=== PATIENT | male | born 1960 | race Caucasian/White ===

== ENCOUNTER 2020-10-27 14:52 | Outpatient (RCR) | payer OTHER, SELFPAY ==
[2016-01-17 19:29] VITALS: BMI 29.6
[2020-10-27] MEDS: COVID-19 VACC, MRNA(PFIZER)/PF 30 MCG/0.3 ML SYRINGE IM (14:44)
[2020-11-17] MEDS: COVID-19 VACC, MRNA(PFIZER)/PF 30 MCG/0.3 ML SYRINGE IM (14:18)
== END 2020-10-27 23:59 ==
LOC: IMMUN 14:52
PROVIDERS: PCP Preventive Medicine Occupational Medicine; Referring Provider Family Medicine; Visit Provider Family Medicine
DX: Z23 Encounter for immunization (principal)
CPT/HCPCS: 0001A; 0002A; 91300

== ENCOUNTER → 2023-07-07 | Outpatient (CLI) | payer SELFPAY | END | disposition home or self-care (01) | PROVIDERS: PCP Preventive Medicine Occupational Medicine; Referring Provider Otolaryngology Otolaryngology/Facial Plastic Surgery; Visit Provider Otolaryngology Otolaryngology/Facial Plastic Surgery | DX: J02.9 Acute pharyngitis, unspecified (principal) | CPT/HCPCS: 87070 ==

== ENCOUNTER 2025-03-21 08:23 | Emergency (ER) | payer OTHER, SELFPAY ==
[2025-03-21 08:23] VITALS: BP 167/87; PULSE 77; RESP 14; TEMP 36.6; O2SAT 98; BMI 33.7
--- NOTE | 2025-03-21 08:37 | EKG12_ITS ---
Test Reason : CP Blood Pressure : */* mmHG Vent. Rate : 76 BPM Atrial Rate : 76 BPM P-R Int : 200 ms QRS Dur : 98 ms QT Int : 410 ms P-R-T Axes : 50 -33 67 degrees QTcB Int : 461 ms Normal sinus rhythm Left axis deviation Left ventricular hypertrophy with repolarization abnormality ( R in aVL , Kenneth product ) Abnormal ECG Confirmed by Reji Harden [id number]), editor continuity and script BRISA SCHMITZ ([id number]) on 03/22/2025 11:40:14 AM Referred By: ANI/BB Confirmed By: Reji Harden
--- NOTE | 2025-03-21 08:37 | EKG12_ITS ---
Test Reason : CP Blood Pressure : */* mmHG Vent. Rate : 76 BPM Atrial Rate : 76 BPM P-R Int : 200 ms QRS Dur : 98 ms QT Int : 410 ms P-R-T Axes : 50 -33 67 degrees QTcB Int : 461 ms Normal sinus rhythm Left axis deviation Left ventricular hypertrophy with repolarization abnormality ( R in aVL , Kenneth product ) Abnormal ECG Confirmed by Reji Harden ([id number]), science editor BRISA SCHMITZ ([id number]) on 03/22/2025 11:40:14 AM Referred By: ANI/BB Confirmed By: Reji Harden
--- NOTE | 2025-03-21 08:38 | ED.VIS.CHEST ---
HPI History of Present Illness Chief Complaint: Chest Pain Detail of Chief Complaint: Chest tightness Informant: patient Onset/Context/Timing Onset: Today and Yesterday Activity at onset: - (Patient does not know exactly what what time it started.) Timing: Continuous (Presumed, detailed HPI narrative) Quality: Positive for Pressure and Tightness Location: Substernal Current Severity: Mild Maximum Severity: Mild Worsened By: Nothing Relieved By: Nothing Associated Symptoms: Positive for - (Does not radiate.); Negative for Nausea, Vomiting, Diaphoresis, Dyspnea, Cough, Lightheadedness, Acid Reflux or Palpitations Narrative Narrative: Patient is a 64-year-old male with history of coronary disease. He has 1 stent in his RCA and another stent in unknown vessel. He had cardiac catheterization and PTCA performed at [facility] in January and February 2024. He does have a history of hypercholesterolemia, GERD. He is on aspirin and Plavix. He has taken his doses within the last 24 hours. Patient states yesterday he noticed some chest tightness. This is slightly better with breathing. There is no associated symptoms. There is no radiation. Patient states upon awakening he still felt the tightness in his chest. It was worse than yesterday. He states he presented to have a EKG to see if there was any abnormality. Patient does not believe he had an EKG at [facility]. The wet crown blocking operator that placed the stents was Dr. Meza. Patient has no history of VTE. He denies leg pain, swelling or discoloration. Patient sleeps with 2 pillows for comfort not because of dyspnea in supine position. Patient denies PND. He has never had discomfort with his GERD. Prior Similar Symptoms: No Recent Illness/Hospitalization: No CVD Risk Factors: Positive for Hypercholesterolemia and - (Coronary disease with stent in his RCA and unknown vessel.) PE Risk Factors: Negative for Recent Travel/Surgery, Recent Immobilization, Prior DVT or PE, Cancer or OCP + Smoking + >/=35 TAD Risk Factors: Negative for Marfan's Syndrome, Hypertension or Family History [facility] Medical History Umbilical hernia High cholesterol Heart murmur Arthritis Back problem Heart disease Home Medications ?Medication ?Instructions ?Recorded ?Last Taken ?Type antiarthritic combination no.2 900 900 mg PO DAILY 03/21/25 03/21/25 History mg tablet (glucosamine-chondroitin) aspirin 81 mg tablet,delayed 81 mg PO QDAY 03/21/25 03/20/25 History release atorvastatin 40 mg tablet 40 mg PO QDAY 03/21/25 03/20/25 History clopidogrel 75 mg tablet 75 mg PO QDAY 03/21/25 03/20/25 History evolocumab 140 mg/mL subcutaneous 140 mg subcut .COMPLEX 03/21/25 03/11/25 History pen injector (Repatha SureClick) famotidine 40 mg tablet 40 mg PO QHS 03/21/25 03/20/25 History metoprolol succinate 25 mg 25 mg PO BID 03/21/25 03/20/25 History tablet,extended release 24 hr pantoprazole 40 mg tablet,delayed 40 mg PO DAILY PRN abdominal pain 03/21/25 03/21/25 History release sildenafil 100 mg tablet 50 - 100 mg PO QDAY 03/21/25 Unknown History Allergy/AdvReac Type Severity Reaction Status Date / Time celecoxib (From Celebrex) Allergy UNKNOWN Verified 03/21/25 08:24 Penicillins Allergy Unknown Verified 03/21/25 08:17 Family History Father Heart disease Cancer esophageal Surgical History S/P carotid endarterectomy S/P spinal surgery S/P aortic valve replacement S/P vasectomy History of heart artery stent Social History Smoking Status: Former smoker alcohol intake: current ROS ROS ED Constitutional Constitutional ED: Denies chills, fever(s), subjective or sweats Eyes Eyes: Reports none ENT ENT ED: Denies ear pain or rhinorrhea Cardiovascular Cardiovascular: Reports as per HPI; Denies orthopnea or paroxysmal nocturnal dyspnea Respiratory/Chest Respiratory/Chest: Denies cough, dyspnea, dyspnea on exertion, orthopnea or paroxysmal nocturnal dyspnea Gastrointestinal Gastrointestinal: Denies abdominal pain, melena, nausea or vomiting Musculoskeletal Musculoskeletal: Denies arthralgias, back pain or myalgias Integumentary Denies rash Neurologic Neurologic: Denies paresthesias Hematologic/Lymphatic Hematologic/Lymphatic: Denies easy bleeding or easy bruising EXAM Physical Exam Const Vital Signs: 03/21/25 08:23 03/21/25 08:42 03/21/25 09:23 Temperature 98 F Temperature Source Temporal Pulse Rate 77 71 Respiratory Rate 14 18 Blood Pressure 167/87 H 150/82 H Blood Pressure Mean 113 104 Pulse Ox 98 98 Oxygen Delivery Method Room Air Room Air Room Air 03/21/25 10:00 03/21/25 11:00 Temperature Temperature Source Pulse Rate 69 67 Respiratory Rate 16 15 Blood Pressure 152/85 H 117/70 Blood Pressure Mean 107 85 Pulse Ox 98 98 Oxygen Delivery Method Positive well nourished and well developed Constitutional Narrative: BMI is 33.8. General Appearance ED: well developed and NAD; Negative for pallor HEENT Reports moist mucous membranes normocephalic and atraumatic Eyes PERRL and EOMs intact bilaterally Neck no lymphadenopathy and no JVD Resp normal respiratory effort and clear to auscultation bilaterally Cardio regular rate, regular rhythm, S1 normal heart sound, S2 normal heart sound and no murmurs GI normal to inspection, nondistended, normoactive bowel sounds, soft to palpation, non-tender, non-distended and no masses; Negative for hepatosplenomegaly Back/Spine Back/Spine Narrative: Inspection of the back is normal. Extremity Extremity Narrative: There is no asymmetry, swelling, discoloration, leg vein distention, palpable cords or tenderness along the distribution of the deep venous system. General Extremety ED: Negative for edema or pulses abnormal General Extremity: Negative for edema or pulses abnormal Neuro oriented x3 and CN's II-XII intact bilaterally Sensorium / Orientation: awake and alert Psych mental status grossly normal Skin no rashes or lesions noted and no wounds General Skin Exam: Negative for jaundice or pallor MDM MDM MDM Narrative Medical decision making narrative: Differential diagnosis is cardiac versus noncardiac. Noncardiac would include GERD, peptic ulcer disease hiatal hernia, pulmonary, chest pain of unknown etiology, biliary which is unlikely. Will obtain EKG serial troponins. CBC to assess H&H. BMP to assess renal function. Patient has taken aspirin and Plavix within the past 24 hours. Since he still having tightness in his chest he received nitroglycerin. There are no old EKGs. Corsets Salesperson was asked to obtain EKGs from [facility] for comparison since his EKG is not normal. Chest x-ray was obtained to assess for pneumonia, CHF, pneumothorax. These are unlikely. History & Record Review Additional record(s) reviewed:: Prior outpatient record (Patient had cardiac catheterization by Dr. Rodriguez February 09, 2024. He had percutaneous intervention mid LAD. There was 75% stenosis. Interventional IVUS stent placement and balloon angioplasty. January 14 Dr. Meza placed a stent proximal right coronary artery. Patient had a 95% stenosis.) Lab Data Attestation: I reviewed the patient's lab results. Lab results narrative: CBC is unremarkable. Electrolyte panel is unremarkable. The glucose is slightly elevated 123 with a normal CO2 anion gap. First troponin is elevated at 25. Labs: Laboratory Results - last 24 hr 03/21/25 03/21/25 08:31 10:35 WBC 7.0 RBC 4.60 Hgb 14.6 Hct 43.8 MCV 95.2 H MCH 31.7 MCHC 33.3 RDW Std Deviation 42.0 RDW Coeff of Victor M 12.1 Plt Count 170 MPV 10.2 Immature Gran % (Auto) 0.300 Neut % (Auto) 48.2 Lymph % (Auto) 35.3 [place] % (Auto) 11.8 H Eos % (Auto) 3.3 Baso % (Auto) 1.1 H Absolute Neuts (auto) 3.4 Absolute Lymphs (auto) 2.48 Nucleated RBC % 0 Sodium 141 Potassium 3.7 Chloride 106 Carbon Dioxide 22.2 Anion Gap 12 BUN 13 Creatinine 0.96 Estim Creat Clear Calc 97.59 Est GFR (MDRD) Non-Af 89 BUN/Creatinine Ratio 13.3 Glucose 123 H Calcium 9.6 Troponin T High Sens 25 H Troponin T Hi Sens 2 Hr 22 Radiography Chest X-Ray - ED: 2 View (Cardiac silhouette and size normal hilum is normal. There is no infiltrate, effusion or pneumothorax. Osseous structures with no acute process.) Diagnostic Testing: Clinical Impression(s) from Imaging Studies Chest X-Ray 03/21/25 08:50 IMPRESSION: NO ACUTE FINDINGS. Reading Location: [facility] EKG Initial EKG: Attestation: I personally reviewed and interpreted this EKG as follows: Interpretation: Sinus Rhythm (Rate is 76. [place] is to the left. [place] interval is 200 ms. QRS duration 90 ms. QT duration 4 and 10 ms. There is evidence of LVH. There is some nonseptic ST-T wave changes probably due to the LVH.) Management Discussion w/another healthcare provider: Department Director (Dr. Siegel was contacted regarding other patient. Spoke to him regarding Reji prior to second troponin. Plan was if second troponin is negative or delta is negative that he can follow-up as an outpatient. The second troponin is normal with a negative delta. Therefore patient was informed to fo) Additional Tests and Interventions Additional Tests or Interventions: Cath report there was performed on February 09, 2024 revealed 6% stenosis of the the first diagonal proximally. There also was a proximal 70% stenosis noted of the first right posterior lateral vessel. Discharge Plan Triage Chief Complaint: Chest Pain ED Provider: Jose Angel Wilkerson Dx/Rx/DC Orders Clinical Impression: Chest tightness, History of coronary artery disease, Antiplatelet or antithrombotic long-term use, History of mixed hyperlipidemia, Hx of gastroesophageal reflux (GERD) Instructions: ED Chest Pain, Uncertain Cause Prescriptions: No Action Repatha SureClick 140 mg/mL pen injector 140 mg subcut .COMPLEX Patient Comments: INJECT 140 MG SUBCUTANEOUS EVERY 2 WEEKS FOR 90 DAYS ROTATE INJECTION SITES Rx Instructions: 140 mg subcutaneously q2w; pantoprazole 40 mg tablet,delayed release (DR/EC) 40 mg PO DAILY PRN (Reason: abdominal pain) sildenafil 100 mg tablet 50 - 100 mg PO QDAY metoprolol succinate 25 mg tablet extended release 24 hr 25 mg PO BID famotidine 40 mg tablet 40 mg PO QHS clopidogrel 75 mg tablet 75 mg PO QDAY atorvastatin 40 mg tablet 40 mg PO QDAY aspirin 81 mg tablet,delayed release (DR/EC) 81 mg PO QDAY glucosamine-chondroitin 900 mg tablet 900 mg PO DAILY Primary Care Provider: MICHELLE MAYER Referrals: Garrett Landeros DO [Non-Staff] - 1 Week Activity Restrictions/Additional Instructions: Contact your wet crown blocking operator for follow-up Print Language: Hebrew Disposition Disposition: Home, Self Care
--- NOTE | 2025-03-21 08:50 | RAD_ITS ---
PROCEDURE: CHEST PA AND LATERAL 03/21/2025 REASON FOR EXAM: CHEST PAIN TECHNIQUE: CHEST PA AND LATERAL COMPARISON: None FINDINGS: Hardware: EKG electrodes are seen. Heart: Prior midline sternotomy. Mediastinum: The mediastinal contour is unremarkable. Lungs: The lungs are clear. Bones: The bones are unremarkable. Prior fusion of the lower cervical spine. RAD/Chest PA and Lateral IMPRESSION: NO ACUTE FINDINGS. Reading Location: [facility]-
--- NOTE | 2025-03-21 08:50 | RAD_ITS ---
PROCEDURE: CHEST PA AND LATERAL 03/21/2025 REASON FOR EXAM: CHEST PAIN TECHNIQUE: CHEST PA AND LATERAL COMPARISON: None FINDINGS: Hardware: EKG electrodes are seen. Heart: Prior midline sternotomy. Mediastinum: The mediastinal contour is unremarkable. Lungs: The lungs are clear. Bones: The bones are unremarkable. Prior fusion of the lower cervical spine. RAD/Chest PA and Lateral IMPRESSION: NO ACUTE FINDINGS. Reading Location: [facility]
[2025-03-21 08:53] LABS: Hematocrit 43.8 % (40-54); Hemoglobin 14.6 g/dL (13.0-16.5); Immature Granulocytes Count 0.020 X10^3/uL (0.0-0.0); Mean Corp Hgb Conc 33.3 g/dL (32-36); Mean Corpuscular Volume 95.2 fL (80-94); Mean Platelet Vol. 10.2 fl (6.2-12.0); NRBC Flagged by Analyzer 0 % (0-5); Platelet Count 170 K/mm3 (150-450); RBC Distribution Width CV 12.1 % (11.6-14.6); RBC Distribution Width SD 42.0 fl (35.1-43.9); Red Blood Count 4.60 M/mm3 (4.6-6.2); White Blood Count 7.0 K/mm3 (4.4-11.0)
[2025-03-21 09:16] LABS: Anion Gap 12 (5-15); BUN 13 mg/dL (4-19); BUN/Creat Ratio 13.3 RATIO (10-20); Calcium,Total 9.6 mg/dL (7.6-11.0); Carbon Dioxide 22.2 mmol/L (21.0-32.0); Chloride 106 mmol/L (98-108); Estimated Creatinine Clearance 97.59 ml/min (50-250); Glucose 123 mg/dL (70-99); Potassium 3.7 mmol/L (3.3-5.1); Troponin T High Sensitivity 25 ng/L (<=22)
[2025-03-21 09:23] VITALS: BP 150/82; PULSE 71; RESP 18; O2SAT 98
--- OUTSIDE RECORDS SUMMARY | 2025-03-21 09:44 | XMS RPT_ITS | CCD ---
Author Organization [facility] CliniSymt Care Team Providers Care Automation And Control Engineer Name Role Phone ELIAS GALVAN DO Primary Care Physician [phone] Mehul Damon Referring Unavailable Mehul Damon Attending Unavailable Elias Galvan Primary Care Unavailable POLA CHAVARRIA MD Attending Unavailable ELIAS GALVAN DO Primary Care Unavailable STELLA GARCÍA MD Attending Unavailable ELIAS GALVAN DO Primary Care Unavailable ELIAS GALVAN DO Primary Care Unavailable MCKINLEY BAY, MICHELLE Attending Unavailable STELLA GARCÍA MD Attending Unavailable ELIAS GALVAN DO Primary Care Unavailable CHARLIE KOEHLER Attending Unavailab darline GALVAN DO, ELIAS Primary Care Unavailable DR DARCI AZEVEDO MD Attending Unavailab ELIAS Hoffmann DO Primary Care Unavailable STELLA GARCÍA MD Attending Unavailable ELIAS GALVAN DO Primary Care Unavailable STELLA GARCÍA MD Attending Unavailable ELIAS GALVAN DO Primary Care Unavailable STELLA GARCÍA MD Admitting Unavailable TIFFANY WESLEY Consulting Unavailable JAKE CORMIER MD Consulting UnavailSTELLA Rivers MD Consulting Unavailable DR ANTONINA MALHOTRA MD Admitting DR ANTONINA Loza MD Attending ELIAS Farmer DO Primary Care Unavailable ELIAS GALVAN DO Attending Unavailable ELIAS GALVAN DO Primary Care Unavailable ELIAS GALVAN DO Primary Care Unavailable ELIAS GALVAN DO Attending Unavailable Dr. Elias Galvan DO Primary Care Provider [phone] Dr. Elias Galvan DO Referring Provider Guido AGARWAL, Dr. Garcia Attending Provider Allergies Allergy Classification Reported Allergen(s) Allergy Type Date of Onset Reaction(s) Facility (18 sources) celecoxib; Translations: [celecoxib] Drug Allergy unknown [facility] (18 sources) Penicillin; Translations: [penicillins] Drug Allergy Unknown [facility] (2 sources) Penicillins Allergy to substance 01-17-2016 Unknown [facility] (1 source) Penicillins Drug allergy (disorder) 01-17-2016 [facility] Repository Medications Current Medications Medication Drug Class(es) Dates Sig (Normalized) Sig (Original) aspirin 81 mg delayed release oral tablet (20 sources) Platelet Aggregation Inhibitor, Nonsteroidal Anti-inflammatory Drug Start: 07-06-2024 aspirin 81 mg oral delayed release tablet Dose : 81 mg = 1 tab(s), Oral, Daily, # 90 tab(s), 5 Refill(s), Pharmacy: [facility]/pharmacy #[id number], 177.8, cm, 04/20/24 9:12:00 EDT, Height, kg, 04/20/24 9:12:00 EDT, Dosing Weight Start Date: 07/06/24 Status: Ordered Quantity: 90.0 Unit: tab(s) Repeat number: 6 Start: 01-12-2024 aspirin 81 mg oral delayed release tablet Dose : 81 mg = 1 tab(s), Oral, Daily, # 90 tab(s), 5 Refill(s), Pharmacy: [facility] #[id number], 177.8, cm, 01/12/24 8:36:00 EDT, Height, kg, 01/12/24 8:36:00 EDT, Dosing Weight Start Date: 01/12/24 Status: Ordered Start: 11-16-2016 aspirin 325 mg oral tablet Dose : 325 mg = 1 tab(s), Oral, qHS Start Date: 11/16/16 Status: Ordered Start: 01-17-2016 take 1 tablet by stacey th once daily Aspirin 325 MG tablet Active 325 mg PO DAILY@0800 January 17, 2016 12:00am atorvastatin 40 mg oral tablet (6 sources) HMG-CoA Reductase Inhibitor Start: 07-06-2024 atorvastatin 40 mg oral tablet Dose : 40 mg = 1 tab(s), Oral, qDay, # 90 tab(s), 3 Refill(s), Pharmacy: [facility]/pharmacy #[id number], 177.8, cm, 04/20/24 9:12:00 EDT, Height, kg, 04/20/24 9:12:00 EDT, Dosing Weight Start Date: 07/06/24 Status: Ordered Quantity: 90.0 Unit: tab(s) Repeat number: 4 Start: 01-06-2024 atorvastatin 4 0 mg oral tablet Dose : 40 mg = 1 tab(s), Oral, qDay, # 30 tab(s), 2 Refill(s), Pharmacy: [email or web address] #[id number], 178, cm, 01/06/24 10:15:00 EDT, Height, kg, 01/06/24 10:15:00 EDT, Dosing Weight Start Date: 01/06/24 Status: Ordered azithromycin 250 mg oral tablet (3 sources) Macrolide Antimicrobial Start: 01-17-2016 take 1 tablet by mouth once daily Azithromycin 250 MG tablet Active 250 mg PO DAILY 4 0 January 17, 2016 12:00am Chondroitin Sulfates / Glucosamine (1 source) Start: 07-10-2023 take 1 capsule by mouth once daily in the morning Glucosamine Chondroitin oral capsule Dose = 2 cap(s), Oral, qAM, # 50 cap(s), 0 Refill(s) Start Date: 07/10/23 Status: Ordered clindamycin 150 mg oral capsule (1 source) Lincosamide Antibacterial Start: 03-26-2022 take 4 capsules by mouth every hour clindamycin 150 mg oral capsule take 4 capsules by mouth 1 hour prior to appointment Start Date: 03/26/22 Status: Ordered clopidogrel 75 mg oral tablet (10 sources) [id number] Platelet Inhibitor Start: 07-06-2024 Plavix 75 mg oral tablet Dose : 75 mg = 1 tab(s), Oral, qDay, # 90 tab(s), 3 Refill(s), Pharmacy: [facility]/pharmacy #[id number], 177.8, cm, 04/20/24 9:12:00 EDT, Height, kg, 04/20/24 9:12:00 EDT, Dosing Weight Start Date: 07/06/24 Status: Ordered Quantity: 90.0 Unit: tab(s) Repeat number: 4 Start: 01-12-2024 Plavix 75 mg o ral tablet Dose : 75 mg = 1 tab(s), Oral, qDay, # 90 tab(s), 11 Refill(s), Pharmacy: [email or web address] #[id number], 177.8, cm, 01/12/24 8:36:00 EDT, Height, kg, 01/12/24 8:36:00 EDT, Dosing Weight Start Date: 01/12/24 Status: Ordered Start: 10-10-2022 Plavix 75 mg o ral tablet Dose : 75 mg = 1 tab(s), Oral, qDay, # 30 tab(s), 0 Refill(s) Start Date: 10/10/22 Status: Ordered 1 ml evolocumab 140 mg/ml auto-injector (2 sources) PCSK9 Inhibitor Start: 08-18-2024 inject 1 dose by subcutaneous injection every other week Repatha SureClick 140 mg/mL subcutaneous solution Dose : 140 mg =, Subcutaneous, q2wk, rotate injection sites, # 2 EA, 11 Refill(s), [id number], Hyperlipidemia, 177.5, cm, 08/18/24 8:04:00 EST, Height, kg, 08/18/24 8:04:00 EST, Dosing Weight Start Date: 08/18/24 Status: Ordered Quantity: 2.0 Unit: EA Repeat number: 12 Indication: Hyperlipidemia, unspecified famotidine 40 mg oral tablet (3 sources) Histamine-2 Receptor Antagonist Start: 07-28-2024 Pepcid 40 mg oral tablet Dose : 40 mg = 1 tab(s), Oral, qHS, # 90 tab(s), 1 Refill(s), Pharmacy: [facility]/pharmacy #[id number], 177.8, cm, 04/20/24 9:12:00 EDT, Height, kg, 04/20/24 9:12:00 EDT, Dosing Weight Start Date: 07/28/24 Status: Ordered Quantity: 90.0 Unit: tab(s) Repeat number: 2 Start: 02-09-2024 Pepcid 40 mg o ral tablet Dose : 40 mg = 1 tab(s), Oral, qHS, # 90 tab(s), 1 Refill(s), Pharmacy: [facility] #[id number], 177.8, cm, 02/07/24 22:01:00 EDT, Height, kg, 02/07/24 22:01:00 EDT, Dosing Weight Start Date: 02/09/24 Status: Ordered Fish Oils (1 source) Start: 07-10-2023 [place]-3 Fish O il 1200 mg oral capsule Dose : 1,200 mg = 1 cap(s), Oral, BID, # 60 cap(s), 0 Refill(s) Start Date: 07/10/23 Status: Ordered 24 hr metoprolol succinate 25 mg extended release oral tablet (8 sources) beta-Adrenergic Karin Start: 08-18-2024 metoprolol succinate 25 mg oral TABLET extended release Dose : 25 mg = 1 tab(s), Oral, BID, # 180 tab(s), 3 Refill(s), Pharmacy: [facility]/pharmacy #[id number], 177.5, cm, 08/18/24 8:04:00 EST, Height, kg, 08/18/24 8:04:00 EST, Dosing Weight Start Date: 08/18/24 Status: Ordered Quantity: 180.0 Unit: tab(s) Repeat number: 4 Start: 02-09-2024 metoprolol suc cinate 25 mg oral TABLET extended release Dose : 25 mg = 1 tab(s), Oral, BID, 0 Refill(s) Start Date: 02/09/24 Status: Ordered Start: 02-09-2024 End: 02-09-2024 metoprolol succinate 25 mg o ral TABLET extended release Start: 02/09/24 11:13:00 AM EDT, Dose = 25 mg, = 1 tab(s), Oral, give with food, 0, 02/09/24 11:13:00 EDT Start Date: 02/09/24 Stop Date: 02/09/24 Status: Completed Start: 02-08-2024 End: 02-08-2024 metoprolol succinate 25 mg o ral TABLET extended release Start: 02/08/24 10:00:00 PM EDT, Dose = 25 mg, = 1 tab(s), Oral, give with food, 0, 02/07/24 23:48:00 EDT Start Date: 02/08/24 Stop Date: 02/08/24 Status: Completed Start: 01-06-2024 metoprolol suc cinate 25 mg oral TABLET extended release Dose : 25 mg = 1 tab(s), Oral, qDay, Do not crush or chew (controlled release), # 30 tab(s), 1 Refill(s), Pharmacy: [facility] #[id number], 178, cm, 01/06/24 10:15:00 EDT, Height, kg, 01/06/24 10:15:00 EDT, Dosing Weight Start Date: 01/06/24 Status: Ordered Multiple Vitamins oral capsule (1 source) Start: 07-10-2023 Multiple Vitamins oral capsule Dose = 1 cap(s), Oral, 12 (noon), # 90 cap(s), 0 Refill(s) Start Date: 07/10/23 Status: Ordered Multivitamin preparation (2 sources) Start: 02-18-2024 take 1 tablet by mouth once daily Multivitamin Dose = 1 tab(s), Oral, Daily, 0 Refill(s) Start Date: 02/18/24 Status: Ordered Repeat number: 1 mupirocin 0.02 mg/mg topical ointment (2 sources) RNA Synthetase Inhibitor Antibacterial Start: 07-24-2022 mupirocin 2% topical ointment Apply 1 rafael, Topical, BID, Bilateral intranasal application twice daily for 5 days prior to surgery &/or as many days leading up to surgery as possible due to surgical urgency/scheduling . Send to patient's preferred pharmacy., Apply to: nostril, each,... Start Date: 07/24/22 Status: Ordered naproxen 500 mg delayed release oral tablet (3 sources) Nonsteroidal Anti-inflammatory Drug Start: 07-17-2022 End: 10-15-2022 naproxen 500 mg oral delayed release tablet Dose : 500 mg = 1 tab(s), Oral, BID, PRN Pain, X 30 day(s), # 60 tab(s), 2 Refill(s), 10/15/22 11:16:00 EST, Pharmacy: [facility] #[id number], Medial collateral ligament sprain of knee, 178, cm, 07/17/22 10:32:00 EST, Height Start Date: 07/17/22 Stop Date: 10/15/22 Status: Ordered nitroglycerin 0.4 mg sublingual tablet (3 sources) Nitrate Vasodilator Start: 02-09-2024 nitroglycerin 0.4 mg sublingual tablet 0.4 mg Dose = 1 tab(s), Sublingual, q5min, PRN Chest pain, # 30 tab(s), 0 Refill(s), Pharmacy: [facility] #[id number], 177.8, cm, 02/07/24 22:01:00 EDT, Height, kg, 02/07/24 22:01:00 EDT, Dosing Weight Start Date: 02/09/24 Status: Ordered Quantity: 30.0 Unit: tab(s) Repeat number: 1 omeprazole 20 mg delayed release oral capsule (16 sources) Proton Pump Inhibitor Start: 01-17-2016 End: 01-24-2024 take 1 capsule by mouth once daily Omeprazole 20 MG capsule Active 20 mg PO DAILY January 17, 2016 12:00am pantoprazole 40 mg delayed release oral tablet (3 sources) Proton Pump Inhibitor Start: 05-07-2024 Protonix 40 mg oral enteric coated tablet Dose : 40 mg = 1 tab(s), Oral, qDay, PRN abdominal discomfort, # 90 tab(s), 3 Refill(s), Pharmacy: [facility]/pharmacy #[id number], 177.8, cm, 04/20/24 9:12:00 EDT, Height, kg, 04/20/24 9:12:00 EDT, Dosing Weight Start Date: 05/07/24 Status: Ordered Quantity: 90.0 Unit: tab(s) Repeat number: 4 Start: 02-09-2024 Protonix 40 mg oral enteric coated tablet Dose : 40 mg = 1 tab(s), Oral, AsDirected, PRN abdominal discomfort, # 30 tab(s), 0 Refill(s), Pharmacy: [email or web address] #[id number], 177.8, cm, 02/07/24 22:01:00 EDT, Height, kg, 02/07/24 22:01:00 EDT, Dosing Weight Start Date: 02/09/24 Status: Ordered sildenafil 100 mg oral tablet (2 sources) Phosphodiesterase 5 Inhibitor Start: 08-18-2024 take 0.5-1 tablets by mouth once daily sildenafil 100 mg oral tablet 0.5 to 1 tab(s), Oral, qDay, 1 hour before sexual activity, # 10 tab(s), 3 Refill(s), Pharmacy: [facility]/pharmacy #[id number], Erectile dysfunction, 177.5, cm, 08/18/24 8:04:00 EST, Height, kg, 08/18/24 8:04:00 EST, Dosing Weight Start Date: 08/18/24 Status: Ordered Quantity: 10.0 Unit: tab(s) Repeat number: 4 Indication: Male erectile dysfunction, unspecified tamsulosin hydrochloride 0.4 mg oral capsule (2 sources) alpha-Adrenergic Karin Start: 08-18-2024 tamsulosin 0.4 mg oral capsule Dose : 0.4 mg = 1 cap(s), Oral, qDay, 30 minutes after the same meal, # 90 cap(s), 0 Refill(s), Pharmacy: [facility]/pharmacy #[id number], BPH with urinary obstruction, 177.5, cm, 08/18/24 8:04:00 EST, Height, kg, 08/18/24 8:04:00 EST, Dosing Weight Start Date: 08/18/24 Status: Ordered Quantity: 90.0 Unit: cap(s) Repeat number: 1 Indication: Benign prostatic hyperplasia with lower urinary tract symptoms Vitamin B Complex oral capsule (1 source) Start: 07-10-2023 take 1 capsule by mouth once daily Vitamin B Complex oral capsule Dose = 1 cap(s), Oral, qDay, # 30 cap(s), 0 Refill(s) Start Date: 07/10/23 Status: Ordered Completed/Discontinued Medications Medication Drug Class(es) Dates Sig (Normalized) Sig (Original) ipratropium bromide 0.042 mg/actuat metered dose nasal spray (2 sources) Anticholinergic Start: 07-10-2023 take 2 spray(s) nasal route three times daily ipratropium 42 mcg/inh (0.06%) nasal spray 84 mcg Dose = 2 spray(s), Nasal, TID, instill 2 sprays into each nostril three times a day Start Date: 07/10/23 Status: Ordered Labetalol (1 source) beta-Adrenergic Karin Start: 02-08-2024 End: 02-08-2024 labetalol Start: 02/08/24 11:15:00 PM EDT, Dose = 5 mg, = 1 mL, IV Push, Once, Stop: 02/08/24 11:14:42 PM EDT, 02/08/24 23:02:00 EDT Start Date: 02/08/24 Stop Date: 02/08/24 Status: Completed Problems Problem Classification Problem Date Documented Date Episodic/Chronic Coronary atherosclerosis and other heart disease (3 sources) Unstable angina co-occurrent and due to coronary arteriosclerosis; Translations: [Atherosclerotic heart disease of [place] coronary artery with unstable angina pectoris] Chronic Disorders of lipid metabolism (2 sources) Hyperlipidemia 08-18-2024 Chronic Esophageal disorders (1 source) Gastroesophageal reflux disease without esophagitis; Translations: [Gastro-esophageal reflux disease without esophagitis] Chronic Essential hypertension (2 sources) Hypertensive disorder 08-18-2024 Chronic Genitourinary symptoms and ill-defined conditions (2 sources) Poor stream of urine 08-18-2024 Episodic Heart valve disorders (20 sources) History of aortic valve replacement; Translations: [Mitral valve prolapse] 10-23-2020 Chronic Nonspecific chest pain (1 source) Chest pain; Translations: [Chest pain, unspecified] Onset: 02-07-2024 Episodic Occlusion or stenosis of precerebral arteries (2 sources) Carotid artery occlusion; Translations: [Occlusion and stenosis of right carotid artery] Chronic Other and ill-defined heart disease (12 sources) Left ventricular hypertrophy 10-23-2022 Chronic Other and ill-defined heart disease (1 source) Cardiomegaly; Translations: [Cardiomegaly] Chronic Other circulatory disease (1 source) History of peripheral vascular angioplasty; Translations: [Peripheral vascular angioplasty status with implants and grafts] Chronic Other connective tissue disease (10 sources) H/O: arthrodesis 01-28-2023 Episodic Other male genital disorders (2 sources) Impotence 08-18-2024 Chronic Other nervous system disorders (10 sources) Peripheral nerve disease 01-29-2023 Chronic Other non-traumatic joint disorders (10 sources) Knee pain 01-29-2023 Episodic Other screening for suspected conditions (not mental disorders or infectious disease) (19 sources) Enlarged aortic root; Translations: [Raised prostate specific antigen] 10-23-2020 Episodic Other upper respiratory infections (1 source) Acute pharyngitis, unspecified; Translations: [Acute pharyngitis, unspecified] Onset: 07-11-2023 Episodic Peripheral and visceral atherosclerosis (1 source) Peripheral vascular disease; Translations: [Peripheral vascular disease, unspecified] Chronic Residual codes; unclassified (18 sources) H/O cardiac surgery 11-16-2016 Episodic Screening and history of mental health and substance abuse codes (1 source) H/O: Disorder; Translations: [Personal history of nicotine dependence] Episodic Spondylosis; intervertebral disc disorders; other back problems (11 sources) Other spondylosis with radiculopathy, cervical region; Translations: [Radiculopathy due to cervical spondylosis] Onset: 08-07-2022 Chronic Spondylosis; intervertebral disc disorders; other back problems (20 sources) Brachial radiculitis; Translations: [Pain in cervical spine] Onset: 08-07-2022 05-15-2022 Episodic Comment on above: right Unclassified (7 sources) Patient encounter status 07-17-2022 Unclassified (13 sources) Sprain of medial collateral ligament of right knee joint 07-17-2022 Unclassified (10 sources) History of SARS-CoV-2 01-29-2023 Viral infection (12 sources) Disease caused by 2019-nCoV Onset: 10-09-2022 10-17-2022 Comment on above: not hospitalized mil d symptoms Results Test Name Value Interpretation Reference Range Facility PSAFon 09-11-2024 % Free PSA 25.5 % Normal [facility] Comment on above: Result Comment: The table below lists the probability of prostate cancer for men with non-suspicious DESTINEE results and total PSA between 4 and 10 ng/mL, by patient age (Jorge et al, RAMONA 1998, [id number]). % Free PSA 50-64 yr 65-75 yr 0.00-10.00% 56% 55% 10.01-15.00% 24% 35% 15.01-20.00% 17% 23% 20.01-25.00% 10% 20% >25.00% 5% 9% Please note: Jroge et al did not make specific recommendations regarding the use of percent free PSA for any other population of men. Performed At: [facility] [address] [place] [address] [id number] Diallo Aguillon PhD Ph:[phone] Performed By: #### [id number] #### [address] [address] PSA Free 1.07 ng/mL Normal N/A [facility] Comment on above: Result Comment: Missy VALENZUELA methodology. Performed By: #### [id number] #### [address] [address] LABORATORYOrdered By: SYSTEM SYSTEM on 08-18-2024 Prostate specific Ag [Mass/Vol] 6.00 ng/mL High 0.00 - 4.00 ng/mL AO ADM SS PSAon 08-18-2024 Prostate Specific Antigen 6.00 ng/mL High 0.00-4.00 [facility] Comment on above: Performed By: #### P SA #### [address] [address] .Auto Diffon 02-09-2024 Basophil, Absolute 0.0 10 3/mcL Normal 0.0-0.3 [facility] ([place]) Comment on above: Performed By: #### G FR, ANEU, ADIFF, TROPHS, CBC, MDW, BMP #### [address] [address] Basophils/100 WBC (Bld) 0.5 % Normal 0.0-2.5 [facility] ([place]) Comment on above: Performed By: #### G FR, ANEU, ADIFF, TROPHS, CBC, MDW, BMP #### [address] [address] Eosinophil, Absolute 0.2 10 3/mcL Normal 0.0-0.7 [facility] ([place]) Comment on above: Performed By: #### G FR, ANEU, ADIFF, TROPHS, CBC, MDW, BMP #### [address] [address] Eosinophils/100 WBC (Bld) 3.3 % Normal 0.0-6.0 [facility] ([place]) Comment on above: Performed By: #### G FR, ANEU, ADIFF, TROPHS, CBC, MDW, BMP #### [address] [address] Lymphocyte, Absolute 1.8 10 3/mcL Normal 0.9-4.3 [facility] ([place]) Comment on above: Performed By: #### G FR, ANEU, ADIFF, TROPHS, CBC, MDW, BMP #### [address] [address] Lymphocytes/100 WBC (Bld) 30.5 % Normal 20.0-40.0 [facility] ([place]) Comment on above: Performed By: #### G FR, ANEU, ADIFF, TROPHS, CBC, AMY, BMP #### [address] [address] Monocyte, Absolute 0.6 10 3/mcL Normal 0.1-1.4 [facility] ([place]) Comment on above: Performed By: #### G FR, ANEU, ADIFF, TROPHS, CBC, MDW, BMP #### [address] [address] Monocytes/100 WBC (Bld) 10.1 % Normal 2.0-13.0 [facility] ([place]) Comment on above: Performed By: #### G FR, ANEU, ADIFF, TROPHS, CBC, W, BMP #### [address] [address] Neutrophils/100 WBC (Bld) 55.6 % Normal 50.0-75.0 [facility] ([place]) Comment on above: Performed By: #### G FR, ANEU, ADIFF, TROPHS, CBC, AMY, BMP #### [address] [address] .GFRon 02-09-2024 GFR >60 Normal [facility] ([place]) Comment on above: Result Comment: GFR Population mean for , Non- Americans Ages 20-29 = 116 mL/min/1.73 sq.m. Ages 30-39 = 107 mL/min/1.73 sq.m. Ages 40-49 = 99 mL/min/1.73 sq.m. Ages 50-59 = 93 mL/min/1.73 sq.m. Ages 60-69 = 85 mL/min/1.73 sq.m. Ages 70+ = 75 mL/min/1.73 sq.m. Chronic Kidney Disease: Less than 60 mL/min/1.73 square meters End Stage Renal Disease: Less than 15 mL/min/1.73 square meters Performed By: #### G FR, ANEU, ADIFF, TROPHS, CBC, MDW, BMP #### [address] [address] GFR Non- >60 Normal [facility] ([place]) Comment on above: Result Comment: GFR Population mean for , Non- Americans Ages 20-29 = 116 mL/min/1.73 sq.m. Ages 30-39 = 107 mL/min/1.73 sq.m. Ages 40-49 = 99 mL/min/1.73 sq.m. Ages 50-59 = 93 mL/min/1.73 sq.m. Ages 60-69 = 85 mL/min/1.73 sq.m. Ages 70+ = 75 mL/min/1.73 sq.m. Chronic Kidney Disease: Less than 60 mL/min/1.73 square meters End Stage Renal Disease: Less than 15 mL/min/1.73 square meters Performed By: #### G WALE CANTU, JOHN PAUL, AMY FRANCO, BMP #### [place] [id number] GFR >60 Normal [facility] ([place]) Comment on above: Result Comment: GFR Population mean for , Non- Americans Ages 20-29 = 116 mL/min/1.73 sq.m. Ages 30-39 = 107 mL/min/1.73 sq.m. Ages 40-49 = 99 mL/min/1.73 sq.m. Ages 50-59 = 93 mL/min/1.73 sq.m. Ages 60-69 = 85 mL/min/1.73 sq.m. Ages 70+ = 75 mL/min/1.73 sq.m. Chronic Kidney Disease: Less than 60 mL/min/1.73 square meters End Stage Renal Disease: Less than 15 mL/min/1.73 square meters Performed By: #### G WALE CANTU, JOHN PAUL, AMY FRANCO, BMP #### [address] [address] GFR Non- >60 Normal [facility] ([place]) Comment on above: Result Comment: GFR Population mean for , Non- Americans Ages 20-29 = 116 mL/min/1.73 sq.m. Ages 30-39 = 107 mL/min/1.73 sq.m. Ages 40-49 = 99 mL/min/1.73 sq.m. Ages 50-59 = 93 mL/min/1.73 sq.m. Ages 60-69 = 85 mL/min/1.73 sq.m. Ages 70+ = 75 mL/min/1.73 sq.m. Chronic Kidney Disease: Less than 60 mL/min/1.73 square meters End Stage Renal Disease: Less than 15 mL/min/1.73 square meters Performed By: #### G FR, ANEU, ADFERMIN, TROPHS, CBC, MDW, BMP #### [address] [address] .NEUABSon 02-09-2024 Neutrophil, Absolute 3.3 10 3/mcL Normal 2.3-8.1 [facility] ([place]) Comment on above: Performed By: #### G , WALE, ADFERMIN, TROPHS, CBC, AMY, BMP #### [address] [address] APTTon 02-09-2024 aPTT Coag (Bld) [Time] 48.0 s High 25.0-35.0 [facility] ([place]) Comment on above: Result Comment: For Heparin anticoagulation therapy, the recommended therapeutic range is: 54-77 seconds (APTT Correlation with Anti-Xa therapeutic range of 0.3-0.7 units/ml). PLEASE REFERENCE THE PHARMACY PROTOCOL FOR DOSING. Heparin dose (APTT) Heparin IV Normal [facility] ([place]) aPTT Coag (Bld) [Time] 52.3 s High 25.0-35.0 [facility] ([place]) Comment on above: Result Comment: For Heparin anticoagulation therapy, the recommended therapeutic range is: 54-77 seconds (APTT Correlation with Anti-Xa therapeutic range of 0.3-0.7 units/ml). PLEASE REFERENCE THE PHARMACY PROTOCOL FOR DOSING. Performed By: #### G FR, ANEU, ADIFF, TROPHS, CBC, MDW, BMP #### [address] [address] Heparin dose (APTT) Heparin IV Normal [facility] ([place]) Comment on above: Performed By: #### G , ANEU, ADIFF, TROPHS, AMY FRANCO, BMP #### [address] [address] aPTT Coag (Bld) [Time] 52.0 s High 25.0-35.0 [facility] ([place]) Comment on above: Result Comment: For Heparin anticoagulation therapy, the recommended therapeutic range is: 54-77 seconds (APTT Correlation with Anti-Xa therapeutic range of 0.3-0.7 units/ml). PLEASE REFERENCE THE PHARMACY PROTOCOL FOR DOSING. Heparin dose (APTT) Heparin IV Normal [facility] ([place]) BMPon 02-09-2024 BUN/Creatinine Ratio 9.4 ratio Low 10.0-22.0 [facility]) Comment on above: Performed By: #### G , ANEU, ADIFF, TROPHS, AMY FRANCO, BMP #### [address] [address] Calcium [Mass/Vol] 9.2 mg/dL Normal 8.7-10.4 [facility] ([place]) Comment on above: Performed By: #### G , ANEU, ADIFF, TROPHThee, AMY FRANCO, BMP #### [address] [address] Chloride [Moles/Vol] 108 mmol/L Normal 98-110 [facility]) Comment on above: Performed By: #### G , ANEU, ADIFF, JOHN, AMY FRANOC, BMP #### [address] [address] CO2 [Moles/Vol] 28 mmol/L Normal 22-32 [facility] ([place]) Comment on above: Performed By: #### G FR, ANEU, ADIFF, TROPHS, AMY FRANCO, BMP #### [address] [address] Creatinine [Mass/Vol] 0.85 mg/dL Normal 0.60-1.40 [facility] ([place]) Comment on above: Performed By: #### G FR, ANEU, ADIFF, TROPHS, CBC, W, BMP #### [address] [address] Electrolyte Balance 6.0 mEq/L Normal 4.0-15.0 [facility] ([place]) Comment on above: Performed By: #### G FR, ANEU, ADIFF, TROPHS, CBC, MDW, BMP #### [place] [id number] Glucose [Mass/Vol] 107 mg/dL Normal 82-115 [facility] ([place]) Comment on above: Performed By: #### G FR, ANEU, ADIFF, TROPHS, CBC, W, BMP #### [place] [id number] Potassium [Moles/Vol] 4.0 mmol/L Normal 3.5-5.0 [facility] ([place]) Comment on above: Performed By: #### G FR, ANEU, ADIFF, TROPHS, CBC, W, BMP #### [address] [address] Sodium [Moles/Vol] 142 mmol/L Normal 136-145 [facility] ([place]) Comment on above: Performed By: #### G FR, ANEU, ADIFF, TROPHS, CBC, AMY, BMP #### [address] [address] Urea nitrogen [Mass/Vol] 8.0 mg/dL Normal 8.0-22.0 [facility] ([place]) Comment on above: Performed By: #### G FR, ANEU, ADIFF, TROPHS, CBC, AMY, BMP #### [address] [address] CBCon 02-09-2024 Erythrocyte distribution width (RBC) [Ratio] 12.7 % Normal 11.5-15.5 [facility] ([place]) Comment on above: Performed By: #### G FR, ANEU, ADIFF, TROPHS, CBC, MDW, BMP #### [address] [address] Hematocrit (Bld) [Volume fraction] 39.8 % Low 40.0-52.0 [facility] ([place]) Comment on above: Performed By: #### G FR, ANEU, ADIFF, RUBINAS, AMY FRANCO, BMP #### [address] [address] Hgb 13.7 G/dL Normal 13.0-17.5 [facility] ([place]) Comment on above: Performed By: #### G FR, ANEU, ADIFF, TROPHS, CBC, AMY, BMP #### [address] [address] MCH (RBC) [Entitic mass] 32.4 pg Normal 27.0-33.0 [facility] ([place]) Comment on above: Performed By: #### G FR, ANEU, ADIFF, TROPHS, SALVADOR, AMY, BMP #### [address] [address] MCHC 34.5 G/dL Normal 32.0-36.0 [facility] ([place]) Comment on above: Performed By: #### G FR, ANEU, ADIFF, TROPHS, SALVADOR, AMY, BMP #### [address] [address] MCV (RBC) [Entitic vol] 94.1 fL Normal 81.0-100.0 [facility] ([place]) Comment on above: Performed By: #### G FR, ANEU, ADIFF, TROPHS, SALVADOR, AMY, BMP #### [address] [address] Platelet 130 10 3/mcL Low 150-450 [facility] ([place]) Comment on above: Performed By: #### G FR, ANEU, ADIFF, TROPHS, AMY FRANCO, BMP #### [address] [address] Platelet mean volume (Bld) [Entitic vol] 8.5 fL Normal 6.4-10.5 [facility] ([place]) Comment on above: Performed By: #### G FR, ANEU, ADIFF, TROPHS, CBC, MDW, BMP #### [address] [address] RBC 4.24 10 6/mcL Low 4.50-6.00 [facility] ([place]) Comment on above: Performed By: #### G FR, ANEU, ADIFF, TROPHS, CBC, AMY, BMP #### [address] [address] WBC 6.0 10 3/mcL Normal 4.5-10.8 [facility] ([place]) Comment on above: Performed By: #### G FR, ANEU, ADIFF, TROPHS, CBC, W, BMP #### [address] [address] CREon 02-09-2024 Creatinine [Mass/Vol] 0.85 mg/dL Normal 0.60-1.40 [facility] ([place]) Comment on above: Performed By: #### G FR, ANEU, ADIFF, TROPHS, CBC, W, BMP #### [address] [address] LABORATORYOrdered By: SYSTEM SYSTEM on 02-09-2024 Creatinine [Mass/Vol] 0.85 mg/dL Normal 0.60 - 1.40 mg/dL ADM SS GFR/1.73 sq M.predicted among blacks MDRD (S/P/Bld) [Vol rate/Area] ml/min/1.73sqm Invalid Interpretation Code ADM Comment on above: Interpretive Data: GFR Population mean for , Non- Americans Ages 20-29 = 116 mL/min/1.73 sq.m. Ages 30-39 = 107 mL/min/1.73 sq.m. Ages 40-49 = 99 mL/min/1.73 sq.m. Ages 50-59 = 93 mL/min/1.73 sq.m. Ages 60-69 = 85 mL/min/1.73 sq.m. Ages 70+ = 75 mL/min/1.73 sq.m. Chronic Kidney Disease: Less than 60 mL/min/1.73 square meters End Stage Renal Disease: Less than 15 mL/min/1.73 square meters GFR/1.73 sq M.predicted among non-blacks MDRD (S/P/Bld) [Vol rate/Area] ml/min/1.73sqm Invalid Interpretation Code ADM SS Comment on above: Interpretive Data: GFR Population mean for , Non- Americans Ages 20-29 = 116 mL/min/1.73 sq.m. Ages 30-39 = 107 mL/min/1.73 sq.m. Ages 40-49 = 99 mL/min/1.73 sq.m. Ages 50-59 = 93 mL/min/1.73 sq.m. Ages 60-69 = 85 mL/min/1.73 sq.m. Ages 70+ = 75 mL/min/1.73 sq.m. Chronic Kidney Disease: Less than 60 mL/min/1.73 square meters End Stage Renal Disease: Less than 15 mL/min/1.73 square meters Basophils (Bld) [#/Vol] 0.0 103/mcL Normal 0.0 - 0.3 10^3/mcL Workflow SS Basophils/100 WBC (Bld) 0.5 % Normal 0.0 - 2.5 % Workflow SS Calcium [Mass/Vol] 9.2 mg/dL Normal 8.7 - 10. 4 mg/dL ADM SS Chloride [Moles/Vol] 108 mmol/L Normal 98 - 11 0 mEq/L AH ADM SS CO2 [Moles/Vol] 28 mmol/L Normal 22 - 32 mEq/L ADM SS Creatinine [Mass/Vol] 0.85 mg/dL Normal 0.60 - 1.40 mg/dL AH ADM SS Electrolyte Balance 6.0 mEq/L Normal 4.0 - 15 .0 mEq/L ADM SS Eosinophils (Bld) [#/Vol] 0.2 103/mcL Normal 0.0 - 0.7 10^3/mcL Workflow SS Eosinophils/100 WBC (Bld) 3.3 % Normal 0.0 - 6.0 % Workflow SS Erythrocyte distribution width (RBC) [Ratio] 12.7 % Normal 11.5 - 15.5 % AH Workflow SS GFR/1.73 sq M.predicted among blacks MDRD (S/P/Bld) [Vol rate/Area] ml/min/1.73sqm Invalid Interpretation Code ADM SS Comment on above: Interpretive Data: GFR Population mean for , Non- Americans Ages 20-29 = 116 mL/min/1.73 sq.m. Ages 30-39 = 107 mL/min/1.73 sq.m. Ages 40-49 = 99 mL/min/1.73 sq.m. Ages 50-59 = 93 mL/min/1.73 sq.m. Ages 60-69 = 85 mL/min/1.73 sq.m. Ages 70+ = 75 mL/min/1.73 sq.m. Chronic Kidney Disease: Less than 60 mL/min/1.73 square meters End Stage Renal Disease: Less than 15 mL/min/1.73 square meters GFR/1.73 sq M.predicted among non-blacks MDRD (S/P/Bld) [Vol rate/Area] ml/min/1.73sqm Invalid Interpretation Code ADM SS Comment on above: Interpretive Data: GFR Population mean for , Non- Americans Ages 20-29 = 116 mL/min/1.73 sq.m. Ages 30-39 = 107 mL/min/1.73 sq.m. Ages 40-49 = 99 mL/min/1.73 sq.m. Ages 50-59 = 93 mL/min/1.73 sq.m. Ages 60-69 = 85 mL/min/1.73 sq.m. Ages 70+ = 75 mL/min/1.73 sq.m. Chronic Kidney Disease: Less than 60 mL/min/1.73 square meters End Stage Renal Disease: Less than 15 mL/min/1.73 square meters Glucose [Mass/Vol] 107 mg/dL Normal 82 - 115 mg/dL ADM SS Hematocrit (Bld) [Volume fraction] 39.8 % Low 40.0 - 52.0 % Workflow SS Hemoglobin (Bld) [Mass/Vol] 13.7 G/dL Normal 13.0 - 17.5 G/dL Workflow SS Lymphocytes (Bld) [#/Vol] 1.8 103/mcL Normal 0.9 - 4.3 10^3/mcL Workflow SS Lymphocytes/100 WBC (Bld) 30.5 % Normal 20.0 - 40.0 % Workflow SS Magnesium [Mass/Vol] 2.0 mg/dL Normal 1.6 - 2 .4 mg/dL ADM SS MCH (RBC) [Entitic mass] 32.4 pg Normal 27.0 - 33.0 pg Workflow SS MCHC 34.5 G/dL Normal 32.0 - 36.0 G/dL Workflow SS MCV (RBC) [Entitic vol] 94.1 fL Normal 81.0 - 100.0 fL AH Workflow SS Monocytes (Bld) [#/Vol] 0.6 103/mcL Normal 0.1 - 1.4 10^3/mcL AH Workflow SS Monocytes/100 WBC (Bld) 10.1 % Normal 2.0 - 13.0 % AH Workflow SS Neutrophils (Bld) [#/Vol] 3.3 103/mcL Normal 2.3 - 8.1 10^3/mcL Workflow SS Neutrophils/100 WBC (Bld) 55.6 % Normal 50.0 - 75.0 % Workflow SS Platelet mean volume (Bld) [Entitic vol] 8.5 fL Normal 6.4 - 10.5 fL Workflow SS Platelets (Bld) [#/Vol] 130 103/mcL Low 150 - 450 10^3/mcL Workflow SS Potassium [Moles/Vol] 4.0 mmol/L Normal 3.5 - 5.0 mEq/L ADM SS RBC (Bld) [#/Vol] 4.24 106/mcL Low 4.50 - 6.0 0 10^6/mcL AH Workflow SS Sodium [Moles/Vol] 142 mmol/L Normal 136 - 145 mEq/L AH ADM SS Urea nitrogen [Mass/Vol] 8.0 mg/dL Normal 8.0 - 22.0 mg/dL AH ADM SS Urea nitrogen/Creatinine [Mass ratio] 9.4 ratio Low 10.0 - 22.0 ratio AH ADM SS WBC (Bld) [#/Vol] 6.0 103/mcL Normal 4.5 - 10.8 10^3/mcL Workflow SS LABORATORYOrdered By: Cristobal Oneal on 02-09-2024 aPTT Coag (Bld) [Time] 48.0 s High 25.0 - 35.0 seconds [facility] SS Comment on above: Interpretive Data: F or Heparin anticoagulation therapy, the recommended therapeutic range is: 54-77 seconds (APTT Correlation with Anti-Xa therapeutic range of 0.3-0.7 units/ml). PLEASE REFERENCE THE PHARMACY PROTOCOL FOR DOSING. Heparin dose (APTT) Heparin IV (02/09/24 10:57 AM) Normal AH Coagulation S LABORATORYOrdered By: Sarah Hoffman on 02-09-2024 aPTT Coag (Bld) [Time] 52.3 s High 25.0 - 35.0 seconds AH [facility] SS Comment on above: Interpretive Data: F or Heparin anticoagulation therapy, the recommended therapeutic range is: 54-77 seconds (APTT Correlation with Anti-Xa therapeutic range of 0.3-0.7 units/ml). PLEASE REFERENCE THE PHARMACY PROTOCOL FOR DOSING. Heparin dose (APTT) Heparin IV (02/09/24 4:43 AM) Normal AH Coagulation S MGon 02-09-2024 Magnesium [Mass/Vol] 2.0 mg/dL Normal 1.6-2.4 [facility] ([place]) Comment on above: Performed By: #### G FR, ANEU, ADIFF, TROPHS, CBC, MDW, BMP #### [address] [address] .Auto Diffon 02-08-2024 Basophil, Absolute 0.0 10 3/mcL Normal 0.0-0.3 [facility] ([place]) Comment on above: Performed By: #### G FR, ANEU, ADIFF, TROPHS, CBC, MDW, BMP #### [address] [address] Basophils/100 WBC (Bld) 0.6 % Normal 0.0-2.5 [facility] ([place]) Comment on above: Performed By: #### G FR, ANEU, ADIFF, TROPHS, CBC, MDW, BMP #### [address] [address] Eosinophil, Absolute 0.2 10 3/mcL Normal 0.0-0.7 [facility] ([place]) Comment on above: Performed By: #### G FR, ANEU, ADIFF, TROPHS, CBC, MDW, BMP #### [address] [address] Eosinophils/100 WBC (Bld) 3.4 % Normal 0.0-6.0 [facility] ([place]) Comment on above: Performed By: #### G FR, ANEU, ADIFF, TROPHS, CBC, MDW, BMP #### [address] [address] Lymphocyte, Absolute 2.0 10 3/mcL Normal 0.9-4.3 [facility] ([place]) Comment on above: Performed By: #### G FR, ANEU, ADIFF, TROPHS, CBC, MDW, BMP #### [address] [address] Lymphocytes/100 WBC (Bld) 32.2 % Normal 20.0-40.0 [facility] ([place]) Comment on above: Performed By: #### G FR, ANEU, ADIFF, TROPHS, CBC, MDW, BMP #### [address] [address] Monocyte, Absolute 0.6 10 3/mcL Normal 0.1-1.4 [facility] ([place]) Comment on above: Performed By: #### G FR, ANEU, ADIFF, TROPHS, CBC, MDW, BMP #### [address] [address] Monocytes/100 WBC (Bld) 9.6 % Normal 2.0-13.0 [facility] ([place]) Comment on above: Performed By: #### G FR, ANEU, ADIFF, TROPHS, CBC, MDW, BMP #### [address] [address] Neutrophils/100 WBC (Bld) 54.2 % Normal 50.0-75.0 [facility] ([place]) Comment on above: Performed By: #### G FR, ANEU, ADIFF, TROPHS, CBC, MDW, BMP #### [address] [address] .GFRon 02-08-2024 GFR >60 Normal [facility] ([place]) Comment on above: Result Comment: GFR Population mean for , Non- Americans Ages 20-29 = 116 mL/min/1.73 sq.m. Ages 30-39 = 107 mL/min/1.73 sq.m. Ages 40-49 = 99 mL/min/1.73 sq.m. Ages 50-59 = 93 mL/min/1.73 sq.m. Ages 60-69 = 85 mL/min/1.73 sq.m. Ages 70+ = 75 mL/min/1.73 sq.m. Chronic Kidney Disease: Less than 60 mL/min/1.73 square meters End Stage Renal Disease: Less than 15 mL/min/1.73 square meters Performed By: #### G WALE CANTU ADIFF, TROPHS, CBC, MDW, BMP #### [address] [address] GFR Non- >60 Normal [facility] ([place]) Comment on above: Result Comment: GFR Population mean for , Non- Americans Ages 20-29 = 116 mL/min/1.73 sq.m. Ages 30-39 = 107 mL/min/1.73 sq.m. Ages 40-49 = 99 mL/min/1.73 sq.m. Ages 50-59 = 93 mL/min/1.73 sq.m. Ages 60-69 = 85 mL/min/1.73 sq.m. Ages 70+ = 75 mL/min/1.73 sq.m. Chronic Kidney Disease: Less than 60 mL/min/1.73 square meters End Stage Renal Disease: Less than 15 mL/min/1.73 square meters Performed By: #### G WALE CANTU ADIFF, TROPHS, CBC, MDW, BMP #### [address] [address] .NEUABSon 02-08-2024 Neutrophil, Absolute 3.3 10 3/mcL Normal 2.3-8.1 [facility] ([place]) Comment on above: Performed By: #### G WALE CANTU ADIFF, TROPHS, CBC, MDW, BMP #### [address] [address] A1Con 02-08-2024 HbA1c (Bld) [Mass fraction] 5.2 % Normal 4.0-6.0 [facility] ([place]) Comment on above: Performed By: #### G WALE CANTU ADIFF, TROPHS, CBC, MDW, BMP #### [address] [address] APTTon 02-08-2024 aPTT Coag (d) [Time] 29.0 s Normal 25.0-35.0 [facility] ([place]) Comment on above: Result Comment: For Heparin anticoagulation therapy, the recommended therapeutic range is: 54-77 seconds (APTT Correlation with Anti-Xa therapeutic range of 0.3-0.7 units/ml). PLEASE REFERENCE THE PHARMACY PROTOCOL FOR DOSING. Performed By: #### G FR, WALE, ADFERMIN, RUBINAS, SALVADOR, AMY, BMP #### [address] [address] Heparin dose (APTT) Unknown Normal [facility] ([place]) Comment on above: Performed By: #### G , BEVERLY ECHEVARRIA TROPHS, SALVADOR, AMY, BMP #### [address] [address] BMPon 02-08-2024 BUN/Creatinine Ratio 14.0 ratio Normal 10.0-22.0 [facility] ([place]) Comment on above: Performed By: #### G , BEVERLY ECHEVARRIA TROPHS, AMY FRANCO, BMP #### [address] [address] Calcium [Mass/Vol] 9.0 mg/dL Normal 8.7-10.4 [facility] ([place]) Comment on above: Performed By: #### G FR, ANEU ADIFF, JOHN, AMY FRANCO, BMP #### [address] [address] Chloride [Moles/Vol] 110 mmol/L Normal 98-110 [facility] ([place]) Comment on above: Performed By: #### G FR, WALE, ADIFF, JOHN, AMY FRANCO, BMP #### [address] [address] CO2 [Moles/Vol] 26 mmol/L Normal 22-32 [facility] ([place]) Comment on above: Performed By: #### G FR, BEVERLY ECHEVARRIA, RUBINAS, CBC, W, BMP #### [address] [address] Creatinine [Mass/Vol] 0.86 mg/dL Normal 0.60-1.40 [facility] ([place]) Comment on above: Performed By: #### G FR, ANEU, ADIFF, TROPHS, CBC, MDW, BMP #### [address] [address] Electrolyte Balance 7.0 mEq/L Normal 4.0-15.0 [facility] ([place]) Comment on above: Performed By: #### G FR, ANEU, ADIFF, TROPHS, CBC, W, BMP #### [address] [address] Glucose [Mass/Vol] 122 mg/dL High 82-115 [facility] ([place]) Comment on above: Performed By: #### G FR, ANEU, ADIFF, TROPHS, CBC, W, BMP #### [address] [address] Potassium [Moles/Vol] 3.4 mmol/L Low 3.5-5.0 [facility] ([place]) Comment on above: Performed By: #### G FR, ANEU, ADIFF, TROPHS, CBC, W, BMP #### [address] [address] Sodium [Moles/Vol] 143 mmol/L Normal 136-145 [facility] ([place]) Comment on above: Performed By: #### G FR, ANEU, ADIFF, TROPHS, CBC, AMY, BMP #### [address] [address] Urea nitrogen [Mass/Vol] 12.0 mg/dL Normal 8.0-22.0 [facility] ([place]) Comment on above: Performed By: #### G FR, ANEU, ADIFF, TROPHS, CBC, MDW, BMP #### [address] [address] CBCon 02-08-2024 Erythrocyte distribution width (RBC) [Ratio] 12.8 % Normal 11.5-15.5 [facility] ([place]) Comment on above: Performed By: #### G , BEVERLY ECHEVARRIA TROPHS, AMY FRANCO, BMP #### [address] [address] Hematocrit (Bld) [Volume fraction] 38.7 % Low 40.0-52.0 [facility] ([place]) Comment on above: Performed By: #### G FR, ANEU ADFERMIN, TROPHThee, AMY FRANCO, BMP #### [address] [address] Hgb 13.5 G/dL Normal 13.0-17.5 [facility] ([place]) Comment on above: Performed By: #### G , WALE, ADJOHN CHRISTENSEN, AMY FRANCO, BMP #### [address] [address] MCH (RBC) [Entitic mass] 32.9 pg Normal 27.0-33.0 [facility] ([place]) Comment on above: Performed By: #### G , BEVERLY ECHEVARRIA, JOHN, AMY FRANCO, BMP #### [place] [address] MCHC 34.9 G/dL Normal 32.0-36.0 [facility] ([place]) Comment on above: Performed By: #### G , WALE ADIFF, TROPHThee, AMY FRANCO, BMP #### [place] [phone] MCV (RBC) [Entitic vol] 94.3 fL Normal 81.0-100.0 [facility] ([place]) Comment on above: Performed By: #### G , LORIE ECHEVARRIAIFF, JOHN, AMY FRANCO, BMP #### [place] [phone] Platelet 135 10 3/mcL Low 150-450 [facility] ([place]) Comment on above: Performed By: #### G , ANEU, ADIFF, TROPHS, AMY FRANCO, BMP #### [address] [address] Platelet mean volume (Bld) [Entitic vol] 9.0 fL Normal 6.4-10.5 [facility] ([place]) Comment on above: Performed By: #### G FR, ANEU, ADIFF, TROPHS, CBC, MDW, BMP #### [place] [address] RBC 4.10 10 6/mcL Low 4.50-6.00 [facility] ([place]) Comment on above: Performed By: #### G FR, ANEU, ADIFF, TROPHS, CBC, MDW, BMP #### [place] [phone] WBC 6.1 10 3/mcL Normal 4.5-10.8 [facility] ([place]) Comment on above: Performed By: #### G FR, ANEU, ADIFF, TROPHS, CBC, MDW, BMP #### [place] [phone] LABORATORYOrdered By: Sarah Hoffman on 02-08-2024 aPTT Coag (Bld) [Time] 52.0 s High 25.0 - 35.0 seconds AH [facility] SS Comment on above: Interpretive Data: F or Heparin anticoagulation therapy, the recommended therapeutic range is: 54-77 seconds (APTT Correlation with Anti-Xa therapeutic range of 0.3-0.7 units/ml). PLEASE REFERENCE THE PHARMACY PROTOCOL FOR DOSING. Heparin dose (APTT) Heparin IV (02/08/24 11:15 PM) Normal AH Coagulation S Cholesterol [Mass/Vol] 118 mg/dL Normal 50 - 199 mg/dL AH ADM SS Comment on above: Interpretive Data: C holesterol Reference Interval: Less than 200 Desirable 200-239 Borderline high risk 240 and above High risk Cholesterol in HDL [Mass/Vol] 42 mg/dL Normal 40 - 59 mg/dL AH ADM SS Cholesterol in LDL [Mass/Vol] 44 mg/dL Normal 0 - 129 mg/dL AH ADM SS Triglyceride [Mass/Vol] 162 mg/dL High 3 - 149 mg/dL AH ADM SS LABORATORYOrdered By: Katie Huber on 02-08-2024 PT Coag (PPP) [Time] 11.3 s Normal 9.0 - 1 4.4 seconds [facility] Comment on above: Interpretive Data: E ffective 02/23/08, Protime results may be affected by some antibiotics (i.e. Ciprofloxacin, Azithromycin, Bactrim) which may potentiate the action of oral anticoagulants, with further increases in Protime/INR. PT International Ratio 1.0 ratio Invalid Interpretation Code [facility] Comment on above: Interpretive Data: Vania [employer]gers [employer] (CHEST, 1991, [id number]) recommended therapeutic range for oral anticoagulant therapy is: LOW RISK: Prophylaxis of venous thrombosis INR: 2.0-3.0 Treatment of pulmonary embolism 2.0-3.0 Prevention of systemic embolism 2.0-3.0 HIGH RISK: Mechanical prosthetic valves 2.5-3.5 LABORATORYOrdered By: SYSTEM SYSTEM on 02-08-2024 Basophils (Bld) [#/Vol] 0.0 103/mcL Normal 0.0 - 0.3 10^3/mcL Workflow SS Basophils/100 WBC (Bld) 0.6 % Normal 0.0 - 2.5 % Workflow SS Calcium [Mass/Vol] 9.0 mg/dL Normal 8.7 - 10. 4 mg/dL ADM SS Chloride [Moles/Vol] 110 mmol/L Normal 98 - 11 0 mEq/L ADM SS CO2 [Moles/Vol] 26 mmol/L Normal 22 - 32 mEq/L ADM SS Creatinine [Mass/Vol] 0.86 mg/dL Normal 0.60 - 1.40 mg/dL ADM SS Electrolyte Balance 7.0 mEq/L Normal 4.0 - 15 .0 mEq/L ADM SS Eosinophils (Bld) [#/Vol] 0.2 103/mcL Normal 0.0 - 0.7 10^3/mcL Workflow SS Eosinophils/100 WBC (Bld) 3.4 % Normal 0.0 - 6.0 % Workflow SS Erythrocyte distribution width (RBC) [Ratio] 12.8 % Normal 11.5 - 15.5 % Workflow SS GFR/1.73 sq M.predicted among blacks MDRD (S/P/Bld) [Vol rate/Area] ml/min/1.73sqm Invalid Interpretation Code ADM SS Comment on above: Interpretive Data: GFR Population mean for , Non- Americans Ages 20-29 = 116 mL/min/1.73 sq.m. Ages 30-39 = 107 mL/min/1.73 sq.m. Ages 40-49 = 99 mL/min/1.73 sq.m. Ages 50-59 = 93 mL/min/1.73 sq.m. Ages 60-69 = 85 mL/min/1.73 sq.m. Ages 70+ = 75 mL/min/1.73 sq.m. Chronic Kidney Disease: Less than 60 mL/min/1.73 square meters End Stage Renal Disease: Less than 15 mL/min/1.73 square meters GFR/1.73 sq M.predicted among non-blacks MDRD (S/P/Bld) [Vol rate/Area] ml/min/1.73sqm Invalid Interpretation Code ADM SS Comment on above: Interpretive Data: GFR Population mean for , Non- Americans Ages 20-29 = 116 mL/min/1.73 sq.m. Ages 30-39 = 107 mL/min/1.73 sq.m. Ages 40-49 = 99 mL/min/1.73 sq.m. Ages 50-59 = 93 mL/min/1.73 sq.m. Ages 60-69 = 85 mL/min/1.73 sq.m. Ages 70+ = 75 mL/min/1.73 sq.m. Chronic Kidney Disease: Less than 60 mL/min/1.73 square meters End Stage Renal Disease: Less than 15 mL/min/1.73 square meters Glucose [Mass/Vol] 122 mg/dL High 82 - 115 mg/dL ADM SS HbA1c (Bld) [Mass fraction] 5.2 % Normal 4.0 - 6.0 % Auto [facility] SS Hematocrit (Bld) [Volume fraction] 38.7 % Low 40.0 - 52.0 % AH Workflow SS Hemoglobin (Bld) [Mass/Vol] 13.5 G/dL Normal 13.0 - 17.5 G/dL AH Workflow SS Lymphocytes (Bld) [#/Vol] 2.0 103/mcL Normal 0.9 - 4.3 10^3/mcL AH Workflow SS Lymphocytes/100 WBC (Bld) 32.2 % Normal 20.0 - 40.0 % AH Workflow SS Magnesium [Mass/Vol] 1.8 mg/dL Normal 1.6 - 2 .4 mg/dL ADM SS MCH (RBC) [Entitic mass] 32.9 pg Normal 27.0 - 33.0 pg AH Workflow SS MCHC 34.9 G/dL Normal 32.0 - 36.0 G/dL AH Workflow SS MCV (RBC) [Entitic vol] 94.3 fL Normal 81.0 - 100.0 fL AH Workflow SS Monocytes (Bld) [#/Vol] 0.6 103/mcL Normal 0.1 - 1.4 10^3/mcL AH Workflow SS Monocytes/100 WBC (Bld) 9.6 % Normal 2.0 - 13.0 % AH Workflow SS Neutrophils (Bld) [#/Vol] 3.3 103/mcL Normal 2.3 - 8.1 10^3/mcL AH Workflow SS Neutrophils/100 WBC (Bld) 54.2 % Normal 50.0 - 75.0 % AH Workflow SS Platelet mean volume (Bld) [Entitic vol] 9.0 fL Normal 6.4 - 10.5 fL AH Workflow SS Platelets (Bld) [#/Vol] 135 103/mcL Low 150 - 450 10^3/mcL AH Workflow SS Potassium [Moles/Vol] 3.4 mmol/L Low 3.5 - 5.0 mEq/L ADM SS RBC (Bld) [#/Vol] 4.10 106/mcL Low 4.50 - 6.0 0 10^6/mcL Workflow SS Sodium [Moles/Vol] 143 mmol/L Normal 136 - 145 mEq/L ADM SS Troponin I.cardiac DL <= 0.01 ng/mL [Mass/Vol] 30 ng/L Normal 0 - 54 ng/L ADM SS Comment on above: Interpretive Data: High Sensitive Troponin I Reference Ranges: Female: 0-34 ng/L Male: 0-54 ng/L Testing performed on [employer] analyzer using direct chemiluminescent technology. TSH Qn 2.890 mIU/mL Normal 0.550 - 4.780 mIU/mL ADM SS Comment on above: Interpretive Data: * *Note - New Reference Range in effect 20 Urea nitrogen [Mass/Vol] 12.0 mg/dL Normal 8.0 - 22.0 mg/dL AH ADM SS Urea nitrogen/Creatinine [Mass ratio] 14.0 ratio Normal 10.0 - 22.0 ratio AH ADM SS WBC (Bld) [#/Vol] 6.1 103/mcL Normal 4.5 - 10.8 10^3/mcL AH Workflow SS LIPIDon 02-08-2024 Cholesterol [Mass/Vol] 118 mg/dL Normal 50-199 [facility] ([place]) Comment on above: Result Comment: Chol esterol Reference Interval: Less than 200 Desirable 200-239 Borderline high risk 240 and above High risk Performed By: #### G FR, ANEU, ADIFF, TROPHS, CBC, AMY, BMP #### [address] [address] Cholesterol in HDL [Mass/Vol] 42 mg/dL Normal 40-59 [facility] ([place]) Comment on above: Performed By: #### G FR, ANEU, ADIFF, TROPHS, CBC, AMY, BMP #### [address] [address] Cholesterol in LDL [Mass/Vol] 44 mg/dL Normal 0-129 [facility] ([place]) Comment on above: Performed By: #### G FR, ANEU, ADIFF, TROPHS, CBC, AMY, BMP #### [address] [address] Triglyceride [Mass/Vol] 162 mg/dL High 3-149 [facility] ([place]) Comment on above: Performed By: #### G FR, ANEU, ADIFF, TROPHS, CBC, AMY, BMP #### [address] [address] MGon 02-08-2024 Magnesium [Mass/Vol] 1.8 mg/dL Normal 1.6-2.4 [facility] ([place]) Comment on above: Performed By: #### G FR, ANEU, ADIFF, TROPHS, CBC, AMY, BMP #### [address] [id number] Magnesium [Mass/Vol] 1.9 mg/dL Normal 1.6-2.4 [facility] ([place]) Comment on above: Performed By: #### G FR, ANEU, ADIFF, TROPHS, AMY FRANCO, KELLEY #### [address] [id number] PROon 02-08-2024 INR Coag (PPP) [Relative time] 1.0 {INR} Normal [facility] ([place]) Comment on above: Result Comment: The [employer] (CHEST, 1991, [id number]) recommended therapeutic range for oral anticoagulant therapy is: LOW RISK: Prophylaxis of venous thrombosis INR: 2.0-3.0 Treatment of pulmonary embolism 2.0-3.0 Prevention of systemic embolism 2.0-3.0 HIGH RISK: Mechanical prosthetic valves 2.5-3.5 Performed By: #### G WALE CANTU ADIFF, TROPHS, AMY FRANCO, BMP #### [place] [id number] PT Coag (PPP) [Time] 11.3 s Normal 9.0-14.4 [facility] ([place]) Comment on above: Result Comment: Effe ctive 02/23/08, Protime results may be affected by some antibiotics (i.e. Ciprofloxacin, Azithromycin, Bactrim) which may potentiate the action of oral anticoagulants, with further increases in Protime/INR. Performed By: #### G WALE CANTU ADIFF, TROPHS, AMY FRANCO, BMP #### [address] [id number] TROPHSon 02-08-2024 High Sensitivity Troponin I 30 ng/L Normal 0-54 [facility] ([place]) Comment on above: Result Comment: High Sensitive Troponin I Reference Ranges: Female: 0-34 ng/L Male: 0-54 ng/L Testing performed on [employer] analyzer using direct chemiluminescent technology. Performed By: #### G WALE CANTU ADIFF, TROPHS, AMY FRANCO, BMP #### [place] [phone] High Sensitivity Troponin I 29 ng/L Normal 0-54 [facility] ([place]) Comment on above: Result Comment: High Sensitive Troponin I Reference Ranges: Female: 0-34 ng/L Male: 0-54 ng/L Testing performed on [employer] IM analyzer using direct chemiluminescent technology. Performed By: #### G FR, ANEU, ADIFF, TROPHS, CBC, AMY, BMP #### [address] [address] TSHRon 02-08-2024 TSH 2.890 mIU/mL Normal 0.550-4.780 [facility] ([place]) Comment on above: Result Comment: No te - New Reference Range in effect 20 Performed By: #### G FR, ANEU, ADIFF, TROPHS, CBC, MDW, BMP #### [address] [address] .Auto Diffon 02-07-2024 Basophil, Absolute 0.0 10 3/mcL Normal 0.0-0.2 [facility] ([place]) Comment on above: Performed By: #### G FR, ANEU, ADIFF, TROPHS, CBC, AMY, BMP #### [address] [address] Basophils/100 WBC (Bld) 0.4 % Normal 0.0-2.5 [facility] ([place]) Comment on above: Performed By: #### G FR, ANEU, ADIFF, TROPHS, CBC, AMY, BMP #### [address] [address] Eosinophil, Absolute 0.1 10 3/mcL Normal 0.0-0.4 [facility] ([place]) Comment on above: Performed By: #### G FR, ANEU, ADIFF, TROPHS, CBC, AMY, BMP #### [address] [address] Eosinophils/100 WBC (Bld) 1.9 % Normal 0.0-7.0 [facility] ([place]) Comment on above: Performed By: #### G FR, ANEU, ADIFF, TROPHS, CBC, AMY, BMP #### [address] [address] Lymphocyte, Absolute 2.3 10 3/mcL Normal 0.8-3.9 [facility] ([place]) Comment on above: Performed By: #### G FR, ANEU, ADIFF, TROPHS, CBC, MDW, BMP #### [address] [address] Lymphocytes/100 WBC (Bld) 28.4 % Normal 10.0-50.0 [facility] ([place]) Comment on above: Performed By: #### G FR, ANEU, ADIFF, TROPHS, CBC, MDW, BMP #### [address] [address] Monocyte, Absolute 0.7 10 3/mcL Normal 0.2-1.0 [facility] ([place]) Comment on above: Performed By: #### G FR, ANEU, ADIFF, TROPHS, CBC, MDW, BMP #### [address] [address] Monocytes/100 WBC (Bld) 8.7 % Normal 1.7-13.0 [facility] ([place]) Comment on above: Performed By: #### G FR, ANEU, ADIFF, TROPHS, CBC, MDW, BMP #### [address] [address] Neutrophils/100 WBC (Bld) 60.6 % Normal 37.0-80.0 [facility] ([place]) Comment on above: Performed By: #### G FR, ANEU, ADIFF, TROPHS, CBC, MDW, BMP #### [address] [address] .GFRon 02-07-2024 GFR 86 ml/min/1.73sqm Normal [facility] ([place]) Comment on above: Result Comment: GFR Population mean for , Non- Americans Ages 20-29 = 116 mL/min/1.73 sq.m. Ages 30-39 = 107 mL/min/1.73 sq.m. Ages 40-49 = 99 mL/min/1.73 sq.m. Ages 50-59 = 93 mL/min/1.73 sq.m. Ages 60-69 = 85 mL/min/1.73 sq.m. Ages 70+ = 75 mL/min/1.73 sq.m. Chronic Kidney Disease: Less than 60 mL/min/1.73 square meters End Stage Renal Disease: Less than 15 mL/min/1.73 square meters Performed By: #### G FR, ANEU, ADIFF, TROPHS, CBC, MDW, BMP #### [address] [address] GFR Non- 71 ml/min/1.73sqm Normal [facility] ([place]) Comment on above: Result Comment: GFR Population mean for , Non- Americans Ages 20-29 = 116 mL/min/1.73 sq.m. Ages 30-39 = 107 mL/min/1.73 sq.m. Ages 40-49 = 99 mL/min/1.73 sq.m. Ages 50-59 = 93 mL/min/1.73 sq.m. Ages 60-69 = 85 mL/min/1.73 sq.m. Ages 70+ = 75 mL/min/1.73 sq.m. Chronic Kidney Disease: Less than 60 mL/min/1.73 square meters End Stage Renal Disease: Less than 15 mL/min/1.73 square meters Performed By: #### G FR, ANEU, ADIFF, TROPHS, CBC, MDW, BMP #### [address] [address] .MDWon 02-07-2024 Monocyte Distribution Width 19.44 Normal 0.00-20.00 [facility] ([place]) Comment on above: Result Comment: For ED adult patients suspected of sepsis, MDW<=20.0 does not rule out sepsis or risk of sepsis Performed By: #### G FR, ANEU, ADIFF, TROPHS, CBC, MDW, BMP #### [address] [address] .NEUABSon 02-07-2024 Neutrophil, Absolute 4.8 10 3/mcL Normal 2.9-6.2 [facility] ([place]) Comment on above: Performed By: #### G FR, ANEU, ADIFF, TROPHS, CBC, MDW, BMP #### [address] [address] BMPon 02-07-2024 BUN/Creatinine Ratio 11 ratio Normal 7-27 [facility] ([place]) Comment on above: Performed By: #### G FR, ANEU, ADIFF, TROPHS, CBC, AMY, BMP #### [address] [address] Calcium [Mass/Vol] 9.4 mg/dL Normal 8.4-10.2 [facility] ([place]) Comment on above: Performed By: #### G FR, ANEU, ADIFF, TROPHS, CBC, AMY, BMP #### [address] [address] Chloride [Moles/Vol] 106 mmol/L Normal 98-107 [facility] ([place]) Comment on above: Performed By: #### G FR, ANEU, ADIFF, TROPHS, CBC, AMY, BMP #### [place] [address] CO2 [Moles/Vol] 30 mmol/L Normal 23-31 [facility] ([place]) Comment on above: Performed By: #### G FR, ANEU, ADIFF, TROPHS, CBC, AMY, BMP #### [place] [address] Creatinine [Mass/Vol] 1.06 mg/dL Normal 0.70-1.30 [facility] ([place]) Comment on above: Performed By: #### G FR, ANEU, ADIFF, TROPHS, CBC, AMY, BMP #### [address] [address] Electrolyte Balance 7.0 mEq/L Normal 4.0-15.0 [facility] ([place]) Comment on above: Performed By: #### G FR, ANEU, ADIFF, TROPHS, CBC, AMY, BMP #### [place] [id number] Glucose [Mass/Vol] 104 mg/dL Normal 80-115 [facility] ([place]) Comment on above: Performed By: #### G FR, ANEU, ADIFF, TROPHS, CBC, AMY, BMP #### [address] [address] Potassium [Moles/Vol] 3.4 mmol/L Low 3.5-5.1 [facility] ([place]) Comment on above: Performed By: #### G FR, ANEU, ADIFF, TROPHS, CBC, AMY, BMP #### [address] [address] Sodium [Moles/Vol] 143 mmol/L Normal 136-145 [facility] ([place]) Comment on above: Performed By: #### G FR, ANEU, ADIFF, TROPHS, CBC, AMY, BMP #### [place] [id number] Urea nitrogen [Mass/Vol] 12 mg/dL Normal 7-18 [facility] ([place]) Comment on above: Performed By: #### G FR, ANEU, ADIFF, TROPHS, AMY FRANCO, BMP #### [place] [id number] CBCon 02-07-2024 Erythrocyte distribution width (RBC) [Ratio] 12.9 % Normal 11.5-14.5 [facility] ([place]) Comment on above: Performed By: #### G FR, ANEU, ADIFF, TROPHS, AMY FRANCO, BMP #### [address] [address] Hematocrit (Bld) [Volume fraction] 42.4 % Normal 42.0-52.0 [facility] ([place]) Comment on above: Performed By: #### G FR, ANEU, ADIFF, TROPHS, AMY FRANCO, BMP #### [address] [address] Hgb 14.7 G/dL Normal 14.0-18.0 [facility] ([place]) Comment on above: Performed By: #### G FR, ANEU, ADIFF, TROPHS, CBC, AMY, BMP #### [address] [address] MCH (RBC) [Entitic mass] 32.7 pg High 27.0-31.2 [facility] ([place]) Comment on above: Performed By: #### G FR, ANEU, ADIFF, TROPHS, CBC, W, BMP #### [place] [id number] MCHC 34.6 G/dL Normal 31.8-35.4 [facility] ([place]) Comment on above: Performed By: #### G FR, ANEU, ADIFF, TROPHS, CBC, W, BMP #### [place] [address] MCV (RBC) [Entitic vol] 94.4 fL High 80.0-94.0 [facility] ([place]) Comment on above: Performed By: #### G FR, ANEU, ADIFF, TROPHS, CBC, W, BMP #### [place] [address] Platelet 164 10 3/mcL Normal 130-400 [facility] ([place]) Comment on above: Performed By: #### G FR, ANEU, ADIFF, TROPHS, CBC, W, BMP #### [place] [address] Platelet mean volume (Bld) [Entitic vol] 8.1 fL Normal 7.4-10.4 [facility] ([place]) Comment on above: Performed By: #### G FR, ANEU, ADIFF, TROPHS, CBC, W, BMP #### [place] [address] RBC 4.49 10 6/mcL Normal 4.04-6.13 [facility] ([place]) Comment on above: Performed By: #### G FR, ANEU, ADIFF, TROPHS, CBC, W, BMP #### [place] [address] WBC 7.9 10 3/mcL Normal 4.6-10.8 [facility] ([place]) Comment on above: Performed By: #### G FR, ANEU, ADIFF, TROPHS, CBC, W, BMP #### [place] [address] LABORATORYOrdered By: SYSTEM SYSTEM on 02-07-2024 Magnesium [Mass/Vol] 1.9 mg/dL Normal 1.6 - 2 .4 mg/dL AH ADM SS Troponin I.cardiac DL <= 0.01 ng/mL [Mass/Vol] 29 ng/L Normal 0 - 54 ng/L AH ADM SS Comment on above: Interpretive Data: High Sensitive Troponin I Reference Ranges: Female: 0-34 ng/L Male: 0-54 ng/L Testing performed on [employer] analyzer using direct chemiluminescent technology. Basophil, Absolute 0.0 103/mcL Normal 0.0 - 0.2 10^3/mcL AO Workflow SS Basophils/100 WBC (Bld) 0.4 % Normal 0.0 - 2.5 % AO Workflow SS Calcium [Mass/Vol] 9.4 mg/dL Normal 8.4 - 10. 2 mg/dL AO ADM SS Chloride [Moles/Vol] 106 mmol/L Normal 98 - 10 7 mmol/L AO ADM SS CO2 [Moles/Vol] 30 mmol/L Normal 23 - 31 mmol/L AO ADM SS Creatinine [Mass/Vol] 1.06 mg/dL Normal 0.70 - 1.30 mg/dL AO ADM SS Electrolyte Balance 7.0 mEq/L Normal 4.0 - 15 .0 mEq/L AO ADM SS Eosinophil, Absolute 0.1 103/mcL Normal 0.0 - 0 .4 10^3/mcL AO Workflow SS Eosinophils/100 WBC (Bld) 1.9 % Normal 0.0 - 7.0 % AO Workflow SS Erythrocyte distribution width (RBC) [Ratio] 12.9 % Normal 11.5 - 14.5 % AO Workflow SS GFR/1.73 sq M.predicted among blacks MDRD (S/P/Bld) [Vol rate/Area] 86 ml/min/1.73sqm Invalid Interpretation Code AO Chemistry S Comment on above: Interpretive Data: GFR Population mean for , Non- Americans Ages 20-29 = 116 mL/min/1.73 sq.m. Ages 30-39 = 107 mL/min/1.73 sq.m. Ages 40-49 = 99 mL/min/1.73 sq.m. Ages 50-59 = 93 mL/min/1.73 sq.m. Ages 60-69 = 85 mL/min/1.73 sq.m. Ages 70+ = 75 mL/min/1.73 sq.m. Chronic Kidney Disease: Less than 60 mL/min/1.73 square meters End Stage Renal Disease: Less than 15 mL/min/1.73 square meters GFR/1.73 sq M.predicted among non-blacks MDRD (S/P/Bld) [Vol rate/Area] 71 ml/min/1.73sqm Invalid Interpretation Code AO Chemistry S Comment on above: Interpretive Data: GFR Population mean for , Non- Americans Ages 20-29 = 116 mL/min/1.73 sq.m. Ages 30-39 = 107 mL/min/1.73 sq.m. Ages 40-49 = 99 mL/min/1.73 sq.m. Ages 50-59 = 93 mL/min/1.73 sq.m. Ages 60-69 = 85 mL/min/1.73 sq.m. Ages 70+ = 75 mL/min/1.73 sq.m. Chronic Kidney Disease: Less than 60 mL/min/1.73 square meters End Stage Renal Disease: Less than 15 mL/min/1.73 square meters Glucose [Mass/Vol] 104 mg/dL Normal 80 - 115 mg/dL AO ADM SS Hematocrit (Bld) [Volume fraction] 42.4 % Normal 42.0 - 52.0 % AO Workflow SS Hemoglobin (Bld) [Mass/Vol] 14.7 G/dL Normal 14.0 - 18.0 G/dL AO Workflow SS Lymphocyte, Absolute 2.3 103/mcL Normal 0.8 - 3 .9 10^3/mcL AO Workflow SS Lymphocytes/100 WBC (Bld) 28.4 % Normal 10.0 - 50.0 % AO Workflow SS MCH (RBC) [Entitic mass] 32.7 pg High 27.0 - 31.2 pg AO Workflow SS MCHC 34.6 G/dL Normal 31.8 - 35.4 G/dL AO Workflow SS MCV (RBC) [Entitic vol] 94.4 fL High 80.0 - 94.0 fL AO Workflow SS Monocyte distribution width Auto (Bld) [Entitic vol] 19.44 1 Normal 0.00 - 20.00 AO Workflow SS Comment on above: Result Comment: For ED adult patients suspected of sepsis, MDW<=20.0 does not rule out sepsis or risk of sepsis Monocyte, Absolute 0.7 103/mcL Normal 0.2 - 1.0 10^3/mcL AO Workflow SS Monocytes/100 WBC (Bld) 8.7 % Normal 1.7 - 13.0 % AO Workflow SS Neutrophil, Absolute 4.8 103/mcL Normal 2.9 - 6 .2 10^3/mcL AO Workflow SS Neutrophils/100 WBC (Bld) 60.6 % Normal 37.0 - 80.0 % AO Workflow SS Platelet mean volume (Bld) [Entitic vol] 8.1 fL Normal 7.4 - 10.4 fL AO Workflow SS Platelets (Bld) [#/Vol] 164 103/mcL Normal 130 - 400 10^3/mcL AO Workflow SS Potassium [Moles/Vol] 3.4 mmol/L Low 3.5 - 5.1 mmol/L AO ADM SS RBC (Bld) [#/Vol] 4.49 106/mcL Normal 4.04 - 6.1 3 10^6/mcL AO Workflow SS Sodium [Moles/Vol] 143 mmol/L Normal 136 - 145 mmol/L AO ADM SS Troponin I.cardiac DL <= 0.01 ng/mL [Mass/Vol] 35 ng/L Normal 0 - 76 ng/L AO ADM SS Comment on above: Interpretive Data: H igh Sensitive Troponin I Reference Ranges: Female: 0-51 ng/L Male: 0-76 ng/L Testing performed on [employer] using a homogeneous sandwich chemiluminescent immunoassay based on [employer] technology. Urea nitrogen [Mass/Vol] 12 mg/dL Normal 7 - 18 mg/dL AO ADM SS Urea nitrogen/Creatinine [Mass ratio] 11 ratio Normal 7 - 27 ratio AO ADM SS WBC (Bld) [#/Vol] 7.9 103/mcL Normal 4.6 - 10.8 10^3/mcL AO Workflow SS [facility] 02-07-2024 High Sensitivity Troponin I 35 ng/L Normal 0-76 [facility] ([place]) Comment on above: Result Comment: High Sensitive Troponin I Reference Ranges: Female: 0-51 ng/L Male: 0-76 ng/L Testing performed on [employer] EXL using a homogeneous sandwich chemiluminescent immunoassay based on [employer] technology. Performed By: #### G FR, WALE, BEVERLY, JOHN, CBC, MDW, BMP #### [address] [address] XR CHEST 1 VIEWon 02-07-2024 XR CHEST 1 VIEW ORIGINAL EXAMINATION: ONE XRAY VIEW OF THE CHEST02/07/2024 7:46 pm COMPARISON: None. HISTORY: ORDERING SYSTEM PROVIDED HISTORY: Reason for Exam: chest pain FINDINGS: Median sternotomy wires. The cardiomediastinal silhouette is unremarkable. There is no pulmonary vascular congestion. No large focal consolidative opacity. No significant volume pleural effusion. No pneumothorax. Surgical change of the lower cervical spine, ACDF. IMPRESSION: No acute process. I have personally reviewed the images of this examination and agree with the resident's findings and interpretation. Interpreted by: Jian Main DO Preliminary Report By: Juni Hopkins Electronically signed By Jian Main DO Dictated Date: 02/07/2024 7:57:07 PM Prelim Date: 02/07/2024 7:58:38 PM Sign Date: 02/07/2024 8:25:08 PM Ordering Provider: MICHELLE Vargas [facility] ([place]) .Auto Diffon 01-08-2024 Basophil, Absolute 0.0 10 3/mcL Normal 0.0-0.2 [facility] ([place]) Comment on above: Performed By: #### G , BEVERLY ECHEVARRIA, TROPHS, CBC, MDW, BMP #### [address] [address] Basophils/100 WBC (Bld) 0.6 % Normal 0.0-2.5 [facility] ([place]) Comment on above: Performed By: #### G FR, ANEU, ADFERMIN, TROPHS, CBC, MDW, BMP #### [address] [address] Eosinophil, Absolute 0.1 10 3/mcL Normal 0.0-0.4 [facility] ([place]) Comment on above: Performed By: #### G FR, ANEU, ADIFF, TROPHS, CBC, MDW, BMP #### [address] [address] Eosinophils/100 WBC (Bld) 1.8 % Normal 0.0-7.0 [facility] ([place]) Comment on above: Performed By: #### G FR, ANEU, ADIFF, TROPHS, CBC, MDW, BMP #### [address] [address] Lymphocyte, Absolute 1.8 10 3/mcL Normal 0.8-3.9 [facility] ([place]) Comment on above: Performed By: #### G FR, ANEU, ADIFF, TROPHS, CBC, MDW, BMP #### [address] [address] Lymphocytes/100 WBC (Bld) 27.7 % Normal 10.0-50.0 [facility] ([place]) Comment on above: Performed By: #### G FR, ANEU, ADIFF, TROPHS, CBC, MDW, BMP #### [address] [address] Monocyte, Absolute 0.6 10 3/mcL Normal 0.2-1.0 [facility] ([place]) Comment on above: Performed By: #### G FR, ANEU, ADIFF, TROPHS, CBC, MDW, BMP #### [address] [address] Monocytes/100 WBC (Bld) 9.5 % Normal 1.7-13.0 [facility] ([place]) Comment on above: Performed By: #### G FR, ANEU, ADIFF, TROPHS, CBC, MDW, BMP #### [address] [address] Neutrophils/100 WBC (Bld) 60.4 % Normal 37.0-80.0 [facility] ([place]) Comment on above: Performed By: #### G FR, ANEU, ADIFF, TROPHS, CBC, MDW, BMP #### [address] [address] .GFRon 01-08-2024 GFR 98 ml/min/1.73sqm Normal [facility] ([place]) Comment on above: Result Comment: GFR Population mean for , Non- Americans Ages 20-29 = 116 mL/min/1.73 sq.m. Ages 30-39 = 107 mL/min/1.73 sq.m. Ages 40-49 = 99 mL/min/1.73 sq.m. Ages 50-59 = 93 mL/min/1.73 sq.m. Ages 60-69 = 85 mL/min/1.73 sq.m. Ages 70+ = 75 mL/min/1.73 sq.m. Chronic Kidney Disease: Less than 60 mL/min/1.73 square meters End Stage Renal Disease: Less than 15 mL/min/1.73 square meters Performed By: #### G , BEVERLY ECHEVARRIA TROPHS, SALVADOR, AMY, BMP #### [address] [address] GFR Non- 81 ml/min/1.73sqm Normal [facility] ([place]) Comment on above: Result Comment: GFR Population mean for , Non- Americans Ages 20-29 = 116 mL/min/1.73 sq.m. Ages 30-39 = 107 mL/min/1.73 sq.m. Ages 40-49 = 99 mL/min/1.73 sq.m. Ages 50-59 = 93 mL/min/1.73 sq.m. Ages 60-69 = 85 mL/min/1.73 sq.m. Ages 70+ = 75 mL/min/1.73 sq.m. Chronic Kidney Disease: Less than 60 mL/min/1.73 square meters End Stage Renal Disease: Less than 15 mL/min/1.73 square meters Performed By: #### G , BEVERLY ECHEVARRIA TROPHS, SALVADOR, AMY, BMP #### [address] [address] .NEUABSon 01-08-2024 Neutrophil, Absolute 3.8 10 3/mcL Normal 2.9-6.2 [facility] ([place]) Comment on above: Performed By: #### G , BEVERLY ECHEVARRIA TROPHS, SALVADOR, AMY, BMP #### [address] [address] BMPon 01-08-2024 BUN/Creatinine Ratio 15 ratio Normal 7-27 [facility] ([place]) Comment on above: Performed By: #### G FR, ANEU, ADIFF, TROPHS, CBC, MDW, BMP #### [address] [address] Calcium [Mass/Vol] 8.9 mg/dL Normal 8.4-10.2 [facility] ([place]) Comment on above: Performed By: #### G FR, ANEU, ADIFF, TROPHS, CBC, MDW, BMP #### [address] [address] Chloride [Moles/Vol] 106 mmol/L Normal 98-107 [facility] ([place]) Comment on above: Performed By: #### G FR, ANEU, ADIFF, TROPHS, CBC, W, BMP #### [address] [address] CO2 [Moles/Vol] 30 mmol/L Normal 23-31 [facility] ([place]) Comment on above: Performed By: #### G FR, ANEU, ADIFF, TROPHS, CBC, MDW, BMP #### [address] [address] Creatinine [Mass/Vol] 0.95 mg/dL Normal 0.70-1.30 [facility] ([place]) Comment on above: Performed By: #### G FR, ANEU, ADIFF, TROPHS, CBC, MDW, BMP #### [address] [address] Electrolyte Balance 8.0 mEq/L Normal 4.0-15.0 [facility] ([place]) Comment on above: Performed By: #### G FR, ANEU, ADIFF, TROPHS, CBC, MDW, BMP #### [address] [address] Glucose [Mass/Vol] 112 mg/dL Normal 80-115 [facility] ([place]) Comment on above: Performed By: #### G FR, ANEU, ADIFF, TROPHS, CBC, MDW, BMP #### [address] [address] Potassium [Moles/Vol] 4.0 mmol/L Normal 3.5-5.1 [facility] ([place]) Comment on above: Performed By: #### G , BEVERLY ECHEVARRIA TROPHS, AMY FRANCO, BMP #### [address] [address] Sodium [Moles/Vol] 144 mmol/L Normal 136-145 [facility] ([place]) Comment on above: Performed By: #### G , BEVERLY ECHEVARRIA TROPHS, AMY FRANCO, BMP #### [address] [address] Urea nitrogen [Mass/Vol] 14 mg/dL Normal 7-18 [facility] ([place]) Comment on above: Performed By: #### G , BEVERLY ECHEVARRIA TROPHS, AMY FRANCO, BMP #### [address] [address] CBCon 01-08-2024 Erythrocyte distribution width (RBC) [Ratio] 12.6 % Normal 11.5-14.5 [facility] ([place]) Comment on above: Performed By: #### G , BEVERLY ECHEVARRIA TROPHS, AMY FRANCO, BMP #### [address] [address] Hematocrit (Bld) [Volume fraction] 45.0 % Normal 42.0-52.0 [facility] ([place]) Comment on above: Performed By: #### G , BEVERLY ECHEVARRIA TROPHS, AMY FRANCO, BMP #### [address] [address] Hgb 15.1 G/dL Normal 14.0-18.0 [facility] ([place]) Comment on above: Performed By: #### G , BEVERLY ECHEVARRIA TROPHS, AMY FRANCO, BMP #### [address] [address] MCH (RBC) [Entitic mass] 32.0 pg High 27.0-31.2 [facility] ([place]) Comment on above: Performed By: #### G , WALE ADRUBINA CHRISTENSENS, AMY FRANCO, BMP #### [address] [address] MCHC 33.5 G/dL Normal 31.8-35.4 [facility] ([place]) Comment on above: Performed By: #### G FR, ANEU, ADIFF, TROPHS, CBC, AMY, BMP #### [address] [address] MCV (RBC) [Entitic vol] 95.4 fL High 80.0-94.0 [facility] ([place]) Comment on above: Performed By: #### G FR, ANEU, ADIFF, TROPHS, CBC, AMY, BMP #### [address] [address] Platelet 153 10 3/mcL Normal 130-400 [facility] ([place] Comment on above: Performed By: #### G FR, ANEU, ADIFF, TROPHS, CBC, AMY, BMP #### [place] [address] Platelet mean volume (Bld) [Entitic vol] 8.8 fL Normal 7.4-10.4 [facility] ([place]) Comment on above: Performed By: #### G FR, ANEU, ADIFF, TROPHS, CBC, AMY, BMP #### [address] [address] RBC 4.72 10 6/mcL Normal 4.04-6.13 [facility] ([place]) Comment on above: Performed By: #### G FR, ANEU, ADIFF, TROPHS, CBC, AMY, BMP #### [address] [address] WBC 6.3 10 3/mcL Normal 4.6-10.8 [facility] ([place]) Comment on above: Performed By: #### G FR, ANEU, ADIFF, TROPHS, CBC, AMY, BMP #### [address] [address] LABORATORYOrdered By: SYSTEM SYSTEM on 01-08-2024 Basophil, Absolute 0.0 103/mcL Normal 0.0 - 0.2 10^3/mcL AO Workflow SS Basophils/100 WBC (Bld) 0.6 % Normal 0.0 - 2.5 % AO Workflow SS Calcium [Mass/Vol] 8.9 mg/dL Normal 8.4 - 10. 2 mg/dL AO ADM SS Chloride [Moles/Vol] 106 mmol/L Normal 98 - 10 7 mmol/L AO ADM SS CO2 [Moles/Vol] 30 mmol/L Normal 23 - 31 mmol/L AO ADM SS Creatinine [Mass/Vol] 0.95 mg/dL Normal 0.70 - 1.30 mg/dL AO ADM SS Electrolyte Balance 8.0 mEq/L Normal 4.0 - 15 .0 mEq/L AO ADM SS Eosinophil, Absolute 0.1 103/mcL Normal 0.0 - 0 .4 10^3/mcL AO Workflow SS Eosinophils/100 WBC (Bld) 1.8 % Normal 0.0 - 7.0 % AO Workflow SS Erythrocyte distribution width (RBC) [Ratio] 12.6 % Normal 11.5 - 14.5 % AO Workflow SS GFR/1.73 sq M.predicted among blacks MDRD (S/P/Bld) [Vol rate/Area] 98 ml/min/1.73sqm Invalid Interpretation Code AO Chemistry S Comment on above: Interpretive Data: GFR Population mean for , Non- Americans Ages 20-29 = 116 mL/min/1.73 sq.m. Ages 30-39 = 107 mL/min/1.73 sq.m. Ages 40-49 = 99 mL/min/1.73 sq.m. Ages 50-59 = 93 mL/min/1.73 sq.m. Ages 60-69 = 85 mL/min/1.73 sq.m. Ages 70+ = 75 mL/min/1.73 sq.m. Chronic Kidney Disease: Less than 60 mL/min/1.73 square meters End Stage Renal Disease: Less than 15 mL/min/1.73 square meters GFR/1.73 sq M.predicted among non-blacks MDRD (S/P/Bld) [Vol rate/Area] 81 ml/min/1.73sqm Invalid Interpretation Code AO Chemistry S Comment on above: Interpretive Data: GFR Population mean for , Non- Americans Ages 20-29 = 116 mL/min/1.73 sq.m. Ages 30-39 = 107 mL/min/1.73 sq.m. Ages 40-49 = 99 mL/min/1.73 sq.m. Ages 50-59 = 93 mL/min/1.73 sq.m. Ages 60-69 = 85 mL/min/1.73 sq.m. Ages 70+ = 75 mL/min/1.73 sq.m. Chronic Kidney Disease: Less than 60 mL/min/1.73 square meters End Stage Renal Disease: Less than 15 mL/min/1.73 square meters Glucose [Mass/Vol] 112 mg/dL Normal 80 - 115 mg/dL AO ADM SS Hematocrit (Bld) [Volume fraction] 45.0 % Normal 42.0 - 52.0 % AO Workflow SS Hemoglobin (Bld) [Mass/Vol] 15.1 G/dL Normal 14.0 - 18.0 G/dL AO Workflow SS Lymphocyte, Absolute 1.8 103/mcL Normal 0.8 - 3 .9 10^3/mcL AO Workflow SS Lymphocytes/100 WBC (Bld) 27.7 % Normal 10.0 - 50.0 % AO Workflow SS MCH (RBC) [Entitic mass] 32.0 pg High 27.0 - 31.2 pg AO Workflow SS MCHC 33.5 G/dL Normal 31.8 - 35.4 G/dL AO Workflow SS MCV (RBC) [Entitic vol] 95.4 fL High 80.0 - 94.0 fL AO Workflow SS Monocyte, Absolute 0.6 103/mcL Normal 0.2 - 1.0 10^3/mcL AO Workflow SS Monocytes/100 WBC (Bld) 9.5 % Normal 1.7 - 13.0 % AO Workflow SS Neutrophil, Absolute 3.8 103/mcL Normal 2.9 - 6 .2 10^3/mcL AO Workflow SS Neutrophils/100 WBC (Bld) 60.4 % Normal 37.0 - 80.0 % AO Workflow SS Platelet mean volume (Bld) [Entitic vol] 8.8 fL Normal 7.4 - 10.4 fL AO Workflow SS Platelets (Bld) [#/Vol] 153 103/mcL Normal 130 - 400 10^3/mcL AO Workflow SS Potassium [Moles/Vol] 4.0 mmol/L Normal 3.5 - 5.1 mmol/L AO ADM SS RBC (Bld) [#/Vol] 4.72 106/mcL Normal 4.04 - 6.1 3 10^6/mcL AO Workflow SS Sodium [Moles/Vol] 144 mmol/L Normal 136 - 145 mmol/L AO ADM SS Urea nitrogen [Mass/Vol] 14 mg/dL Normal 7 - 18 mg/dL AO ADM SS Urea nitrogen/Creatinine [Mass ratio] 15 ratio Normal 7 - 27 ratio AO ADM SS WBC (Bld) [#/Vol] 6.3 103/mcL Normal 4.6 - 10.8 10^3/mcL AO Workflow SS LABORATORYOrdered By: Carlos virk on 01-08-2024 INR Coag (PPP) [Relative time] 1.0 {INR} Invalid Interpretation Code AO [facility] SS Comment on above: Interpretive Data: Vania [employer]gers [employer] (CHEST, 1991, [id number]) recommended therapeutic range for oral anticoagulant therapy is: LOW RISK: Prophylaxis of venous thrombosis INR: 2.0-3.0 Treatment of pulmonary embolism 2.0-3.0 Prevention of systemic embolism 2.0-3.0 HIGH RISK: Mechanical prosthetic valves 2.5-3.5 PT Coag (PPP) [Time] 11.1 s Normal 9.0 - 1 4.4 seconds AO [facility] SS PROon 01-08-2024 PT Coag (PPP) [Time] 11.1 s Normal 9.0-14.4 [facility] ([place]) Comment on above: Performed By: #### G FR, ANEU, ADIFF, TROPHS, CBC, MDW, BMP #### [place] [id number] PT International Ratio 1.0 Normal [facility] ([place]) Comment on above: Result Comment: [employer] Physicians (CHEST, 1991, [id number]) recommended therapeutic range for oral anticoagulant therapy is: LOW RISK: Prophylaxis of venous thrombosis INR: 2.0-3.0 Treatment of pulmonary embolism 2.0-3.0 Prevention of systemic embolism 2.0-3.0 HIGH RISK: Mechanical prosthetic valves 2.5-3.5 Performed By: #### G FR, ANEU, ADIFF, TROPHS, CBC, MDW, BMP #### [id number] [place], [place] [address] Final Surgical Pathology Rep rylie 09-01-2023 Final Surgical Pathology Report . Pathology Reports Accession: Collected Date/Time: Received Date/Time: Pathologist: [id number] 08/28/2023 09:13 EST 08/29/2023 07:17 MD JARRETT BOSWELL Final Surgical Pathology Report DIAGNOSIS: RIGHT CAROTID ARTERY, ENDARTERECTOMY: - PARTIALLY CALCIFIED ATHEROSCLEROTIC PLAQUE CLINICAL INFORMATION: Procedure: RIGHT CAROTID ENDARTERECTOMY Preoperative diagnosis: RIGHT CAROTID ARTERY STENOSIS Postoperative diagnosis: RIGHT CAROTID ARTERY STENOSIS SPECIMEN: A RIGHT CAROTID ARTERY PLAQUE GROSS DESCRIPTION: A. Received in formalin, labeled with the patients name, Case # [id number], and right carotid artery plaque is a yellow-orange rubbery to firm and bifurcated portion of carotid plaque measuring 3 x 1.5 x 0.8 cm. RS -1 after decalcification. Dictated by ELIAS BEGUM MICROSCOPIC DESCRIPTION: The microscopic examination is performed, except in the case of Gross Only. Electronically Signed by Pathology Report verified by [facility] JARRETT OCHOA MD Sign out Date: 09/01/2023 09:25 Performing Lab: [facility], [address] [place] [address] Pathology Dept Disclaimer If ancillary studies were utilized, the following Laboratory Developed Test (LDT) disclaimer will apply: Under CLIA requirements, [facility] is qualified to perform high complexity testing. For all ancillary stains, positive and negative controls stain appropriately. Performance characteristics of immunohistochemical and chromogenic in-situ hybridization tests have been determined by [facility]. These tests are used for clinical purposes, They should not be regarded as investigational or for research. Normal [facility] ([place]) .Auto Diffon 08-28-2023 Basophil, Absolute 0.0 10 3/mcL Normal 0.0-0.3 [facility] ([place]) Comment on above: Performed By: #### G FR, ANEU, ADIFF, TROPHS, CBC, MDW, BMP #### [facility] [address] [place], [place] [address] Basophils/100 WBC (Bld) 0.7 % Normal 0.0-2.5 [facility] ([place]) Comment on above: Performed By: #### G FR, ANEU, ADIFF, TROPHS, CBC, MDW, BMP #### [address] [address] Eosinophil, Absolute 0.2 10 3/mcL Normal 0.0-0.7 [facility] ([place]) Comment on above: Performed By: #### G FR, ANEU, ADIFF, TROPHS, CBC, MDW, BMP #### [address] [address] Eosinophils/100 WBC (Bld) 3.2 % Normal 0.0-6.0 [facility] ([place]) Comment on above: Performed By: #### G FR, ANEU, ADIFF, TROPHS, CBC, MDW, BMP #### [address] [address] Lymphocyte, Absolute 1.5 10 3/mcL Normal 0.9-4.3 [facility] ([place]) Comment on above: Performed By: #### G FR, ANEU, ADIFF, TROPHS, CBC, MDW, BMP #### [address] [address] Lymphocytes/100 WBC (Bld) 30.0 % Normal 20.0-40.0 [facility] ([place]) Comment on above: Performed By: #### G FR, ANEU, ADIFF, TROPHS, CBC, MDW, BMP #### [address] [address] Monocyte, Absolute 0.5 10 3/mcL Normal 0.1-1.4 [facility] ([place]) Comment on above: Performed By: #### G FR, ANEU, ADIFF, TROPHS, CBC, MDW, BMP #### [address] [address] Monocytes/100 WBC (Bld) 9.1 % Normal 2.0-13.0 [facility] ([place]) Comment on above: Performed By: #### G FR, ANEU, ADIFF, TROPHS, CBC, MDW, BMP #### [address] [address] Neutrophils/100 WBC (Bld) 57.0 % Normal 50.0-75.0 [facility] ([place]) Comment on above: Performed By: #### G FR, ANEU, ADIFF, TROPHS, SALVADOR, AMY, BMP #### [address] [address] .GFRon 08-28-2023 GFR >60 Normal [facility] ([place]) Comment on above: Result Comment: GFR Population mean for , Non- Americans Ages 20-29 = 116 mL/min/1.73 sq.m. Ages 30-39 = 107 mL/min/1.73 sq.m. Ages 40-49 = 99 mL/min/1.73 sq.m. Ages 50-59 = 93 mL/min/1.73 sq.m. Ages 60-69 = 85 mL/min/1.73 sq.m. Ages 70+ = 75 mL/min/1.73 sq.m. Chronic Kidney Disease: Less than 60 mL/min/1.73 square meters End Stage Renal Disease: Less than 15 mL/min/1.73 square meters Performed By: #### G FR, ANEU, ADIFF, TROPHS, SALVADOR, AMY, BMP #### [address] [address] GFR Non- >60 Normal [facility] ([place]) Comment on above: Result Comment: GFR Population mean for , Non- Americans Ages 20-29 = 116 mL/min/1.73 sq.m. Ages 30-39 = 107 mL/min/1.73 sq.m. Ages 40-49 = 99 mL/min/1.73 sq.m. Ages 50-59 = 93 mL/min/1.73 sq.m. Ages 60-69 = 85 mL/min/1.73 sq.m. Ages 70+ = 75 mL/min/1.73 sq.m. Chronic Kidney Disease: Less than 60 mL/min/1.73 square meters End Stage Renal Disease: Less than 15 mL/min/1.73 square meters Performed By: #### G FR, ANEU, ADIFF, TROPHS, CBC, W, BMP #### [address] [address] .NEUABSon 08-28-2023 Neutrophil, Absolute 2.9 10 3/mcL Normal 2.3-8.1 [facility] ([place]) Comment on above: Performed By: #### G FR, ANEU, ADIFF, TROPHS, CBC, AMY, BMP #### [address] [address] ABO/Rh (Gel)on 08-28-2023 ABO/Rh Interp Positive Invalid Interpretation Code [facility] ([place]) Comment on above: Performed By: #### G FR, ANEU, ADIFF, TROPHS, CBC, W, BMP #### [address] [address] ABS (Gel)on 08-28-2023 ABSC Interp (Gel) Negative Normal [facility] ([place]) Comment on above: Performed By: #### G FR, ANEU, ADIFF, TROPHS, CBC, AMY, BMP #### [address] [address] BMPon 08-28-2023 BUN/Creatinine Ratio 16.2 ratio Normal 10.0-22.0 [facility] ([place]) Comment on above: Performed By: #### G FR, ANEU, ADIFF, TROPHS, CBC, AMY, BMP #### [address] [address] Calcium [Mass/Vol] 9.8 mg/dL Normal 8.7-10.4 [facility] ([place]) Comment on above: Performed By: #### G FR, ANEU, ADIFF, TROPHS, CBC, AMY, BMP #### [address] [address] Chloride [Moles/Vol] 109 mmol/L Normal 98-110 [facility] ([place]) Comment on above: Performed By: #### G FR, ANEU, ADIFF, TROPHS, CBC, W, BMP #### [address] [address] CO2 [Moles/Vol] 25 mmol/L Normal 22-32 [facility] ([place]) Comment on above: Performed By: #### G FR, ANEU, ADIFF, TROPHS, CBC, AMY, BMP #### [address] [address] Creatinine [Mass/Vol] 0.74 mg/dL Normal 0.60-1.40 [facility] ([place]) Comment on above: Performed By: #### G FR, ANEU, ADIFF, TROPHS, CBC, AMY, BMP #### [address] [address] Electrolyte Balance 9.0 mEq/L Normal 4.0-15.0 [facility] ([place]) Comment on above: Performed By: #### G FR, ANEU, ADIFF, TROPHS, CBC, AMY, BMP #### [address] [address] Glucose [Mass/Vol] 132 mg/dL High 82-115 [facility] ([place]) Comment on above: Performed By: #### G FR, ANEU, ADIFF, TROPHS, CBC, AMY, BMP #### [address] [address] Potassium [Moles/Vol] 3.6 mmol/L Normal 3.5-5.0 [facility] ([place]) Comment on above: Result Comment: Spec imen slightly hemolyzed. Performed By: #### G FR, ANEU, ADIFF, TROPHS, CBC, AMY, BMP #### [address] [address] Sodium [Moles/Vol] 143 mmol/L Normal 136-145 [facility] ([place]) Comment on above: Performed By: #### G FR, ANEU, ADIFF, TROPHS, CBC, AMY, BMP #### [address] [address] Urea nitrogen [Mass/Vol] 12.0 mg/dL Normal 8.0-22.0 [facility] ([place]) Comment on above: Performed By: #### G FR, ANEU, ADIFF, TROPHS, CBC, AMY, BMP #### [address] [address] CBCon 08-28-2023 Erythrocyte distribution width (RBC) [Ratio] 12.7 % Normal 11.5-15.5 [facility] ([place]) Comment on above: Performed By: #### G FR, ANEU, ADIFF, TROPHS, CBC, MDW, BMP #### [address] [address] Hematocrit (Bld) [Volume fraction] 44.4 % Normal 40.0-52.0 [facility] ([place]) Comment on above: Performed By: #### G FR, ANEU, ADIFF, TROPHS, CBC, MDW, BMP #### [address] [address] Hgb 15.4 G/dL Normal 13.0-17.5 [facility] ([place]) Comment on above: Performed By: #### G FR, ANEU, ADIFF, TROPHS, CBC, MDW, BMP #### [address] [address] MCH (RBC) [Entitic mass] 32.5 pg Normal 27.0-33.0 [facility] ([place]) Comment on above: Performed By: #### G FR, ANEU, ADIFF, TROPHS, CBC, MDW, BMP #### [address] [address] MCHC 34.6 G/dL Normal 32.0-36.0 [facility] ([place]) Comment on above: Performed By: #### G FR, ANEU, ADIFF, TROPHS, CBC, MDW, BMP #### [address] [address] MCV (RBC) [Entitic vol] 93.8 fL Normal 81.0-100.0 [facility] ([place]) Comment on above: Performed By: #### G FR, ANEU, ADIFF, TROPHS, CBC, MDW, BMP #### [address] [address] Platelet 166 10 3/mcL Normal 150-450 [facility] ([place]) Comment on above: Performed By: #### G FR, ANEU, ADIFF, TROPHS, CBC, MDW, BMP #### [address] [address] Platelet mean volume (Bld) [Entitic vol] 9.0 fL Normal 6.4-10.5 [facility] ([place]) Comment on above: Performed By: #### G FR, ANEU, ADIFF, TROPHS, CBC, MDW, BMP #### [address] [address] RBC 4.73 10 6/mcL Normal 4.50-6.00 [facility] ([place]) Comment on above: Performed By: #### G FR, ANEU, ADIFF, TROPHS, CBC, MDW, BMP #### [address] [place], [place] [address] WBC 5.1 10 3/mcL Normal 4.5-10.8 [facility] ([place]) Comment on above: Performed By: #### G FR, ANEU, ADIFF, TROPHS, CBC, MDW, BMP #### [address] [address] LABORATORYOrdered By: Sonia Mesa on 08-28-2023 ABO and Rh group Nom (Bld) Blood group O Rh(D) positive Invalid Interpretation Code AH BB Auto SS Blood group antibody screen Ql Negative ABSC (08/28/23 6:32 AM) Normal AH BB Auto SS LABORATORYOrdered By: SYSTEM SYSTEM on 08-28-2023 Basophils (Bld) [#/Vol] 0.0 103/mcL Normal 0.0 - 0.3 10^3/mcL AH Workflow SS Basophils/100 WBC (Bld) 0.7 % Normal 0.0 - 2.5 % AH Workflow SS Calcium [Mass/Vol] 9.8 mg/dL Normal 8.7 - 10. 4 mg/dL AH ADM SS Chloride [Moles/Vol] 109 mmol/L Normal 98 - 11 0 mEq/L AH ADM SS CO2 [Moles/Vol] 25 mmol/L Normal 22 - 32 mEq/L AH ADM SS Creatinine [Mass/Vol] 0.74 mg/dL Normal 0.60 - 1.40 mg/dL AH ADM SS Electrolyte Balance 9.0 mEq/L Normal 4.0 - 15 .0 mEq/L AH ADM SS Eosinophils (Bld) [#/Vol] 0.2 103/mcL Normal 0.0 - 0.7 10^3/mcL AH Workflow SS Eosinophils/100 WBC (Bld) 3.2 % Normal 0.0 - 6.0 % AH Workflow SS Erythrocyte distribution width (RBC) [Ratio] 12.7 % Normal 11.5 - 15.5 % AH Workflow SS GFR/1.73 sq M.predicted among blacks MDRD (S/P/Bld) [Vol rate/Area] ml/min/1.73sqm Invalid Interpretation Code [employer] Chemistry S Comment on above: Interpretive Data: GFR Population mean for , Non- Americans Ages 20-29 = 116 mL/min/1.73 sq.m. Ages 30-39 = 107 mL/min/1.73 sq.m. Ages 40-49 = 99 mL/min/1.73 sq.m. Ages 50-59 = 93 mL/min/1.73 sq.m. Ages 60-69 = 85 mL/min/1.73 sq.m. Ages 70+ = 75 mL/min/1.73 sq.m. Chronic Kidney Disease: Less than 60 mL/min/1.73 square meters End Stage Renal Disease: Less than 15 mL/min/1.73 square meters GFR/1.73 sq M.predicted among non-blacks MDRD (S/P/Bld) [Vol rate/Area] ml/min/1.73sqm Invalid Interpretation Code [employer] Chemistry S Comment on above: Interpretive Data: GFR Population mean for , Non- Americans Ages 20-29 = 116 mL/min/1.73 sq.m. Ages 30-39 = 107 mL/min/1.73 sq.m. Ages 40-49 = 99 mL/min/1.73 sq.m. Ages 50-59 = 93 mL/min/1.73 sq.m. Ages 60-69 = 85 mL/min/1.73 sq.m. Ages 70+ = 75 mL/min/1.73 sq.m. Chronic Kidney Disease: Less than 60 mL/min/1.73 square meters End Stage Renal Disease: Less than 15 mL/min/1.73 square meters Glucose [Mass/Vol] 132 mg/dL High 82 - 115 mg/dL ADM SS Hematocrit (Bld) [Volume fraction] 44.4 % Normal 40.0 - 52.0 % AH Workflow SS Hemoglobin (Bld) [Mass/Vol] 15.4 G/dL Normal 13.0 - 17.5 G/dL AH Workflow SS Lymphocytes (Bld) [#/Vol] 1.5 103/mcL Normal 0.9 - 4.3 10^3/mcL AH Workflow SS Lymphocytes/100 WBC (Bld) 30.0 % Normal 20.0 - 40.0 % AH Workflow SS MCH (RBC) [Entitic mass] 32.5 pg Normal 27.0 - 33.0 pg AH Workflow SS MCHC 34.6 G/dL Normal 32.0 - 36.0 G/dL Workflow SS MCV (RBC) [Entitic vol] 93.8 fL Normal 81.0 - 100.0 fL Workflow SS Monocytes (Bld) [#/Vol] 0.5 103/mcL Normal 0.1 - 1.4 10^3/mcL AH Workflow SS Monocytes/100 WBC (Bld) 9.1 % Normal 2.0 - 13.0 % Workflow SS Neutrophils (Bld) [#/Vol] 2.9 103/mcL Normal 2.3 - 8.1 10^3/mcL AH Workflow SS Neutrophils/100 WBC (Bld) 57.0 % Normal 50.0 - 75.0 % AH Workflow SS Platelet mean volume (Bld) [Entitic vol] 9.0 fL Normal 6.4 - 10.5 fL Workflow SS Platelets (Bld) [#/Vol] 166 103/mcL Normal 150 - 450 10^3/mcL AH Workflow SS Potassium [Moles/Vol] 3.6 mmol/L Normal 3.5 - 5.0 mEq/L ADM SS Comment on above: Result Comment: Spec imen slightly hemolyzed. RBC (Bld) [#/Vol] 4.73 106/mcL Normal 4.50 - 6.0 0 10^6/mcL AH Workflow SS Sodium [Moles/Vol] 143 mmol/L Normal 136 - 145 mEq/L ADM SS Urea nitrogen [Mass/Vol] 12.0 mg/dL Normal 8.0 - 22.0 mg/dL ADM SS Urea nitrogen/Creatinine [Mass ratio] 16.2 ratio Normal 10.0 - 22.0 ratio AH ADM SS WBC (Bld) [#/Vol] 5.1 103/mcL Normal 4.5 - 10.8 10^3/mcL AH Workflow SS .Auto Diffon 07-10-2023 Basophil, Absolute 0.1 10 3/mcL Normal 0.0-0.3 [facility] ([place]) Comment on above: Performed By: #### G FR, ANEU, ADIFF, TROPHS, CBC, MDW, BMP #### [address] [address] Basophils/100 WBC (Bld) 0.8 % Normal 0.0-2.5 [facility] ([place]) Comment on above: Performed By: #### G FR, ANEU, ADIFF, TROPHS, CBC, MDW, BMP #### [address] [address] Eosinophil, Absolute 0.2 10 3/mcL Normal 0.0-0.7 [facility] ([place]) Comment on above: Performed By: #### G FR, ANEU, ADIFF, TROPHS, CBC, MDW, BMP #### [address] [address] Eosinophils/100 WBC (Bld) 3.6 % Normal 0.0-6.0 [facility] ([place]) Comment on above: Performed By: #### G FR, ANEU, ADIFF, TROPHS, CBC, MDW, BMP #### [address] [address] Lymphocyte, Absolute 2.1 10 3/mcL Normal 0.9-4.3 [facility] ([place]) Comment on above: Performed By: #### G FR, ANEU, ADIFF, TROPHS, CBC, MDW, BMP #### [address] [address] Lymphocytes/100 WBC (Bld) 31.8 % Normal 20.0-40.0 [facility] ([place]) Comment on above: Performed By: #### G FR, ANEU, ADIFF, TROPHS, CBC, MDW, BMP #### [address] [address] Monocyte, Absolute 0.7 10 3/mcL Normal 0.1-1.4 [facility] ([place]) Comment on above: Performed By: #### G FR, ANEU, ADIFF, TROPHS, CBC, MDW, BMP #### [address] [address] Monocytes/100 WBC (Bld) 10.4 % Normal 2.0-13.0 [facility] ([place]) Comment on above: Performed By: #### G FR, ANEU, ADIFF, TROPHS, CBC, MDW, BMP #### [address] [address] Neutrophils/100 WBC (Bld) 53.4 % Normal 50.0-75.0 [facility] ([place]) Comment on above: Performed By: #### G FR, ANEU, ADIFF, TROPHS, CBC, MDW, BMP #### [address] [address] .GFRon 07-10-2023 GFR >60 Normal [facility] ([place]) Comment on above: Result Comment: GFR Population mean for , Non- Americans Ages 20-29 = 116 mL/min/1.73 sq.m. Ages 30-39 = 107 mL/min/1.73 sq.m. Ages 40-49 = 99 mL/min/1.73 sq.m. Ages 50-59 = 93 mL/min/1.73 sq.m. Ages 60-69 = 85 mL/min/1.73 sq.m. Ages 70+ = 75 mL/min/1.73 sq.m. Chronic Kidney Disease: Less than 60 mL/min/1.73 square meters End Stage Renal Disease: Less than 15 mL/min/1.73 square meters Performed By: #### G FR, ANEU, ADIFF, TROPHS, CBC, MDW, BMP #### [address] [address] GFR Non- >60 Normal [facility] ([place]) Comment on above: Result Comment: GFR Population mean for , Non- Americans Ages 20-29 = 116 mL/min/1.73 sq.m. Ages 30-39 = 107 mL/min/1.73 sq.m. Ages 40-49 = 99 mL/min/1.73 sq.m. Ages 50-59 = 93 mL/min/1.73 sq.m. Ages 60-69 = 85 mL/min/1.73 sq.m. Ages 70+ = 75 mL/min/1.73 sq.m. Chronic Kidney Disease: Less than 60 mL/min/1.73 square meters End Stage Renal Disease: Less than 15 mL/min/1.73 square meters Performed By: #### G , BEVERLY ECHEVARRIA, JOHN, SALVADOR, AMY, BMP #### [address] [address] .NEUABSon 07-10-2023 Neutrophil, Absolute 3.6 10 3/mcL Normal 2.3-8.1 [facility] ([place]) Comment on above: Performed By: #### G , BEVERLY ECHEVARRIA TROPHS, SALVADOR, AMY, BMP #### [address] [address] ABO/Rh (Gel)on 07-10-2023 ABO/Rh Interp Positive Invalid Interpretation Code [facility] ([place]) Comment on above: Performed By: #### G , WALE, BEVERLY, JOHN, SALVADOR, AMY, BMP #### [address] [address] ABS (Gel)on 07-10-2023 ABSC Interp (Gel) Negative Normal [facility] ([place]) Comment on above: Performed By: #### G , BEVERLY ECHEVARRIA, JOHN, SALVADOR, AMY, BMP #### [address] [address] BMPon 07-10-2023 BUN/Creatinine Ratio 15.3 ratio Normal 10.0-22.0 [facility] ([place]) Comment on above: Performed By: #### G , WALE, BEVERLY, JOHN, SALVADOR, AMY, BMP #### [address] [address] Calcium [Mass/Vol] 10.0 mg/dL Normal 8.7-10.4 [facility] ([place]) Comment on above: Performed By: #### G FR, ANEU, ADIFF, TROPHS, CBC, AMY, BMP #### [address] [address] Chloride [Moles/Vol] 106 mmol/L Normal 98-110 [facility] ([place]) Comment on above: Performed By: #### G FR, ANEU, ADIFF, TROPHS, CBC, AMY, BMP #### [address] [address] CO2 [Moles/Vol] 29 mmol/L Normal 22-32 [facility] ([place]) Comment on above: Performed By: #### G FR, ANEU, ADIFF, TROPHS, CBC, AMY, BMP #### [address] [address] Creatinine [Mass/Vol] 0.85 mg/dL Normal 0.60-1.40 [facility] ([place]) Comment on above: Performed By: #### G FR, ANEU, ADIFF, TROPHS, CBC, AMY, BMP #### [address] [address] Electrolyte Balance 5.0 mEq/L Normal 4.0-15.0 [facility] ([place]) Comment on above: Performed By: #### G FR, ANEU, ADIFF, TROPHS, CBC, AMY, BMP #### [address] [address] Glucose [Mass/Vol] 115 mg/dL Normal 82-115 [facility] ([place]) Comment on above: Performed By: #### G FR, ANEU, ADIFF, TROPHS, CBC, AMY, BMP #### [address] [address] Potassium [Moles/Vol] 5.2 mmol/L High 3.5-5.0 [facility] ([place]) Comment on above: Performed By: #### G FR, ANEU, ADIFF, TROPHS, CBC, AMY, BMP #### [address] [address] Sodium [Moles/Vol] 140 mmol/L Normal 136-145 [facility] ([place]) Comment on above: Performed By: #### G FR, ANEU, ADIFF, TROPHS, CBC, W, BMP #### [address] [address] Urea nitrogen [Mass/Vol] 13.0 mg/dL Normal 8.0-22.0 [facility] ([place]) Comment on above: Performed By: #### G FR, ANEU, ADIFF, TROPHS, CBC, W, BMP #### [address] [address] CBCon 07-10-2023 Erythrocyte distribution width (RBC) [Ratio] 12.4 % Normal 11.5-15.5 [facility] ([place]) Comment on above: Performed By: #### G FR, ANEU, ADIFF, TROPHS, CBC, AMY, BMP #### [address] [address] Hematocrit (Bld) [Volume fraction] 46.9 % Normal 40.0-52.0 [facility] ([place]) Comment on above: Performed By: #### G FR, ANEU, ADIFF, TROPHS, CBC, AMY, BMP #### [address] [address] Hgb 15.9 G/dL Normal 13.0-17.5 [facility] ([place]) Comment on above: Performed By: #### G FR, ANEU, ADIFF, TROPHS, CBC, AMY, BMP #### [address] [address] MCH (RBC) [Entitic mass] 32.2 pg Normal 27.0-33.0 [facility] ([place]) Comment on above: Performed By: #### G FR, ANEU, ADIFF, TROPHS, CBC, W, BMP #### [address] [place] [address] MCHC 34.0 G/dL Normal 32.0-36.0 [facility] ([place]) Comment on above: Performed By: #### G FR, ANEU, ADIFF, TROPHS, CBC, AMY, BMP #### [address] [address] MCV (RBC) [Entitic vol] 94.9 fL Normal 81.0-100.0 [facility] ([place]) Comment on above: Performed By: #### G FR, ANEU, ADIFF, TROPHS, CBC, AMY, BMP #### [address] [address] Platelet 173 10 3/mcL Normal 150-450 [facility] ([place]) Comment on above: Performed By: #### G FR, ANEU, ADIFF, TROPHS, CBC, AMY, BMP #### [address] [address] Platelet mean volume (Bld) [Entitic vol] 8.4 fL Normal 6.4-10.5 [facility] ([place]) Comment on above: Performed By: #### G FR, ANEU, ADIFF, TROPHS, CBC, AMY, BMP #### [address] [address] RBC 4.95 10 6/mcL Normal 4.50-6.00 [facility] ([place]) Comment on above: Performed By: #### G FR, ANEU, ADIFF, TROPHS, CBC, AMY, BMP #### [address] [address] WBC 6.7 10 3/mcL Normal 4.5-10.8 [facility] ([place]) Comment on above: Performed By: #### G FR, ANEU, ADIFF, TROPHS, CBC, AMY, BMP #### [address] [address] LABORATORYOrdered By: Sonia Mesa on 07-10-2023 ABO and Rh group Nom (Bld) Blood group O Rh(D) positive Invalid Interpretation Code AH BB Auto SS Blood group antibody screen Ql Negative ABSC (07/10/23 8:52 AM) Normal AH BB Auto SS LABORATORYOrdered By: Proficient SYSTEM on 07-10-2023 Basophils (Bld) [#/Vol] 0.1 103/mcL Normal 0.0 - 0.3 10^3/mcL Workflow SS Basophils/100 WBC (Bld) 0.8 % Normal 0.0 - 2.5 % AH Workflow SS Calcium [Mass/Vol] 10.0 mg/dL Normal 8.7 - 10. 4 mg/dL ADM SS Chloride [Moles/Vol] 106 mmol/L Normal 98 - 11 0 mEq/L ADM SS CO2 [Moles/Vol] 29 mmol/L Normal 22 - 32 mEq/L ADM SS Creatinine [Mass/Vol] 0.85 mg/dL Normal 0.60 - 1.40 mg/dL ADM SS Electrolyte Balance 5.0 mEq/L Normal 4.0 - 15 .0 mEq/L ADM SS Eosinophils (Bld) [#/Vol] 0.2 103/mcL Normal 0.0 - 0.7 10^3/mcL Workflow SS Eosinophils/100 WBC (Bld) 3.6 % Normal 0.0 - 6.0 % Workflow SS Erythrocyte distribution width (RBC) [Ratio] 12.4 % Normal 11.5 - 15.5 % Workflow SS GFR/1.73 sq M.predicted among blacks MDRD (S/P/Bld) [Vol rate/Area] ml/min/1.73sqm Invalid Interpretation Code [employer] Chemistry S Comment on above: Interpretive Data: GFR Population mean for , Non- Americans Ages 20-29 = 116 mL/min/1.73 sq.m. Ages 30-39 = 107 mL/min/1.73 sq.m. Ages 40-49 = 99 mL/min/1.73 sq.m. Ages 50-59 = 93 mL/min/1.73 sq.m. Ages 60-69 = 85 mL/min/1.73 sq.m. Ages 70+ = 75 mL/min/1.73 sq.m. Chronic Kidney Disease: Less than 60 mL/min/1.73 square meters End Stage Renal Disease: Less than 15 mL/min/1.73 square meters GFR/1.73 sq M.predicted among non-blacks MDRD (S/P/Bld) [Vol rate/Area] ml/min/1.73sqm Invalid Interpretation Code Chemistry S Comment on above: Interpretive Data: GFR Population mean for , Non- Americans Ages 20-29 = 116 mL/min/1.73 sq.m. Ages 30-39 = 107 mL/min/1.73 sq.m. Ages 40-49 = 99 mL/min/1.73 sq.m. Ages 50-59 = 93 mL/min/1.73 sq.m. Ages 60-69 = 85 mL/min/1.73 sq.m. Ages 70+ = 75 mL/min/1.73 sq.m. Chronic Kidney Disease: Less than 60 mL/min/1.73 square meters End Stage Renal Disease: Less than 15 mL/min/1.73 square meters Glucose [Mass/Vol] 115 mg/dL Normal 82 - 115 mg/dL ADM SS Hematocrit (Bld) [Volume fraction] 46.9 % Normal 40.0 - 52.0 % Workflow SS Hemoglobin (Bld) [Mass/Vol] 15.9 G/dL Normal 13.0 - 17.5 G/dL Workflow SS Lymphocytes (Bld) [#/Vol] 2.1 103/mcL Normal 0.9 - 4.3 10^3/mcL Workflow SS Lymphocytes/100 WBC (Bld) 31.8 % Normal 20.0 - 40.0 % AH Workflow SS MCH (RBC) [Entitic mass] 32.2 pg Normal 27.0 - 33.0 pg AH Workflow SS MCHC 34.0 G/dL Normal 32.0 - 36.0 G/dL Workflow SS MCV (RBC) [Entitic vol] 94.9 fL Normal 81.0 - 100.0 fL Workflow SS Monocytes (Bld) [#/Vol] 0.7 103/mcL Normal 0.1 - 1.4 10^3/mcL Workflow SS Monocytes/100 WBC (Bld) 10.4 % Normal 2.0 - 13.0 % AH Workflow SS Neutrophils (Bld) [#/Vol] 3.6 103/mcL Normal 2.3 - 8.1 10^3/mcL AH Workflow SS Neutrophils/100 WBC (Bld) 53.4 % Normal 50.0 - 75.0 % Workflow SS Platelet mean volume (Bld) [Entitic vol] 8.4 fL Normal 6.4 - 10.5 fL AH Workflow SS Platelets (Bld) [#/Vol] 173 103/mcL Normal 150 - 450 10^3/mcL AH Workflow SS Potassium [Moles/Vol] 5.2 mmol/L High 3.5 - 5.0 mEq/L AH ADM SS RBC (Bld) [#/Vol] 4.95 106/mcL Normal 4.50 - 6.0 0 10^6/mcL AH Workflow SS Sodium [Moles/Vol] 140 mmol/L Normal 136 - 145 mEq/L AH ADM SS Urea nitrogen [Mass/Vol] 13.0 mg/dL Normal 8.0 - 22.0 mg/dL AH ADM SS Urea nitrogen/Creatinine [Mass ratio] 15.3 ratio Normal 10.0 - 22.0 ratio AH ADM SS WBC (Bld) [#/Vol] 6.7 103/mcL Normal 4.5 - 10.8 10^3/mcL Workflow SS Culture, Throaton 07-08-2023 CUT Normal throat alonso isolated. No beta-hemolytic streptococcus isolated. Normal [facility] Comment on above: Performed By: #### M 100.1000 #### [facility] [address] [place], [address] Throat specimen bacteria jose ntification by cultureOrdered By: Mehul Damon on 07-07-2023 Bacteria identified Cx Nom (Throat) streptococcus isolated. [facility] CT ANGIOGRAPHY NECK W/CONTRA STon 06-04-2023 CT ANGIOGRAPHY NECK W/CONTRAST ORIGINAL EXAMINATION: CTA neck: TECHNIQUE: Contiguous spiral images were obtained in the axial plane, following the administration of intravenous contrast using CT angiographic protocol. Sagittal and coronal images were reconstructed from the axial plane acquisition. Additional 3D reformatted MIP reconstructions were presented to aid in the interpretation of this study. Images were obtained from the skull base through the upper lobes. Contrast: Omnipaque 350 One or more the following dose reduction techniques were used:automated exposure control, adjustment of the mA and/or kV according to patient size, or use of iterative reconstruction technique. Additional comment: None. COMPARISON: None HISTORY: ORDERING SYSTEM PROVIDED HISTORY: Reason for Exam: Carotid stenosis follow-up, abnormal vascular ultrasound. Reports no physical complaints. FINDINGS: Neck Angiogram Aorta: Mild calcified plaque without a hemodynamically significant stenosis. No significant stenosis of the proximal innominate, left common carotid and left subclavian arteries. Right common carotid artery: Mild soft and calcified plaque of the distal common carotid artery causes a subjective mild stenosis. Right internal carotid artery: Predominantly soft with plaque with mild calcification involves the carotid bulb and proximal internal carotid artery extending for a length of approximately 12 mm causing a greater than 90% stenosis. Right external carotid artery: No hemodynamically significant flow-limiting stenosis. Left common carotid artery: No hemodynamically significant flow-limiting stenosis. Left internal carotid artery: Mild calcified and soft plaque of the left carotid bulb without a hemodynamically significant stenosis. Left external carotid artery: No hemodynamically significant flow-limiting stenosis. V1/V2 vertebral arteries: No hemodynamically significant flow-limiting stenosis. Vertebral artery dominance: Left Neck Soft tissues: Normal. Bones: No acute osseous pathology. Straightening of the normal cervical lordosis. Post C5-C7 ACDF. Intervening spacer at C5-C6 and bone graft at C6-C7. Multilevel jjni-ro-hhbrjywy disc height loss most pronounced at C3-C4. The vertebral bodies are anatomically aligned. Lung apices: Clear. Mild cerumen of the left external auditory canal. IMPRESSION: 1. Greater than 90% stenosis of the right carotid bulb and proximal internal carotid artery extending for a length of approximately 12 mm. 2. No significant stenosis of the left internal carotid and bilateral vertebral arteries. 3. Other noncontributory findings as described. The estimate of the degree of stenosis included in this report is based on the NASCET method for calculating stenosis, using the internal carotid artery distal to the stenosis as the reference point. Communication was initiated for the radiology call center by this radiologist through PACS at 1:02 p.m. on 06/04/2023with instructions to provide the results of this examination to a licensed caregiver. Interpreted by: Elias Ibrahim MD Preliminary Report By: Elias Ibrahim MD Electronically signed By Elias Ibrahim MD Dictated Date: 06/04/2023 12:52:55 PM Prelim Date: 06/04/2023 1:02:25 PM Sign Date: 06/04/2023 1:02:25 PM Ordering Provider: STELLA GARCÍA [facility] ([place]) .GFRon 05-26-2023 GFR Non- 77 ml/min/1.73sqm Normal [facility] ([place]) Comment on above: Result Comment: GFR Population mean for , Non- Americans Ages 20-29 = 116 mL/min/1.73 sq.m. Ages 30-39 = 107 mL/min/1.73 sq.m. Ages 40-49 = 99 mL/min/1.73 sq.m. Ages 50-59 = 93 mL/min/1.73 sq.m. Ages 60-69 = 85 mL/min/1.73 sq.m. Ages 70+ = 75 mL/min/1.73 sq.m. Chronic Kidney Disease: Less than 60 mL/min/1.73 square meters End Stage Renal Disease: Less than 15 mL/min/1.73 square meters Performed By: #### G FR, ANEU, ADIFF, TROPHS, SALVADOR, AMY, BMP #### [address] [address] GFR 93 ml/min/1.73sqm Normal [facility] ([place]) Comment on above: Result Comment: GFR Population mean for , Non- Americans Ages 20-29 = 116 mL/min/1.73 sq.m. Ages 30-39 = 107 mL/min/1.73 sq.m. Ages 40-49 = 99 mL/min/1.73 sq.m. Ages 50-59 = 93 mL/min/1.73 sq.m. Ages 60-69 = 85 mL/min/1.73 sq.m. Ages 70+ = 75 mL/min/1.73 sq.m. Chronic Kidney Disease: Less than 60 mL/min/1.73 square meters End Stage Renal Disease: Less than 15 mL/min/1.73 square meters Performed By: #### G FR, ANEU, ADIFF, TROPHS, CBC, W, BMP #### [address] [address] BUNon 05-26-2023 Urea nitrogen [Mass/Vol] 12 mg/dL Normal 7-18 [facility] ([place]) Comment on above: Performed By: #### G FR, ANEU, ADIFF, TROPHS, CBC, MDW, BMP #### [address] [address] CREon 05-26-2023 Creatinine [Mass/Vol] 0.99 mg/dL Normal 0.70-1.30 [facility] ([place]) Comment on above: Performed By: #### G , WALE, BEVERLY, RUBINAS, CBC, MDW, BMP #### [address] [place], [place] [address] LABORATORYOrdered By: SYSTEM SYSTEM on 05-26-2023 Creatinine [Mass/Vol] 0.99 mg/dL Invalid Interpretation Code 0.70 - 1.30 mg/dL AO ADM SS GFR/1.73 sq M.predicted among blacks MDRD (S/P/Bld) [Vol rate/Area] 93 ml/min/1.73sqm Invalid Interpretation Code AO Chemistry S Comment on above: Interpretive Data: GFR Population mean for , Non- Americans Ages 20-29 = 116 mL/min/1.73 sq.m. Ages 30-39 = 107 mL/min/1.73 sq.m. Ages 40-49 = 99 mL/min/1.73 sq.m. Ages 50-59 = 93 mL/min/1.73 sq.m. Ages 60-69 = 85 mL/min/1.73 sq.m. Ages 70+ = 75 mL/min/1.73 sq.m. Chronic Kidney Disease: Less than 60 mL/min/1.73 square meters End Stage Renal Disease: Less than 15 mL/min/1.73 square meters GFR/1.73 sq M.predicted among non-blacks MDRD (S/P/Bld) [Vol rate/Area] 77 ml/min/1.73sqm Invalid Interpretation Code AO Chemistry S Comment on above: Interpretive Data: GFR Population mean for , Non- Americans Ages 20-29 = 116 mL/min/1.73 sq.m. Ages 30-39 = 107 mL/min/1.73 sq.m. Ages 40-49 = 99 mL/min/1.73 sq.m. Ages 50-59 = 93 mL/min/1.73 sq.m. Ages 60-69 = 85 mL/min/1.73 sq.m. Ages 70+ = 75 mL/min/1.73 sq.m. Chronic Kidney Disease: Less than 60 mL/min/1.73 square meters End Stage Renal Disease: Less than 15 mL/min/1.73 square meters Urea nitrogen [Mass/Vol] 12 mg/dL Invalid Interpretation Code 7 - 18 mg/dL AO ADM SS MRI KNEE W/O CONTRAST RIGHTo n 03-13-2023 MRI KNEE W/O CONTRAST RIGHT ORIGINAL EXAMINATION: MRI OF THE RIGHT KNEE WITHOUT CONTRAST03/13/2023 9:09 am TECHNIQUE: Multiplanar multisequence MRI of the right knee was performed without the administration of intravenous contrast. COMPARISON: MRI tibia and fibula 04/22/2022 HISTORY: ORDERING SYSTEM PROVIDED HISTORY: Reason for Exam: OTHER INSTABILITY, RIGHT KNEE, EFFUSION, RIGHT KNEE, PAIN IN RIGHT KNEE FINDINGS: MUSCLES, TENDONS, AND LIGAMENTS: The anterior cruciate ligament is intact. The posterior cruciate ligament is intact but demonstrates a globular thickened appearance and intermediate intrasubstance signal, likely representing sequelae of a remote sprain with hypertrophic scarring. The medial collateral ligament is intact. The lateral collateral ligament complex is intact. The popliteus and biceps femoris tendons, iliotibial band, and extensor mechanism are intact. MENISCI: The medial meniscus is intact and demonstrates intermediate signal compatible with intrasubstance degeneration. The lateral meniscus is intact and demonstrates intermediate signal compatible with intrasubstance degeneration. OSSEOUS STRUCTURES AND JOINTS: No fracture or dislocation is evident. Unchanged tiny chondroid lesion of the lateral tibial plateau and tibial plafond, measuring 0.8 x 0.7 cm on image 12 series 9. No aggressive features. No other marrow replacing osseous lesion. Unchanged small intra osseous ganglion at the posterior root attachment of the medial meniscus. There is mild fissuring of the tibial hyaline articular cartilage of the lateral femorotibial joint space. Otherwise the hyaline articular cartilage of the femorotibial joint spaces is intact. There is chondromalacia involving the hyaline articular cartilage of the medial patellar facet. On image 24 series 10 there is an 0.8 cm delamination of the lateral patellar facet articular cartilage. On image 25 of series 10 there is an additional 0.7 cm delamination of the lateral patellar facet articular cartilage, seen more lateral than the previously described lesion. The trochlear articular cartilage is intact. Small volume joint effusion. Minimal proton density hyperintense signal within the suprapatellar fat pad. SOFT TISSUES: No significant volume of fluid is evident in a popliteal cyst. There is moderate prepatellar subcutaneous edema. 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 Abnormal globular appearance of the posterior cruciate ligament with intermediate intrasubstance signal, likely representing sequelae of prior sprain. Small volume joint effusion. I have personally reviewed the images of this examination and agree with the resident's findings and interpretation. Interpreted by: Jamar Bailey DO Preliminary Report By: Lucy Winters Electronically signed By Jamar Bailey DO Dictated Date: 03/13/2023 11:04:45 AM Prelim Date: 03/13/2023 3:31:16 PM Sign Date: 03/13/2023 3:31:16 PM Ordering Provider: DARCI AZEVEDO [facility] ([place]) LABORATORYOrdered By: Evelyne Nunes on 11-04-2022 Protein [Mass/Vol] 7.1 G/dL Invalid Interpretation Code 5.7 - 8.2 G/dL AH ADM SS LABORATORYOrdered By: SYSTEM SYSTEM on 10-10-2022 Basophils (Bld) [#/Vol] 0.0 103/mcL Invalid Interpretation Code 0.0 - 0.3 10^3/mcL AH Workflow SS Basophils/100 WBC (Bld) 0.9 % Invalid Interpretation Code 0.0 - 2.5 % AH Workflow SS Calcium [Mass/Vol] 9.6 mg/dL Invalid Interpretation Code 8.7 - 10.4 mg/dL AH ADM SS Chloride [Moles/Vol] 109 mmol/L Invalid Interpretation Code 98 - 110 mEq/L AH ADM SS CO2 [Moles/Vol] 26 mmol/L Invalid Interpretation Code 22 - 32 mEq/L AH ADM SS Creatinine [Mass/Vol] 0.88 mg/dL Invalid Interpretation Code 0.60 - 1.40 mg/dL AH ADM SS Electrolyte Balance 8.0 mEq/L Invalid Interpretation Code 4.0 - 15.0 mEq/L AH ADM SS Eosinophils (Bld) [#/Vol] 0.1 103/mcL Invalid Interpretation Code 0.0 - 0.7 10^3/mcL AH Workflow SS Eosinophils/100 WBC (Bld) 2.6 % Invalid Interpretation Code 0.0 - 6.0 % AH Workflow SS Erythrocyte distribution width (RBC) [Ratio] 13.6 % Invalid Interpretation Code 11.5 - 15.5 % AH Workflow SS GFR/1.73 sq M.predicted among blacks MDRD (S/P/Bld) [Vol rate/Area] ml/min/1.73sqm Invalid Interpretation Code Chemistry S GFR/1.73 sq M.predicted among non-blacks MDRD (S/P/Bld) [Vol rate/Area] ml/min/1.73sqm Invalid Interpretation Code Chemistry S Glucose [Mass/Vol] 108 mg/dL Invalid Interpretation Code 82 - 115 mg/dL ADM SS Hematocrit (Bld) [Volume fraction] 44.2 % Invalid Interpretation Code 40.0 - 52.0 % AH Workflow SS Hemoglobin (Bld) [Mass/Vol] 14.9 G/dL Invalid Interpretation Code 13.0 - 17.5 G/dL AH Workflow SS Lymphocytes (Bld) [#/Vol] 1.5 103/mcL Invalid Interpretation Code 0.9 - 4.3 10^3/mcL AH Workflow SS Lymphocytes/100 WBC (Bld) 32.6 % Invalid Interpretation Code 20.0 - 40.0 % AH Workflow SS MCH (RBC) [Entitic mass] 31.3 pg Invalid Interpretation Code 27.0 - 33.0 pg AH Workflow SS MCHC 33.6 G/dL Invalid Interpretation Code 32.0 - 36.0 G/dL AH Workflow SS MCV (RBC) [Entitic vol] 93.2 fL Invalid Interpretation Code 81.0 - 100.0 fL AH Workflow SS Monocytes (Bld) [#/Vol] 0.5 103/mcL Invalid Interpretation Code 0.1 - 1.4 10^3/mcL AH Workflow SS Monocytes/100 WBC (Bld) 10.0 % Invalid Interpretation Code 2.0 - 13.0 % AH Workflow SS Neutrophils (Bld) [#/Vol] 2.5 103/mcL Invalid Interpretation Code 2.3 - 8.1 10^3/mcL AH Workflow SS Neutrophils/100 WBC (Bld) 53.9 % Invalid Interpretation Code 50.0 - 75.0 % AH Workflow SS Platelet mean volume (Bld) [Entitic vol] 8.4 fL Invalid Interpretation Code 6.4 - 10.5 fL AH Workflow SS Platelets (Bld) [#/Vol] 148 103/mcL Invalid Interpretation Code 150 - 450 10^3/mcL AH Workflow SS Potassium [Moles/Vol] 3.7 mmol/L Invalid Interpretation Code 3.5 - 5.0 mEq/L ADM SS RBC (Bld) [#/Vol] 4.74 106/mcL Invalid Interpretation Code 4.50 - 6.00 10^6/mcL Workflow SS Sodium [Moles/Vol] 143 mmol/L Invalid Interpretation Code 136 - 145 mEq/L ADM SS Urea nitrogen [Mass/Vol] 10.0 mg/dL Invalid Interpretation Code 8.0 - 22.0 mg/dL ADM SS Urea nitrogen/Creatinine [Mass ratio] 11.4 ratio Invalid Interpretation Code 10.0 - 22.0 ratio ADM SS WBC (Bld) [#/Vol] 4.6 103/mcL Invalid Interpretation Code 4.5 - 10.8 10^3/mcL Workflow SS LABORATORYOrdered By: SYSTEM SYSTEM on 07-24-2022 Basophils (Bld) [#/Vol] 0.0 103/mcL Invalid Interpretation Code 0.0 - 0.3 10^3/mcL Workflow SS Basophils/100 WBC (Bld) 0.6 % Invalid Interpretation Code 0.0 - 2.5 % Workflow SS Calcium [Mass/Vol] 9.6 mg/dL Invalid Interpretation Code 8.7 - 10.4 mg/dL ADM SS Chloride [Moles/Vol] 104 mmol/L Invalid Interpretation Code 98 - 110 mEq/L ADM SS CO2 [Moles/Vol] 36 mmol/L Invalid Interpretation Code 22 - 32 mEq/L ADM SS Creatinine [Mass/Vol] 0.87 mg/dL Invalid Interpretation Code 0.60 - 1.40 mg/dL ADM SS Electrolyte Balance -2.0 mEq/L Invalid Interpretation Code 4.0 - 15.0 mEq/L ADM SS Eosinophils (Bld) [#/Vol] 0.1 103/mcL Invalid Interpretation Code 0.0 - 0.7 10^3/mcL Workflow SS Eosinophils/100 WBC (Bld) 2.9 % Invalid Interpretation Code 0.0 - 6.0 % Workflow SS Erythrocyte distribution width (RBC) [Ratio] 13.0 % Invalid Interpretation Code 11.5 - 15.5 % Workflow SS GFR/1.73 sq M.predicted among blacks MDRD (S/P/Bld) [Vol rate/Area] ml/min/1.73sqm Invalid Interpretation Code Chemistry S GFR/1.73 sq M.predicted among non-blacks MDRD (S/P/Bld) [Vol rate/Area] ml/min/1.73sqm Invalid Interpretation Code Chemistry S Glucose [Mass/Vol] 99 mg/dL Invalid Interpretation Code 70 - 110 mg/dL ADM SS Hematocrit (Bld) [Volume fraction] 45.8 % Invalid Interpretation Code 40.0 - 52.0 % AH Workflow SS Hemoglobin (Bld) [Mass/Vol] 15.3 G/dL Invalid Interpretation Code 13.0 - 17.5 G/dL AH Workflow SS Lymphocytes (Bld) [#/Vol] 1.5 103/mcL Invalid Interpretation Code 0.9 - 4.3 10^3/mcL Workflow SS Lymphocytes/100 WBC (Bld) 29.7 % Invalid Interpretation Code 20.0 - 40.0 % Workflow SS MCH (RBC) [Entitic mass] 31.6 pg Invalid Interpretation Code 27.0 - 33.0 pg AH Workflow SS MCHC 33.4 G/dL Invalid Interpretation Code 32.0 - 36.0 G/dL Workflow SS MCV (RBC) [Entitic vol] 94.6 fL Invalid Interpretation Code 81.0 - 100.0 fL Workflow SS Monocytes (Bld) [#/Vol] 0.7 103/mcL Invalid Interpretation Code 0.1 - 1.4 10^3/mcL Workflow SS Monocytes/100 WBC (Bld) 13.0 % Invalid Interpretation Code 2.0 - 13.0 % Workflow SS Neutrophils (Bld) [#/Vol] 2.7 103/mcL Invalid Interpretation Code 2.3 - 8.1 10^3/mcL Workflow SS Neutrophils/100 WBC (Bld) 53.8 % Invalid Interpretation Code 50.0 - 75.0 % Workflow SS Platelet mean volume (Bld) [Entitic vol] 8.8 fL Invalid Interpretation Code 6.4 - 10.5 fL AH Workflow SS Platelets (Bld) [#/Vol] 137 103/mcL Invalid Interpretation Code 150 - 450 10^3/mcL AH Workflow SS Potassium [Moles/Vol] 4.0 mmol/L Invalid Interpretation Code 3.5 - 5.0 mEq/L ADM SS RBC (Bld) [#/Vol] 4.84 106/mcL Invalid Interpretation Code 4.50 - 6.00 10^6/mcL AH Workflow SS Sodium [Moles/Vol] 138 mmol/L Invalid Interpretation Code 136 - 145 mEq/L AH ADM SS Urea nitrogen [Mass/Vol] 15.0 mg/dL Invalid Interpretation Code 8.0 - 22.0 mg/dL AH ADM SS Urea nitrogen/Creatinine [Mass ratio] 17.2 ratio Invalid Interpretation Code 10.0 - 22.0 ratio AH ADM SS WBC (Bld) [#/Vol] 5.0 103/mcL Invalid Interpretation Code 4.5 - 10.8 10^3/mcL AH Workflow SS CNOVon 08-13-2021 CNOV Office Visit (UCWSTR ) JUNI GAUTHIER ([id number]) 1960 M Date Time Provider Department 08/13/21 7:30 AM ALBA GAUTAM [facility] During your visit today, we recorded the following information about you: Temperature Pulse Respiration Blood pressure 97.5 degrees 92/minute 16/minute 152/88 Weight 105.7 kg Alba Gautam APRN.BUSINESS TECHNOLOGY ANALYST 08/13/2021 7:40 AM Signed SUBJECTIVE Juni Gauthier is a 60 year old male who presents with 2 days of symptoms that are stable. Symptoms include: Fever (?100.4F): No or Chills: No Cough: Yes Shortness of breath: No or Difficulty breathing: No Fatigue: No Muscle aches: No Headache: No New loss of smell or taste: No Sore throat: Yes Nasal congestion: No or Rhinorrhea: No Nausea: No or Vomiting: No Diarrhea: No High risk category assessment Coronary artery disease Exposures: Sick contacts? Yes-son COVID + Family or close contacts with confirmed/probable COVID-19 in last 14 days? Yes He reports that he has quit smoking. He has never used smokeless tobacco. BP 152/88 Pulse 92 Temp 36.4 ?C (97.5 ?F) Resp 16 Wt 105.7 kg (233 lb) SpO2 96% No past medical history on file. No past surgical history on file. ALLERGIES Penicillins MEDICATIONS aspirin, enteric coated (ASPIRIN, ENTERIC COATED) 325 mg EC tablet Take by mouth. omeprazole (PRILOSEC) 20 mg capsule Take by mouth. No family history on file. Social History Tobacco Use - Smoking status: Former Smoker - Smokeless tobacco: Never Used Substance Use Topics - Alcohol use: Not on file - Drug use: Not on file OBJECTIVE Physical Exam Vitals and nursing note reviewed. Constitutional: Appearance: He is obese. HENT: Mouth/Throat: Mouth: Mucous membranes are moist. Pharynx: Oropharynx is clear. No oropharyngeal exudate or posterior oropharyngeal erythema. Cardiovascular: Rate and Rhythm: Normal rate and regular rhythm. Heart sounds: Normal heart sounds. Pulmonary: Effort: Pulmonary effort is normal. No respiratory distress. Breath sounds: Normal breath sounds. No wheezing or rales. Skin: General: Skin is warm and dry. Findings: No erythema or rash. Neurological: Mental Status: He is alert. ASSESSMENT/PLAN ASSESSMENT/PLAN: 1. Suspected COVID-19 virus infection - ICD9: V01.79, ICD10: Z20.822 - COVID WITH FLUA+B, ROUTINE 2. Exposure to COVID-19 virus - ICD9: V01.79, ICD10: Z20.822 - COVID WITH FLUA+B, ROUTINE Alba Gautam APRN.CNP - Meets symptom-based criteria for testing and is high risk. - COVID swab collected at time of office visit - Instructed to isolate pending test results - Discussed symptom monitoring and supportive care - Red flag symptoms requiring follow up discussed This patient encounter involved the screening or treatment of novel coronavirus infection (COVID-19). Alba Gautam APRN.CNP 08/13/2021 7:39 AM Addendum ASSESSMENT/PLAN: 1. Suspected COVID-19 virus infection - ICD9: V01.79, ICD10: Z20.822 - COVID WITH FLUA+B, ROUTINE 2. Exposure to COVID-19 virus - ICD9: V01.79, ICD10: Z20.822 - COVID WITH FLUA+B, ROUTINE Alba Gautam APRN.CNP - Meets symptom-based criteria for testing and is high risk. - COVID swab collected at time of office visit - Instructed to isolate pending test results - Discussed symptom monitoring and supportive care - Red flag symptoms requiring follow up discussed This patient encounter involved the screening or treatment of novel coronavirus infection (COVID-19). Beginning Home Isolation Isolation is used to separate people infected with SARS-CoV-2, the virus that causes COVID-19, from people who are not infected. People who are in isolation should stay home until it?s safe for them to be around others. In the home, anyone sick or infected should separate themselves from others by staying in a specific ?sick room? or area and using a separate bathroom (if available). Isolation or Quarantine: What's the difference? - Quarantine keeps someone who might have been exposed to the virus away from others. - Isolation keeps someone who is infected with the virus away from others, even in their home. Who needs to isolate People who have COVID-19 - People who have symptoms of COVID-19 and are able to recover at home - People who have no symptoms (are asymptomatic) but have tested positive for infection with SARS-CoV-2 Steps to take Stay home except to get medical care - Monitor your symptoms. - Stay in a separate room from other household members, if possible - Use a separate bathroom, if possible - Avoid contact with other members of the household and pets - Don?t share personal household items, like cups, towels, and utensils - Wear a mask when around other people, if you are able to When to seek emergency medical attention Look for emergency warning signs (more content not included)... Normal [facility] COVID w FLU A+B Routon 08-13 Influenza A PCR Negative Normal [facility] Comment on above: Performed By: #### C OVFLU #### [facility] [address] [place], [place] [address] Influenza B PCR Negative Normal [facility] Comment on above: Performed By: #### C OVFLU #### [facility] [address] [place], [place] [address] SARS-CoV-2 (COVID-19) RNA NU+probe Ql (Unsp spec) UPPER RESPIRATORY TRACT SWAB Normal [facility] Comment on above: Performed By: #### C OVFLU #### [id number] [place] [id number] SARS-CoV-2 (COVID-19) RNA NU+probe Ql (Unsp spec) Negative for COVID19 (SARS CoV2) by RT-PCR or equivalent method. Normal Negative for COVID19 (SARS CoV2) by RT-PCR or equivalent method. [facility] Comment on above: Result Comment: This test was developed and its performance characteristics determined by [facility] [place]. This test has been authorized by FDA under an Emergency Use Authorization (EUA). This test has been validated in accordance with the FDA's Guidance Document Policy for Diagnostics Testing in Laboratories Certified to Perform High Complexity Testing under CLIA prior to Emergency use Authorization for Coronavirus Disease 2019 during the Public Health Emergency issued on October 09, 2019. Test performed by [facility], [facility] [place], [facility] [place] [address]. Performed By: #### C OVFLU #### [id number] [place] [id number] Vital Signs Date Time Vital Sign Value Performing Clinician Faci froylan 02-09-2024 17:29-0400 Diastolic Blood Pressure Non-Invasive 71 mm[Hg] DR ANTONINA MALHOTRA MD [facility] 02-09-2024 17:29-0400 Heart rate 72 /min DR ANTONINA MALHOTRA MD [facility] 02-09-2024 17:29-0400 Mean blood pressure 96 mm[Hg] DR ANTONINA MALHOTRA MD [facility] 02-09-2024 17:29-0400 Systolic Blood Pressure Non-Invasive 141 mm[Hg] DR ANTONINA MALHOTRA MD [facility] 02-09-2024 17:00-0400 Diastolic Blood Pressure Non-Invasive 75 mm[Hg] DR ANTONINA MALHOTRA MD [facility] 02-09-2024 17:00-0400 Heart rate 78 /min DR ANTONINA MALHOTRA MD [address] 02-09-2024 17:00-0400 Mean blood pressure 92 mm[Hg] DR ANTONINA MALHOTRA MD [address] 02-09-2024 17:00-0400 Systolic Blood Pressure Non-Invasive 127 mm[Hg] DR ANTONINA MALHOTRA MD [address] [place] [address] 02-09-2024 16:30-0400 Diastolic Blood Pressure Non-Invasive 71 mm[Hg] DR ANTONINA MALHOTRA MD [address] [place] [address] 02-09-2024 16:30-0400 Heart rate 81 /min DR ANTONINA MALHOTRA MD [address] [place] [address] 02-09-2024 16:30-0400 Mean blood pressure 91 mm[Hg] DR ANTONINA MALHOTRA MD [address] 02-09-2024 16:30-0400 Systolic Blood Pressure Non-Invasive 123 mm[Hg] DR ANTONINA MALHOTRA MD [address] [place] [address] 02-09-2024 14:49-[address] Pressure Cuff Size DR ANTONINA MALHOTRA MD [address] 02-09-2024 14:49-[address] ANTONINA MALHOTRA MD [address] 02-09-2024 14:49-[address] ANTONINA MALHOTRA MD [address] [place] [address] 02-09-2024 14:36-[address] Cuff Size DR ANTONINA MALHOTRA MD [address] 02-09-2024 14:36-[address] ANTONINA MALHOTRA MD [address] 02-09-2024 14:36-[address] ANTONINA MALHOTRA MD [address] 02-09-2024 14:34-0400 Body temperature 97.16 [degF] DR ANTONINA MALHOTRA MD [address] 02-09-2024 14:20-0400 Blood Pressure Cuff Size DR ANTONINA MALHOTRA MD [address] 02-09-2024 14:20-[address] ANTONINA MALHOTRA MD [address] 02-09-2024 14:20-[address] ANTONINA MALHOTRA MD [address] 02-09-2024 13:29-0400 Heart rate 79 /min DR ANTONINA MALHOTRA MD [address] 02-09-2024 11:07-0400 Reason For Taking VItal Signs DR ANTONINA MALHOTRA MD [address] 02-09-2024 10:26-0400 Body temperature 98.24 [degF] DR ANTONINA MALHOTRA MD [address] 02-09-2024 10:26-0400 Reason For Taking VItal Signs DR ANTONINA MALHOTRA MD [address] [place] [address] 02-09-2024 10:26-0400 Respiratory rate 16 /min DR ANTONINA MALHOTRA MD [address] 02-09-2024 08:24-0400 Reason For Taking VItal Signs DR ANTONINA MALHOTRA MD [address] 02-09-2024 06:51-0400 Body temperature 98.24 [degF] DR ANTONINA MALHOTRA MD [address] 02-09-2024 06:51-0400 Respiratory rate 16 /min DR ANTONINA MALHOTRA MD [facility] 02-09-2024 03:35-0400 Respiratory rate 16 /min DR ANTONINA MALHOTRA MD [facility] 02-08-2024 23:14-0400 Heart rate 69 /min DR ANTONINA MALHOTRA MD [facility] 02-08-2024 22:49-0400 Heart rate 72 /min DR ANTONINA MALHOTRA MD [facility] 02-07-2024 22:01-0400 Body height 177.[address] ANTONINA MALHOTRA MD [facility] 02-07-2024 22:01-0400 Body weight 106.[address] ANTONINA MALHOTRA MD [facility] 02-07-2024 22:01-0400 Body weight 33.66 kg/m2 DR ANTONINA MALHOTRA MD [facility] 02-07-2024 21:18-0400 Diastolic Blood Pressure Non-Invasive 82 mm[Hg] MICHELLE REICHFIELD DO [facility] 02-07-2024 21:18-0400 Heart rate 84 /min MICHELLE REICHFIELD DO [facility] 02-07-2024 21:18-0400 Respiratory rate 20 /min MICHELLE REICHFIELD DO [facility] 02-07-2024 21:18-0400 Systolic Blood Pressure Non-Invasive 127 mm[Hg] MICHELLE REICHFIELD DO [facility] 02-07-2024 20:25-0400 Diastolic Blood Pressure Non-Invasive 94 mm[Hg] MICHELLE REICHFIELD DO [facility] 02-07-2024 20:25-0400 Heart rate 80 /min MICHELLE REICHFIELD DO [facility] 02-07-2024 20:25-0400 Respiratory rate 22 /min MICHELLE REICHFIELD DO [facility] 02-07-2024 20:25-0400 Systolic Blood Pressure Non-Invasive 141 mm[Hg] MICHELLE REICHFIELD DO [facility] 02-07-2024 19:39-0400 Diastolic Blood Pressure Non-Invasive 73 mm[Hg] MICHELLE REICHFIELD DO [facility] 02-07-2024 19:39-0400 Heart rate 87 /min MICHELLE REICHFIELD DO [facility] 02-07-2024 19:39-0400 Respiratory rate 18 /min MICHELLE REICHFIELD DO [facility] 02-07-2024 19:39-0400 Systolic Blood Pressure Non-Invasive 120 mm[Hg] MICHELLE REICHFIELD DO [facility] 02-07-2024 19:03-0400 Body height 177.8 cm MICHELLE REICHFIELD DO [facility] 02-07-2024 19:03-0400 Body temperature 98.06 [degF] MICHELLE REICHFIELD DO [facility] 02-07-2024 19:03-0400 Body weight 104.5 kg MICHELLE REICHFIELD DO [facility] 01-12-2024 15:59-0400 Diastolic Blood Pressure Non-Invasive 75 mm[Hg] POLA CHAVARRIA MD [facility] 01-12-2024 15:59-0400 Heart rate 66 /min POAL CHAVARRIA MD [address] [place] [address] 01-12-2024 15:59-0400 Respiratory rate 16 /min POLA CHAVARRIA MD [address] [place] [address] 01-12-2024 15:59-0400 Systolic Blood Pressure Non-Invasive 139 mm[Hg] POLA CHAVARRIA MD [address] [place] [address] 01-12-2024 08:41-0400 Body weight 33.78 kg/m2 POLA CHAVARRIA MD [address] [place] [address] 01-12-2024 08:34-0400 Body height 177.8 cm POLA CHAVARRIA MD [address] [place] [address] 01-12-2024 08:34-0400 Body temperature 97.7 [degF] POLA CHAVARRIA MD [address] [place] [address] 01-12-2024 08:34-0400 Body weight 106.8 kg POLA CHAVARRIA MD [address] [place] [address] 01-12-2024 08:34-0400 Body weight 33.78 kg/m2 POLA CHAVARRIA MD [address] [place] [address] 01-12-2024 08:34-0400 Diastolic Blood Pressure Non-Invasive 81 mm[Hg] POLA CHAVARRIA MD [address] [place] [address] 01-12-2024 08:34-0400 Heart rate 71 /min POLA CHAVARRIA MD [address] [place] [address] 01-12-2024 08:34-0400 Respiratory rate 16 /min POLA CHAVARRIA MD [address] [place] [address] 01-12-2024 08:34-0400 Systolic Blood Pressure Non-Invasive 146 mm[Hg] POLA CHAVARRIA MD [address] [place] [address] 08-29-2023 11:50-0500 Body temperature 98.06 [degF] STELLA GARCÍA MD [facility] 08-29-2023 11:50-0500 Diastolic Blood Pressure Non-Invasive 82 mm[Hg] STELLA GARCÍA MD [facility] 08-29-2023 11:50-0500 Heart rate 62 /min STELLA GARCÍA MD [facility] 08-29-2023 11:50-0500 Mean blood pressure 96 mm[Hg] STELLA GARCÍA MD [facility] 08-29-2023 11:50-0500 Reason For Taking VItal Signs STELLA GARCÍA MD [facility] 08-29-2023 11:50-0500 Respiratory rate 20 /min STELLA GARCÍA MD [facility] 08-29-2023 11:50-0500 Systolic Blood Pressure Non-Invasive 138 mm[Hg] STELLA GARCÍA MD [facility] 08-29-2023 08:52-0500 Heart rate 71 /min STELLA GARCÍA MD [facility] 08-29-2023 08:52-0500 Reason For Taking VItal Signs STELLA GARCÍA MD [facility] 08-29-2023 07:05-0500 Body temperature 98.24 [degF] STELLA GARCÍA MD [facility] 08-29-2023 07:05-0500 Diastolic Blood Pressure Non-Invasive 75 mm[Hg] STELLA GARCÍA MD [facility] 08-29-2023 07:05-0500 Heart rate 70 /min STELLA GARCÍA MD [facility] 08-29-2023 07:05-0500 Mean blood pressure 88 mm[Hg] STELLA GARCÍA MD [facility] 08-29-2023 07:05-0500 Reason For Taking VItal Signs STELLA GARCÍA MD [facility] 08-29-2023 07:05-0500 Respiratory rate 20 /min STELLA GARCÍA MD [facility] 08-29-2023 07:05-0500 Systolic Blood Pressure Non-Invasive 119 mm[Hg] STELLA GARCÍA MD [facility] 08-29-2023 02:23-0500 Body temperature 98.6 [degF] STELLA GARCÍA MD [facility] 08-29-2023 02:23-0500 Diastolic Blood Pressure Non-Invasive 75 mm[Hg] STELLA GARCÍA MD [facility] 08-29-2023 02:23-0500 Heart rate 69 /min STELLA GARCÍA MD [facility] 08-29-2023 02:23-0500 Respiratory rate 18 /min STELLA GARCÍA MD [facility] 08-29-2023 02:23-0500 Systolic Blood Pressure Non-Invasive 126 mm[Hg] STELLA GARCÍA MD [facility] 08-28-2023 20:01-0500 Mean blood pressure 96 mm[Hg] STELLA GARCÍA MD [facility] 08-28-2023 17:09-0500 Diastolic blood pressure 90 mm[Hg] STELLA GARCÍA MD [facility] 08-28-2023 17:09-0500 Mean blood pressure 109 mm[Hg] STELLA GARCÍA MD [facility] 08-28-2023 17:09-0500 Systolic blood pressure 130 mm[Hg] STELLA GARCÍA MD [facility] 08-28-2023 15:00-0500 Diastolic blood pressure 97 mm[Hg] STELLA GARCÍA MD [facility] 08-28-2023 15:00-0500 Systolic blood pressure 114 mm[Hg] STELLA GARCÍA MD [facility] 08-28-2023 13:16-0500 Diastolic blood pressure 91 mm[Hg] STELLA GARCÍA MD [facility] 08-28-2023 13:16-0500 Systolic blood pressure 109 mm[Hg] STELLA GARCÍA MD [facility] 08-28-2023 12:15-0500 Mean blood pressure 90 mm[Hg] STELLA GARCÍA MD [facility] 08-28-2023 11:45-0500 Mean blood pressure 91 mm[Hg] STELLA GARCÍA MD [facility] 08-28-2023 10:00-0500 Respiratory Rate - Anes 17 br/min STELLA GARCÍA MD [facility] 08-28-2023 09:55-0500 Body temperature 100 [degF] STELLA GARCÍA MD [facility] 08-28-2023 09:55-0500 Respiratory Rate - Anes 18 br/min STELLA GARCÍA MD [facility] 08-28-2023 09:50-0500 Body temperature 99.91 [degF] STELLA GARCÍA MD [facility] 08-28-2023 09:50-0500 Respiratory Rate - Anes 11 br/min STELLA GARCÍA MD [facility] 08-28-2023 09:45-0500 Body temperature 99.72 [degF] STELLA GARCÍA MD [facility] 08-28-2023 06:37-0500 Body height 177.8 cm STELLA GARCÍA MD [facility] 08-28-2023 06:37-0500 Body weight 33.94 kg/m2 STELLA GARCÍA MD [facility] 08-28-2023 06:37-0500 Body weight 107.3 kg STELLA GARCÍA MD [facility] 08-28-2023 06:37-0500 Heart rate 85 /min STELLA GARCÍA MD [facility] 07-10-2023 08:18-0500 Blood Pressure Location STELLA GARCÍA MD [facility] 07-10-2023 08:18-0500 Blood Pressure Method STELLA GARCÍA MD [facility] 07-10-2023 08:18-0500 Body height 178 cm STELLA GARCÍA MD [facility] 07-10-2023 08:18-0500 Body temperature 97.16 [degF] STELLA GARCÍA MD [facility] 07-10-2023 08:18-0500 Body weight 107 kg STELLA GARCÍA MD [facility] 07-10-2023 08:18-0500 Diastolic Blood Pressure Non-Invasive 95 mm[Hg] STELLA GARCÍA MD [facility] 07-10-2023 08:18-0500 Heart rate 90 /min STELLA GARCÍA MD [facility] 07-10-2023 08:18-0500 Systolic Blood Pressure Non-Invasive 143 mm[Hg] STELLA GARCÍA MD [facility] 10-10-2022 16:30-0500 Diastolic Blood Pressure Non-Invasive 88 1 STELLA GARCÍA MD [facility] 10-10-2022 16:30-0500 Heart rate 88 /min STELLA GARCÍA MD [facility] 10-10-2022 16:30-0500 Systolic Blood Pressure Non-Invasive 142 1 STELLA GARCÍA MD [facility] 10-10-2022 15:43-0500 Diastolic Blood Pressure Non-Invasive 92 1 STELLA GARCÍA MD [facility] 10-10-2022 15:43-0500 Heart rate 84 /min STELLA GARCÍA MD [facility] 10-10-2022 15:43-0500 Systolic Blood Pressure Non-Invasive 160 1 STELLA GARCÍA MD [facility] 10-10-2022 15:03-0500 Diastolic Blood Pressure Non-Invasive 80 1 STELLA GARCÍA MD [facility] 10-10-2022 15:03-0500 Heart rate 80 /min STELLA GARCÍA MD [facility] 10-10-2022 15:03-0500 Systolic Blood Pressure Non-Invasive 130 1 STELLA GARCÍA MD [facility] 10-10-2022 14:30-0500 Respiratory rate 16 /min STELLA GARCÍA MD [facility] 10-10-2022 12:45-0500 Respiratory rate 16 /min STELLA GARCÍA MD [facility] 10-10-2022 12:35-0500 Heart rate 76 /min STELLA GARCÍA MD [facility] 10-10-2022 12:35-0500 Respiratory rate 18 /min STELLA GARCÍA MD [facility] 10-10-2022 12:30-0500 Heart rate 72 /min STELLA GARCÍA MD [facility] 10-10-2022 12:25-0500 Heart rate 76 /min STELLA GARCÍA MD [facility] 10-10-2022 08:00-0500 Blood Pressure Cuff Size STELLA GARCÍA MD [facility] 10-10-2022 08:00-0500 Blood Pressure Location STELLA GARCÍA MD [facility] 10-10-2022 08:00-0500 Blood Pressure Method STELLA GARCÍA MD [facility] 10-10-2022 08:00-0500 Body height 177.8 cm STELLA GARCÍA MD [facility] 10-10-2022 08:00-0500 Body temperature 96.98 [degF] STELLA GARCÍA MD [facility] 10-10-2022 08:00-0500 Body weight 103.7 kg STELLA GARCÍA MD [facility] 10-10-2022 08:00-0500 Body weight 32.8 kg/m2 STELLA GARCÍA MD [facility] 08-07-2022 14:56-0500 Body temperature 97.16 [degF] ARIEL MORA Rise [facility] 08-07-2022 14:56-0500 Diastolic Blood Pressure Non-Invasive 95 1 ARIEL MORA DO [facility] 08-07-2022 14:56-0500 Heart rate 82 /min ARIEL MORA DO [facility] 08-07-2022 14:56-0500 Respiratory rate 18 /min ARIEL MORA DO [facility] 08-07-2022 14:56-0500 Systolic Blood Pressure Non-Invasive 145 1 ARIEL MALIKRAN DO [facility] 08-07-2022 13:14-0500 Body temperature 96.98 [degF] ARIEL MORA DO [facility] 08-07-2022 13:14-0500 Diastolic Blood Pressure Non-Invasive 94 1 ARIEL MORA DO [facility] 08-07-2022 13:14-0500 Heart rate 84 /min ARIEL MALIKRAN DO [facility] 08-07-2022 13:14-0500 Reason For Taking VItal Signs ARIEL MALIKRAN DO [facility] 08-07-2022 13:14-0500 Respiratory rate 18 /min ARIEL MALIKRAN DO [facility] 08-07-2022 13:14-0500 Systolic Blood Pressure Non-Invasive 154 1 ARIEL MALIKRAN DO [facility] 08-07-2022 12:54-0500 Body temperature 98.96 [degF] ARIEL MALIKRAN DO [facility] 08-07-2022 12:54-0500 Diastolic Blood Pressure Non-Invasive 78 1 ARIEL MALIKRAN DO [facility] 08-07-2022 12:54-0500 Heart rate 85 /min ARIELKRISHAN MALIKRAN DO [facility] 08-07-2022 12:54-0500 Mean blood pressure 92 mm[Hg] ARIEL MALIKRAN DO [facility] 08-07-2022 12:54-0500 Respiratory rate 16 /min ARIEL MALIKRAN DO [facility] 08-07-2022 12:54-0500 Systolic Blood Pressure Non-Invasive 140 1 ARIEL MALIKRAN DO [facility] 08-07-2022 12:39-0500 Heart rate 77 /min ARIEL MALIKRAN DO [facility] 08-07-2022 12:39-0500 Mean blood pressure 91 mm[Hg] ARIEL MALIKRAN DO [facility] 08-07-2022 12:24-0500 Heart rate 74 /min ARIEL MALIKRAN DO [facility] 08-07-2022 12:24-0500 Mean blood pressure 94 mm[Hg] ARIEL MALIKRAN DO [facility] 08-07-2022 11:23-0500 Body temperature 98.06 [degF] ARIEL MALIKRAN DO [facility] 08-07-2022 11:15-0500 Respiratory Rate - Anes 10 br/min ARIEL MALIKRAN DO [facility] 08-07-2022 11:10-0500 Respiratory Rate - Anes 14 br/min ARIEL MALIKRAN DO [facility] 08-07-2022 11:05-0500 Body temperature 98.2 [degF] ARIEL MALIKRAN DO [facility] 08-07-2022 11:05-0500 Respiratory Rate - Anes 14 br/min ARIEL MALIKRAN DO [facility] 08-07-2022 10:55-0500 Body temperature 98.19 [degF] ARIEL MALIKRAN DO [facility] 08-07-2022 05:37-0500 Body height 177.8 cm ARIEL MALIKRAN DO [facility] 08-07-2022 05:37-0500 Body weight 103.4 kg ARIEL MALIKRAN DO [facility] 08-07-2022 05:37-0500 Heart rate 86 /min ARIEL MALIKRAN DO [facility] 07-24-2022 14:10-0500 Blood Pressure Cuff Size ARIEL MALIKRAN DO [facility] 07-24-2022 14:10-0500 Blood Pressure Location ARIEL MORA DO [facility] 07-24-2022 14:10-0500 Blood Pressure Method ARIEL MORA DO [facility] 07-24-2022 14:10-0500 Body height 175 cm ARIEL MORA [facility] 07-24-2022 14:10-0500 Body temperature 97.34 [degF] ARIEL MORA [facility] 07-24-2022 14:10-0500 Body weight 105.1 kg ARIEL MORA [facility] 07-24-2022 14:10-0500 Diastolic Blood Pressure Non-Invasive 83 1 ARIELKRISHAN MORA [facility] 07-24-2022 14:10-0500 Heart rate 95 /min ARIEL MORA [facility] 07-24-2022 14:10-0500 Systolic Blood Pressure Non-Invasive 146 1 [facility] Encounters Encounter Date Encounter Type Care Provider Facility Start: 03-21-2025 End: 03-21-[address] Elias Galvan DO Work Phone: -[facility] Start: 03-21-2025 End: 03-21-[address] Jose Lora MD [facility] Work Phone: Start: 09-10-2024 End: 09-10-2024 ambulatory ELIAS GALVAN DO Facility:[facility] Start: 09-10-2024 End: 09-10-2024 Patient encounter procedure ELIAS GALVAN DO [facility] Start: 08-18-2024 End: 08-18-2024 ambulatory ELIAS GALVAN DO Facility:[facility] Start: 08-18-2024 End: 08-18-2024 Patient encounter procedure ELIAS GALVAN DO [facility] Start: 02-07-2024 End: 02-09-2024 Evaluation and management of inpatient DR ANTONINA MALHOTRA MD [facility] Start: 02-07-2024 End: 02-07-2024 Emergency department patient visit MICHELLE SEN DO [facility] Start: 01-12-2024 End: 01-12-2024 ambulatory POLA CHAVARRIA MD Facility:A Start: 01-12-2024 End: 01-12-2024 SAME DAY STAY POLA CHAVARRIA MD [facility] Start: 01-08-2024 End: 01-08-2024 ambulatory CHARLIE BECERRA TILE LAYER SUPERVISOR-BUSINESS TECHNOLOGY ANALYST Facility:B Start: 01-08-2024 End: 01-08-2024 Patient encounter procedure CHARLIE BECERRA TILE LAYER SUPERVISOR-BUSINESS TECHNOLOGY ANALYST [facility] Start: 08-28-2023 End: 08-29-2023 Evaluation and management of inpatient STELLA GARCÍA MD [facility] Start: 07-10-2023 End: 07-10-2023 Admission to establishment STELLA GARCÍA MD [facility] Start: 07-10-2023 End: 07-10-2023 ambulatory STELLA GARCÍA MD Facility:[facility] Start: 07-07-2023 End: 07-07-2023 Patient encounter procedure [facility] Work Phone: Start: 07-07-2023 End: 07-07-2023 ambulatory Mehul Damon [facility] Work Phone: Start: 05-29-2023 End: 05-29-2023 ambulatory STELLA GARCÍA MD Facility:[facility] Start: 05-29-2023 End: 05-29-2023 Patient encounter procedure STELLA GARCÍA MD [facility] Start: 05-26-2023 End: 05-26-2023 ambulatory STELLA GARCÍA MD Facility:[facility] Start: 05-26-2023 End: 05-26-2023 Patient encounter procedure STELLA GARCÍA MD [facility] Start: 03-13-2023 End: 03-13-[address] DARCI AZEVEDO MD Facility:[facility] Start: 11-04-2022 End: 11-04-2022 Patient encounter procedure CHARLIE BECERRA TILE LAYER SUPERVISOR-BUSINESS TECHNOLOGY ANALYST [facility] Start: 10-10-2022 End: 10-10-2022 SAME DAY STAY STELLA GARCÍA MD [facility] Start: 08-07-2022 End: 08-07-2022 SAME DAY STAY ARIEL MROA [facility] Start: 07-24-2022 End: 07-24-2022 Admission to establishment ARIEL MORA DO [facility] Start: 06-24-2022 End: 06-24-2022 Patient encounter procedure STELLA GARCÍA MD [facility] Start: 05-28-2022 End: 05-28-2022 Patient encounter procedure ELIAS GALVAN DO [facility] Start: 04-22-2022 End: 04-22-2022 Patient encounter procedure ELIAS GALVAN DO [facility] Start: 10-27-2020 End: 10-27-2020 Discharged Recurring [facility] Procedures Date Procedure Procedure Detail Performing Clinician Start: 09-11-2024 PSA screening ELIAS TUCKER DO Comment on above: Result Comment: Missy miranda ECLIA methodology. According to the [employer] [employer], Serum PSA should decrease and remain at undetectable levels after radical prostatectomy. The AUA defines biochemical recurrence as an initial PSA value 0.2 ng/mL or greater followed by a subsequent confirmatory PSA value 0.2 ng/mL or greater. Values obtained with different assay methods or kits cannot be used interchangeably. Results cannot be interpreted as absolute evidence of the presence or absence of malignant disease. Performed By: #### [id number] #### [facility] [address], [place] [address] Start: 02-09-2024 Cardiac catheterization ELIAS GALVAN DO Comment on above: cath with stent Start: 02-08-2024 Cardiac catheterization ELIAS GALVAN DO Comment on above: cath with stent Start: 07-07-2023 Bacteria identificat ion test Start: 08-07-2022 Cervical arthrodesis ADITYA GARCÍA MD Start: 01-13-2008 Valve (physical object) ELIAS [place]ruz[place] Comment on above: replacement; aortic Start: 08-11-2007 Replacement of aorti c valve ARIEL MORA DO Cardiac catheter (ph ysical object) ELIAS GALVAN DO Cardiac catheterization ZENAIDA GARCÍA MD Carotid endarterectomy FELIPE CHAVARRIA MD Colonoscopy ARIEL MORA DO History of carotid endarterectomy S/P carotid endarterectomy CHARLIE HERNAN TILE LAYER SUPERVISOR-BUSINESS TECHNOLOGY ANALYST History of percutane ous transluminal coronary angioplasty DR ANTONINA MALHOTRA MD History of placement of stent for coronary artery disease S/P coronary artery stent placement ELIAS GALVAN DO Operation on spinal cord MALENA LAKESHA GARCÍA MD Transesophageal echocardiography ARIEL MORA DO Vasectomy ARIEL MORA DO Immunizations Immunization Date Immunization Notes Care Provider Fa cility 08-24-2021 SARS-CoV-2 mRNA (tozinameran) vaccine ARIEL MORA DO [facility] 11-17-2020 Covid (Pfizer) Curtis Soham solorzano 10-27-2020 Covid (Pfizer) [facility] rashad Comment on above: Result Comment: 2021: [id number] 06-04-2020 influenza virus vaccine, unspecified formulation ARIEL MORA DO [facility] 05-14-2019 influenza virus vaccine, unspecified formulation ELIAS GALVAN DO [facility] Comment on above: Result Comment: [facility] 07-01-2014 influenza virus vaccine, unspecified formulation ARIEL MORA DO [facility] Payers Date Payer Category Payer Self-pay [id number] 1960 Unknown [id number] 2.16.8 [id number] Unknown [id number] 2.16.8 [id number] 1960 Unknown [id number] 2.16.8 [id number] 1960 Unknown [id number] 2.16.8 [id number] 1960 Unknown [id number] 2.16.8 [id number] 1960 Unknown [id number] 2.16.8 [id number] 1960 Unknown [id number] 2.16.8 [id number] 1960 Unknown [id number] 2.16.8 [id number] 1960 Unknown [id number] 2.16.8 [id number] 1960 Unknown [id number] 2.16.8 [id number] 1960 Unknown [id number] 2.16.8 [id number] Private Health Insurance [id number] Unknown [id number] 2.16.8 [id number] Social History Date Type Detail Facility Start: 01-17-2016 End: 01-17-2016 Tobacco smoking status IDIS Unknown if ever smoked [facility] Start: 1960 Sex Assigned At Male A [facility] Start: 01-17-2016 End: 06-02-2019 Tobacco smoking status Ex-smoker (finding) [facility] Sexual Orientation [facility] o[facility]el[facility] Start: 02-03-2019 Sex Male (finding) [facility] Medical Equipment Procedure Code Equipment Code Equipment Origin al Text Equipment Identifier Dates Anterior Cervica l Discectomy/Fusion 2 Le Unknown 08/07/22 Unknown Unknown FDA Start: 08-07-2022 Anterior Cervica l Discectomy/Fusion 2 Le Unknown 08/07/22 Unknown Unknown FDA Start: 08-07-2022 Anterior Cervica l Discectomy/Fusion 2 Le Unknown 08/07/22 Unknown Unknown FDA Start: 08-07-2022 Anterior Cervica l Discectomy/Fusion 2 Le Unknown 08/07/22 Unknown Unknown FDA Start: 08-07-2022 Anterior Cervica l Discectomy/Fusion 2 Le Unknown 08/07/22 Unknown Unknown FDA Start: 08-07-2022 Anterior Cervica l Discectomy/Fusion 2 Le Unknown 08/07/22 Unknown Unknown FDA Start: 08-07-2022 Anterior Cervica l Discectomy/Fusion 2 Le Unknown 08/07/22 Unknown Unknown FDA Start: 08-07-2022 Anterior Cervica l Discectomy/Fusion 2 Le Unknown 08/07/22 Unknown Unknown FDA Start: 08-07-2022 Anterior Cervica l Discectomy/Fusion 2 Le Unknown 08/07/22 Unknown Unknown FDA Start: 08-07-2022 Anterior Cervica l Discectomy/Fusion 2 Le Unknown 08/07/22 Unknown Unknown FDA Start: 08-07-2022 Anterior Cervica l Discectomy/Fusion 2 Le Unknown 08/07/22 Unknown Unknown FDA Start: 08-07-2022 Anterior Cervica l Discectomy/Fusion 2 Le Unknown 08/07/22 Unknown Unknown FDA Start: 08-07-2022 Anterior Cervica l Discectomy/Fusion 2 Le Unknown 08/07/22 Unknown Unknown FDA Start: 08-07-2022 Anterior Cervica l Discectomy/Fusion 2 Le Unknown 08/07/22 Unknown Unknown FDA Start: 08-07-2022 Anterior Cervica l Discectomy/Fusion 2 Le Unknown 08/07/22 Unknown Unknown FDA Start: 08-07-2022 Anterior Cervica l Discectomy/Fusion 2 Le Unknown 08/07/22 Unknown Unknown FDA Start: 08-07-2022 Anterior Cervica l Discectomy/Fusion 2 Le Unknown 08/07/22 Unknown Unknown FDA Start: 08-07-2022 Anterior Cervica l Discectomy/Fusion 2 Le Unknown 08/07/22 Unknown Unknown FDA Start: 08-07-2022 Anterior Cervica l Discectomy/Fusion 2 Le Unknown 08/07/22 Unknown Unknown FDA Start: 08-07-2022 Anterior Cervica l Discectomy/Fusion 2 Le Unknown 08/07/22 Unknown Unknown FDA Start: 08-07-2022 Anterior Cervica l Discectomy/Fusion 2 Le Unknown 08/07/22 Unknown Unknown FDA Start: 08-07-2022 Anterior Cervica l Discectomy/Fusion 2 Le Unknown 08/07/22 Unknown Unknown FDA Start: 08-07-2022 Anterior Cervica l Discectomy/Fusion 2 Le Unknown 08/07/22 Unknown Unknown FDA Start: 08-07-2022 Anterior Cervica l Discectomy/Fusion 2 Le Unknown 08/07/22 Unknown Unknown FDA Start: 08-07-2022 Anterior Cervica l Discectomy/Fusion 2 Le Unknown 08/07/22 Unknown Unknown FDA Start: 08-07-2022 Anterior Cervica l Discectomy/Fusion 2 Le Unknown 08/07/22 Unknown Unknown FDA Start: 08-07-2022 Anterior Cervica l Discectomy/Fusion 2 Le Unknown 08/07/22 Unknown Unknown FDA Start: 08-07-2022 Anterior Cervica l Discectomy/Fusion 2 Le Unknown 08/07/22 Unknown Unknown FDA Start: 08-07-2022 Anterior Cervica l Discectomy/Fusion 2 Le Unknown 08/07/22 Unknown Unknown FDA Start: 08-07-2022 Anterior Cervica l Discectomy/Fusion 2 Le Unknown 08/07/22 Unknown Unknown FDA Start: 08-07-2022 Anterior Cervica l Discectomy/Fusion 2 Le Unknown 08/07/22 Unknown Unknown FDA Start: 08-07-2022 Anterior Cervica l Discectomy/Fusion 2 Le Unknown 08/07/22 Unknown Unknown FDA Start: 08-07-2022 Anterior Cervica l Discectomy/Fusion 2 Le Unknown 08/07/22 Unknown Unknown FDA Start: 08-07-2022 Anterior Cervica l Discectomy/Fusion 2 Le Unknown 08/07/22 Unknown Unknown FDA Start: 08-07-2022 Anterior Cervica l Discectomy/Fusion 2 Le Unknown 08/07/22 Unknown Unknown FDA Start: 08-07-2022 Anterior Cervica l Discectomy/Fusion 2 Le Unknown 08/07/22 Unknown Unknown FDA Start: 08-07-2022 Anterior Cervica l Discectomy/Fusion 2 Le Unknown 08/07/22 Unknown Unknown FDA Start: 08-07-2022 Anterior Cervica l Discectomy/Fusion 2 Le Unknown 08/07/22 Unknown Unknown FDA Start: 08-07-2022 Anterior Cervica l Discectomy/Fusion 2 Le Unknown 08/07/22 Unknown Unknown FDA Start: 08-07-2022 Anterior Cervica l Discectomy/Fusion 2 Le Unknown 08/07/22 Unknown Unknown FDA Start: 08-07-2022 Anterior Cervica l Discectomy/Fusion 2 Le Unknown 08/07/22 Unknown Unknown FDA Start: 08-07-2022 Anterior Cervica l Discectomy/Fusion 2 Le Unknown 08/07/22 Unknown Unknown FDA Start: 08-07-2022 Anterior Cervica l Discectomy/Fusion 2 Le Unknown 08/07/22 Unknown Unknown FDA Start: 08-07-2022 Anterior Cervica l Discectomy/Fusion 2 Le Unknown 08/07/22 Unknown Unknown FDA Start: 08-07-2022 Anterior Cervica l Discectomy/Fusion 2 Le Unknown 08/07/22 Unknown Unknown FDA Start: 08-07-2022 Anterior Cervica l Discectomy/Fusion 2 Le Unknown 08/07/22 Unknown Unknown FDA Start: 08-07-2022 Anterior Cervica l Discectomy/Fusion 2 Le Unknown 08/07/22 Unknown Unknown FDA Start: 08-07-2022 Anterior Cervica l Discectomy/Fusion 2 Le Unknown 08/07/22 Unknown Unknown FDA Start: 08-07-2022 Anterior Cervica l Discectomy/Fusion 2 Le Unknown 08/07/22 Unknown Unknown FDA Start: 08-07-2022 Anterior Cervica l Discectomy/Fusion 2 Le Unknown 08/07/22 Unknown Unknown FDA Start: 08-07-2022 Anterior Cervica l Discectomy/Fusion 2 Le Unknown 08/07/22 Unknown Unknown FDA Start: 08-07-2022 Anterior Cervica l Discectomy/Fusion 2 Le Unknown 08/07/22 Unknown Unknown FDA Start: 08-07-2022 Anterior Cervica l Discectomy/Fusion 2 Le Unknown 08/07/22 Unknown Unknown FDA Start: 08-07-2022 Anterior Cervica l Discectomy/Fusion 2 Le Unknown 08/07/22 Unknown Unknown FDA Start: 08-07-2022 Anterior Cervica l Discectomy/Fusion 2 Le Unknown 08/07/22 Unknown Unknown FDA Start: 08-07-2022 Anterior Cervica l Discectomy/Fusion 2 Le Unknown 08/07/22 Unknown Unknown FDA Start: 08-07-2022 Anterior Cervica l Discectomy/Fusion 2 Le Unknown 08/07/22 Unknown Unknown FDA Start: 08-07-2022 Anterior Cervica l Discectomy/Fusion 2 Le Unknown 08/07/22 Unknown Unknown FDA Start: 08-07-2022 Anterior Cervica l Discectomy/Fusion 2 Le Unknown 08/07/22 Unknown Unknown FDA Start: 08-07-2022 Anterior Cervica l Discectomy/Fusion 2 Le Unknown 08/07/22 Unknown Unknown FDA Start: 08-07-2022 Anterior Cervica l Discectomy/Fusion 2 Le Unknown 08/07/22 Unknown Unknown FDA Start: 08-07-2022 Anterior Cervica l Discectomy/Fusion 2 Le Unknown 08/07/22 Unknown Unknown FDA Start: 08-07-2022 Anterior Cervica l Discectomy/Fusion 2 Le Unknown 08/07/22 Unknown Unknown FDA Start: 08-07-2022 Anterior Cervica l Discectomy/Fusion 2 Le Unknown 08/07/22 Unknown Unknown FDA Start: 08-07-2022 Anterior Cervica l Discectomy/Fusion 2 Le Unknown 08/07/22 Unknown Unknown FDA Start: 08-07-2022 Anterior Cervica l Discectomy/Fusion 2 Le Unknown 08/07/22 Unknown Unknown FDA Start: 08-07-2022 Anterior Cervica l Discectomy/Fusion 2 Le Unknown 08/07/22 Unknown Unknown FDA Start: 08-07-2022 Anterior Cervica l Discectomy/Fusion 2 Le Unknown 08/07/22 Unknown Unknown FDA Start: 08-07-2022 Anterior Cervica l Discectomy/Fusion 2 Le Unknown 08/07/22 Unknown Unknown FDA Start: 08-07-2022 Anterior Cervica l Discectomy/Fusion 2 Le Unknown 08/07/22 Unknown Unknown FDA Start: 08-07-2022 Goals Date Patient Goal Desired Activity /State Functional Status Date Assessment Result Facility 02-09-2024 Functional Status Independent [facility] 02-09-2024 Functional Status Room check per formed, Surgical Training Specialist at bedside [facility] 02-09-2024 Functional Status [facility] 02-09-2024 Functional Status Single level home [facility] 02-09-2024 Functional Status CHG bath [facility] 02-09-2024 Functional Status [facility] 02-08-2024 Functional Status [facility] 02-07-2024 Functional Status Sensory Deficits None [facility] 02-07-2024 Functional Status Standard Safet y ID band on, Call device within reach, Bed in low position, Wheels locked [facility] 01-12-2024 Functional Status Room check performed [facility] 01-12-2024 Functional Status [facility] 08-29-2023 Functional Status Door open, Non-Slip footwear, Room check performed [facility] 08-29-2023 Functional Status Single level home [facility] 08-29-2023 Functional Status Breakfast Percent 100 A [facility] 08-29-2023 Functional Status [facility] 08-29-2023 Functional Status [facility] 08-28-2023 Functional Status [facility] 08-28-2023 [facility]23 Functional Status [facility] 08-28-2023 [facility]-10-[facility]23 Functional Status Sensory Deficits None A [facility] 10-10-2022 Functional Status Room located n ear nursing station, Room check performed [facility] 08-07-2022 Functional Status Up ad liz [facility] 08-07-2022 Functional Status ice chips and sips take n [facility] 08-07-2022 Functional Status bilateral knee high [facility] 08-07-2022 [facility] Functional Status Sensory Deficits None A [facility] Mental Status Date Assessment Result Facility 02-09-2024 Mental Status Orientation Oriented x 4 [facility] 02-09-2024 Mental Status [facility] 02-09-2024 Mental Status [facility] 02-07-2024 Mental Status Orientation Oriented x 4 [facility] 01-12-2024 Mental Status Oriented x 4 [facility] 01-12-2024 Mental Status [facility] 08-29-2023 Mental Status Orientation Oriented x 4 [facility] 08-29-2023 Mental Status [facility] 08-28-2023 Mental Status [facility] 08-28-2023 Mental Status Orientation Asse ssment Oriented x 4 [facility] 08-28-2023 Mental Status [facility] 08-28-2023 Mental Status [facility] 10-10-2022 Mental Status Orientation Oriented x 4 [facility] 10-10-2022 Mental Status [facility] 08-07-2022 Mental Status Orientation Oriented x 4 [facility] 08-07-2022 Mental Status [facility] Clinical Notes 08-13-2021 to 02-09-2024 Note Date & Type Note Facility 02-09-2024 Discharge summary Date of Service 02/09/2024 Discharge Diagnosis CAD s/p PCI to mid LAD (02/09/2024) History of PCI to RCA (01/2024) S/p AVR Tissue valve History of right carotid stenosis s/p endarterectomy (08/2023) History of PAD History of GERD Former tobacco abuse quit around 2001 Hospital Course 63-year-old male with PMH of CAD s/p PCI to RCA [Synergy XD stent on 01/2024; 70% stenosis to mid LAD], s/p AVR, LVH, right carotid stenosis s/p endarterectomy [08/2023], PAD s/p angioplasty [around 2021], GERD, former tobacco use [[id number], quit around 2001] transferred from [facility] with complaint of chest tightness. He denied particular chest pain or stabbing or pressure-like sensation. After having the chest pain patient took nitro which may to cover the pain from the patient. After that patient thought it may be something wrong with his heart so presented to [place] ER. On presentation to [facility] ER he was hemodynamically stable with troponin of 35. He was given aspirin and nitro and pain was relieved and transferred to [facility]. Patient was admitted to cardiac inpatient and patient underwent left heart cath on 02/09/2024 which revealed mid LAD lesion for which PAULETTE was placed. Postprocedure patient was stable. Patient's metoprolol was increased to 25 twice daily and is being discharged in hemodynamically stable condition. Allergies CeleBREX Unknown penicillin Unknown Procedures Left Heart Cath Consults No qualifying data available. Physical Exam Vitals and Measurements T: 36.2 C (Oral) TMIN: 36.2 C (Oral) TMAX: 36.8 C (Oral) HR: 71 (Monitored) RR: 16 BP: 126/73 SpO2: 96% Weight Dosing Weight: 106.4 kg (02/07/24) General Appearance: Appears to be stable and in no acute distress Head: Atraumatic and normocephalic EENT: EOMI, PERRLA, no oropharyngeal erythema, no tonsillar exudates, no conjunctival injection. sclera anicteric. Neck: No thyromegaly, no cervical lymphadenopathy, trachea midline Cardiac: S1 and S2 normal. RRR. No murmurs, rubs, or gallops. No JVD. No hepatojugular reflex. Lungs: Good air entry bilaterally. No increased work for breathing. No wheezes, rhonchi, or rales. Abdomen: Soft, nontender, nondistended. Normoactive bowel sounds. No rebound or guarding. Negative Whitfield's sign. No hepatosplenomegaly. Musculoskeletal: Full range of motion upper and lower extremities. No CVA tenderness. Extremities: No lower extremity pitting edema. 2+ radial and pedal pulses bilaterally. Neurological: CN II through XII grossly intact. 5/5 strength in upper and lower extremities. Sensation symmetric and intact bilaterally. No cogwheel rigidity. No asterixis or clonus. Skin: No abrasions, scars, or hematomas on visible skin. No cyanosis. No purulent discharge. Psychiatric: alert and oriented, well groomed, euthymic. cooperative Pending Labs and Studies None Code Status Code Status - Ordered -- 02/07/24 23:24:00 EDT, Full Code, Constant Order Admission Date 02/07/2024 Discharge Date 02/09/2024 Patient Instructions 1. Keep cath site clean and dry. Avoid submerging under water for 1 week. 2. 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 3. Avoid heavy lifting beyond 5lbs for 1 week. If you have a significant bruise/bump around the cardiacc catheterization access site that does not resolve over the next few days and is causing a lot of pain, please present to the ED. 4. If you are having chest pain: Please take nitroglycerin under the tongue every 15 minutes after checking your blood pressure to ensure that the top number (systolic) is greater than 90. If you continue to have chest pain despite this, please present to the ED for evaluation. 5. Some of your medications may have changed. Take all your medications as prescribed. If you have any queries, please reach out to our [facility] office at [phone] for general queries and [phone] for medication refills. Medications New Prescription famotidine (Pepcid 40 mg oral tablet)1 tab(s) by mouth daily at bedtime. Refills: 1. nitroGLYcerin (nitroglycerin 0.4 mg sublingual tablet)1 tab(s) under the tongue every 5 minutes as needed Chest pain. Refills: 0. pantoprazole (Protonix 40 mg oral enteric coated tablet)1 tab(s) by mouth As Directed as needed abdominal discomfort. Refills: 0. Changed metoprolol (metoprolol succinate 25 mg oral TABLET extended release)1 tab(s) by mouth two (2) times a day. Unchanged aspirin (aspirin 81 mg oral delayed release tablet)1 tab(s) by mouth every day. Refills: 5. atorvastatin (atorvastatin 40 mg oral tablet)1 tab(s) by mouth once a day. Refills: 2. clopidogrel (Plavix 75 mg oral tablet)1 tab(s) by mouth once a day. Refills: 11. Discontinued omeprazole (omeprazole 20 mg oral delayed release capsule)1 cap by mouth once a day. Follow Up Follow Up with ELIAS GALVAN DO When:Within 5 to 7 days Where:[address] [place] [address]- Additional Information: Please call the office to schedule a hospital follow-up appointment. Follow Up with Prescription Assistance Additional Information: Prescription assistance has been arranged for you and is available for non-narcotic medications ordered by your doctor. To access, bring your prescriptions to the [facility] located in the [facility] on the main floor of the hospital . Pharmacy hours are: Friday through Friday: 6 a.m. to 5 p.m. Friday: 8 a.m. to 2 p.m. Friday: Closed Follow Up with CHARLIE BECERRA When:02/18/2024 09:15 AM EDT Where:[address] [place], [place] [id number]- Follow Up Appointments No qualifying data available. Follow Up Labs/Studies Discharge Labs No Follow-up Labs Discharge Studies No Follow-up Studies Discharge Diet Discharge Diet - Ordered -- No changes were made to your diet during your hospital stay. Please resume your pre hospitalization diet on discharge., 02/09/24 17:11:00 EDT Discharge Activity Discharge Activity - Ordered -- Lifting Restricted less than 5 pounds, 02/09/24 17:11:00 EDT Condition on Discharge Fair Discharge Disposition Home Information Provided To Patient and family Digitally Signed by TREVA CULVER MD on 02/09/2024 05:30 PM [facility] 02-09-2024 Hospital Discharg e instructions Patient Education 02/09/2024 17:34:18 3- Heart Cath/PCI radial (05/2018)(CUSTOM) HEART CATHETERIZATION/PCI (radial) Discharge Instructions DIET Drink plenty of fluids for the next 48 hours to help your kidneys flush the heart cath dye out of your system ACTIVITY For the next 48 hours: Do not deep bend the wrist Do not lift, push, or pull anything over 5 pounds Do not use the hand/arm to support your weight when rising from a chair or bed Do not drive For the next 7 days: Do not submerse your procedure site in water Do not swim, wash dishes, or take tub baths You may write, eat, type, and shower WOUND CARE Keep a Band-Aid on your procedure site for the next 3-4 days Change the Band-Aid daily or if it gets wet/soiled AFTER YOU GO HOME, CALL YOUR DOCTOR FOR: Any increase in bruising or tenderness from the procedure site Any redness, pus, or other signs of infection at the site A temperature above 100.5 Severe pain at the site DIAL 911 AND RETURN TO THE HOSPITAL FOR: Any bleeding from the procedure site. The site may be bruised or tender, but it should not be bleeding at any time. If your site begins to bleed, hold firm pressure on it and dial 911 to return to the hospital Any increase in swelling at the procedure site. An increase in swelling could mean the area is bleeding under the skin. Hold firm pressure to the site and dial 911 to return to the hospital Document Released: 07/28/2006 Document Revised: 07/14/2013 Document Reviewed: 07/29/2014 ExitCare Patient Information 2014 [employer]. This information is not intended to replace advice given to you by your health care provider. Make sure you discuss any questions you have with your health care provider. Follow Up Care 02/07/2024 20:27:06 With:ELIAS GALVAN DO Address: [address] [place] [address]- When:5 to 7 days Comments:Please call the office to schedule a hospital follow-up appointment. With:CHARLIE BECERRABUSINESS TECHNOLOGY ANALYST Address: [address] [facility] [place] [address]- When:02/18/2024 09:15:00 With:Prescription Assistance Address: When: Unknown Comments:Prescription assistance has been arranged for you and is available for non-narcotic medications ordered by your doctor. To access, bring your prescriptions to the [facility] located in the [facility] on the main floor of the hospital .Pharmacy hours are:Friday through Friday: 6 a.m. to 5 p.m.Friday: 8 a.m. to 2 p.m.Friday: Closed [facility] 02-09-2024 Note Discharge Instructions Thank you for allowing [facility] to assist you with your healthcare needs. The following is important discharge information regarding your hospital visit. Your Care Team ELIAS GALVAN DO What to do next Instructions From Your Doctor 1. Keep cath site clean and dry. Avoid submerging under water for 1 week. 2. 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 3. Avoid heavy lifting beyond 5lbs for 1 week. If you have a significant bruise/bump around the cardiacc catheterization access site that does not resolve over the next few days and is causing a lot of pain, please present to the ED. 4. If you are having chest pain: Please take nitroglycerin under the tongue every 15 minutes after checking your blood pressure to ensure that the top number (systolic) is greater than 90. If you continue to have chest pain despite this, please present to the ED for evaluation. 5. Some of your medications may have changed. Take all your medications as prescribed. If you have any queries, please reach out to our [facility] office at [phone] for general queries and [phone] for medication refills. Scheduled Follow-Up Appointments Appointment Type When With Where Contact Information StatusPC OV 02/11/2024 08:00 AM EDT ELIAS AGLVAN DO [facility] Confirmed CV OV 02/18/2024 09:15 AM EDT CHARLIE BECERRA [facility] CV Confirmed CV OV 06/30/2024 09:00 AM EST CHARLIE BECERRA [facility] Confirmed Follow Up Appointments Follow Up with ELIAS GALVAN DO When:Within 5 to 7 days Where:[address] [place] [place] [address]- Additional Information: Please call the office to schedule a hospital follow-up appointment. Follow Up with Prescription Assistance Additional Information: Prescription assistance has been arranged for you and is available for non-narcotic medications ordered by your doctor. To access, bring your prescriptions to the [facility] on the main floor of the hospital . Pharmacy hours are: Friday through Friday: 6 a.m. to 5 p.m. Friday: 8 a.m. to 2 p.m. Friday: Closed Follow Up with CHARLIE BECERRA When:02/18/2024 09:15 AM EDT Where:[address] [place] [address]- The Following Activity and Diet Have Been Ordered for You Discharge Activity - Ordered -- Lifting Restricted less than 5 pounds, 02/09/24 17:11:00 EDT Discharge Diet - Ordered -- No changes were made to your diet during your hospital stay. Please resume your pre hospitalization diet on discharge., 02/09/24 17:11:00 EDT The Following Equipment Has Been Ordered for You No qualifying data available. The Following Treatments Have Been Ordered for You Discharge Labs No qualifying data available. Discharge Radiology No qualifying data available. Other Therapies No qualifying data available. Post Acute Orders No qualifying data available. Someone Will Contact You Regarding These Home Health Referrals No home referrals have been ordered for you. No one will call you. Allergies CeleBREX Unknown penicillin Unknown Medications Please ask your primary doctor or pharmacist before taking any other medication not listed, including over the counter drugs, herbal medications, vitamins and or supplements as they may interact with your home medications. What How Much When Instructions Last Dose New famotidine (Pepcid 40 mg oral tablet) 1 tab(s) by mouth Daily at bedtime Refills: 1 Pickup at [id number] New nitroGLYcerin (nitroglycerin 0.4 mg sublingual tablet) 1 tab(s) under the tongue Every 5 minutes as needed for Chest pain Pickup at [facility] #[id number] New pantoprazole (Protonix 40 mg oral enteric coated tablet) 1 tab(s) by mouth As Directed as needed for abdominal discomfort Pickup at [facility] #[id number] Changed metoprolol (metoprolol succinate 25 mg oral TABLET extended release) 1 tab(s) by mouth Two (2) times a day Unchanged aspirin (aspirin 81 mg oral delayed release tablet) 1 tab(s) by mouth Every day Unchanged atorvastatin (atorvastatin 40 mg oral tablet) 1 tab(s) by mouth Once a day Unchanged clopidogrel (Plavix 75 mg oral tablet) 1 tab(s) by mouth Once a day Pharmacy Information [facility] #[id number]: [address] [place], [place] [id number] [phone] What How Much When Comments Stop Taking omeprazole (omeprazole 20 mg oral delayed release capsule) 1 cap by mouth Once a day Please take this list to your next doctor s visit. Bring all medications you take, including over the counter medications, herbals and other supplements with you to your doctor s visit. Patients and families are reminded to discard old lists and to update any records with all medication providers or retail pharmacies. Medication Leaflets famotidine (oral/injection) (fam [place] ti nirali) Heartburn Relief, Pepcid, Pepcid AC, Pepcid AC Maximum Strength, Zantac 360 What is the most important information I should know about famotidine? Follow all directions on the label and package. Use exactly as directed. What is famotidine? Famotidine is used to treat and prevent ulcers in the stomach and intestines. It also treats conditions in which the stomach produces too much acid, such as Denise-Bennett syndrome. Famotidine also treats gastroesophageal reflux disease (GERD) and other conditions in which acid backs up from the stomach into the esophagus, causing heartburn. The Zantac 360 brand of this medicine does not contain ranitidine, a medicine that was withdrawn from market in the [place]. Famotidine may also be used for purposes not listed in this medication guide. What should I discuss with my healthcare provider before taking famotidine? Heartburn can feel like a heart attack. Get emergency medical help if you have chest pain that spreads to your jaw or shoulder. You should not use this medicine if you are allergic to famotidine or similar medicines such as ranitidine (Zantac), cimetidine (Tagamet), or nizatidine (Axid). Ask a doctor or pharmacist if this medicine is safe to use if you have: kidney disease; liver disease; cancer stomach; or long QT syndrome (in you or a family member). Ask a doctor before using this medicine if you are or . How should I take famotidine? Use exactly as directed on the label, or as prescribed by your doctor. Famotidine oral is taken by mouth. Famotidine injection is given in a vein if you are unable to take the medicine by mouth. You may take famotidine oral with or without food. Measure liquid medicine with the supplied syringe or a dose-measuring device (not a kitchen spoon). Most ulcers heal within 4 weeks of famotidine treatment, but it may take up to 8 weeks of using this medicine before your ulcer heals. Keep using the medication as directed. Call your doctor if the condition you are treating with famotidine does not improve, or if it gets worse while using famotidine. Your treatment may also include changes in diet or lifestyle habits. Follow all instructions of your doctor or dietitian. Store at room temperature away from moisture, heat, and light. Do not allow the liquid medicine to freeze. Throw away any unused famotidine liquid that is older than 30 days. What happens if I miss a dose? Take the medicine as soon as you can, but skip the missed dose if it is almost time for your next dose. Do not take two doses at one time. What happens if I overdose? Seek emergency medical attention or call the Poison Help line at . What should I avoid while taking famotidine? Drinking alcohol may increase the risk of damage to your stomach. Avoid taking other stomach acid reducers unless your doctor has told you to. However, you may take an antacid (such as Maalox, Mylanta, Gaviscon, Milk of Magnesia, Rolaids, or Tums) with famotidine. What are the possible side effects of famotidine? Get emergency medical help if you have signs of an allergic reaction: hives; difficult breathing; swelling of your face, lips, tongue, or throat. Stop using famotidine and call your doctor at once if you have: confusion, hallucinations, agitation, lack of energy; a seizure; fast or pounding heartbeats, sudden dizziness (like you might pass out); or unexplained muscle pain, tenderness, or weakness especially if you also have fever, unusual tiredness, and dark colored urine. Some side effects may be more likely in older adults and in people who have severe kidney disease. Common side effects may include: headache; dizziness; or constipation or diarrhea. This is not a complete list of side effects and others may occur. Call your doctor for medical advice about side effects. You may report side effects to FDA at 0-001-YTY-1878. What other drugs will affect famotidine? Famotidine oral can make it harder for your body to absorb other medicines you take by mouth. Tell your doctor if you are taking: cefditoren; dasatinib; delavirdine; fosamprenavir; or tizanidine (if you are taking famotidine liquid). This list is not complete. Other drugs may affect famotidine, including prescription and krlk-uog-ggeaoxa medicines, vitamins, and herbal products. Not all possible drug interactions are listed here. Where can I get more information? Your doctor or pharmacist can provide more information about famotidine. Remember, keep this and all other medicines out of the reach of children, never share your medicines with others, and use this medication only for the indication prescribed. Every effort has been made to ensure that the information provided by [employer]') is accurate, up-to-date, and complete, but no guarantee is made to that effect. Drug information contained herein may be time sensitive. [employer] information has been compiled for use by healthcare practitioners and consumers in the [place] and therefore [employer] does not warrant that uses outside of the [place] are appropriate, unless specifically indicated otherwise. [facility] drug information does not endorse drugs, diagnose patients or recommend therapy. [facility] drug information is an informational resource designed to assist licensed healthcare practitioners in caring for their patients and/or to serve consumers viewing this service as a supplement to, and not a substitute for, the expertise, skill, knowledge and judgment of healthcare practitioners. The absence of a warning for a given drug or drug combination in no way should be construed to indicate that the drug or drug combination is safe, effective or appropriate for any given patient. [employer] does not assume any responsibility for any aspect of healthcare administered with the aid of information [employer] provides. The information contained herein is not intended to cover all possible uses, directions, precautions, warnings, drug interactions, allergic reactions, or adverse effects. If you have questions about the drugs you are taking, check with your doctor, nurse or pharmacist. Copyright 8857-9412 [employer]. Version: .. Revision Date: 03/03/2023. pantoprazole (oral/injection) (carrington TOE pra zole) First-Pantoprazole, Protonix, Protonix IV What is the most important information I should know about pantoprazole? Pantoprazole can cause kidney problems or new or worsening symptoms of lupus. Tell your doctor if you have: pain in your side or lower back, painful urination, blood or pus in your urine, joint pain or a skin rash on your cheeks or arms that worsens in sunlight. This medicines can cause diarrhea. Tell your doctor if you have diarrhea that is watery or bloody. You may be more likely to have a broken bone while using pantoprazole. Talk with your doctor about ways to keep your bones healthy. What is pantoprazole? Pantoprazole is used to promote healing of erosive esophagitis (damage to your esophagus caused by stomach acid) in adults and children who are at least 5 years old. Pantoprazole is also used in adults to treat the symptoms of gastroesophageal reflux disease (GERD) and other conditions involving excessive stomach acid such as Denise-Bennett syndrome. Pantoprazole may also be used for purposes not listed in this medication guide. What should I discuss with my healthcare provider before using pantoprazole? You should not use pantoprazole if you are allergic to it, or if you have: breathing problems; or you are allergic to any other stomach acid medicine such as lansoprazole, rabeprazole, esomeprazole, omeprazole, and others. Some drugs should not be used with pantoprazole. Your treatment plan may change if you also use any medication that contains rilpivirine. Tell your doctor if you have or have ever had: a zinc deficiency; an electrolyte imbalance (such as low blood levels of potassium, calcium or magnesium); lupus; or liver or kidney disease. You may be more likely to have a broken bone while using pantoprazole. Talk with your doctor about ways to keep your bones healthy. Pantoprazole may harm an unborn baby. Tell your doctor if you are or plan to become . Ask a doctor if it is safe to breastfeed while using this medicine. How should I use pantoprazole? Follow all directions on your prescription label and read all medication guides or instruction sheets. Never use pantoprazole in larger amounts, or for longer than prescribed. Do not change your dose or stop using this medication without your doctor's advice. Avoid medication errors by using exactly as directed on the label, or as prescribed by your doctor. Pantoprazole is taken by mouth or given as an infusion into a vein. Pantoprazole tablets are taken by mouth, with or without food. Pantoprazole oral granules should be taken 30 minutes before a meal. Swallow the tablet whole and do not crush, chew, or break it. Read and carefully follow instructions for mixing and taking the oral granules. The oral granules can also be given through a nasogastric tube. Ask your doctor or pharmacist if you do not understand these instructions. Shake the oral suspension (liquid). Measure a dose with the supplied measuring device (not a kitchen spoon). Use this medicine for the full prescribed length of time, even if your symptoms quickly improve. You may use antacids if needed while you are taking pantoprazole tablets. Call your doctor if your symptoms do not improve, or if they get worse after using the medicine for the number of days prescribed. You may need medical tests. This medicine can affect the results of certain medical tests. Tell any doctor or laboratory staff that you are using pantoprazole. This medicine can cause diarrhea. Tell your doctor if you have diarrhea that is watery or bloody. Store pantoprazole tablet and oral granules at room temperature away from moisture and heat. Store the oral suspension tightly closed in a refrigerator. Do not freeze and protect from light. Throw the medicine away after 30 days, even if there is still medicine left inside. What happens if I miss a dose? Use the medicine as soon as you can, but skip the missed dose if it is almost time for your next dose. Do not use two doses at one time. What happens if I overdose? Seek emergency medical attention or call the Poison Help line at . What should I avoid while using pantoprazole? Follow your doctor's instructions about any restrictions on food, beverages, or activity. Avoid getting pantoprazole oral suspension in your eyes. If contact does occur, rinse with water. What are the possible side effects of pantoprazole? Get emergency medical help if you have signs of an allergic reaction (hives, difficult breathing, swelling in your face or throat) or a severe skin reaction (fever, sore throat, burning eyes, skin pain, red or purple skin rash with blistering and peeling). Seek medical treatment if you have a serious drug reaction that can affect many parts of your body. Symptoms may include skin rash, fever, swollen glands, muscle aches, severe weakness, unusual bruising, or yellowing of your skin or eyes. Call your doctor at once if you have: severe stomach pain, diarrhea that is watery or bloody; nausea, vomiting, weight loss; sudden pain or trouble moving your hip, wrist, or back; pain, swelling, burning, or irritation around the IV needle; pain in your side or lower back, painful urination, blood or pus in your urine; signs of an electrolyte imbalance--increased thirst or urination, constipation, muscle weakness, leg cramps, numbness or tingling, feeling jittery, fluttering in your chest; new or worsening symptoms of lupus--joint pain, and a skin rash on your cheeks or arms that worsens in sunlight; or vitamin B12 deficiency--shortness of breath, feeling lightheaded, irregular heartbeats, muscle weakness, pale skin, tiredness, mood changes, numbness or tingling in your legs or arms. Long-term use of pantoprazole may increase your risk of serious side effects including stomach polyps. Talk with your doctor about these risks. Common side effects may include: headache, dizziness; stomach pain, gas, nausea, vomiting, diarrhea; joint pain; or fever, rash, or cold symptoms such as stuffy nose, sneezing, sore throat. This is not a complete list of side effects and others may occur. Call your doctor for medical advice about side effects. You may report side effects to FDA at 9-835-APW-8076. What other drugs will affect pantoprazole? Tell your doctor about all your other medicines, especially: digoxin; methotrexate; or a diuretic or 'water pill'. This list is not complete. Other drugs may affect pantoprazole, including prescription and obak-qeq-fjfvpqe medicines, vitamins, and herbal products. Not all possible drug interactions are listed here. Where can I get more information? Your doctor or pharmacist can provide more information about pantoprazole. Remember, keep this and all other medicines out of the reach of children, never share your medicines with others, and use this medication only for the indication prescribed. Every effort has been made to ensure that the information provided by [employer]') is accurate, up-to-date, and complete, but no guarantee is made to that effect. Drug information contained herein may be time sensitive. [employer] information has been compiled for use by healthcare practitioners and consumers in the [place] and therefore [employer] does not warrant that uses outside of the [place] are appropriate, unless specifically indicated otherwise. [facility] drug information does not endorse drugs, diagnose patients or recommend therapy. [employer] drug information is an informational resource designed to assist licensed healthcare practitioners in caring for their patients and/or to serve consumers viewing this service as a supplement to, and not a substitute for, the expertise, skill, knowledge and judgment of healthcare practitioners. The absence of a warning for a given drug or drug combination in no way should be construed to indicate that the drug or drug combination is safe, effective or appropriate for any given patient. [employer] does not assume any responsibility for any aspect of healthcare administered with the aid of information [facility] provides. The information contained herein is not intended to cover all possible uses, directions, precautions, warnings, drug interactions, allergic reactions, or adverse effects. If you have questions about the drugs you are taking, check with your doctor, nurse or pharmacist. Copyright 6028-2597 [employer]. Version: 22.01. Revision Date: 07/23/2023. nitroglycerin (oral/sublingual) (VILLA troe GLIS er in (OR al/sub DENISE gwal)) GoNitro, Nitrolingual, Nitromist, Nitrostat, Nitro-Time What is the most important information I should know about nitroglycerin? Get emergency medical help if you still have chest pain after using a total of 3 doses in 15 minutes, or if you have chest pain that seems unusual. What is nitroglycerin? Nitroglycerin is used in adults to treat or prevent attacks of chest pain (angina). Nitroglycerin may also be used for purposes not listed in this medication guide. What should I discuss with my healthcare provider before using nitroglycerin? You should not use nitroglycerin if you are allergic to it. You may not be able to use nitroglycerin if you have: severe anemia (very low red blood cells); increased pressure inside the skull; blood circulation problems or if your heart cannot pump blood properly; or if you also take riociguat, vericiguat, or medicines such as avanafil (Strendra), sildenafil (Revatio, Viagra), tadalafil (Adcirca, Cialis) o vardenafil (Levitra, Staxyn). Tell your doctor if you have or have ever had: a heart attack or other heart problems; or low blood pressure. Tell your doctor if you are or . How should I use nitroglycerin? Follow all directions on your prescription label and read all medication guides or instruction sheets. Use the medicine exactly as directed. You may use nitroglycerin sublingual within 5 to 10 minutes before an activity that might cause chest pain. Use nitroglycerin sublingual at the first sign of chest pain. Use another dose every 5 minutes as needed, up to a total of 3 doses within a 15-minute period. Sublingual spray: Before your first use, prime with 5 to 10 sprays into the air, away from your face. Prime again if has not been used within 6 weeks with one to two sprays, or if it has not been used within 3 months with up to 5 sprays. [place] one or two sprays on or under the tongue and avoid swallowing. Do not rinse your mouth or spit out this medicine for 5 to 10 minutes after use. The spray should not be inhaled. Sublingual tablet: Place one tablet under the tongue and allow it to dissolve without swallowing. Do not swallow, chew, or suck the sublingual tablet. Sublingual powder: Empty one or two packet contents under your tongue, allowing the powder to dissolve without swallowing. Do not rinse your mouth or spit for 5 minutes after use. Capsule: Take by mouth as directed by your doctor, usually 3 to 4 times a day. Do not take the capsule to treat sudden chest pain. Get emergency medical help if you still have chest pain after using a total of 3 doses in 15 minutes, or if your chest pain seems unusual. This medicine can affect the results of certain medical tests. Tell any doctor who treats you that you are using nitroglycerin. Your condition may get worse if you stop using nitroglycerin suddenly. Ask your doctor before stopping the medicine. Store this medicine in the original container at room temperature away from moisture and heat. Keep the spray away from open flame or high heat. Do not puncture or burn an empty canister. What happens if I miss a dose? Nitroglycerin is used when needed. If you are on a dosing schedule, skip any missed dose. Do not use two doses at one time. What happens if I overdose? Seek emergency medical attention or call the Poison Help line at . An overdose can be fatal. Overdose symptoms may include a throbbing headache, confusion, pounding heartbeats, vision problems, vomiting, bloody diarrhea, sweating, clammy skin, blue lips, weak or shallow breathing, loss of movement, seizure, or fainting. What should I avoid while using nitroglycerin? Avoid getting up too fast from a sitting or lying position, or you may feel dizzy. Drinking alcohol with this medicine can cause side effects. What are the possible side effects of nitroglycerin? Get emergency medical help if you have signs of an allergic reaction: hives, difficult breathing, swelling of your face, lips, tongue, or throat. Call your doctor at once if you have: severe or throbbing headaches that do not become less severe with continued use of nitroglycerin; pounding heartbeats or fluttering in your chest; slow heart rate; feeling like you might pass out; or new or worsening chest pain. Common side effects may include: headache, dizziness; or numbness, tingling, burning pain. This is not a complete list of side effects and others may occur. Call your doctor for medical advice about side effects. You may report side effects to FDA at 0-554-ZBP-6303. What other drugs will affect nitroglycerin? Tell your doctor about all your other medicines, especially: heart or blood pressure medication; or migraine headache medicine such as dihydroergotamine, ergotamine, ergonovine, methylergonovine. This list is not complete. Other drugs may affect nitroglycerin, including prescription and ncmi-bbh-sxawhbw medicines, vitamins, and herbal products. Not all possible drug interactions are listed here. Where can I get more information? Your doctor or pharmacist can provide more information about nitroglycerin. Remember, keep this and all other medicines out of the reach of children, never share your medicines with others, and use this medication only for the indication prescribed. Every effort has been made to ensure that the information provided by [employer]') is accurate, up-to-date, and complete, but no guarantee is made to that effect. Drug information contained herein may be time sensitive. [employer] information has been compiled for use by healthcare practitioners and consumers in the [place] and therefore [employer] does not warrant that uses outside of the [place] are appropriate, unless specifically indicated otherwise. [employer] drug information does not endorse drugs, diagnose patients or recommend therapy. [employer] drug information is an informational resource designed to assist licensed healthcare practitioners in caring for their patients and/or to serve consumers viewing this service as a supplement to, and not a substitute for, the expertise, skill, knowledge and judgment of healthcare practitioners. The absence of a warning for a given drug or drug combination in no way should be construed to indicate that the drug or drug combination is safe, effective or appropriate for any given patient. [employer] does not assume any responsibility for any aspect of healthcare administered with the aid of information [employer] provides. The information contained herein is not intended to cover all possible uses, directions, precautions, warnings, drug interactions, allergic reactions, or adverse effects. If you have questions about the drugs you are taking, check with your doctor, nurse or pharmacist. Copyright 6730-0377 [employer]. Version: 16.02. Revision Date: 04/03/2023. Education Materials HEART CATHETERIZATION/PCI (radial) Discharge Instructions DIET Drink plenty of fluids for the next 48 hours to help your kidneys flush the heart cath dye out of your system ACTIVITY For the next 48 hours: Do not deep bend the wrist Do not lift, push, or pull anything over 5 pounds Do not use the hand/arm to support your weight when rising from a chair or bed Do not drive For the next 7 days: Do not submerse your procedure site in water Do not swim, wash dishes, or take tub baths You may write, eat, type, and shower WOUND CARE Keep a Band-Aid on your procedure site for the next 3-4 days Change the Band-Aid daily or if it gets wet/soiled AFTER YOU GO HOME, CALL YOUR DOCTOR FOR: Any increase in bruising or tenderness from the procedure site Any redness, pus, or other signs of infection at the site A temperature above 100.5 Severe pain at the site DIAL 911 AND RETURN TO THE HOSPITAL FOR: Any bleeding from the procedure site. The site may be bruised or tender, but it should not be bleeding at any time. If your site begins to bleed, hold firm pressure on it and dial 911 to return to the hospital Any increase in swelling at the procedure site. An increase in swelling could mean the area is bleeding under the skin. Hold firm pressure to the site and dial 911 to return to the hospital Document Released: 07/28/2006 Document Revised: 07/14/2013 Document Reviewed: 07/29/2014 ExitCare Patient Information 2015 [employer]. This information is not intended to replace advice given to you by your health care provider. Make sure you discuss any questions you have with your health care provider. Additional Information VACCINATE! IT SAVES LIVES! Members of the community who have not yet received the COVID-19 vaccine and would like to receive it can visit one of [facility] vaccine clinics. There are many vaccine clinic locations within the State. For locations and available times, please visit [email or web address]/. It is important to note that some COVID mobile vaccine clinics are held outdoors and may be canceled in rainy or stormy conditions. To learn more about pediatric vaccinations (ages 5-11), we invite you to visit the [facility] webpage. [email or web address] To learn more about the COVID-19 vaccine, we invite you to visit the CDC website for a list of frequently asked questions.https://www.cdc.gov/co ronavirus/2019-ncov/vaccines/faq .html [facility] Patient Portal Access Instructions: Stay connected with your healthcare team and access your personal medical information anytime with the [facility] Patient Portal. Please follow the directions below to create your [facility] [employer] account: 1.Access the email account you provided upon registration to the hospital/physician office.2.Look for an invitation email from [facility].3.Open the email and access the invitation link: Accept Invitation to [email or web address].4.Fill in the required roca to create your account. To access your account, visit [email or web address]. Click the blue button labeled Access Patient Portal and then log in with the username and password that you created in the steps above. You will be able to view your test results, lab results, a summary of your visits, upcoming appointments and more. There is also a convenient messaging option where you can send secure messages to your provider. In addition, you will have the ability to download any documents or summaries to your computer and/or send the information securely to a physician. Remember that your healthcare information is confidential, so carefully consider who you will allow to register on the [email or web address] Patient Portal for access to your information. You can also access the [email or web address] Patient Portal on the [employer] [facility]. Simply click on Patient Portal and then log into your account. If you would like to receive a full copy of your medical records, please contact the [facility] Medical Records Department by calling [phone], Friday through Friday between 8 a.m. and 4:30 p.m. HOW TO SAFELY DISPOSE OF PRESCRIPTION MEDICATIONS Please use one of the following methods to safely dispose of your unused medications. 1.Use a drug disposal kit: the drug disposal pouch allows you to safely discard your old and unused drugs. Ask your nurse to give you one when you are discharged.2.Visit a local take-back location: Many local pharmacies and police departments have programs that collect old and unwanted prescription drugs. Call your local pharmacy or go to [email or web address] to find one close to you.3.Make use of household items: Use cat litter or old coffee grounds to dispose medications if other options are not available. Mix your drugs with these household products, seal them in an airtight container and throw it into the garbage. Call [facility]: [phone] to be sure your drugs can be disposed of in this way. Some medicines may require a different approach.4.Never flush your medications down the toilet. IF YOU HAVE BEEN PRESCRIBED AN OPIOID FOR PAIN If you have been prescribed an opioid (such as hydrocodone, oxycodone or morphine), it is critical to understand the possible side effects and risks of opioid pain medications. Even when taken as directed, opioids can have several side effects including: Tolerance, meaning you might need to take more of a medication for the same pain relief. Nausea, vomiting and/or constipation. Sleepiness, dizziness, dry mouth, confusion, depression or itching. Physical dependence, meaning you have withdrawal symptoms when a medication is stopped, can develop within a few days. KNOW YOUR RESPONSIBILITIES It is important to know exactly how much and how often to take the opioid pain medications you are prescribed. Never take opioids in higher amounts or more often than prescribed. Do not combine opioids with alcohol or other drugs that cause drowsiness, such as benzodiazepines, also known as benzos, including diazepam and alprazolam, muscle relaxants or sleep aids. Never sell or share prescription opioids. This is illegal. Store opioids in a secure place and out of reach of others (including children, family, friends and visitors). The last page of this document has been signed and retained as a CHART COPY. Signatures Patient Education Materials 3- Heart Cath/PCI radial (05/2018)(CUSTOM) Medication Leaflets Pepcid, pantoprazole, nitroGLYcerin My discharge plan and instructions have been reviewed and explained to me and I,JUNI GAUTHIER understand my current condition and have read and understand these discharge instructions. I have received a written copy of the plan/instructions. If I have questions, I am aware that I should contact my doctor. 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: Date/Time: Relationship to Patient: Witness Name/Signature: Date/Time: [facility] 02-09-2024 Discharge summary Date of Service 02/09/2024 Discharge Diagnosis CAD s/p PCI to mid LAD (02/09/2024) History of PCI to RCA (01/2024) S/p AVR Tissue valve History of right carotid stenosis s/p endarterectomy (08/2023) History of PAD History of GERD Former tobacco abuse quit around 2001 Hospital Course 63-year-old male with PMH of CAD s/p PCI to RCA [Synergy XD stent on 01/2024; 70% stenosis to mid LAD], s/p AVR, LVH, right carotid stenosis s/p endarterectomy [08/2023], PAD s/p angioplasty [around 2021], GERD, former tobacco use [[id number], quit around 2001] transferred from [facility] with complaint of chest tightness. He denied particular chest pain or stabbing or pressure-like sensation. After having the chest pain patient took nitro which may to cover the pain from the patient. After that patient thought it may be something wrong with his heart so presented to [place] [facility]. On presentation to [facility] he was hemodynamically stable with troponin of 35. He was given aspirin and nitro and pain was relieved and transferred to [facility]. Patient was admitted to cardiac inpatient and patient underwent left heart cath on 02/09/2024 which revealed mid LAD lesion for which PAULETTE was placed. Postprocedure patient was stable. Patient's metoprolol was increased to 25 twice daily and is being discharged in hemodynamically stable condition. Allergies CeleBREX Unknown penicillin Unknown Procedures Left Heart Cath Consults No qualifying data available. Physical Exam Vitals and Measurements T: 36.2 C (Oral) TMIN: 36.2 C (Oral) TMAX: 36.8 C (Oral) HR: 71 (Monitored) RR: 16 BP: 126/73 SpO2: 96% Weight Dosing Weight: 106.4 kg (02/07/24) General Appearance: Appears to be stable and in no acute distress Head: Atraumatic and normocephalic EENT: EOMI, PERRLA, no oropharyngeal erythema, no tonsillar exudates, no conjunctival injection. sclera anicteric. Neck: No thyromegaly, no cervical lymphadenopathy, trachea midline Cardiac: S1 and S2 normal. RRR. No murmurs, rubs, or gallops. No JVD. No hepatojugular reflex. Lungs: Good air entry bilaterally. No increased work for breathing. No wheezes, rhonchi, or rales. Abdomen: Soft, nontender, nondistended. Normoactive bowel sounds. No rebound or guarding. Negative Whitfield's sign. No hepatosplenomegaly. Musculoskeletal: Full range of motion upper and lower extremities. No CVA tenderness. Extremities: No lower extremity pitting edema. 2+ radial and pedal pulses bilaterally. Neurological: CN II through XII grossly intact. 5/5 strength in upper and lower extremities. Sensation symmetric and intact bilaterally. No cogwheel rigidity. No asterixis or clonus. Skin: No abrasions, scars, or hematomas on visible skin. No cyanosis. No purulent discharge. Psychiatric: alert and oriented, well groomed, euthymic. cooperative Pending Labs and Studies None Code Status Code Status - Ordered -- 02/07/24 23:24:00 EDT, Full Code, Constant Order Admission Date 02/07/2024 Discharge Date 02/09/2024 Patient Instructions 1. Keep cath site clean and dry. Avoid submerging under water for 1 week. 2. 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 3. Avoid heavy lifting beyond 5lbs for 1 week. If you have a significant bruise/bump around the cardiacc catheterization access site that does not resolve over the next few days and is causing a lot of pain, please present to the ED. 4. If you are having chest pain: Please take nitroglycerin under the tongue every 15 minutes after checking your blood pressure to ensure that the top number (systolic) is greater than 90. If you continue to have chest pain despite this, please present to the ED for evaluation. 5. Some of your medications may have changed. Take all your medications as prescribed. If you have any queries, please reach out to our [facility] office at [phone] for general queries and [phone] for medication refills. Medications New Prescription famotidine (Pepcid 40 mg oral tablet)1 tab(s) by mouth daily at bedtime. Refills: 1. nitroGLYcerin (nitroglycerin 0.4 mg sublingual tablet)1 tab(s) under the tongue every 5 minutes as needed Chest pain. Refills: 0. pantoprazole (Protonix 40 mg oral enteric coated tablet)1 tab(s) by mouth As Directed as needed abdominal discomfort. Refills: 0. Changed metoprolol (metoprolol succinate 25 mg oral TABLET extended release)1 tab(s) by mouth two (2) times a day. Unchanged aspirin (aspirin 81 mg oral delayed release tablet)1 tab(s) by mouth every day. Refills: 5. atorvastatin (atorvastatin 40 mg oral tablet)1 tab(s) by mouth once a day. Refills: 2. clopidogrel (Plavix 75 mg oral tablet)1 tab(s) by mouth once a day. Refills: 11. Discontinued omeprazole (omeprazole 20 mg oral delayed release capsule)1 cap by mouth once a day. Follow Up Follow Up with ELIAS GALVAN DO When:Within 5 to 7 days Where:[address] [place] [address]- Additional Information: Please call the office to schedule a hospital follow-up appointment. Follow Up with Prescription Assistance Additional Information: Prescription assistance has been arranged for you and is available for non-narcotic medications ordered by your doctor. To access, bring your prescriptions to the [facility] located in the [place] [facility] [place] on the main floor of the hospital . Pharmacy hours are: Friday through Friday: 6 a.m. to 5 p.m. Friday: 8 a.m. to 2 p.m. Friday: Closed Follow Up with CHARLIE BECERRA When:02/18/2024 09:15 AM EDT Where:[address] [facility] [place] [address]- Follow Up Appointments No qualifying data available. Follow Up Labs/Studies Discharge Labs No Follow-up Labs Discharge Studies No Follow-up Studies Discharge Diet Discharge Diet - Ordered -- No changes were made to your diet during your hospital stay. Please resume your pre hospitalization diet on discharge., 02/09/24 17:11:00 EDT Discharge Activity Discharge Activity - Ordered -- Lifting Restricted less than 5 pounds, 02/09/24 17:11:00 EDT Condition on Discharge Fair Discharge Disposition Home Information Provided To Patient and family Digitally Signed by TREVA CULVER MD on 02/09/2024 05:30 PM [facility] 02-09-2024 Note Exam Date Time Procedure Performing Provider Status 02/09/24 12:13 PM Cardiac Catheterization -CV Auth (Verified) [facility] 06-30-2024 Cardiology Progress note Date of Service 02/08/2024 Subjective Patient seen and examined by the bedside. Patient endorses symptoms of chest tightness somewhat similar to the episode that he had prior to his cardiac cath procedure early this month. Mentions that nitro x 1 somewhat relieved the pain and he is currently asymptomatic. However given his cardiac history and cath report which states 70% stenosis in the LAD, with associated V. tach episode that patient had early this morning that has been captured on monitor, did convey to patient that he would benefit from undergoing a cardiac catheterization procedure. Patient was agreeable to this plan. Objective Vitals and Measurements T: 37.0 C (Oral) TMIN: 36.7 C (Oral) TMAX: 37.0 C (Oral) HR: 72 (Monitored) RR: 16 BP: 140/86 SpO2:98% HT: 177.8 cm WT: 106.4 kg BMI: 33.66 Intake and Output 7AM Yesterday to 7AM Today Intake and Output (Last 24 hours) Intake Oral Intake 700.00 Output Stool Count 0.00 Urine Count 4.00 Total Summary Total Intake 700.00 Total Output 0.00 Fluid Balance 700.00 Physical Exam General Appearance: Appears to be stable and in no acute distress Head: Atraumatic and normocephalic EENT: EOMI, PERRLA, no oropharyngeal erythema, no tonsillar exudates, no conjunctival injection. sclera anicteric. Neck: No thyromegaly, no cervical lymphadenopathy, trachea midline Cardiac: S1 and S2 normal. RRR. No murmurs, rubs, or gallops. No JVD. No hepatojugular reflex. Lungs: Good air entry bilaterally. No increased work for breathing. No wheezes, rhonchi, or rales. Abdomen: Soft, nontender, nondistended. Normoactive bowel sounds. No rebound or guarding. Negative Whitfield's sign. No hepatosplenomegaly. Musculoskeletal: Full range of motion upper and lower extremities. No CVA tenderness. Extremities: No lower extremity pitting edema. 2+ radial and pedal pulses bilaterally. Neurological: CN II through XII grossly intact. 5/5 strength in upper and lower extremities. Sensation symmetric and intact bilaterally. No cogwheel rigidity. No asterixis or clonus. Skin: No abrasions, scars, or hematomas on visible skin. No cyanosis. No purulent discharge. Psychiatric: alert and oriented, well groomed, euthymic. cooperative Weight Dosing Weight: 106.4 kg (02/07/24) Medications Medications (17) Active Scheduled: (6) aspirin 81 mg Chewable 81 mg 1 tab(s), Oral, Daily atorvastatin 40 mg tablet 40 mg 1 tab(s), Oral, qDay clopidogrel 75 mg Tablet 75 mg 1 tab(s), Oral, qDay heparin 5,000 units/mL (1 mL) vial 4,000 unit(s) 0.8 mL, IV Push, Once metoprolol succinate 25 mg ER tablet 25 mg 1 tab(s), Oral, qDayM pantoprazole 40 mg EC tablet 40 mg 1 tab(s), Oral, qDayAC Continuous: (1) heparin 25,000 unit(s) [12 unit(s)/kg/hr] + Dextrose 5% Premix Diluent 250 mL 250 mL, Intravenous, 12.76 mL/hr PRN: (10) dextrose 50% Solution Disp syringe 50 mL 12.5 gram(s) 25 mL, IV Push, AsDirected heparin 5,000 units/mL (1 mL) vial 4,000 unit(s) 0.8 mL, IV Push, q6h magnesium sulfate 4 gram(s)/100mL PMX 4 g 100 mL, IV Piggyback, AsDirected magnesium sulfate 50% (500mg/mL) 6 g 12 mL, IV Piggyback, AsDirected magnesium sulfate PMX 2 g 50 mL, IV Piggyback, AsDirected nitroglycerin 0.4 mg Tablet (25/btl) 0.4 mg 1 tab(s), Sublingual, q5min potassium chloride (PMX) 20 mEq/100 mL 20 mEq 100 mL, IV Piggyback, AsDirected potassium chloride 20 mEq ER tablet 20 mEq 1 tab(s), Oral, AsDirected potassium chloride 20 mEq ER tablet 40 mEq 2 tab(s), Oral, AsDirected potassium chloride 20 mEq ER tablet 40 mEq 2 tab(s), Oral, AsDirected Lab Results 02/07 03:47 WBC: 6.1 Hgb: 13.5 Hct: 38.7 L Platelet: 135 L Neutrophil %: 54.2 Glucose Level: 122 H Sodium Level: 143 Potassium Level: 3.4 L BUN: 12.0 Creatinine Lvl (s): 0.86 EKG EKG - Canceled -- 02/08/24 2:24:00 EDT, Unless 2 EKGs already done in the past 6 hours Electrocardiogram (EKG) - InProcess -- 02/07/24 22:07:00 EDT, admission Electrocardiogram (EKG) - Ordered -- 02/07/24 23:36:00 EDT, Unless 2 EKGs already done in the past 6 hours Electrocardiogram (EKG) - Ordered -- 02/08/24 5:24:00 EDT Assessment/Plan Chest tightness, anginal-like symptoms-R/o ACS Nonsustained V. tach x 1 on 02/08/2024 CAD s/p recent PCI to RCA [01/2024], LAD: 70% stenosis. PMH of AVR, right carotid stenosis s/p endarterectomy [08/2023], PAD s/p angioplasty [around 2021], GERD, former tobacco use [[id number], quit around 2001] 63-year-old male with PMH of CAD s/p PCI, right carotid artery stenosis s/p endarterectomy presented with complaint of chest tightness mentioning as punching in the gut, almost similar pain before other than this pinching sensation. He denied any other symptoms of SOB, fever, nausea, vo miting. Patient took nitroglycerin which relieved his pain. -Plan for cardiac catheterization: Left tomorrow. -N.p.o. for procedure. -Troponins and EKG have been unremarkable. -However given his recent cardiac cath history with notable 70% stenosis of the LAD, it may be thatthat might be the culprit lesion causing symptoms. Discussed plan for cardiac catheterization, patient was agreeable to the same. Continue aspirin, Plavix, statin at this time. Continue metoprolol aswell. -Will provide nitroglycerin as as needed for chest tightness -Resume home meds as deemed appropriate. DVT PPx: HBW CODE STATUS: Full code [CODE STATUS discussed with patient and at bedside, they understand.] Assessment and plan discussed with attending . please follow for addendum. Digitally Signed by INDERJTI WEI MD on 02/08/2024 02:55 PM Digitally Signed by ANTONINA MALHOTRA [id number] History and physical note Date of Service 02/07/2024 History of Present Illness 63-year-old male with PMH of CAD s/p PCI to RCA [Synergy XD stent on 01/2024; 70% stenosisto mid LAD], s/p AVR, LVH, right carotid stenosis s/p endarterectomy [08/2023], PAD s/p angioplasty [around 2021], GERD, former tobacco use [[id number], quit around 2001] transferred from [facility] with complaint of chest tightness today. He is feeling having chest discomfort retrosternal aroundepigastric area, mentioning as punching in the gut sensation is happened around 5 PM today. She denied particular chest pain or stabbing or pressure-like sensation. He denied any radiation of thischest tightness or weird feeling to the neck, jaw or arm. He denied any nausea, vomiting, shortnessof breath associated with it. Patient was doing his routine, he may have moved his furniture earlier but mentioning that nothing too heavy. He had his usual for around noon time. After having the chest pain patient took nitro which may to cover the pain from the patient. After that patient thought it may be something wrong with his heart so presented to [place] ER. On presentation to [facility] he was hemodynamically stable with troponin of 35. He was given aspirin and nitro and pain was relieved and transferred to [facility]. On presentation to [facility] patient was feeling better with no acute new complaint. His chest pain is relieved having mild discomfort as per the patient. Patient was hemodynamically stable with a temperature of 36.7, blood pressure 127/82, 96% oxygen saturation on room air. His lab was unremarkable except for potassium of 3.4. His initial troponin was 35. EKG was unremarkable with no acute changes. Echo on 01/08/2024: Summary: 1. Left ventricle: The cavity size is normal. Wall thickness is moderately increased. Systolic function is normal. The estimated ejection fraction is 60-65%. Wall motion is normal; there are no regional wall motion abnormalities. Normal diastolic function. 2. Aortic valve: A bioprosthetic valve is present. There is mild regurgitation. 3. Mitral valve: Prolapse, involving the anterior leaflet. There is mild regurgitation. 4. Left atrium: The atrium is mildly dilated. 5. Right ventricle: The RV systolic pressure by Doppler is 20 mm Hg. 6. Right atrium: The estimated right atrial pressure is 3 mm Hg. LHC and RHC on 01/12/2024: SUMMARY: 1. 1st lesion: Stent placement was performed. A 4 mm (D) x 20 mm (L), Synergy XD stent was used. The stent was advanced across the lesion and deployed with a single inflation and a maximum pressure of 12 yahaira. 2. LAD: Mid-vessel lesion: There is a 70% stenosis. 3. Right coronary: Proximal vessel lesion: The diagnostic study demonstrated a 95% stenosis. Stent placement was performed, with balloon angioplasty, resulting in an excellent angiographic appearance (see 1st lesion). Following intervention, there is a residual 0% stenosis with ALIREZA grade 3 flow (brisk flow). Review of Systems General: Denies fever, chills, night sweats, Weight changes Skin: Denies rash itching bruising Head: Denies headache or trauma Eyes: Denies blurred double vision vision loss or any vision changes ENT: Denies hearing loss or ringing in ears, ear pain, ear drainage, nasal drainage sinus congestion, sneezing, bloody noses or sore throat Respiratory: Denies cough, shortness of breath, hemoptysis or sputum productive Cardiovascular: Positive chest tightness. Denies orthopnea, palpitations, dyspnea on exertion, edema or intermittent claudication GI: Denies abdominal pain,constipation, appetite changes, bloody or dark tarry stools or blood in emesis : Denies dysuria, hematuria, frequency, urgency,polyuria Musculoskeletal: Denies muscle weakness joint pain redness or swelling Neurological: Denies loss of consciousness, numbness, tingling, weakness in extremities changes in speech, fainting or seizures Psych: Denies depression, racing thoughts, anxiety Endocrine: Denies polyuria, polydipsia, polyphagia, heat or cold intolerances, Heme: Denies easy bruising, history of anemia, petechiae or purpura Physical Exam Vitals and Measurements T: 36.7 C (Oral) HR: 69 (Monitored) RR: 16 BP: 150/71 SpO2: 98% HT: 177.8 cm WT: 106.4 kg BMI: 33.66 Weight Dosing Weight: 106.4 kg (02/07/24) GEN: NAD. Well appearing. Alert. Interactive. Obese HEENT: NC/AT. PERRLA, EOMI. Normal external auditory canal and tympanic membrane. NECK: Supple. Normal ROM. Trachea midline. No LAD, no thyromegaly. RESPIRATORY: Normal respiratory effort. CTABL. No wheezing, rhonchi or rales. CVS: RRR. Normal S1/S2. Systolic murmur at right second intercostal. ABDOMEN: Soft, non-tender, non-distended. +BS. No hepatosplenomegaly. EXTREMITIES: No cyanosis, clubbing or edema. Normal tone and ROM. Strength 5/5. Capillary refill <2s. 2+ distal pulses B/L. NEURO: AAOx3. Cranial nerves II to XII intact. Sensation normal. SKIN: Warm. Intact. No rashes, lesions or erythema. Lab Results No 36 Hour Lab Data Assessment/Plan Chest tightness, anginal-like symptoms CAD s/p recent PCI to RCA [01/2024] PMH of AVR, right carotid stenosis s/p endarterectomy [08/2023], PAD s/p angioplasty [around 2021], GERD, former tobacco use [[id number], quit around 2001] 63-year-old male with PMH of CAD s/p PCI, right carotid artery stenosis s/p endarterectomy presented with complaint of chest tightness mentioning as punching in the gut, almost similar pain before other than this pinching sensation. He denied any other symptoms of SOB, fever, nausea, vo miting. Patient took nitroglycerin which relieved his pain. Chest tightness retrosternal, relieved by nitroglycerin. Recent LHC and RHC on 01/12/2024 had a severe stenosis of RCA s/p Synergy stent. Had 70% stenosis at mid vessel LAD Will provide nitroglycerin as as needed for chest tightness Initial troponin unremarkable, EKG no acute changes Will draw and troponin and EKG times total 3 Patient had a recent echo and has a murmur, had a history of aortic valve replacement Will continue patient's home medication with aspirin, Plavix and statin Will continue home metoprolol Signs of elevated blood pressure, Teo patient denied using any medication for hypertension or denying history of hypertension. Will continue to monitor blood pressure and introduce medication if needed. Patient is taking omeprazole at home for GERD Low pretest probability Will evaluate further with his aspirin and having recent cardiac cath and discussion about LAD lesion DVT PPx: Lovenox CODE STATUS: Full code [CODE STATUS discussed with patient and at bedside, they understand.] Assessment and plan will be discussed with attending, please follow for addendum. Problem List/Past Medical History Ongoing Aortic root enlargement Arthrodesis status Cervical spine pain Cervical spondylosis COVID-19 virus infection Heart valve replaced History of COVID-19 LVH (left ventricular hypertrophy) Medial collateral ligament sprain of knee MVP (mitral valve prolapse) Peripheral neuropathy Right knee pain S/P AVR S/P carotid endarterectomy Historical Brachial radiculitis Cervical spinal stenosis Procedure/Surgical History Cervical spinal fusion: 08/07/22 AVR - Aortic valve replacement: 2007 Colonoscopy CHRIS procedure Vasectomy Spinal cord operation Cardiac catheterization Carotid endarterectomy Medications Home Medications (4) Active aspirin 81 mg oral delayed release tablet 81 mg = 1 tab(s), Oral, Daily atorvastatin 40 mg oral tablet 40 mg = 1 tab(s), Oral, qDay metoprolol succinate 25 mg oral TABLET extended release 25 mg = 1 tab(s), Oral, qDay Plavix 75 mg oral tablet 75 mg = 1 tab(s), Oral, qDay Allergies CeleBREX Unknown penicillin Unknown Social History Smoking Status - 11/16/2016 Never smoker Alcohol Use: Current. Type: Beer, Wine, Liquor. Frequency: Daily. Average drinks per day: 2. Maximum drinksper episode in last year: 2. 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 Domestic Concerns: None. 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 Lives In: Single level home. Current Home Treatments None. Professional Skilled Services or Special Community Resources None. Spouse Name: Durga. Marital Status: ., 07/10/2023 Nutrition/Health Caffeine intake amount: 1 cup of coffee daily., 11/30/2020 Sexual Self described orientation: Straight or heterosexual., 10/10/2022 Substance Abuse Use: Never., 01/12/2024 Tobacco Nicotine Use: Former smoker, quit more than 30 days ago. Type: Cigarettes. Started at age: 21 Years. Stopped at age: 43 Years., 07/10/2023 Family History CABG - Coronary artery bypass graft: Father. Cancer: Father. Heart attack: Father. Heart disease: Father.Negative: Mother. Health Status Family Member(s) Sister: History is negative Brother: History is negative Immunizations SARS-CoV-2 mRNA (tozinameran) vaccine: 0.3 unknown unit (08/24/21) SARS-CoV-2 mRNA (tozinameran) vaccine: 30 unknown unit (11/17/20) SARS-CoV-2 mRNA (tozinameran) vaccine: 30 unknown unit (10/27/20) Code Status Code Status - Ordered -- 02/07/24 23:24:00 EDT, Full Code, Constant Order Digitally Signed by RUPERTO XIAO MD on 02/07/2024 11:47 PM Digitally Signed by RUPERTO XIAO MD on 02/07/2024 11:49 PM Digitally Signed by RUPERTO XIAO MD on 02/07/2024 11:51 PM [id number] NoteSINUS RHYTHM LEFT VENTRICULAR HYPERTROPHY INFERIOR INFARCT, OLD Electronic Signature: ANTONINA MALHOTRA MD 02/09/2024 04:53:05[facility] 06-29-2024 Hospital Discharge instructions Patient Education 02/07/2024 19:14:13 Chest Pain, Uncertain Cause Uncertain Causes of Chest Pain Chest pain can happen for a number of reasons. Sometimes the cause can't be determined. If your condition does not seem serious, and your pain does not appear to be coming from your heart, your healthcare provider may recommend watching it closely. Sometimes the signs of a serious problem take moretime to appear. Many problems not related to your heart can cause chest pain. These include: Musculoskeletal. Costochondritis is an inflammation of the tissues around the ribs that can occur from trauma or overuse injuries, or a strain of the muscles of the chest wall Respiratory. Pneumonia, collapsed lung (pneumothorax), or inflammation of the lining of the chest and lungs (pleurisy) Gastrointestinal. Esophageal reflux, heartburn, ulcers, or gallbladder disease Anxiety and panic disorders Nerve compression and inflammation Rare miscellaneous problems such as aortic aneurysm (a swelling of the large artery coming out of the heart) or pulmonary embolism (a blood clot in the lungs) Home care After your visit, follow these recommendations: Rest today and avoid strenuous activity. Take any prescribed medicine as directed. Be aware of any recurrent chest pain and notice any changes Follow-up care Follow up with your healthcare provider if you do not start to feel better within 24 hours, or as advised. Call 911 Call 911 if any of these occur: A change in the type of pain: if it feels different, becomes more severe, lasts longer, or begins to spread into your shoulder, arm, neck, jaw or back Shortness of breath or increased pain with breathing Weakness, dizziness, or fainting Rapid heart beat Crushing sensation in your chest When to seek medical advice Call your healthcare provider right away if any of the following occur: Cough with dark colored sputum (phlegm) or blood Fever of 100.4 F (38 C) or higher, or as directed by your healthcare provider Swelling, pain or redness in one leg [id number] [employer] [place] [address]. All rights reserved. This information is not intended as a substitute for professional medical care. Always follow yourhealthcare professional's instructions. Follow Up Care 02/07/2024 18:55:17 With:Go to emergency room if symptoms worsen Address:Unknown When:2-4 days With:ELIAS GALVAN DO Address: [address] [place] [address] [place] [phone] When:2-4 days [facility] 06-29-2024 Note ORIGINAL EXAMINATION: ONE XRAY VIEW OF THE CHEST02/07/2024 7:46 pm COMPARISON: None. HISTORY: ORDERING SYSTEM PROVIDED HISTORY: Reason for Exam: chest pain FINDINGS: Median sternotomy wires. The cardiomediastinal silhouette is unremarkable. There is no pulmonary vascular congestion. No large focal consolidative opacity. No significant volume pleural effusion. No pneumothorax. Surgical change of the lower cervical spine, ACDF. IMPRESSION: No acute process. I have personally reviewed the images of this examination and agree with the resident's findings and interpretation. Interpreted by: Jian Main DO Preliminary Report By: Juni Hopkins Electronically signed By Jain Main DO Dictated Date: 02/07/2024 7:57:07 PM Prelim Date: 02/07/2024 7:58:38 PM Sign Date: 02/07/2024 8:25:08 PM Ordering Provider: [facility] NoteSinus rhythm Left ventricular hypertrophy Borderline T abnormalities, inferior leads Electronic Signature: MICHELLE SEN DO 02/07/2024 19:06:[address] [place] [id number] 06-29-2024 Evaluation + Plan noteExtracted from: Title:History and Physical Author:RUPERTO XIAO MD Date:02/07/24 Chest tightness, anginal-like symptoms CAD s/p recent PCI to RCA [01/2024] PMH of AVR, right carotid stenosis s/p endarterectomy [08/2023], PAD s/p angioplasty [around 2021], GERD, former tobacco use [[id number], quit around 2001] 63-year-old male with PMH of CAD s/p PCI, right carotid artery stenosis s/p endarterectomy presented with complaint of chest tightness mentioning as punching in the gut, almost similar pain before other than this pinching sensation. He denied any other symptoms of SOB, fever, nausea, vomiting. Patient took nitroglycerin which relieved his pain. Chest tightness retrosternal, relieved by nitroglycerin. Recent LHC and RHC on 01/12/2024 had a severe stenosis of RCA s/p Synergy stent. Had 70% stenosis at mid vessel LAD Will provide nitroglycerin as as needed for chest tightness Initial troponin unremarkable, EKG no acute changes Will draw and troponin and EKG times total 3 Patient had a recent echo and has a murmur, had a history of aortic valve replacement Will continue patient's home medication with aspirin, Plavix and statin Will continue home metoprolol Signs of elevated blood pressure, Teo patient denied using any medication for hypertension or denying history of hypertension. Will continue to monitor blood pressure and introduce medication if needed. Patient is taking omeprazole at home for GERD Low pretest probability Will evaluate further with his aspirin and having recent cardiac cath and discussion about LAD lesion DVT PPx: Lovenox CODE STATUS: Full code [CODE STATUS discussed with patient and at bedside, they understand.] Assessment and plan will be discussed with attending, please follow for addendum. Future Appointments Appointment Date:02/11/2024 08:00:00 AM Scheduled Provider:ELIAS GALVAN DO Location:[facility] Appointment Type:PC OV Appointment Date:02/18/2024 09:15:00 AM Scheduled Provider:CHARLIE BECERRA Location:[facility] Appointment Type:CV OV Appointment Date:06/30/2024 09:00:00 AM Scheduled Provider:CHARLIE BECERRA Location:[facility] Appointment Type:CV OV Future Scheduled Tests Laboratory* Lipid Profile 06/30/23 [facility] 06-03-2024 Summary of episode note Discharge Instructions Thank you for allowing [facility] to assist you with your healthcare needs. The following is importantdischarge information regarding your hospital visit. Your Care Team ELIAS GALVAN DO What to do next Scheduled Follow-Up Appointments Appointment Type When With Where Contact Information StatusPC OV 02/11/2024 08:00 AM EDT ELIAS GALVAN DO [facility] Srinivasa Confirmed CV OV 02/18/2024 09:15 AM EDT CHARLIE BECERRA [facility] Confirmed CV OV 06/30/2024 09:00 AM EST CHARLIE BECERRA APRN-ANDREA [facility] Confirmed Follow Up Appointments Follow Up with ELIAS GALVAN When:In 0 days Where:[address] [place] [phone] Business (1) Follow Up with CHARLIE BECERRA When:02/18/2024 09:15 AM EDT Where:[address] [facility] [place] [address]- [phone] Business (1) The Following Activity and Diet Have Been Ordered for You Discharge Activity - Ordered -- Lifting Restricted less than 5 pounds, 01/12/24 11:23:00 EDT Discharge Activity - Ordered -- Lifting Restricted less than 5 pounds, 01/12/24 11:23:00 EDT Discharge Diet - Ordered -- No changes were made to your diet during your hospital stay. Please resume your pre hospitalization diet on discharge., 01/12/24 11:23:00 EDT Allergies CeleBREX Unknown penicillin Unknown Medications Please ask your primary doctor or pharmacist before taking any other medication not listed, including over the counter drugs, herbal medications, vitamins and or supplements as they may interact withyour home medications. What How Much When Instructions Last Dose New clopidogrel (Plavix 75 mg oral tablet) 1 tab(s) by mouth Once a day Refills: 11 up at [facility] #[id number] Changed aspirin (aspirin 81 mg oral delayed release tablet) 1 tab(s) by mouth Every day Pickup at [facility] #[id number] Unchanged atorvastatin (atorvastatin 40 mg oral tablet) 1 tab(s) by mouth Once a day Unchanged metoprolol (metoprolol succinate 25 mg oral TABLET extended release) 1 tab(s) by mouth Once a day Do not crush or chew (controlled release) Pharmacy Information [facility] #[id number]: [address] [place], [place] [phone] What How Much When Comments Stop Taking omeprazole (omeprazole 20 mg oral delayed release capsule) 1 cap by mouth Daily at bedtime Duration: 90 Days Please take this list to your next doctor s visit. Bring all medications you take, including over the counter medications, herbals and other supplements with you to your doctor s visit. Patients and families are reminded to discard old lists and to update any records with all medication providers or retail pharmacies. Medication Leaflets clopidogrel (kloe PID oh grel) Plavix What is the most important information I should know about clopidogrel? You should not use this medicine if you have any active bleeding such as a stomach ulcer or bleeding in the brain. Clopidogrel increases your risk of bleeding, which can be severe or life- threatening. Call your doctor or seek emergency medical attention if you have bleeding that will not stop, if you have blood in your urine, black or bloody stools, or if you cough up blood or vomit that looks like coffee grounds. Do not stop taking clopidogrel without first talking to your doctor, even if you have signs of bleeding. Stopping clopidogrel may increase your risk of a heart attack or stroke. What is clopidogrel? Clopidogrel is used to lower your risk of having a stroke, blood clot, or serious heart problem after you've had a heart attack, severe chest pain (angina), or circulation problems. Clopidogrel may also be used for purposes not listed in this medication guide. What should I discuss with my healthcare provider before taking clopidogrel? You should not use clopidogrel if you are allergic to it, or if you have: any active bleeding; or a stomach ulcer or bleeding in the brain (such as from a head injury). Tell your doctor if you have ever had: an ulcer in your stomach or intestines; or a bleeding disorder or blood clotting disorder. Clopidogrel may not work as well if you have certain genetic factors that affect the breakdown of this medicine in your body. Your doctor may perform a blood test to make sure clopidogrel is right for you. This medicine is not expected to harm an unborn baby. However, taking clopidogrel within 1 week before childbirth can cause bleeding in the mother. Tell your doctor if you are or plan to become . You should not breastfeed while using this medicine. How should I take clopidogrel? Follow all directions on your prescription label and read all medication guides or instruction sheets. Use these medicines exactly as directed. Clopidogrel can be taken with or without food. Clopidogrel is sometimes taken together with aspirin. Take aspirin only if your doctor tells you to. Clopidogrel keeps your blood from coagulating (clotting) and can make it easier for you to bleed, even from a minor injury. Contact your doctor or seek emergency medical attention if you have any bleeding that will not stop. You may need to stop using clopidogrel for a short time before a surgery, medical procedure, or dental work. Any healthcare provider who treats you should know that you are taking clopidogrel. Do not stop taking clopidogrel without first talking to your doctor, even if you have signs of bleeding. Stopping the medicine could increase your risk of a heart attack or stroke. Store at room temperature away from moisture and heat. What happens if I miss a dose? Take the medicine as soon as you can, but skip the missed dose if it is almost time for your next dose. Do not take two doses at one time. What happens if I overdose? Seek emergency medical attention or call the Poison Help line at . Overdose can causeexcessive bleeding. What should I avoid while taking clopidogrel? Avoid alcohol. It can increase your risk of stomach bleeding. Avoid activities that may increase your risk of bleeding or injury. Use extra care to prevent bleeding while shaving or brushing your teeth. If you also take aspirin: Ask a doctor or pharmacist before using medicines for pain, fever, swelling, or cold/flu symptoms. They may contain ingredients similar to aspirin (such as salicylates, ibuprofen, ketoprofen, or naproxen). Taking these products together can increase your risk of bleeding. What are the possible side effects of clopidogrel? Get emergency medical help if you have signs of an allergic reaction: hives; difficult breathing; swelling of your face, lips, tongue, or throat. Clopidogrel increases your risk of bleeding, which can be severe or life- threatening. Call your doctor or seek emergency medical attention if you have bleeding that will not stop, if you have blood in your urine, black or bloody stools, or if you cough up blood or vomit that looks like coffee grounds. Also call your doctor at once if you have: nosebleeds, pale skin, easy bruising, purple spots under your skin or in your mouth; jaundice (yellowing of your skin or eyes); fast heartbeats, shortness of breath; headache, fever, weakness, feeling tired; little or no urination; a seizure; low blood sugar--headache, hunger, sweating, irritability, dizziness, fast heart rate, and feeling anxious or shaky; or signs of a blood clot--sudden numbness or weakness, confusion, problems with vision or speech. Common side effects may include: bleeding. This is not a complete list of side effects and others may occur. Call your doctor for medical advice about side effects. You may report side effects to FDA at 8-084-TES-5506. What other drugs will affect clopidogrel? Sometimes it is not safe to use certain medications at the same time. Some drugs can affect your blood levels of other drugs you take, which may increase side effects or make the medications less effective. Tell your doctor about all your other medicines, especially: a stomach acid emt basic such as omeprazole, Nexium, or Prilosec; an antidepressant such as citalopram, fluoxetine, sertraline, Cymbalta, Effexor, Lexapro, Pristiq, or Prozac; rifampin; a blood thinner--warfarin, Coumadin, Jantoven; or NSAIDs (nonsteroidal anti-inflammatory drugs)--aspirin, ibuprofen (Advil, Motrin), naproxen (Aleve), celecoxib, diclofenac, indomethacin, meloxicam, and others. This list is not complete. Other drugs may affect clopidogrel, including prescription and goeq-mpf-grodvnc medicines, vitamins, and herbal products. Not all possible drug interactions are listed here. Where can I get more information? Your pharmacist can provide more information about clopidogrel. Remember, keep this and all other medicines out of the reach of children, never share your medicines with others, and use this medication only for the indication prescribed. Every effort has been made to ensure that the information provided by [employer]. ('[employer]') is accurate, up-to-date, and complete, but no guarantee is made to that effect. Drug information contained herein may be time sensitive. [employer] information has been compiled for use by healthcare practitioners and consumers in the [place] and therefore [employer] does not warrant that uses outside of the [place] are appropriate, unless specifically indicated otherwise. [employer]'s drug information does not endorse drugs, diagnose patients or recommend therapy. [employer] drug information isan informational resource designed to assist licensed healthcare practitioners in caring for their p atients and/or to serve consumers viewing this service as a supplement to, and not a substitute for, the expertise, skill, knowledge and judgment of healthcare practitioners. The absence of a warningfor a given drug or drug combination in no way should be construed to indicate that the drug or drug combination is safe, effective or appropriate for any given patient. [employer] does not assume any responsibility for any aspect of healthcare administered with the aid of information [employer] provides. The information contained herein is not intended to cover all possible uses, directions, precautions, warnings, drug interactions, allergic reactions, or adverse effects. If you have questions about the drugs you are taking, check with your doctor, nurse or pharmacist. Copyright 8857-0464 [employer]. Version: 18.01. Revision Date: 11/08/2020. Education Materials HEART CATHETERIZATION/PCI (radial) Discharge Instructions DIET Drink plenty of fluids for the next 48 hours to help your kidneys flush the heart cath dye out of your system ACTIVITY For the next 48 hours: Do not deep bend the wrist Do not lift, push, or pull anything over 5 pounds 5 days Do not use the hand/arm to support your weight when rising from a chair or bed Do not drive For the next 7 days: Do not submerse your procedure site in water Do not swim, wash dishes, or take tub baths You may write, eat, type, and shower WOUND CARE Keep the dressing on your procedure site for the next 24 hours and then change to a bandaid for thenext 3-4 days Change the Band-Aid daily or if it gets wet/soiled AFTER YOU GO HOME, CALL YOUR DOCTOR FOR: Any increase in bruising or tenderness from the procedure site Any redness, pus, or other signs of infection at the site A temperature above 100.5 Severe pain at the site DIAL 911 AND RETURN TO THE HOSPITAL FOR: Any bleeding from the procedure site. The site may be bruised or tender, but it should not be bleeding at any time. If your site begins to bleed, hold firm pressure on it and dial 911 to return to the hospital Any increase in swelling at the procedure site. An increase in swelling could mean the area is bleeding under the skin. Hold firm pressure to the site and dial 911 to return to the hospital Document Released: 07/28/2006 Document Revised: 07/14/2013 Document Reviewed: 07/29/2014 ExitCare Patient Information 2015 [employer]. This information is not intended to replace advicegiven to you by your health care provider. Make sure you discuss any questions you have with your health care provider. Moderate Conscious Sedation, Adult, Care After These instructions provide you with information about caring for yourself after your procedure. Your health care provider may also give you more specific instructions. Your treatment has been plannedaccording to current medical practices, but problems sometimes occur. Call your health care provider if you have any problems or questions after your procedure. What can I expect after the procedure? After your procedure, it is common: To feel sleepy for several hours. To feel clumsy and have poor balance for several hours. To have poor judgment for several hours. To vomit if you eat too soon. Follow these instructions at home: For at least 24 hours after the procedure: Do not: ? Participate in activities where you could fall or become injured. ? Drive. ? Use heavy machinery. ? Drink alcohol. ? Take sleeping pills or medicines that cause drowsiness. ? Make important decisions or sign legal documents. ? Take care of children on your own. Rest. Eating and drinking Follow the diet recommended by your health care provider. If you vomit: ? Drink water, juice, or soup when you can drink without vomiting. ? Make sure you have little or no nausea before eating solid foods. General instructions Have a responsible adult stay with you until you are awake and alert. Take nlej-krq-vlkvqgi and prescription medicines only as told by your health care provider. If you smoke, do not smoke without supervision. Keep all follow-up visits as told by your health care provider. This is important. Contact a health care provider if: You keep feeling nauseous or you keep vomiting. You feel light-headed. You develop a rash. You have a fever. Get help right away if: You have trouble breathing. This information is not intended to replace advice given to you by your health care provider. Make sure you discuss any questions you have with your health care provider. Document Released: 05/18/2014 Document Revised: 07/10/2018 Document Reviewed: 11/16/2016 [employer] Patient Education 2020 [employer] Additional Information VACCINATE! IT SAVES LIVES! Members of the community who have not yet received the COVID-19 vaccine and would like to receive it can visit one of [facility] vaccine clinics. There are many vaccine clinic locations within the [facility]. For locations and available times, please visit https://gettheshot.coronavirus.[place].gov/. It is important to note that some COVID mobile vaccine clinics are held outdoors and may be canceled in rainy or stormy conditions. To learn more about pediatric vaccinations (ages 5-11), we invite you to visit the [facility] webpage. https://www.akTSBs.org/pages/9819-Cptbm-Xsxxvnfddxf-Hureegklws-Pjmoz-Bgc stions.htmlTo learn more about the COVID-19 vaccine, we invite you to visit the CDC website for a list of frequently asked questions.https://www.cdc.gov/coronavirus/2019-ncov/vaccines/faq.html [employer] Patient Portal Access Instructions: Stay connected with your healthcare team and access your personal medical information anytime with the [employer] Patient Portal. Please follow the directions below to create your [employer] account: 1.Access the email account you provided upon registration to the hospital/physician office.2.Look for an invitation email from [facility].3.Open the email and access the invitation link: AcceptInvitation to [employer].4.Fill in the required roca to create your account. To access your account, visit [email or web address]. Click the blue button labeled Access Patient Portal and then log in with the username and password that you created in the steps above. You will be able to view your test results, lab results, a summary of your visits, upcoming appointments and more. There is also a convenient messaging option where you can send secure messages to your p elanvider. In addition, you will have the ability to download any documents or summaries to your computer and/or send the information securely to a physician. Remember that your healthcare information is confidential, so carefully consider who you will allowto register on the [facility] for access to your information. You can also access the [facility] on the [employer] [facility]ael. Simply click on Patient Portal and then log into your account. If you would like to receive a full copy of your medical records, please contact the [facility] Medical Records Department by calling [phone], Friday through Friday between 8 a.m. and 4:30 p.m. HOW TO SAFELY DISPOSE OF PRESCRIPTION MEDICATIONS Please use one of the following methods to safely dispose of your unused medications. 1.Use a drug disposal kit: the drug disposal pouch allows you to safely discard your old and unuseddrugs. Ask your nurse to give you one when you are discharged.2.Visit a local take-back location: Many local pharmacies and police departments have programs that collect old and unwanted prescriptiondrugs. Call your local pharmacy or go to http://[employer]/8S9Fp4d to find one close to you.3.Make use of household items: Use cat litter or old coffee grounds to dispose medications if other options arenot available. Mix your drugs with these household products, seal them in an airtight container andthrow it into the garbage. Call [facility]: [phone] to be sure your drugs can be disposed of in this way. Some medicines may require a different approach.4.Never flush your medications down the toilet. IF YOU HAVE BEEN PRESCRIBED AN OPIOID FOR PAIN If you have been prescribed an opioid (such as hydrocodone, oxycodone or morphine), it is critical to understand the possible side effects and risks of opioid pain medications. Even when taken as directed, opioids can have several side effects including: Tolerance, meaning you might need to take more of a medication for the same pain relief. Nausea, vomiting and/or constipation. Sleepiness, dizziness, dry mouth, confusion, depression or itching. Physical dependence, meaning you have withdrawal symptoms when a medication is stopped, can develop within a few days. KNOW YOUR RESPONSIBILITIES It is important to know exactly how much and how often to take the opioid pain medications you are prescribed. Never take opioids in higher amounts or more often than prescribed. Do not combine opioids with alcohol or other drugs that cause drowsiness, such as benzodiazepines, also known as benzos, including diazepam and alprazolam, muscle relaxants or sleep aids. Never sell or share prescription opioids. This is illegal. Store opioids in a secure place and out of reach of others (including children, family, friends and visitors). The last page of this document has been signed and retained as a CHART COPY. Signatures Patient Education Materials 3- Heart Cath/PCI radial (05/2018) (CUSTOM) Moderate Conscious Sedation, Adult, Care After Medication Leaflets clopidogrel My discharge plan and instructions have been reviewed and explained to me and I,JUNI GAUTHIER understand my current condition and have read and understand these discharge instructions. I have received a written copy of the plan/instructions. If I have questions, I am aware that I should contact my doctor. 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: Date/Time: Relationship to Patient: Witness Name/Signature: [id number] Discharge instructions Patient Education 01/12/2024 14:20:29 3- Heart Cath/PCI radial (05/2018) (CUSTOM) HEART CATHETERIZATION/PCI (radial) Discharge Instructions DIET Drink plenty of fluids for the next 48 hours to help your kidneys flush the heart cath dye out of your system ACTIVITY For the next 48 hours: Do not deep bend the wrist Do not lift, push, or pull anything over 5 pounds 5 days Do not use the hand/arm to support your weight when rising from a chair or bed Do not drive For the next 7 days: Do not submerse your procedure site in water Do not swim, wash dishes, or take tub baths You may write, eat, type, and shower WOUND CARE Keep the dressing on your procedure site for the next 24 hours and then change to a bandaid for thenext 3-4 days Change the Band-Aid daily or if it gets wet/soiled AFTER YOU GO HOME, CALL YOUR DOCTOR FOR: Any increase in bruising or tenderness from the procedure site Any redness, pus, or other signs of infection at the site A temperature above 100.5 Severe pain at the site DIAL 911 AND RETURN TO THE HOSPITAL FOR: Any bleeding from the procedure site. The site may be bruised or tender, but it should not be bleeding at any time. If your site begins to bleed, hold firm pressure on it and dial 911 to return to the hospital Any increase in swelling at the procedure site. An increase in swelling could mean the area is bleeding under the skin. Hold firm pressure to the site and dial 911 to return to the hospital Document Released: 07/28/2006 Document Revised: 07/14/2013 Document Reviewed: 07/29/2014 ExitCare Patient Information 2015 [employer]. This information is not intended to replace advicegiven to you by your health care provider. Make sure you discuss any questions you have with your health care provider. 01/12/2024 14:16:27 Moderate Conscious Sedation, Adult, Care After Moderate Conscious Sedation, Adult, Care After These instructions provide you with information about caring for yourself after your procedure. Your health care provider may also give you more specific instructions. Your treatment has been plannedaccording to current medical practices, but problems sometimes occur. Call your health care provider if you have any problems or questions after your procedure. What can I expect after the procedure? After your procedure, it is common: To feel sleepy for several hours. To feel clumsy and have poor balance for several hours. To have poor judgment for several hours. To vomit if you eat too soon. Follow these instructions at home: For at least 24 hours after the procedure: Do not: ?Participate in activities where you could fall or become injured. ?Drive. ?Use heavy machinery. ?Drink alcohol. ?Take sleeping pills or medicines that cause drowsiness. ?Make important decisions or sign legal documents. ?Take care of children on your own. Rest. Eating and drinking Follow the diet recommended by your health care provider. If you vomit: ?Drink water, juice, or soup when you can drink without vomiting. ?Make sure you have little or no nausea before eating solid foods. General instructions Have a responsible adult stay with you until you are awake and alert. Take elgc-yat-tzfdwir and prescription medicines only as told by your health care provider. If you smoke, do not smoke without supervision. Keep all follow-up visits as told by your health care provider. This is important. Contact a health care provider if: You keep feeling nauseous or you keep vomiting. You feel light-headed. You develop a rash. You have a fever. Get help right away if: You have trouble breathing. This information is not intended to replace advice given to you by your health care provider. Make sure you discuss any questions you have with your health care provider. Document Released: 05/18/2014 Document Revised: 07/10/2018 Document Reviewed: 11/16/2016 [employer] Patient Education 2020 [employer]. 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 Underwent PCI with excellent result. No complications during procedure. Patient discharged on aspirin and plavix. Patient educated extensively on importance of compliance with DAPT due to risk of stent thrombosis and . Allergies CeleBREX Unknown penicillin Unknown Consults No qualifying data available. Objective Vitals and Measurements T: 36.5 C (Oral) HR: 71 RR: 16 BP: 146/81 SpO2: 97% HT: 177.8 cm WT: 106.8 kg BMI: 33.78 Weight Dosing Weight: 106.8 kg (01/12/24) GENERAL: Well nourished; no acute distress. PSYCHIATRIC: Alert and oriented x 3, cooperative, mood normal, affect normal. HEAD: Normocephalic, nontraumatic head. EYES: Pupils equal, round, and reactive to light; conjunctiva clear bilaterally. Lids within normallimits. NECK: Supple, no posterior midline tenderness. Normal range of motion. No thyromegaly noted. CARDIAC: Regular rate, regular rhythm, no murmurs noted. RESPIRATORY: Regular rate and depth; no distress, RIGHT lung clear, LEFT lung clear. Breath sounds normal. ABDOMEN: Soft, nontender. Normal bowel sounds. EXTREMITIES: No trace lower extremity pitting edema. No lymphedema. Dorsalis Pedis pulse +2/4 bilaterally. Posterior Tibialis pulse +2/4 bilaterally. NEURO: Moves all extremities DERM: Warm and dry. Normal turgor. No observed exanthem. No significant dandruff. Code Status No qualifying data available. Medications New Prescription clopidogrel (Plavix 75 mg oral tablet)1 tab(s) by mouth once a day. Refills: 11. Changed aspirin (aspirin 81 mg oral delayed release tablet)1 tab(s) by mouth every day. Refills: 5. Unchanged atorvastatin (atorvastatin 40 mg oral tablet)1 tab(s) by mouth once a day. Refills: 2. metoprolol (metoprolol succinate 25 mg oral TABLET extended release)1 tab(s) by mouth once a day. Do not crush or chew (controlled release). Refills: 1. Discontinued omeprazole (omeprazole 20 mg oral delayed release capsule)1 cap by mouth daily at bedtime for 90 Days. Refills: 3. Follow Up Appointments No qualifying data available. Follow Up Labs/Studies Discharge Labs No Follow-up Labs Discharge Studies No Follow-up Studies Discharge Diet Discharge Diet - Ordered -- No changes were made to your diet during your hospital stay. Please resume your pre hospitalization diet on discharge., 01/12/24 11:23:00 EDT Discharge Activity Discharge Activity - Ordered -- Lifting Restricted less than 5 pounds, 01/12/24 11:23:00 EDT Discharge Activity - Ordered -- Lifting Restricted less than 5 pounds, 01/12/24 11:23:00 EDT Readmission Risk/Palliative Score No qualifying data available. Digitally Signed by JORDAN ENCISO MD on 01/12/2024 11:26 AM [id number] Discharge summary Hospital Course Patient presented for [facility] Found to have severe proximal RCA disease. Underwent PCI with excellent result. No complications during procedure. Patient discharged on aspirin and plavix. Patient educated extensively on importance of compliance with DAPT due to risk of stent thrombosis and . Allergies CeleBREX Unknown penicillin Unknown Consults No qualifying data available. Objective Vitals and Measurements T: 36.5 C (Oral) HR: 71 RR: 16 BP: 146/81 SpO2: 97% HT: 177.8 cm WT: 106.8 kg BMI: 33.78 Weight Dosing Weight: 106.8 kg (01/12/24) GENERAL: Well nourished; no acute distress. PSYCHIATRIC: Alert and oriented x 3, cooperative, mood normal, affect normal. HEAD: Normocephalic, nontraumatic head. EYES: Pupils equal, round, and reactive to light; conjunctiva clear bilaterally. Lids within normallimits. NECK: Supple, no posterior midline tenderness. Normal range of motion. No thyromegaly noted. CARDIAC: Regular rate, regular rhythm, no murmurs noted. RESPIRATORY: Regular rate and depth; no distress, RIGHT lung clear, LEFT lung clear. Breath sounds normal. ABDOMEN: Soft, nontender. Normal bowel sounds. EXTREMITIES: No trace lower extremity pitting edema. No lymphedema. Dorsalis Pedis pulse +2/4 bilaterally. Posterior Tibialis pulse +2/4 bilaterally. NEURO: Moves all extremities DERM: Warm and dry. Normal turgor. No observed exanthem. No significant dandruff. Code Status No qualifying data available. Medications New Prescription clopidogrel (Plavix 75 mg oral tablet)1 tab(s) by mouth once a day. Refills: 11. Changed aspirin (aspirin 81 mg oral delayed release tablet)1 tab(s) by mouth every day. Refills: 5. Unchanged atorvastatin (atorvastatin 40 mg oral tablet)1 tab(s) by mouth once a day. Refills: 2. metoprolol (metoprolol succinate 25 mg oral TABLET extended release)1 tab(s) by mouth once a day. Do not crush or chew (controlled release). Refills: 1. Discontinued omeprazole (omeprazole 20 mg oral delayed release capsule)1 cap by mouth daily at bedtime for 90 Days. Refills: 3. Follow Up Appointments No qualifying data available. Follow Up Labs/Studies Discharge Labs No Follow-up Labs Discharge Studies No Follow-up Studies Discharge Diet Discharge Diet - Ordered -- No changes were made to your diet during your hospital stay. Please resume your pre hospitalization diet on discharge., 01/12/24 11:23:00 EDT Discharge Activity Discharge Activity - Ordered -- Lifting Restricted less than 5 pounds, 01/12/24 11:23:00 EDT Discharge Activity - Ordered -- Lifting Restricted less than 5 pounds, 01/12/24 11:23:00 EDT Readmission Risk/Palliative Score No qualifying data available. Digitally Signed by JORDAN ENCISO MD on 01/12/2024 11:26 AM [id number] Note* Exam Date Time Procedure Performing Provider Status 01/08/24 2:45 PM Echocardiogram, Adult - CV Auth (Verified) [facility] 01-19-2024 Hospital Discharge instructions Patient Education 08/29/2023 11:59:14 Incision Care, Adult Incision Care, Adult An incision is a surgical cut that is made through your skin. Most incisions are closed after surgery. Your incision may be closed with stitches (sutures), bruna, skin glue, or adhesive strips. Youmay need to return to your health care provider to have sutures or bruna removed. This may occur several days to several weeks after your surgery. The incision needs to be cared for properly to prevent infection. How to care for your incision Incision care Follow instructions from your health care provider about how to take care of your incision. Make sure you: ?Wash your hands with soap and water before you change the bandage (dressing). If soap and water are not available, use hand entry level mechanical engineer. ?Change your dressing as told by your health care provider. ?Leave sutures, skin glue, or adhesive strips in place. These skin closures may need to stay in place for 2 weeks or longer. If adhesive strip edges start to loosen and curl up, you may trim the loose edges. Do not remove adhesive strips completely unless your health care provider tells you to do that. Check your incision area every day for signs of infection. Check for: ?More redness, swelling, or pain. ?More fluid or blood. ?Warmth. ?Pus or a bad smell. Ask your health care provider how to clean the incision. This may include: ?Using mild soap and water. ?Using a clean towel to pat the incision dry after cleaning it. ?Applying a cream or ointment. Do this only as told by your health care provider. ?Covering the incision with a clean dressing. Ask your health care provider when you can leave the incision uncovered. Do not take baths, swim, or use a hot tub until your health care provider approves. Ask your healthcare provider if you can take showers. You may only be allowed to take sponge baths for bathing. Medicines If you were prescribed an antibiotic medicine, cream, or ointment, take or apply the antibiotic as told by your health care provider. Do not stop taking or applying the antibiotic even if your condition improves. Take dgux-clv-sybpeux and prescription medicines only as told by your health care provider. General instructions Limit movement around your incision to improve healing. ?Avoid straining, lifting, or exercise for the first month, or for as long as told by your health care provider. ?Follow instructions from your health care provider about returning to your normal activities. ?Ask your health care provider what activities are safe. Protect your incision from the sun when you are outside for the first 6 months, or for as long as told by your health care provider. Apply sunscreen around the scar or cover it up. Keep all follow-up visits as told by your health care provider. This is important. Contact a health care provider if: Your have more redness, swelling, or pain around the incision. You have more fluid or blood coming from the incision. Your incision feels warm to the touch. You have pus or a bad smell coming from the incision. You have a fever or shaking chills. You are nauseous or you vomit. You are dizzy. Your sutures or bruna come undone. Get help right away if: You have a red streak coming from your incision. Your incision bleeds through the dressing and the bleeding does not stop with gentle pressure. The edges of your incision open up and separate. You have severe pain. You have a rash. You are confused. You faint. You have trouble breathing and a fast heartbeat. This information is not intended to replace advice given to you by your health care provider. Make sure you discuss any questions you have with your health care provider. Document Released: 02/14/2006 Document Revised: 07/30/2019 Document Reviewed: 02/12/2017 [employer] Patient Education 2020 [employer]. 08/29/2023 11:58:36 Carotid Endarterectomy, Care After Carotid Endarterectomy, Care After This sheet gives you information about how to care for yourself after your procedure. Your health care provider may also give you more specific instructions. If you have problems or questions, contact your health care provider. What can I expect after the procedure? After the procedure, it is common to have some pain or an ache in your neck for up to 2 weeks. Thisis normal. Follow these instructions at home: Medicines Take fbco-pgg-yakkgzc and prescription medicines only as told by your health care provider. If you are given a blood thinner (anticoagulant) after surgery, take it exactly as told. Do not drive for 24 hours if you were given a sedative during your procedure. Do not drive or use heavy machinery while taking prescription pain medicine. Incision care Follow instructions from your health care provider about how to take care of your incision. Make sure you: ?Wash your hands with soap and water before and after you change your bandage (dressing). If soap and water are not available, use hand entry level mechanical engineer. ?Change your dressing as told by your health care provider. ?Leave stitches (sutures), skin glue, or adhesive strips in place. These skin closures may need to stay in place for 2 weeks or longer. If adhesive strip edges start to loosen and curl up, you may trim the loose edges. Do not remove adhesive strips completely unless your health care provider tells you to do that. Check your incision area every day for signs of infection. Check for: ?Redness, swelling, or pain. ?Fluid or blood. ?Warmth. ?Pus or a bad smell. Do not take baths, swim, or use a hot tub until your health care provider approves. Ask your healthcare provider if you may take showers. You may only be allowed to take sponge baths. Activity Do not lift anything that is heavier than 10 lb (4.5 kg), or the limit that you are told, until your health care provider says that it is safe. Return to your normal activities as told by your health care provider. Ask your health care provider what activities are safe for you. ?Recovery time varies depending on your age, general health, and other factors. You will likely be able to return to a normal lifestyle within a few weeks. While you recover, you may need help with some activities, such as cleaning the house or shopping. Exercise regularly, or as told by your health care provider. Eating and drinking Follow instructions from your health care provider about eating or drinking restrictions. Drink enough fluid to keep your urine pale yellow. Eat a heart-healthy diet. This includes foods like fresh fruits and vegetables, whole grains, low-fat dairy products, and low-fat (lean) meats. Avoid foods that are: ?High in salt, saturated fat, or sugar. ?Canned or highly processed. ?Fried. Lifestyle If you drink alcohol: ?Limit how much you use to: ?0 1 drink a day for women. ?0 2 drinks a day for men. ?Be aware of how much alcohol is in your drink. In the [place] one drink equals one 12 oz bottle of beer (355 mL), one 5 oz glass of wine (148 mL), or one 1 oz glass of hard liquor (44 mL). Maintain a healthy weight. General instructions Avoid wearing tight clothing around your neck and your sutures. Work with your health care provider to keep your blood pressure under control. Do not use any products that contain nicotine or tobacco, such as cigarettes, e- cigarettes, and chewing tobacco. If you need help quitting, ask your health care provider. Keep all follow-up visits as told by your health care provider. This is important. Contact a health care provider if you have: Signs of infection, such as: ?Redness, swelling, or pain around your incision. ?Fluid or blood coming from your incision. ?Your incision feeling warm to the touch. ?Pus or a bad smell coming from your incision. ?A fever. A rash. Difficulty speaking or you have changes in your voice. Get help right away if you have: Difficulty breathing. Chest pain or shortness of breath. Any symptoms of a stroke. Certain factors may put you at risk for a stroke even after this procedure. These may include chronic lung disease, chronic kidney disease, narrowed arteries (peripheral arterial disease), previous history of a stroke, and being 60 years of age or older. BE FAST is an easy way to remember the main warning signs of a stroke: ?B - Balance. Signs are dizziness, sudden trouble walking, or loss of balance. ?E - Eyes. Signs are trouble seeing or a sudden change in vision. ?F - Face. Signs are sudden weakness or numbness of the face, or the face or eyelid drooping on oneside. ?A - Arms. Signs are weakness or numbness in an arm. This happens suddenly and usually on one side of the body. ?S - Speech. Signs are sudden trouble speaking, slurred speech, or trouble understanding what people say. ?T - Time. Time to call emergency services. Write down what time symptoms started. Other signs of a stroke, such as: ? A sudden, severe headache with no known cause. ?Nausea or vomiting. ?Seizure. These symptoms may represent a serious problem that is an emergency. Do not wait to see if the symptoms will go away. Get medical help right away. Call your local emergency services (911 in the [place] Do not drive yourself to the hospital. Summary After the procedure, it is common to have some pain or an ache in your neck for up to 2 weeks. Follow instructions from your health care provider about how to take care of your incision. Take jifp-fbg-yafcgol and prescription medicines only as told by your health care provider. Do not use any products that contain nicotine or tobacco, such as cigarettes, e- cigarettes, and chewing tobacco. If you need help quitting, ask your health care provider. Keep all follow-up visits as told by your health care provider. This is important. This information is not intended to replace advice given to you by your health care provider. Make sure you discuss any questions you have with your health care provider. Document Released: 02/14/2006 Document Revised: 09/06/2019 Document Reviewed: 04/06/2019 [employer] Patient Education 2020 [employer] 08/29/2023 11:58:34 Carotid Endarterectomy Carotid Endarterectomy A carotid endarterectomy is a surgery to remove a blockage in the carotid arteries. The carotid arteries are the large blood vessels on both sides of the neck that supply blood to the brain. Carotid artery disease, also called carotid artery stenosis, is the narrowing or blockage of one or both carotid arteries. Carotid artery disease is usually caused by atherosclerosis, which is a buildup of fat and plaque in the arteries. Some buildup of plaque normally occurs with aging. The plaque may partially or totally block blood flow or cause a clot to form in the carotid arteries. This may cause a stroke. Tell a health care provider about: Any allergies you have. All medicines you are taking, including vitamins, herbs, eye drops, creams, and gicw-lih-msvjfdo medicines. Any problems you or family members have had with anesthetic medicines. Any blood disorders you have. Any surgeries you have had. Any medical conditions you have, or have had, including diabetes, kidney problems, and infections. Whether you are or may be . What are the risks? Generally, this is a safe procedure. However, problems may occur, including: Infection. Bleeding. Blood clots. Allergic reactions to medicines. Damage to nerves near the carotid arteries. This can cause a hoarse voice or weakness of muscles inyour face. Stroke. Seizures. Heart attack (myocardial infarction). Narrowing of the opened blood vessel (restenosis). This may require another surgery. What happens before the procedure? Staying hydrated Follow instructions from your health care provider about hydration, which may include: Up to 2 hours before the procedure you may continue to drink clear liquids, such as water, clear fruit juice, black coffee, and plain tea. Eating and drinking restrictions Follow instructions from your health care provider about eating and drinking, which may include: 8 hours before the procedure stop eating heavy meals or foods, such as meat, fried foods, or fatty foods. 6 hours before the procedure stop eating light meals or foods, such as toast or cereal. 6 hours before the procedure stop drinking milk or drinks that contain milk. 2 hours before the procedure stop drinking clear liquids. Medicines Ask your health care provider about: ?Changing or stopping your regular medicines. This is especially important if you are taking diabetes medicines or blood thinners. ?Taking medicines such as aspirin and ibuprofen. These medicines can thin your blood. Do not take these medicines unless your health care provider tells you to take them. ?Taking cmab-zfq-zhkdcnc medicines, vitamins, herbs, and supplements. General instructions Do not use any products that contain nicotine or tobacco for at least 4 6 weeks, or as soon as possible, before the procedure. These products include cigarettes, e-cigarettes, and chewing tobacco. Ifyou need help quitting, ask your health care provider. You may need to have blood tests, a test to check heart rhythm (electrocardiogram), or a test to check blood flow (angiogram). Plan to have someone take you home from the hospital or clinic. Ask your health care provider: ?How your surgery site will be marked. ?What steps will be taken to help prevent infection. These may include: ?Removing hair at the surgery site. ?Washing skin with a germ-killing soap. ?Taking antibiotic medicine. What happens during the procedure? An IV will be inserted into one of your veins. You will be given one or more of the following: ?A medicine to help you relax (sedative). ?A medicine to make you fall asleep (general anesthetic). The surgeon will make a small incision in your neck to expose the carotid artery. A tube may be inserted into the carotid artery above and below the blockage. This tube will allow blood to flow around the blockage during the surgery. An incision will be made in the carotid artery at the location of the blockage. The blockage will be removed. In some cases, a section of the carotid artery may be removed and a graft patch may be used to repair the artery. The carotid artery will be closed with stitches (sutures). If a tube was inserted into the artery to allow blood flow around the blockage during surgery, the tube will be removed. Once the tube is removed, blood flow through the carotid artery will be restored. The incision in the neck will be closed with sutures. A bandage (dressing) will be placed over your incision. The procedure may vary among health care providers and hospitals. What happens after the procedure? Your blood pressure, heart rate, breathing rate, and blood oxygen level will be monitored until youleave the hospital or clinic. You may have some pain or an ache in your neck for about 2 weeks. This is normal. Do not drive for 24 hours if you were given a sedative during your procedure. Summary A carotid endarterectomy is a surgery to remove a blockage in the carotid arteries. The carotid arteries are the large blood vessels on both sides of the neck that supply blood to thebrain. Before the procedure, ask your health care provider about changing or stopping your regular medicines. Follow instructions from your health care provider about eating and drinking before the procedure. After the procedure, do not drive for 24 hours if you were given a sedative. This information is not intended to replace advice given to you by your health care provider. Make sure you discuss any questions you have with your health care provider. Document Released: 03/30/2014 Document Revised: 04/06/2019 Document Reviewed: 04/06/2019 [employer] Patient Education 2020 [employer]. 08/29/2023 11:58:21 Carotid Artery Disease Carotid Artery Disease The carotid arteries are the two main arteries on either side of the neck. They supply blood to thebrain, face, and neck. Carotid artery disease, also called carotid artery stenosis, is the narrowing or blockage of one or both carotid arteries. Carotid artery disease increases your risk for a stroke or a transient ischemic attack (TIA). A TIA is an episode in which blood flow to the brain is temporarily blocked. A TIA is considered a warning stroke. What are the causes? This condition is primarily caused by buildup of plaque inside the carotid arteries (atherosclerosis). What increases the risk? The following factors may make you more likely to develop this condition: High cholesterol (dyslipidemia). High blood pressure (hypertension). Smoking. Obesity. Diabetes. Family history of cardiovascular disease. Inactivity or lack of regular exercise. Being male. Men have an increased risk of developing atherosclerosis earlier in life than women. Old age. What are the signs or symptoms? This condition may not have any signs or symptoms until a stroke or TIA occurs. In some cases, yourdoctor may be able to hear a whooshing sound (bruit) which can indicate a change in blood flow due to plaque buildup. An eye exam can also help identify signs of the condition. How is this diagnosed? This condition may be diagnosed by: A physical exam. Your family and medical history. Specific tests that look at the blood flow in the carotid arteries. These tests include: ?Carotid artery ultrasound. This test uses sound waves to create pictures of your arteries and showwhether they are narrow or blocked. ?Carotid or cerebral angiography. During this test, a special dye will be injected into a vein. Thedye will show up on an X-ray to help highlight your arteries. ?Computerized tomographic angiography (CTA). During this test, a special dye will be injected into a vein. The dye will show up on the CT scan to help highlight your arteries. ?Magnetic resonance angiography (MRA). During this test, a special dye will be injected into a vein. The dye will show up on the MRI to help highlight your arteries. How is this treated? Treatment of this condition may include a combination of treatments. Treatment options include: Lifestyle changes such as: ?Quitting smoking. ?Exercising regularly or as directed by your health care provider. ?Eating a heart-healthy diet. ?Managing stress. ?Maintaining a healthy weight. Medicines to control: ?Blood pressure. ?Cholesterol. ?Blood clotting. Surgery. You may have: ?A carotid endarterectomy. This is a surgery to remove the blockages in the carotid arteries. ?A carotid angioplasty with stenting. This is a procedure in which a wire mesh (stent) is used to widen the blocked carotid arteries. Follow these instructions at home: Lifestyle Follow your health care provider's instructions about your diet. It is important to eat a healthy diet that is low in saturated fats and includes plenty of fresh fruits, vegetables, and lean meats. You should avoid high-fat, high-sodium foods as well as foods that are fried, overly processed, or have poor nutritional value. Maintain a healthy weight. Stay physically active. It is recommended that you get at least 150 minutes of moderate exercise or75 minutes of strenuous exercise each week. Do not use any products that contain nicotine or tobacco, such as cigarettes and e-cigarettes. If you need help quitting, ask your health care provider. Limit alcohol intake to no more than 1 drink a day for non- women and 2 drinks a day for men. One drink equals 12 oz. of beer, 5 oz. of wine, or 1 oz. of hard liquor. Do not use illegal drugs. Manage your stress. Ask your health care provider for stress management tips. General instructions Take ovpu-jlf-suuwgkf and prescription medicines only as told by your health care provider. Keep all follow-up visits as told by your health care provider. This is important. Get help right away if: You have any symptoms of stroke or TIA. The acronym BEFAST is an easy way to remember the main warning signs of stroke. ?B = Balance problems. Signs include dizziness, sudden trouble walking, or loss of balance ?E = Eye problems. This includes trouble seeing or a sudden change in vision. ?F = Face changes. This includes sudden weakness or numbness of the face, or the face or eyelid drooping to one side. ?A = Arm weakness or numbness. This happens suddenly and usually on one side of the body. ?S = Speech problems. This includes trouble speaking or trouble understanding speech. ?T = Time. Time to call 911 or seek emergency care. Do not wait to see if symptoms go away. Make note of the time your symptoms started. Other signs of stroke may include: ?A sudden, severe headache with no known cause. ?Nausea or vomiting. ?Seizure. These symptoms may represent a serious problem that is an emergency. Do not wait to see if the symptoms will go away. Get medical help right away. Call your local emergency services (911 in the [place] Do not drive yourself to the hospital. Summary Carotid artery disease, also called carotid artery stenosis, is the narrowing or blockage of one orboth carotid arteries. Carotid artery disease increases your risk for a stroke or a transient ischemic attack (TIA). This condition can be treated with lifestyle changes, medicines, surgery, or a combination of thesetreatments. Do not use any products that contain nicotine or tobacco, such as cigarettes and e-cigarettes. If you need help quitting, ask your health care provider. This information is not intended to replace advice given to you by your health care provider. Make sure you discuss any questions you have with your health care provider. Document Released: 10/19/2012 Document Revised: 07/10/2018 Document Reviewed: 09/01/2017 [employer] Patient Education 2020 [employer]. Follow Up Care 07/01/2023 15:33:57 With:Prescription Assistance Address:Unknown When: Unknown Comments:Prescription assistance has been arranged for you and is available for non-narcotic medications ordered by your doctor. To access, bring your [facility] to the [facility] the main floor of the hospital .Pharmacy hours are: Friday-Friday 6a-630p, Friday 8a-430p, Friday-closed. With:ELIAS GALVAN DO Address: [address] [place] [id number] [phone] When: Unknown Comments:PLEASE CALL THIS OFFICE TO SCHEDULE A HOSPITAL FOLLOW UP APPOINTMENT. With:CHARLIE BECERRA APRN-BUSINESS TECHNOLOGY ANALYST Address: [address] [place] [address] [address] [place] [address]- [phone] When:10/29/2023 09:00:00 [facility] 01-19-2024 Note Discharge Instructions Thank you for allowing [facility] to assist you with your healthcare needs. The following is importantdischarge information regarding your hospital visit. Your Care Team ELIAS GALVAN DO What to do next Scheduled Follow-Up Appointments Appointment Type When With Where Contact InformationCV OV 10/29/2023 09:00 AM EDT CHARLIE BECERRA [facility] OV 02/04/2024 08:00 AM EDT ELIAS GALVAN DO [facility] CV OV 06/30/2024 09:00 AM EST CHARLIE BECERRA [facility] Follow Up Appointments Follow Up with CHARLIE BECERRA When 10/29/2023 09:00 AM EDT [facility] [address] [facility] [address] [place], [place] [address]- [phone] Follow Up with Prescription Assistance When Why: Prescription assistance has been arranged for you and is available for non- narcotic medications ordered by your doctor. To access, bring your prescriptions to the [facility] located [facility] on the main floor of the hospital . Pharmacy hours are: Friday-Friday 6a-630p, Friday 8a-430p, Friday-. Follow Up with ELIAS GALVAN DO When Why: PLEASE CALL THIS OFFICE TO SCHEDULE A HOSPITAL FOLLOW UP APPOINTMENT. Where[facility] [address] [place] [address]- [phone] The Following Activity and Diet Have Been Ordered for You No qualifying data available. No qualifying data available. The Following Equipment Has Been Ordered for You No qualifying data available. The Following Treatments Have Been Ordered for You Discharge Labs No qualifying data available. Discharge Radiology No qualifying data available. Other Therapies No qualifying data available. Post Acute Orders No qualifying data available. Someone Will Contact You Regarding These Home Health Referrals No home referrals have been ordered for you. No one will call you. Allergies CeleBREX (Unknown) penicillin (Unknown) Medications Please ask your primary doctor or pharmacist before taking any other medication not listed, including over the counter drugs, herbal medications, vitamins and or supplements as they may interact withyour home medications. What How Much When Instructions Last Dose Unchanged aspirin (aspirin 325 mg oral tablet) 1 tab(s) by mouth Daily at bedtime Unchanged ipratropium nasal (ipratropium 42 mcg/ inh (0.06%) nasal spray) 2 spray(s) in the nose Three (3) times a day instill 2 sprays into each nostril three times a day Unchanged omeprazole (omeprazole 20 mg oral delayed release capsule) 1 cap by mouth Daily at bedtime Duration: 90 Days Please take this list to your next doctor s visit. Bring all medications you take, including over the counter medications, herbals and other supplements with you to your doctor s visit. Patients and families are reminded to discard old lists and to update any records with all medication providers or retail pharmacies. Education Materials Incision Care, Adult An incision is a surgical cut that is made through your skin. Most incisions are closed after surgery. Your incision may be closed with stitches (sutures), bruna, skin glue, or adhesive strips. Youmay need to return to your health care provider to have sutures or bruna removed. This may occur several days to several weeks after your surgery. The incision needs to be cared for properly to prevent infection. How to care for your incision Incision care Follow instructions from your health care provider about how to take care of your incision. Make sure you: ? Wash your hands with soap and water before you change the bandage (dressing). If soap and water arenot available, use hand entry level mechanical engineer. ? Change your dressing as told by your health care provider. ? Leave sutures, skin glue, or adhesive strips in place. These skin closures may need to stay in place for 2 weeks or longer. If adhesive strip edges start to loosen and curl up, you may trim the looseedges. Do not remove adhesive strips completely unless your health care provider tells you to do that. Check your incision area every day for signs of infection. Check for: ? More redness, swelling, or pain. ? More fluid or blood. ? Warmth. ? Pus or a bad smell. Ask your health care provider how to clean the incision. This may include: ? Using mild soap and water. ? Using a clean towel to pat the incision dry after cleaning it. ? Applying a cream or ointment. Do this only as told by your health care provider. ? Covering the incision with a clean dressing. Ask your health care provider when you can leave the incision uncovered. Do not take baths, swim, or use a hot tub until your health care provider approves. Ask your healthcare provider if you can take showers. You may only be allowed to take sponge baths for bathing. Medicines If you were prescribed an antibiotic medicine, cream, or ointment, take or apply the antibiotic as told by your health care provider. Do not stop taking or applying the antibiotic even if your condition improves. Take tccv-ezh-guezknm and prescription medicines only as told by your health care provider. General instructions Limit movement around your incision to improve healing. ? Avoid straining, lifting, or exercise for the first month, or for as long as told by your health care provider. ? Follow instructions from your health care provider about returning to your normal activities. ? Ask your health care provider what activities are safe. Protect your incision from the sun when you are outside for the first 6 months, or for as long as told by your health care provider. Apply sunscreen around the scar or cover it up. Keep all follow-up visits as told by your health care provider. This is important. Contact a health care provider if: Your have more redness, swelling, or pain around the incision. You have more fluid or blood coming from the incision. Your incision feels warm to the touch. You have pus or a bad smell coming from the incision. You have a fever or shaking chills. You are nauseous or you vomit. You are dizzy. Your sutures or bruna come undone. Get help right away if: You have a red streak coming from your incision. Your incision bleeds through the dressing and the bleeding does not stop with gentle pressure. The edges of your incision open up and separate. You have severe pain. You have a rash. You are confused. You faint. You have trouble breathing and a fast heartbeat. This information is not intended to replace advice given to you by your health care provider. Make sure you discuss any questions you have with your health care provider. Document Released: 02/14/2006 Document Revised: 07/30/2019 Document Reviewed: 02/12/2017 [employer] Patient Education 2020 [employer] Carotid Endarterectomy, Care After This sheet gives you information about how to care for yourself after your procedure. Your health care provider may also give you more specific instructions. If you have problems or questions, contact your health care provider. What can I expect after the procedure? After the procedure, it is common to have some pain or an ache in your neck for up to 2 weeks. Thisis normal. Follow these instructions at home: Medicines Take jgkc-jea-btzgnyw and prescription medicines only as told by your health care provider. If you are given a blood thinner (anticoagulant) after surgery, take it exactly as told. Do not drive for 24 hours if you were given a sedative during your procedure. Do not drive or use heavy machinery while taking prescription pain medicine. Incision care Follow instructions from your health care provider about how to take care of your incision. Make sure you: ? Wash your hands with soap and water before and after you change your bandage (dressing). If soap and water are not available, use hand entry level mechanical engineer. ? Change your dressing as told by your health care provider. ? Leave stitches (sutures), skin glue, or adhesive strips in place. These skin closures may need to stay in place for 2 weeks or longer. If adhesive strip edges start to loosen and curl up, you may trim the loose edges. Do not remove adhesive strips completely unless your health care provider tells you to do that. Check your incision area every day for signs of infection. Check for: ? Redness, swelling, or pain. ? Fluid or blood. ? Warmth. ? Pus or a bad smell. Do not take baths, swim, or use a hot tub until your health care provider approves. Ask your healthcare provider if you may take showers. You may only be allowed to take sponge baths. Activity Do not lift anything that is heavier than 10 lb (4.5 kg), or the limit that you are told, until your health care provider says that it is safe. Return to your normal activities as told by your health care provider. Ask your health care provider what activities are safe for you. ? Recovery time varies depending on your age, general health, and other factors. You will likely be able to return to a normal lifestyle within a few weeks. While you recover, you may need help with some activities, such as cleaning the house or shopping. Exercise regularly, or as told by your health care provider. Eating and drinking Follow instructions from your health care provider about eating or drinking restrictions. Drink enough fluid to keep your urine pale yellow. Eat a heart-healthy diet. This includes foods like fresh fruits and vegetables, whole grains, low-fat dairy products, and low-fat (lean) meats. Avoid foods that are: ? High in salt, saturated fat, or sugar. ? Canned or highly processed. ? Fried. Lifestyle If you drink alcohol: ? Limit how much you use to: ? 0 1 drink a day for women. ? 0 2 drinks a day for men. ? Be aware of how much alcohol is in your drink. In the [place] one drink equals one 12 oz bottle of beer (355 mL), one 5 oz glass of wine (148 mL), or one 1 oz glass of hard liquor (44 mL). Maintain a healthy weight. General instructions Avoid wearing tight clothing around your neck and your sutures. Work with your health care provider to keep your blood pressure under control. Do not use any products that contain nicotine or tobacco, such as cigarettes, e- cigarettes, and chewing tobacco. If you need help quitting, ask your health care provider. Keep all follow-up visits as told by your health care provider. This is important. Contact a health care provider if you have: Signs of infection, such as: ? Redness, swelling, or pain around your incision. ? Fluid or blood coming from your incision. ? Your incision feeling warm to the touch. ? Pus or a bad smell coming from your incision. ? A fever. A rash. Difficulty speaking or you have changes in your voice. Get help right away if you have: Difficulty breathing. Chest pain or shortness of breath. Any symptoms of a stroke. Certain factors may put you at risk for a stroke even after this procedure. These may include chronic lung disease, chronic kidney disease, narrowed arteries (peripheral arterial disease), previous history of a stroke, and being 60 years of age or older. BE FAST is an easy way to remember the main warning signs of a stroke: ? B - Balance. Signs are dizziness, sudden trouble walking, or loss of balance. ? E - Eyes. Signs are trouble seeing or a sudden change in vision. ? F - Face. Signs are sudden weakness or numbness of the face, or the face or eyelid drooping on one side. ? A - Arms. Signs are weakness or numbness in an arm. This happens suddenly and usually on one side of the body. ? S - Speech. Signs are sudden trouble speaking, slurred speech, or trouble understanding what peoplesay. ? T - Time. Time to call emergency services. Write down what time symptoms started. Other signs of a stroke, such as: ? A sudden, severe headache with no known cause. ? Nausea or vomiting. ? Seizure. These symptoms may represent a serious problem that is an emergency. Do not wait to see if the symptoms will go away. Get medical help right away. Call your local emergency services (911 in the [place] Do not drive yourself to the hospital. Summary After the procedure, it is common to have some pain or an ache in your neck for up to 2 weeks. Follow instructions from your health care provider about how to take care of your incision. Take ebwr-fot-fbnamwf and prescription medicines only as told by your health care provider. Do not use any products that contain nicotine or tobacco, such as cigarettes, e- cigarettes, and chewing tobacco. If you need help quitting, ask your health care provider. Keep all follow-up visits as told by your health care provider. This is important. This information is not intended to replace advice given to you by your health care provider. Make sure you discuss any questions you have with your health care provider. Document Released: 02/14/2006 Document Revised: 09/06/2019 Document Reviewed: 04/06/2019 [employer] Patient Education 2020 [employer] Carotid Endarterectomy A carotid endarterectomy is a surgery to remove a blockage in the carotid arteries. The carotid arteries are the large blood vessels on both sides of the neck that supply blood to the brain. Carotid artery disease, also called carotid artery stenosis, is the narrowing or blockage of one or both carotid arteries. Carotid artery disease is usually caused by atherosclerosis, which is a buildup of fat and plaque in the arteries. Some buildup of plaque normally occurs with aging. The plaque may partially or totally block blood flow or cause a clot to form in the carotid arteries. This may cause a stroke. Tell a health care provider about: Any allergies you have. All medicines you are taking, including vitamins, herbs, eye drops, creams, and tzqq-lhl-mrurqga medicines. Any problems you or family members have had with anesthetic medicines. Any blood disorders you have. Any surgeries you have had. Any medical conditions you have, or have had, including diabetes, kidney problems, and infections. Whether you are or may be . What are the risks? Generally, this is a safe procedure. However, problems may occur, including: Infection. Bleeding. Blood clots. Allergic reactions to medicines. Damage to nerves near the carotid arteries. This can cause a hoarse voice or weakness of muscles inyour face. Stroke. Seizures. Heart attack (myocardial infarction). Narrowing of the opened blood vessel (restenosis). This may require another surgery. What happens before the procedure? Staying hydrated Follow instructions from your health care provider about hydration, which may include: Up to 2 hours before the procedure you may continue to drink clear liquids, such as water, clear fruit juice, black coffee, and plain tea. Eating and drinking restrictions Follow instructions from your health care provider about eating and drinking, which may include: 8 hours before the procedure stop eating heavy meals or foods, such as meat, fried foods, or fatty foods. 6 hours before the procedure stop eating light meals or foods, such as toast or cereal. 6 hours before the procedure stop drinking milk or drinks that contain milk. 2 hours before the procedure stop drinking clear liquids. Medicines Ask your health care provider about: ? Changing or stopping your regular medicines. This is especially important if you are taking diabetes medicines or blood thinners. ? Taking medicines such as aspirin and ibuprofen. These medicines can thin your blood. Do not take these medicines unless your health care provider tells you to take them. ? Taking xofn-hsl-npowvys medicines, vitamins, herbs, and supplements. General instructions Do not use any products that contain nicotine or tobacco for at least 4 6 weeks, or as soon as possible, before the procedure. These products include cigarettes, e-cigarettes, and chewing tobacco. Ifyou need help quitting, ask your health care provider. You may need to have blood tests, a test to check heart rhythm (electrocardiogram), or a test to check blood flow (angiogram). Plan to have someone take you home from the hospital or clinic. Ask your health care provider: ? How your surgery site will be marked. ? What steps will be taken to help prevent infection. These may include: ? Removing hair at the surgery site. ? Washing skin with a germ-killing soap. ? Taking antibiotic medicine. What happens during the procedure? An IV will be inserted into one of your veins. You will be given one or more of the following: ? A medicine to help you relax (sedative). ? A medicine to make you fall asleep (general anesthetic). The surgeon will make a small incision in your neck to expose the carotid artery. A tube may be inserted into the carotid artery above and below the blockage. This tube will allow blood to flow around the blockage during the surgery. An incision will be made in the carotid artery at the location of the blockage. The blockage will be removed. In some cases, a section of the carotid artery may be removed and a graft patch may be used to repair the artery. The carotid artery will be closed with stitches (sutures). If a tube was inserted into the artery to allow blood flow around the blockage during surgery, the tube will be removed. Once the tube is removed, blood flow through the carotid artery will be restored. The incision in the neck will be closed with sutures. A bandage (dressing) will be placed over your incision. The procedure may vary among health care providers and hospitals. What happens after the procedure? Your blood pressure, heart rate, breathing rate, and blood oxygen level will be monitored until youleave the hospital or clinic. You may have some pain or an ache in your neck for about 2 weeks. This is normal. Do not drive for 24 hours if you were given a sedative during your procedure. Summary A carotid endarterectomy is a surgery to remove a blockage in the carotid arteries. The carotid arteries are the large blood vessels on both sides of the neck that supply blood to thebrain. Before the procedure, ask your health care provider about changing or stopping your regular medicines. Follow instructions from your health care provider about eating and drinking before the procedure. After the procedure, do not drive for 24 hours if you were given a sedative. This information is not intended to replace advice given to you by your health care provider. Make sure you discuss any questions you have with your health care provider. Document Released: 03/30/2014 Document Revised: 04/06/2019 Document Reviewed: 04/06/2019 [employer] Patient Education 2020 [employer] Carotid Artery Disease The carotid arteries are the two main arteries on either side of the neck. They supply blood to thebrain, face, and neck. Carotid artery disease, also called carotid artery stenosis, is the narrowing or blockage of one or both carotid arteries. Carotid artery disease increases your risk for a stroke or a transient ischemic attack (TIA). A TIA is an episode in which blood flow to the brain is temporarily blocked. A TIA is considered a warning stroke. What are the causes? This condition is primarily caused by buildup of plaque inside the carotid arteries (atherosclerosis). What increases the risk? The following factors may make you more likely to develop this condition: High cholesterol (dyslipidemia). High blood pressure (hypertension). Smoking. Obesity. Diabetes. Family history of cardiovascular disease. Inactivity or lack of regular exercise. Being male. Men have an increased risk of developing atherosclerosis earlier in life than women. Old age. What are the signs or symptoms? This condition may not have any signs or symptoms until a stroke or TIA occurs. In some cases, yourdoctor may be able to hear a whooshing sound (bruit) which can indicate a change in blood flow due to plaque buildup. An eye exam can also help identify signs of the condition. How is this diagnosed? This condition may be diagnosed by: A physical exam. Your family and medical history. Specific tests that look at the blood flow in the carotid arteries. These tests include: ? Carotid artery ultrasound. This test uses sound waves to create pictures of your arteries and show whether they are narrow or blocked. ? Carotid or cerebral angiography. During this test, a special dye will be injected into a vein. The dye will show up on an X-ray to help highlight your arteries. ? Computerized tomographic angiography (CTA). During this test, a special dye will be injected into avein. The dye will show up on the CT scan to help highlight your arteries. ? Magnetic resonance angiography (MRA). During this test, a special dye will be injected into a vein.The dye will show up on the MRI to help highlight your arteries. How is this treated? Treatment of this condition may include a combination of treatments. Treatment options include: Lifestyle changes such as: ? Quitting smoking. ? Exercising regularly or as directed by your health care provider. ? Eating a heart-healthy diet. ? Managing stress. ? Maintaining a healthy weight. Medicines to control: ? Blood pressure. ? Cholesterol. ? Blood clotting. Surgery. You may have: ? A carotid endarterectomy. This is a surgery to remove the blockages in the carotid arteries. ? A carotid angioplasty with stenting. This is a procedure in which a wire mesh (stent) is used to widen the blocked carotid arteries. Follow these instructions at home: Lifestyle Follow your health care provider's instructions about your diet. It is important to eat a healthy diet that is low in saturated fats and includes plenty of fresh fruits, vegetables, and lean meats. You should avoid high-fat, high-sodium foods as well as foods that are fried, overly processed, or have poor nutritional value. Maintain a healthy weight. Stay physically active. It is recommended that you get at least 150 minutes of moderate exercise or75 minutes of strenuous exercise each week. Do not use any products that contain nicotine or tobacco, such as cigarettes and e-cigarettes. If you need help quitting, ask your health care provider. Limit alcohol intake to no more than 1 drink a day for non- women and 2 drinks a day for men. One drink equals 12 oz. of beer, 5 oz. of wine, or 1 oz. of hard liquor. Do not use illegal drugs. Manage your stress. Ask your health care provider for stress management tips. General instructions Take jnkc-qcr-onthtwr and prescription medicines only as told by your health care provider. Keep all follow-up visits as told by your health care provider. This is important. Get help right away if: You have any symptoms of stroke or TIA. The acronym BEFAST is an easy way to remember the main warning signs of stroke. ? B = Balance problems. Signs include dizziness, sudden trouble walking, or loss of balance ? E = Eye problems. This includes trouble seeing or a sudden change in vision. ? F = Face changes. This includes sudden weakness or numbness of the face, or the face or eyelid drooping to one side. ? A = Arm weakness or numbness. This happens suddenly and usually on one side of the body. ? S = Speech problems. This includes trouble speaking or trouble understanding speech. ? T = Time. Time to call 911 or seek emergency care. Do not wait to see if symptoms go away. Make note of the time your symptoms started. Other signs of stroke may include: ? A sudden, severe headache with no known cause. ? Nausea or vomiting. ? Seizure. These symptoms may represent a serious problem that is an emergency. Do not wait to see if the symptoms will go away. Get medical help right away. Call your local emergency services (911 in the [place] Do not drive yourself to the hospital. Summary Carotid artery disease, also called carotid artery stenosis, is the narrowing or blockage of one orboth carotid arteries. Carotid artery disease increases your risk for a stroke or a transient ischemic attack (TIA). This condition can be treated with lifestyle changes, medicines, surgery, or a combination of thesetreatments. Do not use any products that contain nicotine or tobacco, such as cigarettes and e-cigarettes. If you need help quitting, ask your health care provider. This information is not intended to replace advice given to you by your health care provider. Make sure you discuss any questions you have with your health care provider. Document Released: 10/19/2012 Document Revised: 07/10/2018 Document Reviewed: 09/01/2017 [employer] Patient Education 2020 [employer]. Additional Information VACCINATE! IT SAVES LIVES! Members of the community who have not yet received the COVID-19 vaccine and would like to receive it can visit one of [facility] vaccine clinics. There are many vaccine clinic locations within the [facility]. For locations and available times, please visit [email or web address]/. It is important to note that some COVID mobile vaccine clinics are held outdoors and may be canceled in rainy or stormy conditions. To learn more about pediatric vaccinations (ages 5-11), we invite you to visit the [facility] webpage. [email or web address]/[email or web address]-Pupvs-[email or web address] [email or web address] learn more about the COVID-19 vaccine, we invite you to visit the CDC website for a list of frequently asked questions.https://www.cdc.gov/coronavirus/2019-ncov/vaccines/faq.html [email or web address] Patient Portal Access Instructions: Stay connected with your healthcare team and access your personal medical information anytime with the [email or web address] Patient Portal. Please follow the directions below to create your [employer] account: 1.Access the email account you provided upon registration to the hospital/physician office.2.Look for an invitation email from [facility].3.Open the email and access the invitation link: AcceptInvitation to [facility].4.Fill in the required roca to create your account. To access your account, visit [email or web address]. Click the blue button labeled Access Patient Portal and then log in with the username and password that you created in the steps above. You will be able to view your test results, lab results, a summary of your visits, upcoming appointments and more. There is also a convenient messaging option where you can send secure messages to your p rovider. In addition, you will have the ability to download any documents or summaries to your computer and/or send the information securely to a physician. Remember that your healthcare information is confidential, so carefully consider who you will allowto register on the [facility] Patient Portal for access to your information. You can also access the [facility] on the [facility]. Simply click on Patient Portal and then log into your account. If you would like to receive a full copy of your medical records, please contact the [facility] Medical Records Department by calling [phone], Friday through Friday between 8 a.m. and 4:30 p.m. HOW TO SAFELY DISPOSE OF PRESCRIPTION MEDICATIONS Please use one of the following methods to safely dispose of your unused medications. 1.Use a drug disposal kit: the drug disposal pouch allows you to safely discard your old and unuseddrugs. Ask your nurse to give you one when you are discharged.2.Visit a local take-back location: Many local pharmacies and police departments have programs that collect old and unwanted prescriptiondrugs. Call your local pharmacy or go to http://[employer]/8M6Kj2a to find one close to you.3.Make use of household items: Use cat litter or old coffee grounds to dispose medications if other options arenot available. Mix your drugs with these household products, seal them in an airtight container andthrow it into the garbage. Call [facility]: [phone] to be sure your drugs can be disposed of in this way. Some medicines may require a different approach.4.Never flush your medications down the toilet. IF YOU HAVE BEEN PRESCRIBED AN OPIOID FOR PAIN If you have been prescribed an opioid (such as hydrocodone, oxycodone or morphine), it is critical to understand the possible side effects and risks of opioid pain medications. Even when taken as directed, opioids can have several side effects including: Tolerance, meaning you might need to take more of a medication for the same pain relief. Nausea, vomiting and/or constipation. Sleepiness, dizziness, dry mouth, confusion, depression or itching. Physical dependence, meaning you have withdrawal symptoms when a medication is stopped, can develop within a few days. KNOW YOUR RESPONSIBILITIES It is important to know exactly how much and how often to take the opioid pain medications you are prescribed. Never take opioids in higher amounts or more often than prescribed. Do not combine opioids with alcohol or other drugs that cause drowsiness, such as benzodiazepines, also known as benzos, including diazepam and alprazolam, muscle relaxants or sleep aids. Never sell or share prescription opioids. This is illegal. Store opioids in a secure place and out of reach of others (including children, family, friends and visitors). The last page of this document has been signed and retained as a CHART COPY. Signatures Patient Education Materials Incision Care, Adult Carotid Endarterectomy, Care After Carotid Endarterectomy Carotid Artery Disease Medication Leaflets My discharge plan and instructions have been reviewed and explained to me and I,JUNI GAUTHIER understand my current condition and have read and understand these discharge instructions. I have received a written copy of the plan/instructions. If I have questions, I am aware that I should contact my doctor. 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 Patient location: ICU. Assessment Postanesthesia assessment Vitals: Vital signs from flowsheet : Vital Signs 08/28/2023 10:00 EST Heart Rate Monitored 81 bpm bpm Respiratory Rate - Anes 17 br/min br/min 08/28/2023 9:55 EST Temperature (Route Not Specified) 37.78 DegC DegC Heart Rate Monitored 77 bpm bpm Respiratory Rate - Anes 18 br/min br/min 08/28/2023 9:50 EST Temperature (Route Not Specified) 37.73 DegC DegC Heart Rate Monitored 71 bpm bpm Respiratory Rate - Anes 11 br/min br/min 08/28/2023 9:45 EST Temperature (Route Not Specified) 37.62 DegC DegC Heart Rate Monitored 72 bpm bpm Respiratory Rate - Anes 8 br/min br/min 08/28/2023 9:40 EST Temperature (Route Not Specified) 37.52 DegC DegC Heart Rate Monitored 70 bpm bpm Respiratory Rate - Anes 15 br/min br/min 08/28/2023 9:35 EST Temperature (Route Not Specified) 37.41 DegC DegC Heart Rate Monitored 66 bpm bpm Respiratory Rate - Anes 15 br/min br/min 08/28/2023 9:30 EST Temperature (Route Not Specified) 37.35 DegC DegC Heart Rate Monitored 65 bpm bpm Respiratory Rate - Anes 15 br/min br/min 08/28/2023 9:25 EST Temperature (Route Not Specified) 37.28 DegC DegC Heart Rate Monitored 65 bpm bpm Respiratory Rate - Anes 15 br/min br/min 08/28/2023 9:20 EST Temperature (Route Not Specified) 37.18 DegC DegC Heart Rate Monitored 63 bpm bpm Respiratory Rate - Anes 15 br/min br/min 08/28/2023 9:15 EST Temperature (Route Not Specified) 37.11 DegC DegC Heart Rate Monitored 65 bpm bpm Respiratory Rate - Anes 15 br/min br/min 08/28/2023 9:10 EST Temperature (Route Not Specified) 37.04 DegC DegC Heart Rate Monitored 62 bpm bpm Respiratory Rate - Anes 15 br/min br/min 08/28/2023 9:05 EST Temperature (Route Not Specified) 36.96 DegC DegC Heart Rate Monitored 64 bpm bpm Respiratory Rate - Anes 15 br/min br/min 08/28/2023 9:00 EST Temperature (Route Not Specified) 36.88 DegC DegC Heart Rate Monitored 63 bpm bpm Respiratory Rate - Anes 15 br/min br/min 08/28/2023 8:55 EST Temperature (Route Not Specified) 36.79 DegC DegC Heart Rate Monitored 62 bpm bpm Respiratory Rate - Anes 14 br/min br/min 08/28/2023 8:50 EST Temperature (Route Not Specified) 36.69 DegC DegC Heart Rate Monitored 63 bpm bpm Respiratory Rate - Anes 14 br/min br/min 08/28/2023 8:45 EST Temperature (Route Not Specified) 36.6 DegC DegC Heart Rate Monitored 66 bpm bpm Respiratory Rate - Anes 15 br/min br/min 08/28/2023 8:40 EST Temperature (Route Not Specified) 36.59 DegC DegC Heart Rate Monitored 88 bpm bpm Respiratory Rate - Anes 15 br/min br/min 08/28/2023 8:35 EST Temperature (Route Not Specified) 36.51 DegC DegC Heart Rate Monitored 65 bpm bpm Respiratory Rate - Anes 15 br/min br/min 08/28/2023 8:30 EST Temperature (Route Not Specified) 36.48 DegC DegC Heart Rate Monitored 67 bpm bpm Respiratory Rate - Anes 15 br/min br/min 08/28/2023 8:25 EST Temperature (Route Not Specified) 36.5 DegC DegC Heart Rate Monitored 67 bpm bpm Respiratory Rate - Anes 15 br/min br/min 08/28/2023 8:20 EST Temperature (Route Not Specified) 36.55 DegC DegC Heart Rate Monitored 74 bpm bpm Respiratory Rate - Anes 14 br/min br/min 08/28/2023 8:15 EST Heart Rate Monitored 77 bpm bpm Respiratory Rate - Anes 12 br/min br/min 08/28/2023 8:14 EST Systolic Blood Pressure Non-Invasive 98 mmHg mmHg Diastolic Blood Pressure Non-Invasive 83 mmHg mmHg 08/28/2023 8:11 EST Systolic Blood Pressure Non-Invasive 107 mmHg mmHg Diastolic Blood Pressure Non-Invasive 68 mmHg mmHg 08/28/2023 8:10 EST Heart Rate Monitored 79 bpm bpm Respiratory Rate - Anes 12 br/min br/min 08/28/2023 8:08 EST Systolic Blood Pressure Non-Invasive 117 mmHg mmHg Diastolic Blood Pressure Non-Invasive 77 mmHg mmHg 08/28/2023 8:05 EST Heart Rate Monitored 85 bpm bpm Respiratory Rate - Anes 16 br/min br/min Systolic Blood Pressure Non-Invasive 94 mmHg mmHg Diastolic Blood Pressure Non-Invasive 63 mmHg mmHg 08/28/2023 8:02 EST Systolic Blood Pressure Non-Invasive 153 mmHg mmHg Diastolic Blood Pressure Non-Invasive 91 mmHg mmHg 08/28/2023 6:37 EST Temperature Oral 36.9 DegC Peripheral Pulse Rate 85 bpm Respiratory Rate 18 br/min Systolic Blood Pressure Non-Invasive 141 mmHg HI Diastolic Blood Pressure Non-Invasive 93 mmHg HI , Oxygen Therapy : Oxygen Therapy & Oxygenation Information 08/28/2023 10:00 EST Oxygen Saturation 99.8 % % 08/28/2023 9:55 EST Oxygen Saturation 99.9 % % 08/28/2023 9:50 EST Oxygen Saturation 99.6 % % 08/28/2023 9:45 EST Oxygen Saturation 99.5 % % 08/28/2023 9:40 EST Oxygen Saturation 99.5 % % 08/28/2023 9:35 EST Oxygen Saturation 98.9 % % 08/28/2023 9:30 EST Oxygen Saturation 98.9 % % 08/28/2023 9:25 EST Oxygen Saturation 99.1 % % 08/28/2023 9:20 EST Oxygen Saturation 99 % % 08/28/2023 9:15 EST Oxygen Saturation 98.7 % % 08/28/2023 9:10 EST Oxygen Saturation 99 % % 08/28/2023 9:05 EST Oxygen Saturation 98.9 % % 08/28/2023 9:00 EST Oxygen Saturation 98.8 % % 08/28/2023 8:55 EST Oxygen Saturation 98.7 % % 08/28/2023 8:50 EST Oxygen Saturation 99.5 % % 08/28/2023 8:45 EST Oxygen Saturation 98 % % 08/28/2023 8:40 EST Oxygen Saturation 98.9 % % 08/28/2023 8:35 EST Oxygen Saturation 99.6 % % 08/28/2023 8:30 EST Oxygen Saturation 99.2 % % 08/28/2023 8:25 EST Oxygen Saturation 98.8 % % 08/28/2023 8:20 EST Oxygen Saturation 99.7 % % 08/28/2023 8:15 EST Oxygen Saturation 100 % % 08/28/2023 8:10 EST Oxygen Saturation 99.5 % % 08/28/2023 8:05 EST Oxygen Saturation 99.3 % % 08/28/2023 6:37 EST Oxygen Therapy Room air Oxygen Saturation 95 % . Mental status: at preoperative baseline. Respiratory function: respirations are non-labored, Stable. Respiratory support: none. CV function: Stable. Cardiovascular support: none. Pain: Satisfactory. Nausea status: Satisfactory. Postoperative hydration status: within normal limits. Notes: Patient is sufficiently recovered from anesthesia to participate in the evaluation. No follow-up care needed. No complications post-anesthesia., Pt moves all 4 extermities purposefully. Face symmetrical. Tongue midline. Mildly increased BRUNILDA drain output. Surgeon aware, ICU monitoring. Neck supple. Pt A&O without complaints.. Digitally Signed by JAKE CORMIER MD on 08/28/2023 10:25 AM [id number] Anesthesiology Consult note Patient: JUNI GAUTHIER Age: 62 years Sex: Male : 1960 Associated Diagnoses: None Author: JAKE CORMIER MD Preoperative Information Greater than 8 hours Anesthesia history Patient's history: negative. Family's history: negative. Review of Systems Ear/Nose/Mouth/Throat: See Problem List. Respiratory: See Problem List. Cardiovascular: See Problem List. Gastrointestinal: See Problem List. Genitourinary: See Problem List. Endocrine: See Problem List. Musculoskeletal: See Problem List. Integumentary: See Problem List. Neurologic: See Problem List. See problem list and procedure results for specifics. Health Status Allergies: Allergic Reactions (Selected) Severity Not Documented CeleBREX- Unknown. Penicillin- Unknown., Allergies (2) ActiveReaction CeleBREXUnknown penicillinUnknown Current medications: (Selected) Inpatient Medications Ordered Heparin 10,000 units/mL: 10,000 unit(s), 1 mL, mL/hr, Miscellaneous, PREOP pharm NS 1,000 mL: 20 mL/hr, Intravenous, Stop: 08/29/23 0:54:00 EST phenylephrine 40 mg: Infuse as directed for CVOR, Intravenous, Stop: 08/28/23 22:59:00 EST vancomycin: 1,750 mg, 500 mL, 285.71 mL/hr, IV Piggyback, PREOP pharm Prescriptions Prescribed omeprazole 20 mg oral delayed release capsule: 20 mg, 1 cap(s), Oral, qHS, for 90 day(s), 90 cap(s), 3 Refill(s) Documented Medications Documented aspirin 325 mg oral tablet: 325 mg, 1 tab(s), Oral, qHS ipratropium 42 mcg/inh (0.06%) nasal spray: 84 mcg, 2 spray(s), Nasal, TID, instill 2 sprays into each nostril three times a day, Medications (4) Active Scheduled: (2) heparin 10,000 unit(s) 1 mL, Miscellaneous, PREOP pharm vancomycin PMX 1,750 mg 500 mL, IV Piggyback, PREOP pharm Continuous: (2) NS (0.9% nacl) 1,000 mL 1,000 mL, Intravenous, 20 mL/hr PHENYLephrine 40 mg / 250 mL PMX 40 mg 40 mg 250 mL, Intravenous PRN: (0) Problem list: Medical Cervical spondylosis / SNOMED CT 1617074059 / Confirmed COVID-19 virus infection / SNOMED CT 5721796242 / Confirmed Aortic root enlargement / SNOMED CT 1044183030 / Confirmed Heart valve replaced / SNOMED CT 074483923 / Confirmed Arthrodesis status / SNOMED CT 385582311 / Confirmed S/P AVR / SNOMED CT 7430528191 / Confirmed History of COVID-19 / SNOMED CT 7807482857 / Confirmed LVH (left ventricular hypertrophy) / SNOMED CT 30642547 / Confirmed MVP (mitral valve prolapse) / SNOMED CT 3125624196 / Confirmed Cervical spine pain / SNOMED CT 086051625 / Confirmed Right knee pain / SNOMED CT 4320438421 / Confirmed Peripheral neuropathy / SNOMED CT 061445225 / Confirmed Medial collateral ligament sprain of knee / SNOMED CT 0371414998 / Confirmed Resolved: Brachial radiculitis / SNOMED CT 18463356 Resolved: Cervical spinal stenosis / SNOMED CT 077314097 Canceled: Pre-op exam / SNOMED CT 299785946, Active Problems (23) Acid reflux Aortic root enlargement Arthrodesis status Back pain Carotid artery stenosis Cervical spine pain Cervical spondylosis Claustrophobia COVID-19 virus infection Degenerative disc disease Former smoker Glasses Heart valve replaced History of COVID-19 LVH (left ventricular hypertrophy) Medial collateral ligament sprain of knee MVP (mitral valve prolapse) PAD (peripheral artery disease) Peripheral neuropathy Retinal artery occlusion, central Right knee pain S/P AVR Sinus infection Histories Past Medical History: Resolved Brachial radiculitis (38410253): Resolved. Comments: 07/24/2022 EST 14:18 EST - SIMBA Almaraz right Cervical spinal stenosis (319124765): Resolved. Family History: Cancer Father Heart disease Mother CABG - Coronary artery bypass graft Father Procedure history: Cervical spinal fusion (542730011) on 08/07/2022 at 61 Years. AVR - Aortic valve replacement (5734168104) in 2007 at 47 Years. Vasectomy (90414782). CHRIS procedure (887554281). Colonoscopy (224914571). Spinal cord operation (690197434). Cardiac catheterization (90424781). 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 Lives In Single level home Current Home Treatments None Special Services and Community Resources None Spouse Name Durga Marital Status of Patient if Patient Independent Adult: Nutrition/Health 08/28/2023 Caffeine intake amount: 1 cup of coffee daily Sexual 08/28/2023 Self described orientation: Straight or heterosexual . Physical Examination Vital Signs 08/28/2023 6:37 EST Temperature Oral 36.9 DegC Peripheral Pulse Rate 85 bpm Respiratory Rate 18 br/min Systolic Blood Pressure Non-Invasive 141 mmHg HI Diastolic Blood Pressure Non-Invasive 93 mmHg HI Vital Signs(last 24 hrs) Last Charted Temp Oral36.9 DegC (AUG 28 06:37) SBPH 141mmHg (AUG 28:37) DBPH 93mmHg (AUG 28:37) BMI33.94 (AUG 28:37) General: Alert and oriented. Airway: Normal temporomandibular joint mobility, Normal mouth, Normal throat, Normal neck range of motion, Trachea midline. Mallampati classification: II (soft palate, fauces, uvula visible). Head: Normocephalic. Dentition Evaluation: Intact, Own teeth, Denies loose/chipped teeth. Neck: Supple. Respiratory: Lungs are clear to auscultation, Respirations are non-labored. Cardiovascular: Normal rate, No murmur. Heart Sounds: Normal. Neurologic: Alert, Oriented. Review / Management Results review: Labs (Last four charted values) WBC 5.1(AUG 28) Hgb 15.4(AUG 28) Hct 44.4(AUG 28) Plt 166(AUG 28) . Assessment and Plan [place] Society [employer] Anesthesiologists (ASA) physical status classification: Class III. Anesthetic Preoperative Plan Premedication: intravenous. Anesthetic technique: General. Induction: intravenously. Maintenance airway: Oral endotracheal tube. Special techniques: Warming device. Special Monitoring: Arterial line. Postoperative pain management: Per surgeon. Risks discussed: nausea, vomiting, headache, sore throat, dental injury, hypotension, allergic reaction, serious complications, Heart Problems, Lung Problems, Stroke, Intraoperative Recall, . Informed consent: signed by patient. Notes: After completion of focused history and physical examination, anesthetic options with their inherent risks and benefits were discussed. Common minor and rare but serious or potentially life-threatening complications were included in this discussion(Specific items discussed: nausea, sore throat, dysphagia, heart problems, lung problems, strokes, heart attacks, intraoperative recall and ). All of the patient's questions were answered. The patient verbalizes understanding of the agreed upon anesthetic plan and agrees to proceed.. Beta Karin: Beta Karin Taken Within 24 Hrs. Digitally Signed by JAKE CORMIER MD on 08/28/2023 07:37 AM [id number] Note ORIGINAL EXAMINATION: CARDIAC AMYLOIDOSIS SCAN11/04/2022 2:32 pm TECHNIQUE: Following the intravenous administration 15.2 mCi of Tc-99m PYP, images localized to the thorax in the anterior projection were obtained at 1 hour post injection. In addition, SPECT/CT images were obtained. Semi-quantitation was performed on these images with regions of interest drawn over the heart and contralateral lung. In addition, visual quantitative analysis was performed on SPECT images. COMPARISON: None HISTORY: ORDERING SYSTEM PROVIDED HISTORY: Reason for Exam: LVH FINDINGS: Planar images reveal minimal radiotracer deposition in the region of the heart. The Heart to Contralateral lung ratio is 1.25. (Normal ratio is less than < 1.2, equivocal = 1.21-1.4, > 1.5 is positive for TTR amyloidosis) SPECT/CT images reveal no to minimal tracer deposition in the myocardium relative to the ribs. Semi-quantitative visual analysis reveals a GRADE of 0 Grade values are as follows: 1) Grade 0: No uptake in MYOCARDIUM (not bloodpool) and normal bone uptake 2) Grade 1: Uptake in MYOCARDIUM (not bloodpool) less than rib uptake 3) Grade 2: Uptake in MYOCARDIUM (not bloodpool) equal to rib uptake 4) Grade 3: Uptake in MYOCARDIUM (not bloodpool) greater than rib uptake with mild/absent rib uptake Low dose CT demonstrates coronary artery calcifications and prior sternotomy. IMPRESSION: Amyloid SPECT heart study reveals no definite evidence suggestive of TTR amyloidosis. Note: A negative amyloid SPECT heart study does not rule out other forms of possible cardiac amyloid deposition such as amyloid light chain deposition. Interpreted by: Zak Sanchez DO Preliminary Report By: Zak Sanchez DO Electronically signed By Zak Sanchez DO Dictated Date: 11/04/2022 4:24:34 PM Prelim Date: 11/04/2022 4:30:32 PM Sign Date: 11/04/2022 4:30:32 PM Ordering Provider: CHARLIE BECERRA [id number] Note ORIGINAL EXAMINATION: CARDIAC AMYLOIDOSIS SCAN11/04/2022 2:32 pm TECHNIQUE: Following the intravenous administration 15.2 mCi of Tc-99m PYP, images localized to the thorax in the anterior projection were obtained at 1 hour post injection. In addition, SPECT/CT images were obtained. Semi-quantitation was performed on these images with regions of interest drawn over the heart and contralateral lung. In addition, visual quantitative analysis was performed on SPECT images. COMPARISON: None HISTORY: ORDERING SYSTEM PROVIDED HISTORY: Reason for Exam: LVH FINDINGS: Planar images reveal minimal radiotracer deposition in the region of the heart. The Heart to Contralateral lung ratio is 1.25. (Normal ratio is less than < 1.2, equivocal = 1.21-1.4, > 1.5 is positive for TTR amyloidosis) SPECT/CT images reveal no to minimal tracer deposition in the myocardium relative to the ribs. Semi-quantitative visual analysis reveals a GRADE of 0 Grade values are as follows: 1) Grade 0: No uptake in MYOCARDIUM (not bloodpool) and normal bone uptake 2) Grade 1: Uptake in MYOCARDIUM (not bloodpool) less than rib uptake 3) Grade 2: Uptake in MYOCARDIUM (not bloodpool) equal to rib uptake 4) Grade 3: Uptake in MYOCARDIUM (not bloodpool) greater than rib uptake with mild/absent rib uptake Low dose CT demonstrates coronary artery calcifications and prior sternotomy. IMPRESSION: Amyloid SPECT heart study reveals no definite evidence suggestive of TTR amyloidosis. Note: A negative amyloid SPECT heart study does not rule out other forms of possible cardiac amyloid deposition such as amyloid light chain deposition. Interpreted by: Zak Sanchez DO Preliminary Report By: Zak Sanchez DO Electronically signed By Zak Sanchez DO Dictated Date: 11/04/2022 4:24:34 PM Prelim Date: 11/04/2022 4:30:32 PM Sign Date: 11/04/2022 4:30:32 PM Ordering Provider: CHARLIE Johnson [id number] Summary of episode note Discharge Instructions Thank you for allowing [facility] to assist you with your healthcare needs. The following is importantdischarge information regarding your hospital visit. Your Care Team ELIAS GALVAN DO What to do next Scheduled Follow-Up Appointments Appointment Type When With Where Contact InformationCV OV 10/23/2022 09:00 AM CHARLIE CASTILLO APRN-ANDREA Jenkins [facility] [place] [facility] OV 01/29/2023 08:00 AM [facility] Follow Up Appointments Follow Up with STELLA GARCÍA MD, [facility], Surgery, Vascular Surgeons When Why: Follow-up as scheduled Where: [facility] [address] [facility] [facility] [address] [place] [address] The Following Activity and Diet Have Been Ordered for You Discharge Activity - Ordered -- Follow the post-operative/post-procedure activity instructions provided by your physician's office., 10/10/22 13:09:00 EST Discharge Diet - Ordered -- Follow the post-operative/post-procedure diet instructions provided by your physician's office.,10/10/22 13:09:00 EST The Following Equipment Has Been Ordered for You Discharge Home Equipment Discharge Wound Care - Ordered -- Follow the post-operative/post-procedure wound care instructions provided by your physician's office., 10/10/22 13:09:00 EST Allergies CeleBREX (Unknown) penicillin (Unknown) Medications Please ask your primary doctor or pharmacist before taking any other medication not listed, including over the counter drugs, herbal medications, vitamins and or supplements as they may interact withyour home medications. What How Much When Why Instructions Last Dose Unchanged aspirin (aspirin 325 mg oral tablet) 1 tab(s) by mouth Once a day Unchanged clopidogrel (Plavix 75 mg oral tablet) 1 tab(s) by mouth Once a day Unchanged naproxen (naproxen 500 mg oral delayed release tablet) 1 tab(s) by mouth Two (2) times a day as needed for Pain Medial collateral ligament sprain of knee Duration: 30 Days Unchanged omeprazole (omeprazole 20 mg oral delayed release capsule) See instructions take 1 capsule by mouth once daily Please take this list to your next doctor s visit. Bring all medications you take, including over the counter medications, herbals and other supplements with you to your doctor s visit. Patients and families are reminded to discard old lists and to update any records with all medication providers or retail pharmacies. Education Materials PERIPHERAL ANGIOPLASTY/STENTING Discharge Instructions This information has been developed to provide you with written guidelines to supplement the verbalinstructions your doctor has reviewed with you. It is very important that you follow any additionalinstructions your doctor has provided. Home instructions: An adult must stay with you overnight. Relax for 24 hours, keeping legs elevated. Drink plenty of fluids to flush out your kidneys. Resume your regular diet. Keep a bandage on the insertion site for a day. Avoid strenuous exercise of lifting anything over 10 pounds for at least 2 days. Do not take a bath or shower for at least [address] for 3 days Discomfort, swelling and bruising are expected at the incision site. Watch the groin area where thecatheter was inserted for such things as, but not limited to: redness, swelling, pus or red streaksrunning down the leg. If any concerns, notify our office at . If bleeding is noted through the bandage: Lie flat and apply pressure for 10 to 15 minutes. If the bleeding does not stop, or if your foot feels numb, cold or turns blue, go to the Emergency Department immediately. If you do not have an arranged appointment, please call the office upon discharge at and make an appointment to see the doctor in 2 weeks. If you have concern after regular office hours, you can reach the doctor by calling . Follow all instructions given to you by your doctor Moderate Conscious Sedation, Adult, Care After These instructions provide you with information about caring for yourself after your procedure. Your health care provider may also give you more specific instructions. Your treatment has been plannedaccording to current medical practices, but problems sometimes occur. Call your health care provider if you have any problems or questions after your procedure. What can I expect after the procedure? After your procedure, it is common: To feel sleepy for several hours. To feel clumsy and have poor balance for several hours. To have poor judgment for several hours. To vomit if you eat too soon. Follow these instructions at home: For at least 24 hours after the procedure: Do not: ? Participate in activities where you could fall or become injured. ? Drive. ? Use heavy machinery. ? Drink alcohol. ? Take sleeping pills or medicines that cause drowsiness. ? Make important decisions or sign legal documents. ? Take care of children on your own. Rest. Eating and drinking Follow the diet recommended by your health care provider. If you vomit: ? Drink water, juice, or soup when you can drink without vomiting. ? Make sure you have little or no nausea before eating solid foods. General instructions Have a responsible adult stay with you until you are awake and alert. Take oslu-kvn-jtimmod and prescription medicines only as told by your health care provider. If you smoke, do not smoke without supervision. Keep all follow-up visits as told by your health care provider. This is important. Contact a health care provider if: You keep feeling nauseous or you keep vomiting. You feel light-headed. You develop a rash. You have a fever. Get help right away if: You have trouble breathing. This information is not intended to replace advice given to you by your health care provider. Make sure you discuss any questions you have with your health care provider. Document Released: 05/18/2014 Document Revised: 07/10/2018 Document Reviewed: 11/16/2016 [employer] Patient Education 2020 [employer] Additional Information VACCINATE! IT SAVES LIVES! Members of the community who have not yet received the COVID-19 vaccine and would like to receive it can visit one of [facility] vaccine clinics. There are many vaccine clinic locations within the [facility]. For locations and available times, please visit [email or web address]/. It is important to note that some COVID mobile vaccine clinics are held outdoors and may be canceled in rainy or stormy conditions. To learn more about pediatric vaccinations (ages 5-11), we invite you to visit the [facility] webpage. [email or web address]/[email or web address] [email or web address] learn more about the COVID-19 vaccine, we invite you to visit the CDC website for a list of frequently asked questions. https://www.cdc.gov/coronavirus/2019-ncov/vaccines/faq.html [facility] Access Instructions: Stay connected with your healthcare team and access your personal medical information anytime with the [facility].If you would like a full copy of your medical records, please contact the [facility] Medical Records Department, Friday through Friday between 8a.m. and 4:30p.m. Please follow the directions below to access the portal: 1.Access the email account you provided upon registration to the hospital.2.Look for an invitation email from [facility].3.Open the email and access the invitation link: Accept Invitation to [email or web address].Fill in the required roca to create your account. Sign into [email or web address] with your username and password that you created in the above steps to stay up to date. You can then view a summary of results, a summary of your visits, and the ability to download your summaries to your computer or send the information securely to a physician. Remember that your healthcare information is confidential, so carefully consider who you will allow to register on the [facility] Patient Portal for access to your information. You can also access the [email or web address] Patient Portal on the [employer]. Simply click on Health Records under [employer] and then click on the [facility] logo. HOW TO SAFELY DISPOSE OF PRESCRIPTION MEDICATIONS Please use one of the following methods to safely dispose of your unused medications. 1.Use a drug disposal kit: the drug disposal pouch allows you to safely discard your old and unuseddrugs. Ask your nurse to give you one when you are discharged.2.Visit a local take-back location: Many local pharmacies and police departments have programs that collect old and unwanted prescriptiondrugs. Call your local pharmacy or go to http://[employer]/8F3Fn0o to find one close to you.3.Make use of household items: Use cat litter or old coffee grounds to dispose medications if other options arenot available. Mix your drugs with these household products, seal them in an airtight container andthrow it into the garbage. Call [facility]: [phone] to be sure your drugs can be disposed of in this way. Some medicines may require a different approach.4.Never flush your medications down the toilet. IF YOU HAVE BEEN PRESCRIBED AN OPIOID FOR PAIN If you have been prescribed an opioid (such as hydrocodone, oxycodone or morphine), it is critical to understand the possible side effects and risks of opioid pain medications. Even when taken as directed, opioids can have several side effects including: Tolerance, meaning you might need to take more of a medication for the same pain relief. Nausea, vomiting and/or constipation. Sleepiness, dizziness, dry mouth, confusion, depression or itching. Physical dependence, meaning you have withdrawal symptoms when a medication is stopped, can develop within a few days. KNOW YOUR RESPONSIBILITIES It is important to know exactly how much and how often to take the opioid pain medications you are prescribed. Never take opioids in higher amounts or more often than prescribed. Do not combine opioids with alcohol or other drugs that cause drowsiness, such as benzodiazepines, also known as benzos, including diazepam and alprazolam, muscle relaxants or sleep aids. Never sell or share prescription opioids. This is illegal. Store opioids in a secure place and out of reach of others (including children, family, friends and visitors). The last page of this document has been signed and retained as a CHART COPY. Signatures Patient Education Materials 3- Peripheral angioplasty//stent 09/2019 Moderate Conscious Sedation, Adult, Care After Medication Leaflets My discharge plan and instructions have been reviewed and explained to me and I,JUNI GAUTHIER understand my current condition and have read and understand these discharge instructions. I have received a written copy of the plan/instructions. If I have questions, I am aware that I should contact my doctor. 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 It is very important that you follow any additionalinstructions your doctor has provided. Home instructions: An adult must stay with you overnight. Relax for 24 hours, keeping legs elevated. Drink plenty of fluids to flush out your kidneys. Resume your regular diet. Keep a bandage on the insertion site for a day. Avoid strenuous exercise of lifting anything over 10 pounds for at least 2 days. Do not take a bath or shower for at least [address] for 3 days Discomfort, swelling and bruising are expected at the incision site. Watch the groin area where thecatheter was inserted for such things as, but not limited to: redness, swelling, pus or red streaksrunning down the leg. If any concerns, notify our office at . If bleeding is noted through the bandage: Lie flat and apply pressure for 10 to 15 minutes. If the bleeding does not stop, or if your foot feels numb, cold or turns blue, go to the Emergency Department immediately. If you do not have an arranged appointment, please call the office upon discharge at and make an appointment to see the doctor in 2 weeks. If you have concern after regular office hours, you can reach the doctor by calling . Follow all instructions given to you by your doctor 10/10/2022 13:24:31 Moderate Conscious Sedation, Adult, Care After Moderate Conscious Sedation, Adult, Care After These instructions provide you with information about caring for yourself after your procedure. Your health care provider may also give you more specific instructions. Your treatment has been plannedaccording to current medical practices, but problems sometimes occur. Call your health care provider if you have any problems or questions after your procedure. What can I expect after the procedure? After your procedure, it is common: To feel sleepy for several hours. To feel clumsy and have poor balance for several hours. To have poor judgment for several hours. To vomit if you eat too soon. Follow these instructions at home: For at least 24 hours after the procedure: Do not: ?Participate in activities where you could fall or become injured. ?Drive. ?Use heavy machinery. ?Drink alcohol. ?Take sleeping pills or medicines that cause drowsiness. ?Make important decisions or sign legal documents. ?Take care of children on your own. Rest. Eating and drinking Follow the diet recommended by your health care provider. If you vomit: ?Drink water, juice, or soup when you can drink without vomiting. ?Make sure you have little or no nausea before eating solid foods. General instructions Have a responsible adult stay with you until you are awake and alert. Take wpxq-fbc-vsiqkac and prescription medicines only as told by your health care provider. If you smoke, do not smoke without supervision. Keep all follow-up visits as told by your health care provider. This is important. Contact a health care provider if: You keep feeling nauseous or you keep vomiting. You feel light-headed. You develop a rash. You have a fever. Get help right away if: You have trouble breathing. This information is not intended to replace advice given to you by your health care provider. Make sure you discuss any questions you have with your health care provider. Document Released: 05/18/2014 Document Revised: 07/10/2018 Document Reviewed: 11/16/2016 [employer] Patient Education 2020 [employer]. Follow Up Care 09/24/2022 13:55:31 With:STELLA GARCÍA MD, [facility], Surgery, Vascular Surgeons Address: [facility] [address] [place] [id number] When: Unknown Comments:Follow-up as scheduled [facility] 03-02-2023 Note ORIGINAL Images acquired, not reported on this accession number. [id number] Note ORIGINAL Images acquired, not reported on this accession number.[facility] 08-07-2022 Hospital Discharge instructions Patient Education 08/07/2022 14:11:30 1-[facility] Discharge Instructions Template (05/2018)(CUSTOM) [facility] SAME DAY SURGERY DISCHARGE INSTRUCTIONS PLEASE FOLLOW THE INSTRUCTIONS BELOW MARKED WITH AN X: _x__ Regular Diet: Start with clear liquids, then soup and crackers and gradually add other foods. _x__ Drink extra fluids. ___ Special Diet Instructions: ___ ACTIVITY: _x__ Avoid stress to suture line. Since you have had an anesthetic, it would be advisable not to drive, drink alcohol, or make major decisions over the next 24 hours. You may require more rest tonight and tomorrow. ___ May resume regular activity as tolerated. ___ Restrict activity as follows: ___ ___ Walk Only ___ ___ Do not go up and down stairs. ___ Do not ride in car until ___ ___ Do not drive car. ___ Do not have sexual intercourse. ___ No heavy lifting, pushing or straining. ___ Other: ___ BATHING/SHOWERING: ___ Sponge bathe until office visit. ___ Sitting in tub of warm water may relieve discomfort. ___ May tub bathe ___ May shower ___ On day after surgery sit in tub of warm water to soak off dressing. DRESSING: ___ Keep operative area dry and clean for ___ _x__ Check the operative area for signs of bleeding. Apply pressure to the bleeding site if necessary and call your physician. ___ Change dressing as necessary using sterile dressing material or bandaid. ___ Reinforce dressing as necessary. ___ Change and care for wound as follows: ___ ___ Wear bra for ___ days following breast surgery for comfort. ___ Change drip pad as needed. ___ Wear scrotal support for comfort. WATCH FOR SIGNS OF INFECTION: (Usually appears 36-48 hours after surgery) Increased temperature (101 degrees Fahrenheit or higher) Redness or swelling Increased pain Foul odor or drainage. If you have any questions, please call your doctor at the number listed on your follow up instructions. Follow all instructions given to you by your physician. Please complete and return the survey you will be receiving in the mail to help us better serve our patients. Form: [id number]) R: 11/1708/07/2022 14:10:07 Anterior Cervical Diskectomy and Fusion, Care After Anterior Cervical Diskectomy and Fusion, Care After This sheet gives you information about how to care for yourself after your procedure. Your health care provider may also give you more specific instructions. If you have problems or questions, contact your health care provider. What can I expect after the procedure? After the procedure, it is common to have: Neck pain. Discomfort when swallowing. Slight hoarseness. Follow these instructions at home: If you have a neck brace: Wear it as told by your health care provider. Remove it only as told by your health care provider. Keep the brace clean and dry. Ask your health care provider if you should remove the brace to bathe or shower. Incision care Follow instructions from your health care provider about how to take care of your incision. Make sure you: ?Wash your hands with soap and water before and after you change your bandage (dressing). If soap and water are not available, use hand entry level mechanical engineer. ?Change your dressing as told by your health care provider. ?Leave stitches (sutures), skin glue, or adhesive strips in place. These skin closures may need to stay in place for 2 weeks or longer. If adhesive strip edges start to loosen and curl up, you may trim the loose edges. Do not remove adhesive strips completely unless your health care provider tells you to do that. Check your incision area every day for signs of infection. Check for: ?Redness, swelling, or pain. ?Fluid or blood. ?Warmth. ?Pus or a bad smell. Managing pain, stiffness, and swelling Take ypti-dtc-ttwlybn and prescription medicines only as told by your health care provider. If directed, put ice on the injured area. ?If you have a removable brace, remove it as told by your health care provider. ?Put ice in a plastic bag. ?Place a towel between your skin and the bag. ?Leave the ice on for 20 minutes, 2 3 times a day. Activity Return to your normal activities as told by your health care provider. Ask your health care provider what activities are safe for you. Do exercises as told by your health care provider. Do not take baths, swim, or use a hot tub until your health care provider approves. Do not lift anything that is heavier than 10 lb (4.5 kg), or the limit that you are told, until your health care provider says that it is safe. General instructions Ask your health care provider if the medicine prescribed to you: ?Requires you to avoid driving or using heavy machinery. ?Can cause constipation. You may need to take actions to prevent or treat constipation, such as: ?Drink enough fluid to keep your urine pale yellow. ?Take pwhx-ukm-hgujdno or prescription medicines. ?Eat foods that are high in fiber, such as beans, whole grains, and fresh fruits and vegetables. ?Limit foods that are high in fat and processed sugars, such as fried and sweet foods. Do not use any products that contain nicotine or tobacco, such as cigarettes, e- cigarettes, and chewing tobacco. These can delay healing. If you need help quitting, ask your health care provider. Keep all follow-up visits and physical therapy appointments as told by your health care provider. This is important. Contact a health care provider if you have: A fever. Redness, swelling, or pain around your incision. Fluid or blood coming from your incision. Pus or a bad smell coming from your incision. Pain that is not controlled by your pain medicine. Increasing hoarseness or trouble swallowing. Get help right away if you have: Severe pain. Sudden numbness or weakness in your arms. Warmth, tenderness, or swelling in your calf. Chest pain. Difficulty breathing. Summary After the procedure, it is common to have neck pain, discomfort when swallowing, and slight hoarseness. Follow instructions from your health care provider about how to take care of your incision. Check your incision area every day for signs of infection. Return to your normal activities as told by your health care provider. Ask your health care provider what activities are safe for you. Contact a health care provider if you have signs of infection at your incision. This information is not intended to replace advice given to you by your health care provider. Make sure you discuss any questions you have with your health care provider. Document Released: 08/23/2016 Document Revised: 04/22/2019 Document Reviewed: 04/22/2019 [employer] Patient Education 2020 [employer]. Follow Up Care 07/02/2022 15:21:52 With:ARIEL MORA DO, Orthopedic, [facility] Address: [address] [place] [phone] When: Unknown Comments:Follow-up as scheduled [facility] 12-28-2022 Summary of episode note Discharge Instructions Thank you for allowing [facility] to assist you with your healthcare needs. The following is importantdischarge information regarding your hospital visit. Your Care Team ELIAS GALVAN DO Your Diagnosis Cervical spondylosis with radiculopathy Degenerative cervical spinal stenosis What to do next Scheduled Follow-Up Appointments Appointment Type When With Where Contact InformationCV OV 10/23/2022 09:00 AM EDT CHARLIE BECERRA APRN-ANDREA [facility]icians [facility] OV 01/29/2023 08:00 AM ELIAS YOUlap [facility] Physicians [facility] Follow Up Appointments Follow Up with ARIEL MORA DO, Orthopedic, [facility] When Why: Follow-up as scheduled Where: [facility] [place] [address]- [phone] The Following Activity and Diet Have Been Ordered for You Discharge Activity - Ordered -- Lifting Restricted less than 10 pounds Driving Restricted May Shower, May shower in 4 days, No driving for 2 weeks, 08/07/22 13:21:00 EST Discharge Return to Work, School, or Sports - Ordered -- within 2 weeks, May return to: work, 08/07/22 13:21:00 EST Discharge Diet - Ordered -- No changes were made to your diet during your hospital stay. Please resume your pre hospitalization diet on discharge., 08/07/22 13:21:00 EST Allergies CeleBREX (Unknown) penicillin (Unknown) Medications Please ask your primary doctor or pharmacist before taking any other medication not listed, including over the counter drugs, herbal medications, vitamins and or supplements as they may interact withyour home medications. What How Much When Why Instructions Last Dose Unchanged aspirin (aspirin 325 mg oral tablet) 1 tab(s) by mouth Once a day Last dose Unchanged mupirocin topical (mupirocin 2% topical ointment) 1 application Topical Two (2) times a day Bilateral intranasal application twice daily for 5 days prior to surgery &/ or as many days leading up to surgery as possible due to surgical urgency/ scheduling. Send to patient's preferred pharmacy. Unchanged naproxen (naproxen 500 mg oral delayed release tablet) 1 tab(s) by mouth Two (2) times a day as needed for Pain Medial collateral ligament sprain of knee Duration: 30 Days Unchanged omeprazole (omeprazole 20 mg oral delayed release capsule) See instructions take 1 capsule by mouth once daily Please take this list to your next doctor s visit. Bring all medications you take, including over the counter medications, herbals and other supplements with you to your doctor s visit. Patients and families are reminded to discard old lists and to update any records with all medication providers or retail pharmacies. Education Materials [facility] SAME DAY SURGERY DISCHARGE INSTRUCTIONS PLEASE FOLLOW THE INSTRUCTIONS BELOW MARKED WITH AN X: _x__ Regular Diet: Start with clear liquids, then soup and crackers and gradually add other foods. _x__ Drink extra fluids. ___ Special Diet Instructions: ___ ACTIVITY: _x__ Avoid stress to suture line. Since you have had an anesthetic, it would be advisable not to drive, drink alcohol, or make major decisions over the next 24 hours. You may require more rest tonight and tomorrow. ___ May resume regular activity as tolerated. ___ Restrict activity as follows: ___ ___ Walk Only ___ ___ Do not go up and down stairs. ___ Do not ride in car until ___ ___ Do not drive car. ___ Do not have sexual intercourse. ___ No heavy lifting, pushing or straining. ___ Other: ___ BATHING/SHOWERING: ___ Sponge bathe until office visit. ___ Sitting in tub of warm water may relieve discomfort. ___ May tub bathe ___ May shower ___ On day after surgery sit in tub of warm water to soak off dressing. DRESSING: ___ Keep operative area dry and clean for ___ _x__ Check the operative area for signs of bleeding. Apply pressure to the bleeding site if necessary and call your physician. ___ Change dressing as necessary using sterile dressing material or bandaid. ___ Reinforce dressing as necessary. ___ Change and care for wound as follows: ___ ___ Wear bra for ___ days following breast surgery for comfort. ___ Change drip pad as needed. ___ Wear scrotal support for comfort. WATCH FOR SIGNS OF INFECTION: (Usually appears 36-48 hours after surgery) Increased temperature (101 degrees Fahrenheit or higher) Redness or swelling Increased pain Foul odor or drainage. If you have any questions, please call your doctor at the number listed on your follow up instructions. Follow all instructions given to you by your physician. Please complete and return the survey you will be receiving in the mail to help us better serve our patients. Form: 1522 ([id number]) R: 11/17 Anterior Cervical Diskectomy and Fusion, Care After This sheet gives you information about how to care for yourself after your procedure. Your health care provider may also give you more specific instructions. If you have problems or questions, contact your health care provider. What can I expect after the procedure? After the procedure, it is common to have: Neck pain. Discomfort when swallowing. Slight hoarseness. Follow these instructions at home: If you have a neck brace: Wear it as told by your health care provider. Remove it only as told by your health care provider. Keep the brace clean and dry. Ask your health care provider if you should remove the brace to bathe or shower. Incision care Follow instructions from your health care provider about how to take care of your incision. Make sure you: ? Wash your hands with soap and water before and after you change your bandage (dressing). If soap and water are not available, use hand entry level mechanical engineer. ? Change your dressing as told by your health care provider. ? Leave stitches (sutures), skin glue, or adhesive strips in place. These skin closures may need to stay in place for 2 weeks or longer. If adhesive strip edges start to loosen and curl up, you may trim the loose edges. Do not remove adhesive strips completely unless your health care provider tells you to do that. Check your incision area every day for signs of infection. Check for: ? Redness, swelling, or pain. ? Fluid or blood. ? Warmth. ? Pus or a bad smell. Managing pain, stiffness, and swelling Take evrp-jod-nqlpebn and prescription medicines only as told by your health care provider. If directed, put ice on the injured area. ? If you have a removable brace, remove it as told by your health care provider. ? Put ice in a plastic bag. ? Place a towel between your skin and the bag. ? Leave the ice on for 20 minutes, 2 3 times a day. Activity Return to your normal activities as told by your health care provider. Ask your health care provider what activities are safe for you. Do exercises as told by your health care provider. Do not take baths, swim, or use a hot tub until your health care provider approves. Do not lift anything that is heavier than 10 lb (4.5 kg), or the limit that you are told, until your health care provider says that it is safe. General instructions Ask your health care provider if the medicine prescribed to you: ? Requires you to avoid driving or using heavy machinery. ? Can cause constipation. You may need to take actions to prevent or treat constipation, such as: ? Drink enough fluid to keep your urine pale yellow. ? Take mtrq-rvs-nlplbra or prescription medicines. ? Eat foods that are high in fiber, such as beans, whole grains, and fresh fruits and vegetables. ? Limit foods that are high in fat and processed sugars, such as fried and sweet foods. Do not use any products that contain nicotine or tobacco, such as cigarettes, e- cigarettes, and chewing tobacco. These can delay healing. If you need help quitting, ask your health care provider. Keep all follow-up visits and physical therapy appointments as told by your health care provider. This is important. Contact a health care provider if you have: A fever. Redness, swelling, or pain around your incision. Fluid or blood coming from your incision. Pus or a bad smell coming from your incision. Pain that is not controlled by your pain medicine. Increasing hoarseness or trouble swallowing. Get help right away if you have: Severe pain. Sudden numbness or weakness in your arms. Warmth, tenderness, or swelling in your calf. Chest pain. Difficulty breathing. Summary After the procedure, it is common to have neck pain, discomfort when swallowing, and slight hoarseness. Follow instructions from your health care provider about how to take care of your incision. Check your incision area every day for signs of infection. Return to your normal activities as told by your health care provider. Ask your health care provider what activities are safe for you. Contact a health care provider if you have signs of infection at your incision. This information is not intended to replace advice given to you by your health care provider. Make sure you discuss any questions you have with your health care provider. Document Released: 08/23/2016 Document Revised: 04/22/2019 Document Reviewed: 04/22/2019 [employer] Patient Education 2020 [employer] Additional Information VACCINATE! IT SAVES LIVES! Members of the community who have not yet received the COVID-19 vaccine and would like to receive it can visit one of [facility] vaccine clinics. There are many vaccine clinic locations within the [facility]. For locations and available times, please visit [email or web address].[email or web address]/. It is important to note that some COVID mobile vaccine clinics are held outdoors and may be canceled in rainy or stormy conditions. To learn more about pediatric vaccinations (ages 5-11), we invite you to visit the [facility] webpage. [email or web address]/pages/6339-Oiwto-Ekeexnnlqex-Jbjyducdko-Nyqxh-Rol stions.htmlTo learn more about the COVID-19 vaccine, we invite you to visit the [facility] website for a list of frequently asked questions. [email or web address]-[email or web address]-Ccdguhdo/byivf-Gqmwbot-Skffllduat _Asked-Questions.pdf [facility] Patient Portal Access Instructions: Stay connected with your healthcare team and access your personal medical information anytime with the [email or web address] Patient Portal.If you would like a full copy of your medical records, please contact the [facility] Medical Records Department, Friday through Friday between 8a.m. and 4:30p.m. Please follow the directions below to access the portal: 1.Access the email account you provided upon registration to the [facility].2.Look for an invitation email from [facility].3.Open the email and access the invitation link: Accept Invitation to [email or web address].Fill in the required roca to create your account. Sign into [email or web address] with your username and password that you created in the above steps to stay up to date. You can then view a summary of results, a summary of your visits, and the ability to download your summaries to your computer or send the information securely to a physician. Remember that your healthcare information is confidential, so carefully consider who you will allow to register on the [email or web address] Patient Portal for access to your information. You can also access the [email or web address] Patient Portal on the [employer]. Simply click on Health Records under [employer] and then click on the [employer] logo. HOW TO SAFELY DISPOSE OF PRESCRIPTION MEDICATIONS Please use one of the following methods to safely dispose of your unused medications. 1.Use a drug disposal kit: the drug disposal pouch allows you to safely discard your old and unuseddrugs. Ask your nurse to give you one when you are discharged.2.Visit a local take-back location: Many local pharmacies and police departments have programs that collect old and unwanted prescriptiondrugs. Call your local pharmacy or go to http://[employer]/4Z2Vl3z to find one close to you.3.Make use of household items: Use cat litter or old coffee grounds to dispose medications if other options arenot available. Mix your drugs with these household products, seal them in an airtight container andthrow it into the garbage. Call [facility]: [phone] to be sure your drugs can be disposed of in this way. Some medicines may require a different approach.4.Never flush your medications down the toilet. IF YOU HAVE BEEN PRESCRIBED AN OPIOID FOR PAIN If you have been prescribed an opioid (such as hydrocodone, oxycodone or morphine), it is critical to understand the possible side effects and risks of opioid pain medications. Even when taken as directed, opioids can have several side effects including: Tolerance, meaning you might need to take more of a medication for the same pain relief. Nausea, vomiting and/or constipation. Sleepiness, dizziness, dry mouth, confusion, depression or itching. Physical dependence, meaning you have withdrawal symptoms when a medication is stopped, can develop within a few days. KNOW YOUR RESPONSIBILITIES It is important to know exactly how much and how often to take the opioid pain medications you are prescribed. Never take opioids in higher amounts or more often than prescribed. Do not combine opioids with alcohol or other drugs that cause drowsiness, such as benzodiazepines, also known as benzos, including diazepam and alprazolam, muscle relaxants or sleep aids. Never sell or share prescription opioids. This is illegal. Store opioids in a secure place and out of reach of others (including children, family, friends and visitors). The last page of this document has been signed and retained as a CHART COPY. Signatures Patient Education Materials 1-SDS Discharge Instructions Template (05/2018)(CUSTOM) Anterior Cervical Diskectomy and Fusion, Care After Medication Leaflets My discharge plan and instructions have been reviewed and explained to me and I,JUNI GAUTHIER understand my current condition and have read and understand these discharge instructions. I have received a written copy of the plan/instructions. If I have questions, I am aware that I should contact my doctor. 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 Radiologist was not present during examination. FLUOROSCOPY DOSE AND TYPE OR TIME AND EXPOSURES: Fluoro Time: 19.1 seconds Dose: 4.18 mGy Images: 12 COMPARISON: Cervical spine radiographs 05/28/2022. HISTORY: ORDERING SYSTEM PROVIDED HISTORY: Reason for Exam: NECK PAIN Intraprocedural imaging. FINDINGS: 12 spot images of the cervical spine were obtained. They demonstrate changes of ACDF. IMPRESSION: Intraprocedural fluoroscopic spot images as above. See separate procedure report for more information. Interpreted by: Jamar Bailey DO Preliminary Report By: Jamar Bailey DO Electronically signed By Jamar Bailey DO Dictated Date: 08/07/2022 1:25:53 PM Prelim Date: 08/07/2022 1:27:34 PM Sign Date: 08/07/2022 1:27:34 PM Ordering Provider: ARI[facility]12-28-2022 Anesthesiology Consult note Patient: JUNI GAUTHIER Age: 61 years Sex: Male : 1960 Associated Diagnoses: None Author: ADDIS BLAKE MD Postoperative Information LATE ENTRY: Patient assessed postoperatively and vitals reviewed. Stable at the time of PACU discharge. Assessment Postanesthesia assessment Vitals: Vital signs from flowsheet : Vital Signs 08/07/2022 12:39 EST Heart Rate Monitored 77 bpm Respiratory Rate 16 br/min Systolic Blood Pressure Non-Invasive 142 mmHg HI Diastolic Blood Pressure Non-Invasive 74 mmHg Mean Arterial Pressure (NBP) 91 mmHg 08/07/2022 12:24 EST Heart Rate Monitored 74 bpm Respiratory Rate 16 br/min Systolic Blood Pressure Non-Invasive 148 mmHg HI Diastolic Blood Pressure Non-Invasive 77 mmHg Mean Arterial Pressure (NBP) 94 mmHg 08/07/2022 12:09 EST Heart Rate Monitored 75 bpm Respiratory Rate 16 br/min Systolic Blood Pressure Non-Invasive 147 mmHg HI Diastolic Blood Pressure Non-Invasive 76 mmHg Mean Arterial Pressure (NBP) 82 mmHg 08/07/2022 11:58 EST Heart Rate Monitored 78 bpm Respiratory Rate 16 br/min Systolic Blood Pressure Non-Invasive 152 mmHg HI Diastolic Blood Pressure Non-Invasive 83 mmHg Mean Arterial Pressure (NBP) 100 mmHg 08/07/2022 11:40 EST Heart Rate Monitored 80 bpm Respiratory Rate 20 br/min Systolic Blood Pressure Non-Invasive 166 mmHg >HHI Diastolic Blood Pressure Non-Invasive 88 mmHg Mean Arterial Pressure (NBP) 106 mmHg 08/07/2022 11:23 EST Temperature Temporal Artery 36.7 DegC Heart Rate Monitored 80 bpm Respiratory Rate 22 br/min HI Systolic Blood Pressure Non-Invasive 138 mmHg Diastolic Blood Pressure Non-Invasive 84 mmHg Mean Arterial Pressure (NBP) 93 mmHg 08/07/2022 11:17 EST Systolic Blood Pressure Non-Invasive 104 mmHg mmHg Diastolic Blood Pressure Non-Invasive 56 mmHg mmHg 08/07/2022 11:15 EST Heart Rate Monitored 64 bpm bpm Respiratory Rate - Anes 10 br/min br/min Systolic Blood Pressure Non-Invasive 102 mmHg mmHg Diastolic Blood Pressure Non-Invasive 57 mmHg mmHg 08/07/2022 11:10 EST Heart Rate Monitored 58 bpm bpm Respiratory Rate - Anes 14 br/min br/min Systolic Blood Pressure Non-Invasive 106 mmHg mmHg Diastolic Blood Pressure Non-Invasive 52 mmHg mmHg 08/07/2022 11:07 EST Systolic Blood Pressure Non-Invasive 125 mmHg mmHg Diastolic Blood Pressure Non-Invasive 61 mmHg mmHg 08/07/2022 11:05 EST Temperature (Route Not Specified) 36.78 DegC DegC Heart Rate Monitored 59 bpm bpm Respiratory Rate - Anes 14 br/min br/min 08/07/2022 11:04 EST Systolic Blood Pressure Non-Invasive 125 mmHg mmHg Diastolic Blood Pressure Non-Invasive 76 mmHg mmHg 08/07/2022 11:01 EST Systolic Blood Pressure Non-Invasive 103 mmHg mmHg Diastolic Blood Pressure Non-Invasive 67 mmHg mmHg 08/07/2022 11:00 EST Temperature (Route Not Specified) 36.78 DegC DegC Heart Rate Monitored 60 bpm bpm Respiratory Rate - Anes 14 br/min br/min 08/07/2022 10:58 EST Systolic Blood Pressure Non-Invasive 108 mmHg mmHg Diastolic Blood Pressure Non-Invasive 59 mmHg mmHg 08/07/2022 10:55 EST Temperature (Route Not Specified) 36.77 DegC DegC Heart Rate Monitored 60 bpm bpm Respiratory Rate - Anes 14 br/min br/min Systolic Blood Pressure Non-Invasive 115 mmHg mmHg Diastolic Blood Pressure Non-Invasive 64 mmHg mmHg 08/07/2022 10:52 EST Systolic Blood Pressure Non-Invasive 109 mmHg mmHg Diastolic Blood Pressure Non-Invasive 56 mmHg mmHg 08/07/2022 10:50 EST Temperature (Route Not Specified) 36.77 DegC DegC Heart Rate Monitored 64 bpm bpm Respiratory Rate - Anes 13 br/min br/min 08/07/2022 10:49 EST Systolic Blood Pressure Non-Invasive 124 mmHg mmHg Diastolic Blood Pressure Non-Invasive 71 mmHg mmHg 08/07/2022 10:46 EST Systolic Blood Pressure Non-Invasive 115 mmHg mmHg Diastolic Blood Pressure Non-Invasive 63 mmHg mmHg 08/07/2022 10:45 EST Temperature (Route Not Specified) 36.75 DegC DegC Heart Rate Monitored 62 bpm bpm Respiratory Rate - Anes 14 br/min br/min 08/07/2022 10:43 EST Systolic Blood Pressure Non-Invasive 77 mmHg mmHg Diastolic Blood Pressure Non-Invasive 49 mmHg mmHg 08/07/2022 10:40 EST Temperature (Route Not Specified) 36.73 DegC DegC Heart Rate Monitored 61 bpm bpm Respiratory Rate - Anes 14 br/min br/min Systolic Blood Pressure Non-Invasive 107 mmHg mmHg Diastolic Blood Pressure Non-Invasive 75 mmHg mmHg 08/07/2022 10:37 EST Systolic Blood Pressure Non-Invasive 105 mmHg mmHg Diastolic Blood Pressure Non-Invasive 87 mmHg mmHg 08/07/2022 10:35 EST Temperature (Route Not Specified) 36.71 DegC DegC Heart Rate Monitored 61 bpm bpm Respiratory Rate - Anes 13 br/min br/min 08/07/2022 10:34 EST Systolic Blood Pressure Non-Invasive 122 mmHg mmHg Diastolic Blood Pressure Non-Invasive 95 mmHg mmHg 08/07/2022 10:31 EST Systolic Blood Pressure Non-Invasive 128 mmHg mmHg Diastolic Blood Pressure Non-Invasive 91 mmHg mmHg 08/07/2022 10:30 EST Temperature (Route Not Specified) 36.69 DegC DegC Heart Rate Monitored 62 bpm bpm Respiratory Rate - Anes 12 br/min br/min 08/07/2022 10:29 EST Systolic Blood Pressure Non-Invasive 111 mmHg mmHg Diastolic Blood Pressure Non-Invasive 68 mmHg mmHg 08/07/2022 10:27 EST Systolic Blood Pressure Non-Invasive 117 mmHg mmHg Diastolic Blood Pressure Non-Invasive 67 mmHg mmHg 08/07/2022 10:25 EST Temperature (Route Not Specified) 36.66 DegC DegC Heart Rate Monitored 59 bpm bpm Respiratory Rate - Anes 13 br/min br/min 08/07/2022 10:22 EST Systolic Blood Pressure Non-Invasive 131 mmHg mmHg Diastolic Blood Pressure Non-Invasive 73 mmHg mmHg 08/07/2022 10:20 EST Temperature (Route Not Specified) 36.62 DegC DegC Heart Rate Monitored 61 bpm bpm Respiratory Rate - Anes 16 br/min br/min 08/07/2022 10:19 EST Systolic Blood Pressure Non-Invasive 117 mmHg mmHg Diastolic Blood Pressure Non-Invasive 50 mmHg mmHg 08/07/2022 10:16 EST Systolic Blood Pressure Non-Invasive 113 mmHg mmHg Diastolic Blood Pressure Non-Invasive 77 mmHg mmHg 08/07/2022 10:15 EST Temperature (Route Not Specified) 36.57 DegC DegC Heart Rate Monitored 61 bpm bpm Respiratory Rate - Anes 14 br/min br/min 08/07/2022 10:13 EST Systolic Blood Pressure Non-Invasive 113 mmHg mmHg Diastolic Blood Pressure Non-Invasive 74 mmHg mmHg 08/07/2022 10:10 EST Temperature (Route Not Specified) 36.53 DegC DegC Heart Rate Monitored 60 bpm bpm Respiratory Rate - Anes 14 br/min br/min Systolic Blood Pressure Non-Invasive 119 mmHg mmHg Diastolic Blood Pressure Non-Invasive 65 mmHg mmHg 08/07/2022 10:08 EST Systolic Blood Pressure Non-Invasive 121 mmHg mmHg Diastolic Blood Pressure Non-Invasive 76 mmHg mmHg 08/07/2022 10:06 EST Systolic Blood Pressure Non-Invasive 114 mmHg mmHg Diastolic Blood Pressure Non-Invasive 78 mmHg mmHg 08/07/2022 10:05 EST Temperature (Route Not Specified) 36.48 DegC DegC Heart Rate Monitored 61 bpm bpm Respiratory Rate - Anes 14 br/min br/min 08/07/2022 10:01 EST Systolic Blood Pressure Non-Invasive 124 mmHg mmHg Diastolic Blood Pressure Non-Invasive 71 mmHg mmHg 08/07/2022 10:00 EST Temperature (Route Not Specified) 36.43 DegC DegC Heart Rate Monitored 59 bpm bpm Respiratory Rate - Anes 14 br/min br/min 08/07/2022 9:55 EST Temperature (Route Not Specified) 36.38 DegC DegC Heart Rate Monitored 61 bpm bpm Respiratory Rate - Anes 12 br/min br/min Systolic Blood Pressure Non-Invasive 98 mmHg mmHg Diastolic Blood Pressure Non-Invasive 70 mmHg mmHg 08/07/2022 9:52 EST Systolic Blood Pressure Non-Invasive 103 mmHg mmHg Diastolic Blood Pressure Non-Invasive 76 mmHg mmHg 08/07/2022 9:50 EST Temperature (Route Not Specified) 36.34 DegC DegC Heart Rate Monitored 61 bpm bpm Respiratory Rate - Anes 12 br/min br/min 08/07/2022 9:49 EST Systolic Blood Pressure Non-Invasive 125 mmHg mmHg Diastolic Blood Pressure Non-Invasive 100 mmHg mmHg 08/07/2022 9:46 EST Systolic Blood Pressure Non-Invasive 118 mmHg mmHg Diastolic Blood Pressure Non-Invasive 102 mmHg mmHg 08/07/2022 9:45 EST Temperature (Route Not Specified) 36.29 DegC DegC Heart Rate Monitored 62 bpm bpm Respiratory Rate - Anes 11 br/min br/min 08/07/2022 9:43 EST Systolic Blood Pressure Non-Invasive 120 mmHg mmHg Diastolic Blood Pressure Non-Invasive 75 mmHg mmHg 08/07/2022 9:40 EST Temperature (Route Not Specified) 36.26 DegC DegC Heart Rate Monitored 60 bpm bpm Respiratory Rate - Anes 11 br/min br/min Systolic Blood Pressure Non-Invasive 120 mmHg mmHg Diastolic Blood Pressure Non-Invasive 68 mmHg mmHg 08/07/2022 9:37 EST Systolic Blood Pressure Non-Invasive 124 mmHg mmHg Diastolic Blood Pressure Non-Invasive 56 mmHg mmHg 08/07/2022 9:35 EST Temperature (Route Not Specified) 36.22 DegC DegC Heart Rate Monitored 61 bpm bpm Respiratory Rate - Anes 11 br/min br/min 08/07/2022 9:34 EST Systolic Blood Pressure Non-Invasive 127 mmHg mmHg Diastolic Blood Pressure Non-Invasive 67 mmHg mmHg 08/07/2022 9:32 EST Systolic Blood Pressure Non-Invasive 122 mmHg mmHg Diastolic Blood Pressure Non-Invasive 63 mmHg mmHg 08/07/2022 9:30 EST Temperature (Route Not Specified) 36.18 DegC DegC Heart Rate Monitored 60 bpm bpm Respiratory Rate - Anes 11 br/min br/min 08/07/2022 9:29 EST Systolic Blood Pressure Non-Invasive 153 mmHg mmHg Diastolic Blood Pressure Non-Invasive 102 mmHg mmHg 08/07/2022 9:25 EST Temperature (Route Not Specified) 36.13 DegC DegC Heart Rate Monitored 60 bpm bpm Respiratory Rate - Anes 11 br/min br/min Systolic Blood Pressure Non-Invasive 139 mmHg mmHg Diastolic Blood Pressure Non-Invasive 88 mmHg mmHg 08/07/2022 9:22 EST Systolic Blood Pressure Non-Invasive 125 mmHg mmHg Diastolic Blood Pressure Non-Invasive 62 mmHg mmHg 08/07/2022 9:20 EST Temperature (Route Not Specified) 36.08 DegC DegC Heart Rate Monitored 61 bpm bpm Respiratory Rate - Anes 11 br/min br/min 08/07/2022 9:19 EST Systolic Blood Pressure Non-Invasive 125 mmHg mmHg Diastolic Blood Pressure Non-Invasive 72 mmHg mmHg 08/07/2022 9:16 EST Systolic Blood Pressure Non-Invasive 125 mmHg mmHg Diastolic Blood Pressure Non-Invasive 46 mmHg mmHg 08/07/2022 9:15 EST Temperature (Route Not Specified) 36.04 DegC DegC Heart Rate Monitored 62 bpm bpm Respiratory Rate - Anes 11 br/min br/min 08/07/2022 9:13 EST Systolic Blood Pressure Non-Invasive 125 mmHg mmHg Diastolic Blood Pressure Non-Invasive 66 mmHg mmHg 08/07/2022 9:10 EST Temperature (Route Not Specified) 36 DegC DegC Heart Rate Monitored 62 bpm bpm Respiratory Rate - Anes 11 br/min br/min Systolic Blood Pressure Non-Invasive 121 mmHg mmHg Diastolic Blood Pressure Non-Invasive 80 mmHg mmHg 08/07/2022 9:07 EST Systolic Blood Pressure Non-Invasive 122 mmHg mmHg Diastolic Blood Pressure Non-Invasive 78 mmHg mmHg 08/07/2022 9:05 EST Temperature (Route Not Specified) 35.95 DegC DegC Heart Rate Monitored 63 bpm bpm Respiratory Rate - Anes 12 br/min br/min Systolic Blood Pressure Non-Invasive 127 mmHg mmHg Diastolic Blood Pressure Non-Invasive 97 mmHg mmHg 08/07/2022 9:03 EST Systolic Blood Pressure Non-Invasive 118 mmHg mmHg Diastolic Blood Pressure Non-Invasive 100 mmHg mmHg 08/07/2022 9:01 EST Systolic Blood Pressure Non-Invasive 135 mmHg mmHg Diastolic Blood Pressure Non-Invasive 113 mmHg mmHg 08/07/2022 9:00 EST Temperature (Route Not Specified) 35.9 DegC DegC Heart Rate Monitored 59 bpm bpm Respiratory Rate - Anes 12 br/min br/min 08/07/2022 8:58 EST Systolic Blood Pressure Non-Invasive 116 mmHg mmHg Diastolic Blood Pressure Non-Invasive 89 mmHg mmHg 08/07/2022 8:55 EST Temperature (Route Not Specified) 35.82 DegC DegC Heart Rate Monitored 61 bpm bpm Respiratory Rate - Anes 12 br/min br/min Systolic Blood Pressure Non-Invasive 126 mmHg mmHg Diastolic Blood Pressure Non-Invasive 62 mmHg mmHg 08/07/2022 8:52 EST Systolic Blood Pressure Non-Invasive 108 mmHg mmHg Diastolic Blood Pressure Non-Invasive 56 mmHg mmHg 08/07/2022 8:50 EST Temperature (Route Not Specified) 35.61 DegC DegC Heart Rate Monitored 62 bpm bpm Respiratory Rate - Anes 10 br/min br/min 08/07/2022 8:49 EST Systolic Blood Pressure Non-Invasive 120 mmHg mmHg Diastolic Blood Pressure Non-Invasive 67 mmHg mmHg 08/07/2022 8:45 EST Temperature (Route Not Specified) 35.63 DegC DegC Heart Rate Monitored 66 bpm bpm Respiratory Rate - Anes 9 br/min br/min Systolic Blood Pressure Non-Invasive 123 mmHg mmHg Diastolic Blood Pressure Non-Invasive 84 mmHg mmHg 08/07/2022 8:42 EST Systolic Blood Pressure Non-Invasive 93 mmHg mmHg Diastolic Blood Pressure Non-Invasive 59 mmHg mmHg 08/07/2022 8:40 EST Temperature (Route Not Specified) 35.53 DegC DegC Heart Rate Monitored 67 bpm bpm Respiratory Rate - Anes 10 br/min br/min Systolic Blood Pressure Non-Invasive 100 mmHg mmHg Diastolic Blood Pressure Non-Invasive 62 mmHg mmHg 08/07/2022 8:37 EST Systolic Blood Pressure Non-Invasive 117 mmHg mmHg Diastolic Blood Pressure Non-Invasive 69 mmHg mmHg 08/07/2022 8:35 EST Heart Rate Monitored 73 bpm bpm Respiratory Rate - Anes 12 br/min br/min 08/07/2022 8:34 EST Systolic Blood Pressure Non-Invasive 136 mmHg mmHg Diastolic Blood Pressure Non-Invasive 90 mmHg mmHg 08/07/2022 8:31 EST Systolic Blood Pressure Non-Invasive 108 mmHg mmHg Diastolic Blood Pressure Non-Invasive 90 mmHg mmHg 08/07/2022 8:30 EST Heart Rate Monitored 77 bpm bpm Respiratory Rate - Anes 11 br/min br/min 08/07/2022 8:27 EST Systolic Blood Pressure Non-Invasive 155 mmHg mmHg Diastolic Blood Pressure Non-Invasive 86 mmHg mmHg 08/07/2022 8:25 EST Heart Rate Monitored 77 bpm bpm Respiratory Rate - Anes 12 br/min br/min Systolic Blood Pressure Non-Invasive 139 mmHg mmHg Diastolic Blood Pressure Non-Invasive 89 mmHg mmHg 08/07/2022 8:22 EST Systolic Blood Pressure Non-Invasive 131 mmHg mmHg Diastolic Blood Pressure Non-Invasive 83 mmHg mmHg 08/07/2022 8:20 EST Heart Rate Monitored 73 bpm bpm Respiratory Rate - Anes 8 br/min br/min (Modified) 08/07/2022 8:19 EST Systolic Blood Pressure Non-Invasive 146 mmHg mmHg Diastolic Blood Pressure Non-Invasive 76 mmHg mmHg 08/07/2022 5:47 EST Systolic Blood Pressure Non-Invasive 143 mmHg HI Diastolic Blood Pressure Non-Invasive 95 mmHg HI 08/07/2022 5:37 EST Temperature Temporal Artery 35.8 DegC Peripheral Pulse Rate 86 bpm Respiratory Rate 16 br/min Systolic Blood Pressure Non-Invasive 163 mmHg >HHI Diastolic Blood Pressure Non-Invasive 104 mmHg >HHI , Oxygen Therapy : Oxygen Therapy & Oxygenation Information 08/07/2022 12:39 EST Oxygen Therapy Room air Oxygen Saturation 94 % 08/07/2022 12:24 EST Oxygen Therapy Room air Oxygen Saturation 96 % 08/07/2022 12:09 EST Oxygen Therapy Nasal cannula 0L-6L Oxygen Saturation 95 % Oxygen Flow Rate 1.5 L/min 08/07/2022 11:58 EST Oxygen Therapy Nasal cannula 0L-6L Oxygen Saturation 100 % Oxygen Flow Rate 1.5 L/min 08/07/2022 11:40 EST Oxygen Therapy Nasal cannula 0L-6L Oxygen Saturation 100 % Oxygen Flow Rate 3 L/min 08/07/2022 11:23 EST Oxygen Therapy Simple mask Oxygen Saturation 100 % Oxygen Flow Rate 8 L/min 08/07/2022 11:15 EST Oxygen Saturation 100 % % 08/07/2022 11:10 EST Oxygen Saturation 100 % % 08/07/2022 11:05 EST Oxygen Saturation 100 % % 08/07/2022 11:00 EST Oxygen Saturation 100 % % 08/07/2022 10:55 EST Oxygen Saturation 100 % % 08/07/2022 10:50 EST Oxygen Saturation 100 % % 08/07/2022 10:45 EST Oxygen Saturation 100 % % 08/07/2022 10:40 EST Oxygen Saturation 100 % % 08/07/2022 10:35 EST Oxygen Saturation 100 % % 08/07/2022 10:30 EST Oxygen Saturation 100 % % 08/07/2022 10:25 EST Oxygen Saturation 100 % % 08/07/2022 10:20 EST Oxygen Saturation 100 % % 08/07/2022 10:15 EST Oxygen Saturation 100 % % 08/07/2022 10:10 EST Oxygen Saturation 100 % % 08/07/2022 10:05 EST Oxygen Saturation 100 % % 08/07/2022 10:00 EST Oxygen Saturation 100 % % 08/07/2022 9:55 EST Oxygen Saturation 100 % % 08/07/2022 9:50 EST Oxygen Saturation 100 % % 08/07/2022 9:45 EST Oxygen Saturation 100 % % 08/07/2022 9:40 EST Oxygen Saturation 100 % % 08/07/2022 9:35 EST Oxygen Saturation 100 % % 08/07/2022 9:30 EST Oxygen Saturation 100 % % 08/07/2022 9:25 EST Oxygen Saturation 100 % % 08/07/2022 9:20 EST Oxygen Saturation 100 % % 08/07/2022 9:15 EST Oxygen Saturation 100 % % 08/07/2022 9:10 EST Oxygen Saturation 100 % % 08/07/2022 9:05 EST Oxygen Saturation 100 % % 08/07/2022 9:00 EST Oxygen Saturation 100 % % 08/07/2022 8:55 EST Oxygen Saturation 100 % % 08/07/2022 8:50 EST Oxygen Saturation 100 % % 08/07/2022 8:45 EST Oxygen Saturation 99.9 % % 08/07/2022 8:40 EST Oxygen Saturation 100 % % 08/07/2022 8:35 EST Oxygen Saturation 98.7 % % 08/07/2022 8:30 EST Oxygen Saturation 100 % % 08/07/2022 8:25 EST Oxygen Saturation 99.7 % % 08/07/2022 8:20 EST Oxygen Saturation 99.9 % % 08/07/2022 5:37 EST Oxygen Therapy Room air Oxygen Saturation 98 % . Mental status: at preoperative baseline. Respiratory function: lungs are clear to auscultation, respirations are non-labored. Respiratory support: none. CV function: Normal rate. Cardiovascular support: none. Pain. Nausea status: see nursing documentation of medications. Postoperative hydration status: within normal limits. Digitally Signed by ADDIS BLAKE MD on 08/07/2022 12:59 PM [id number] Note ORIGINAL EXAMINATION: SPOT FLUOROSCOPIC IMAGES 08/07/2022 11:35 am TECHNIQUE: Fluoroscopy was provided by the radiology department for procedure. Radiologist was not present during examination. FLUOROSCOPY DOSE AND TYPE OR TIME AND EXPOSURES: Fluoro Time: 19.1 seconds Dose: 4.18 mGy Images: 12 COMPARISON: Cervical spine radiographs 05/28/2022. HISTORY: ORDERING SYSTEM PROVIDED HISTORY: Reason for Exam: NECK PAIN Intraprocedural imaging. FINDINGS: 12 spot images of the cervical spine were obtained. They demonstrate changes of ACDF. IMPRESSION: Intraprocedural fluoroscopic spot images as above. See separate procedure report for more information. Interpreted by: Jamar Bailey DO Preliminary Report By: Jamar Bailey DO Electronically signed By Jamar Bailey DO Dictated Date: 08/07/2022 1:25:53 PM Prelim Date: 08/07/2022 1:27:34 PM Sign Date: 08/07/2022 1:27:34 PM Ordering Provider: [facility]12-28-2022 Anesthesiology Consult note Patient: JUNI GAUTHIER Age: 61 years Sex: Male : 1960 Associated Diagnoses: None Author: ADDIS BLAKE MD Preoperative Information > 8 hours Anesthesia history Patient's history: negative. Family's history: negative. Health Status Allergies: Allergic Reactions (Selected) Severity Not Documented CeleBREX- Unknown. Penicillin- Unknown., Allergies (2) ActiveReaction CeleBREXUnknown penicillinUnknown Current medications: (Selected) Inpatient Medications Ordered Kefzol: 2 gram(s), 20 mL, 240 mL/hr, IV Push (INT), PREOP pharm LR 1,000 mL: 20 mL/hr, Intravenous, Stop: 08/07/22 23:59:00 EST Xylocaine HCl 1% injectable solution: 2.5 mg, 0.25 mL, Intradermal, PREOP pharm Prescriptions Prescribed mupirocin 2% topical ointment: 1 rafael, Topical, BID, Bilateral intranasal application twice daily for 5 days prior to surgery &/or as many days leading up to surgery as possible due to surgical urgency/scheduling. Send to patient's preferred pharmacy., 22 gram(s), 0 Refill(s) naproxen 500 mg oral delayed release tablet: 500 mg, 1 tab(s), Oral, BID, for 30 day(s), PRN: Pain,60 tab(s), 2 Refill(s) omeprazole 20 mg oral delayed release capsule: See Instructions, take 1 capsule by mouth once daily, 90 cap(s), 3 Refill(s) Documented Medications Documented aspirin 325 mg oral tablet: 325 mg, 1 tab(s), Oral, qDay, Last dose 07/23/21, Medications (3) Active Scheduled: (2) ceFAZolin syringe 2 gram(s) 20 mL, IV Push (INT), PREOP pharm lidocaine 1% (MPF) 2 mL vial pf 2.5 mg 0.25 mL, Intradermal, PREOP pharm Continuous: (1) Lactated Ringers 1,000 mL 1,000 mL, Intravenous, 20 mL/hr PRN: (0) Problem list: Medical Brachial radiculitis / SNOMED CT 65049304 / Confirmed Aortic root enlargement / SNOMED CT 8648396504 / Confirmed Heart valve replaced / SNOMED CT 490885582 / Confirmed S/P AVR / SNOMED CT 1034162171 / Confirmed MVP (mitral valve prolapse) / SNOMED CT 9579333047 / Confirmed Cervical spine pain / SNOMED CT 401956975 / Confirmed Pre-op exam / SNOMED CT 886458718 / Confirmed Cervical spinal stenosis / SNOMED CT 370776952 / Confirmed Medial collateral ligament sprain of knee / SNOMED CT 8117488727 / Confirmed, Active Problems (16) Acid reflux Aortic root enlargement Back pain Brachial radiculitis Cervical spinal stenosis Cervical spine pain Claustrophobia Degenerative disc disease Glasses Headache Heart valve replaced Medial collateral ligament sprain of knee MVP (mitral valve prolapse) Pre-op exam Retinal artery occlusion, central S/P AVR Histories Past Medical History: No active or resolved past medical history items have been selected or recorded. Procedure history: AVR - Aortic valve replacement (4200610070) in 2008 at 47 Years. Cardiac catheter (2513286438). Vasectomy (21467734). CHRIS procedure (275583938). Colonoscopy (145623505). 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 Lives In Single level home Nutrition/Health 11/30/2020 Caffeine intake amount: 1 cup of coffee daily . Physical Examination Measurements from flowsheet : Measurements 08/07/2022 5:37 EST Height 177.8 cm Height in inches 70 inch(es) Admission Weight 103.4 kg Weight Lbs 227.5 lb Weight Method Actual [place] Body Weight 73.00 kg Type of Scale Used Bed scale Admission Body Mass Index 32.71 m2 General: Alert and oriented, No acute distress. Airway: Mallampati classification: II (soft palate, fauces, uvula visible). Head: Normocephalic, Atraumatic. Dentition Evaluation: Intact, Own teeth, Chipped teeth. Respiratory: Lungs are clear to auscultation, Respirations are non-labored. Cardiovascular: Normal rate. Heart Sounds: Normal. Neurologic: Alert, Oriented. Review / Management Documentation reviewed: Current records, Reviewed prior records. Assessment and Plan [place] [employer]esthesi[employer] (ASA) physical status classification: Class III. Anesthetic Preoperative Plan Anesthetic technique: General. Maintenance airway: Oral endotracheal tube. Postoperative pain management: Per surgeon. Risks discussed: nausea, vomiting, headache, sore throat, dental injury, hypotension, allergic reaction, serious complications. Informed consent: signed by patient. Notes: H/o bioprosthetic aortic valve replacment, normal LVEF, no major CAD. Normal activity and denies heart failure symptoms. No stenosis or significant regurg on TTE. . Digitally Signed by ADDIS BLAKE MD on 08/07/2022 09:12 AM [id number] Note ORIGINAL EXAMINATION: MRI OF THE CERVICAL SPINE WITHOUT CONTRAST 05/28/2022 9:09 am TECHNIQUE: Multiplanar multisequence MRI of the cervical spine was performed without the administration of intravenous contrast. COMPARISON: Cervical spine radiograph same day, MRI cervical spine on 02/03/2017. HISTORY: ORDERING SYSTEM PROVIDED HISTORY: Reason for Exam: Neck pain with radiation into the right upper extremity FINDINGS: BONES/ALIGNMENT: Straightening of the cervical spine may be secondary to spasm or positioning. The vertebral body heights are maintained. The bone marrow signal appears unremarkable. Diffuse disc desiccation throughout the cervical spine. Disc height loss is greatest at C5-6 and C6-7. SPINAL CORD: Congenitally narrowed spinal canal measures up to 1 cm in AP dimension. Mildly increased cord signal at C6-7. SOFT TISSUES: A fat intensity lesion in the supraspinous region to the left of midline in the superficial fat is most likely a lipoma. C2-C3: Facet arthropathy without canal or neural foraminal stenosis. C3-C4: Disc osteophyte complex. Facet and uncovertebral arthropathy contribute to moderate left and moderate to severe neural foraminal narrowing. Mild canal stenosis. C4-C5: Small central disc protrusion indents the anterior thecal sac without significant spinal canal stenosis or neural foraminal narrowing. C5-C6: Disc osteophyte complex, facet arthropathy, and uncovertebral arthropathy contribute to [id number] spinal canal stenosis. Mild right and moderate to severe left neural foraminal narrowing. Findings are similar to the prior study. C6-C7: Disc osteophyte complex with a superimposed right central/subarticular/foraminal disc protrusion, facet arthropathy, and uncovertebral arthropathy contribute to moderate to severe spinal canal stenosis. Moderate bilateral neural foraminal narrowing. C7-T1: There is no significant disc protrusion, spinal canal stenosis or neural foraminal narrowing. T1-T2: No significant disc herniation or spinal canal or neural foraminal narrowing. Predominantly right facet arthropathy/ligamentum flavum thickening causes mild mass effect on right posterolateral thecal sac, unchanged from the prior study. IMPRESSION: Congenitally narrowed spinal canal. Moderate to severe spinal canal stenosis at C6-7 with associated questionable mild increased cord signal. Moderate to severe right neural foraminal narrowing at C3-4 has progressed from the prior study. Moderate to severe left foraminal stenosis at C5-6. Other areas of foraminal stenosis as above. I have personally reviewed the images of this examination and agree with the resident's findings and interpretation. Interpreted by: Jammie Sy MD Preliminary Report By: Urbaon Tafoya Electronically signed By Jammie Sy MD Dictated Date: 05/28/2022 11:28:15 AM Prelim Date: 05/28/2022 2:24:57 PM Sign Date: 05/28/2022 2:24:57 PM Ordering Provider: [facility]10-18-2022 Note ORIGINAL EXAMINATION: MRI OF THE CERVICAL SPINE WITHOUT CONTRAST 05/28/2022 9:09 am TECHNIQUE: Multiplanar multisequence MRI of the cervical spine was performed without the administration of intravenous contrast. COMPARISON: Cervical spine radiograph same day, MRI cervical spine on 02/03/2017. HISTORY: ORDERING SYSTEM PROVIDED HISTORY: Reason for Exam: Neck pain with radiation into the right upper extremity FINDINGS: BONES/ALIGNMENT: Straightening of the cervical spine may be secondary to spasm or positioning. The vertebral body heights are maintained. The bone marrow signal appears unremarkable. Diffuse disc desiccation throughout the cervical spine. Disc height loss is greatest at C5-6 and C6-7. SPINAL CORD: Congenitally narrowed spinal canal measures up to 1 cm in AP dimension. Mildly increased cord signal at C6-7. SOFT TISSUES: A fat intensity lesion in the supraspinous region to the left of midline in the superficial fat is most likely a lipoma. C2-C3: Facet arthropathy without canal or neural foraminal stenosis. C3-C4: Disc osteophyte complex. Facet and uncovertebral arthropathy contribute to moderate left and moderate to severe neural foraminal narrowing. Mild canal stenosis. C4-C5: Small central disc protrusion indents the anterior thecal sac without significant spinal canal stenosis or neural foraminal narrowing. C5-C6: Disc osteophyte complex, facet arthropathy, and uncovertebral arthropathy contribute to [id number] spinal canal stenosis. Mild right and moderate to severe left neural foraminal narrowing. Findings are similar to the prior study. C6-C7: Disc osteophyte complex with a superimposed right central/subarticular/foraminal disc protrusion, facet arthropathy, and uncovertebral arthropathy contribute to moderate to severe spinal canal stenosis. Moderate bilateral neural foraminal narrowing. C7-T1: There is no significant disc protrusion, spinal canal stenosis or neural foraminal narrowing. T1-T2: No significant disc herniation or spinal canal or neural foraminal narrowing. Predominantly right facet arthropathy/ligamentum flavum thickening causes mild mass effect on right posterolateral thecal sac, unchanged from the prior study. IMPRESSION: Congenitally narrowed spinal canal. Moderate to severe spinal canal stenosis at C6-7 with associated questionable mild increased cord signal. Moderate to severe right neural foraminal narrowing at C3-4 has progressed from the prior study. Moderate to severe left foraminal stenosis at C5-6. Other areas of foraminal stenosis as above. I have personally reviewed the images of this examination and agree with the resident's findings and interpretation. Interpreted by: Jammie Sy MD Preliminary Report By: Urbano Tafoya Electronically signed By Jammie Sy MD Dictated Date: 05/28/2022 11:28:15 AM Prelim Date: 05/28/2022 2:24:57 PM Sign Date: 05/28/2022 2:24:57 PM Ordering Provider: [facility]09-12-2022 Note ORIGINAL EXAMINATION: MRI OF THE RIGHT TIBIA/FIBULA WITHOUT CONTRAST04/22/2022 9:31 am TECHNIQUE: Multiplanar multisequence MRI of the right tibia/fibula was performed without the administration of intravenous contrast. COMPARISON: None available. HISTORY: ORDERING SYSTEM PROVIDED HISTORY: Reason for Exam: swelling in the gastrocnemius right lower extremity FINDINGS: OSSEOUS STRUCTURES: No fracture or dislocation is evident.Bone marrow signal intensity is within normal limits. Tiny cartilaginous or fibrous lesion of the lateral tibial plateau and tibial plafond are noted without aggressive features. No additional marrow replacing osseous lesions. Small intraosseous ganglion at posterior root attachment of medial meniscus. MUSCLES, TENDONS, AND LIGAMENTS: The visualized muscles and tendons are intact. No significant muscle edema or atrophy. Ligaments are not well assessed on this examination. JOINTS: Mild lateral and patellofemoral compartment osteoarthrosis. Suboptimal evaluation for internal derangement of the knee and ankle due to large field of view images. SOFT TISSUES: Visualized associate soft tissues are grossly unremarkable. No significant subcutaneous edema. IMPRESSION: 1. No findings to explain the patient's symptoms. 2. Additional findings, as above. Interpreted by: Jamar Bailey DO Preliminary Report By: Jamar Bailey DO Electronically signed By Jamar Bailey DO Dictated Date: 04/22/2022 2:18:05 PM Prelim Date: 04/22/2022 2:30:34 PM Sign Date: 04/22/2022 2:30:34 PM Ordering Provider: [facility]09-12-2022 Note ORIGINAL EXAMINATION: MRI OF THE RIGHT TIBIA/FIBULA WITHOUT CONTRAST04/22/2022 9:31 am TECHNIQUE: Multiplanar multisequence MRI of the right tibia/fibula was performed without the administration of intravenous contrast. COMPARISON: None available. HISTORY: ORDERING SYSTEM PROVIDED HISTORY: Reason for Exam: swelling in the gastrocnemius right lower extremity FINDINGS: OSSEOUS STRUCTURES: No fracture or dislocation is evident.Bone marrow signal intensity is within normal limits. Tiny cartilaginous or fibrous lesion of the lateral tibial plateau and tibial plafond are noted without aggressive features. No additional marrow replacing osseous lesions. Small intraosseous ganglion at posterior root attachment of medial meniscus. MUSCLES, TENDONS, AND LIGAMENTS: The visualized muscles and tendons are intact. No significant muscle edema or atrophy. Ligaments are not well assessed on this examination. JOINTS: Mild lateral and patellofemoral compartment osteoarthrosis. Suboptimal evaluation for internal derangement of the knee and ankle due to large field of view images. SOFT TISSUES: Visualized associate soft tissues are grossly unremarkable. No significant subcutaneous edema. IMPRESSION: 1. No findings to explain the patient's symptoms. 2. Additional findings, as above. Interpreted by: Jamar Bailey DO Preliminary Report By: Jamar Bailey DO Electronically signed By Jamar Bailey DO Dictated Date: 04/22/2022 2:18:05 PM Prelim Date: 04/22/2022 2:30:34 PM Sign Date: 04/22/2022 2:30:34 PM Ordering Provider: [facility]01-03-2022 NoteHNO ID: [id number] Author: Alba Gautam APRN.BUSINESS TECHNOLOGY ANALYST Service: ? Author Type: Nurse Practitioner Type: Progress Notes Filed: 08/13/2021 7:40 AM Note Text: SUBJECTIVE Juni Gauthier is a 60 year old male who presents with 2 days of symptoms that are stable. Symptoms include: Fever (?100.4F): No or Chills: No Cough: Yes Shortness of breath: No or Difficulty breathing: No Fatigue: No Muscle aches: No Headache: No New loss of smell or taste: No Sore throat: Yes Nasal congestion: No or Rhinorrhea: No Nausea: No or Vomiting: No Diarrhea: No High risk category assessment Coronary artery disease Exposures: Sick contacts? Yes-son COVID + Family or close contacts with confirmed/probable COVID-19 in last 14 days? Yes He reports that he has quit smoking. He has never used smokeless tobacco. BP 152/88 Pulse 92 Temp 36.4 ?C (97.5 ?F) Resp 16 Wt 105.7 kg (233 lb) SpO2 96% No past medical history on file. No past surgical history on file. ALLERGIES Penicillins MEDICATIONS aspirin, enteric coated (ASPIRIN, ENTERIC COATED) 325 mg EC tablet Take by mouth. omeprazole (PRILOSEC) 20 mg capsule Take by mouth. No family history on file. Social History Tobacco Use - Smoking status: Former Smoker - Smokeless tobacco: Never Used Substance Use Topics - Alcohol use: Not on file - Drug use: Not on file OBJECTIVE Physical Exam Vitals and nursing note reviewed. Constitutional: Appearance: He is obese. HENT: Mouth/Throat: Mouth: Mucous membranes are moist. Pharynx: Oropharynx is clear. No oropharyngeal exudate or posterior oropharyngeal erythema. Cardiovascular: Rate and Rhythm: Normal rate and regular rhythm. Heart sounds: Normal heart sounds. Pulmonary: Effort: Pulmonary effort is normal. No respiratory distress. Breath sounds: Normal breath sounds. No wheezing or rales. Skin: General: Skin is warm and dry. Findings: No erythema or rash. Neurological: Mental Status: He is alert. ASSESSMENT/PLAN ASSESSMENT/PLAN: 1. Suspected COVID-19 virus infection - ICD9: V01.79, ICD10: Z20.822 - COVID WITH FLUA+B, ROUTINE 2. Exposure to COVID-19 virus - ICD9: V01.79, ICD10: Z20.822 - COVID WITH FLUA+B, ROUTINE Alba aGutam APRN.CNP - Meets symptom-based criteria for testing and is high risk. - COVID swab collected at time of office visit - Instructed to isolate pending test results - Discussed symptom monitoring and supportive care - Red flag symptoms requiring follow up discussed This patient encounter involved the screening or treatment of novel coronavirus infection (COVID-19).[facility] Future Appointments Appointment Date:05/15/2022 09:30:00 AM Scheduled Provider:ELIAS GALVAN DO Location:[facility] Appointment Type:PC OV Appointment Date:10/23/2022 09:00:00 AM Scheduled Provider:CHARLIE BECERRA Location:[facility] Appointment Type:[facility] Evaluation + Plan note Future Appointments Appointment Date:07/17/2022 10:30:00 AM Scheduled Provider:ELIAS GALVAN DO [facility] App[facility] Type:PC OV Appointment Date:10/23/2022 09:00:00 AM Scheduled Provider:CHARLIE BECERRA Location:[facility] Appointment Type:[facility] Evaluation + Plan note Future Appointments Appointment Date:10/23/2022 09:00:00 AM Scheduled Provider:CHARLIE BECERRA Location:[facility] Appointment Type:CV OV Appointment Date:01/29/2023 08:00:00 AM Scheduled Provider:ELIAS GALVAN DO Location:[facility] Appointment Type: OV [facility] Evaluation + Plan note Future Appointments Appointment Date:01/29/2023 08:00:00 AM Scheduled Provider:ELIAS GALVAN DO Location:[facility] Appointment Type:PC OV Appointment Date:10/29/2023 09:00:00 AM Scheduled Provider:CHARLIE BECERRA Location:[facility] Appointment Type:[facility] Evaluation + Plan note Future Appointments Appointment Date:01/29/2023 08:00:00 AM Scheduled Provider:ELIAS GALVAN DO Location:[facility] Appointment Type:PC OV Appointment Date:10/29/2023 09:00:00 AM Scheduled Provider:CHARLIE BECERRA Location:[facility] Appointment Type:CV OV Diagnostic Tests Pending * DEVON (urine) 11/04/22 * Protein Electrophoresis Urine 11/04/22 * [place]/Lambda, Free, Serum 11/04/22 * DEVON (serum) 11/04/22 * Free Light Chains, Quantitative, Urine 11/04/22 [facility] Evaluation + Plan note Future Appointments Appointment Date:05/29/2023 10:15:00 AM Scheduled Provider: Location:[facility] Appointment Type:CT Angiography Neck w/ Contrast Appointment Date:10/29/2023 09:00:00 AM Scheduled Provider:CHARLIE BECERRA Location:[facility] Appointment Type:CV OV Appointment Date:02/04/2024 08:00:00 AM Scheduled Provider:ELIAS GALVAN DO Location:[facility] Appointment Type:PC OV Future Scheduled Tests Radiology* CT Angiography Neck w/ Contrast 05/29/23 [facility] Evaluation + Plan note Future Appointments Appointment Date:10/29/2023 09:00:00 AM Scheduled Provider:CHARLIE BECERRA Location:[facility] Appointment Type:CV OV Appointment Date:02/04/2024 08:00:00 AM Scheduled Provider:ELIAS GALVAN DO Location:[facility] Appointment Type:PC OV [facility] Evaluation + Plan note Future Appointments Appointment Date:10/29/2023 09:00:00 AM Scheduled Provider:CHARLIE BECERRA Location:[facility] Appointment Type:CV OV Appointment Date:02/04/2024 08:00:00 AM Scheduled Provider:ELIAS GALVNA DO Location:[facility] Appointment Type:PC OV Appointment Date:06/30/2024 09:00:00 AM Scheduled Provider:CHARLIE BECERRA Location[facility] Appointment Type:CV OV Future Scheduled Tests Laboratory* Lipid Profile 06/30/23 [facility] evaluation + Plan note Future Appointments Appointment Date:01/12/2024 10:00:00 AM Scheduled Provider: Location:[facility] Appointment Type:CV Procedure - Heart Lab/Hybrid OR Appointment Date:02/11/2024 08:00:00 AM Scheduled Provider:ELIAS GALVAN DO Location:[facility] Appointment Type:PC OV Appointment Date:02/18/2024 09:15:00 AM Scheduled Provider:CHARLIE BECERRA Location:[facility] Appointment Type:CV OV Appointment Date:06/30/2024 09:00:00 AM Scheduled Provider:CHARLIE BECERRA Location[facility] Appointment Type:CV OV Future Scheduled Tests Laboratory* Lipid Profile 06/30/23 [facility] Evaluation + Plan note Future Appointments Appointment Date:02/11/2024 08:00:00 AM Scheduled Provider:ELIAS GALVAN DO Location:[facility] Appointment Type:PC OV Appointment Date:02/18/2024 09:15:00 AM Scheduled Provider:CHARLIE BECERRA Location:[facility] Appointment Type:CV OV Appointment Date:06/30/2024 09:00:00 AM Scheduled Provider:CHARLIE BECERRA Location:[facility] Appointment Type:CV OV Future Scheduled Tests Laboratory* Lipid Profile 06/30/23 [facility] Evaluation + Plan note Future Appointments Appointment Date:10/26/2024 10:00:00 AM Scheduled Provider:CHARLIE BECERRA Location:[facility] Appointment Type:CV OV Appointment Date:02/16/2025 08:00:00 AM Scheduled Provider:MICHELLE MAYER Location:[facility] Appointment Type:PC OV [facility] Evaluation + Plan note Future Appointments Appointment Date:10/26/2024 10:00:00 AM Scheduled Provider:CHARLIE BECERRA Location:[facility] Appointment Type:CV OV Appointment Date:02/16/2025 08:00:00 AM Scheduled Provider:MICHELLE MAYER Location:[facility] Appointment Type:PC OV Diagnostic Tests Pending * PSA Total+% Free 09/10/24 [facility] Evaluation noteNo Assessments Information Available [facility] Work Phone: Evaluation noteNo assessment information available [facility] Work Phone: Hospital course Narrative No data available for this section [facility] Hospital Discharge instructions No data available for this section [facility] Procedure* Leelee Mariano N: PERFORM Event Display: Procedure Note Authored Date: [id number] [facility] Progress note No data available for this section [facility] Reason for referral (narrative)No reason for [facility] Phone: Chief Complaint and Reason for Visit Chief Complaint PFIZER VACCINE Chief Complaint PHARYNGITIS- THROAT CULTURE Chief Complaint Admit Date SELF PAY- UMBILICAL HERNIA March 21, 2025 7:58am Summary Purpose Family History No Family History Records Found No data available for this section No data available for this section No data available for this section No Family History Records Found No data available for this section No data available for this section No data available for this section No data available for this section No data available for this section No Family History Records Found No data available for this section No data available for this section No Family History Records Found Advance Directives No Advanced Directives Records FoundNo Advanced Directives Records FoundNo Advanced Directives Records FoundNo Advanced Directives Records Found Additional Source Comments (unrecognized sect ion and content) No Status Records FoundNo Status Records FoundNo Status Records FoundNo Status Records Found INFORMATION SOURCE (unrecogn ized section and content) DATE CREATED AUTHOR 11/01/2021 [facility] DATE CREATED AUTHOR AUTHOR'S ORGANIZ ATION 07/14/2023 [facility] DATE CREATED AUTHOR AUTHOR'S ORGANIZ ATION 02/16/2024 [facility] ([place] DATE CREATED AUTHOR AUTHOR'S ORGANIZ ATION 09/12/2024 [facility] Care Team (unrecognized sect ion and content) Care Team Personnel Name: ELIAS GALVAN DO Position: P4 Physician - Primary Care Med Service: Active Provider Member Role: Primary Care Physician Address: Address: [address] [place] [address]- Care Team Related Persons Name: DURGA GAUTHIER Address: [address], [place] [id number] [place] Care Team Personnel Name: ELIAS GALVAN DO Position: P4 Physician - Primary Care Med Service: Active Provider Member Role: Primary Care Physician Address: Address: [address] [place] [address]- Care Team Related Persons Name: DURGA GAUTHIER Address: Home [address] [place] [employer], [place] [id number] [place] Care Team Personnel Name: ELIAS GALVAN DO Position: P4 Physician - Primary Care Member Role: Primary Care Physician Address: Address: [address] [place] [address]- Care Team Related Persons Name: DURGA GAUTHIER Address: Home [address] [place] [employer], [place] [id number] [place] Care Team Personnel Name: ELIAS GALVAN DO Position: P4 Physician - Primary Care Member Role: Primary Care Physician Address: Address: [address] [place], [place] [id number]- Care Team Related Persons Name: DURGA GAUTHIER Address: Home [address] [place], [place] [id number] [place] Care Team Personnel Name: ELIAS GALVAN DO Position: P4 Physician - Primary Care Member Role: Primary Care Physician Address: Address: [address] [place] [address]- Care Team Related Persons Name: DURGA GAUTHIER Address: Home [address] [place], [place] [id number] [place] Care Team Personnel Name: ELIAS GALVAN DO Position: P4 Physician - Primary Care Member Role: Primary Care Physician Address: Address: [address] [place] [address] Care Team Related Persons Name: DURGA GAUTHIER Address: Home [address] [place], [place] [id number] Patient Care team informatio n (unrecognized section and content) Team Status: Active Member Role Status Dates Dr. Elias Galvan DO Family Provider Active Dr. Elias Galvan DO Primary Care Provider Active Team Status: Inactive Member Role Status Dates Dr. Elias Galvan DO Primary Care Provider Active Dr. Mehul Damon MD Attending Provider, Referring [place] Active Team Status: Active Member Role/Relationship Status Dates Dr. Elias Galvan DO Family Provider Active Dr. Elias Galvan DO Primary Care Provider Active Team Status: Inactive Member Role/Relationship Status Dates Dr. Elias Galvan DO Primary Care Provider Active Start: March 21, 2025 End: March 21, 2025 Dr. Elias Galvan DO Referring Provider Active Start: March 21, 2025 End: March 21, 2025 Dr. Jose Lora MD Attending Provider Active Start: March 21, 2025 End: March 21, 2025 Goals (unrecognized section and content) Goals may be documented in a n alternate section FOR RECORDS PERTAINING TO PATIENTS WHO ARE OR HAVE BEEN ENROLLED IN A CHEMICAL DEPENDENCY/SUBSTANCEABUSE PROGRAM, SOME INFORMATION MAY BE OMITTED. This clinical summary was aggregated from multiple sources. Caution should be exercised in using it in the provision of clinical care. This summary normalizes information from multiple sources, and as a consequence, information in this document may materially change the coding, format and clinical context of patient data. In addition, data may be omitted in some cases. CLINICAL DECISIONS SHOULD BE BASED ON THE PRIMARY CLINICAL RECORDS. [employer] provides no warranty or guarantee of the accuracy or completeness of information in this document.
--- OUTSIDE RECORDS SUMMARY | 2025-03-21 09:44 | XMS RPT_ITS | CCD ---
Author Organization [facility] CliniSyme Care Team Providers Care Produce Runner Name Role Phone ELIAS GALVAN DO Primary Care Physician [phone] Mehul Damon Referring Unavailable Mehul Damon Attending [...] Elias Galvan DO Primary Care Provider [phone] Dr. Elias Galvan DO Referring Provider Guido AGARWAL, Dr. Garcia Attending Provider Allergies Allergy Classification Reported Allergen(s) Allergy Type Date of Onset Reaction(s) Facility (18 sources) celecoxib; Translations: [celecoxib] Drug Allergy unknown [facility] (18 sources) Penicillin; Translations: [penicillins] Drug Allergy Unknown [facility] (2 sources) Penicillins Allergy to substance 01-17-2016 Unknown [facility] (1 source) Penicillins Drug allergy (disorder) 01-17-2016 [facility] Repository Medications Current Medications Medication Drug Class(es) Dates Sig (Normalized) Sig (Original) aspirin 81 mg delayed release oral tablet (20 sources) Platelet Aggregation Inhibitor, Nonsteroidal Anti-inflammatory Drug Start: 07-06-2024 aspirin 81 mg oral delayed release tablet Dose : 81 mg = 1 tab(s), Oral, Daily, # 90 tab(s), 5 Refill(s), Pharmacy: [facility]/pharmacy #[id number], 177.8, cm, 04/20/24 9:12:00 EDT, Height, kg, 04/20/24 9:12:00 EDT, Dosing Weight Start Date: 07/06/24 Status: Ordered Quantity: 90.0 Unit: tab(s) Repeat number: 6 Start: 01-12-2024 aspirin 81 mg oral delayed release tablet Dose : 81 mg = 1 tab(s), Oral, Daily, # 90 tab(s), 5 Refill(s), Pharmacy: [facility] #[id number], 177.8, cm, 01/12/24 8:36:00 EDT, Height, kg, [...] qDay, # 90 tab(s), 3 Refill(s), Pharmacy: [facility]/pharmacy #[id number], 177.8, cm, 04/20/24 9:12:00 EDT, Height, kg, 04/20/24 9:12:00 EDT, Dosing Weight Start Date: 07/06/24 Status: Ordered Quantity: 90.0 Unit: tab(s) Repeat number: 4 Start: 01-06-2024 atorvastatin 4 0 mg oral tablet Dose : 40 mg = 1 tab(s), Oral, qDay, # 30 tab(s), 2 Refill(s), Pharmacy: [facility] #[id number], 178, cm, 01/06/24 10:15:00 EDT, Height, kg, [...] qDay, # 90 tab(s), 3 Refill(s), Pharmacy: [facility]/pharmacy #[id number], 177.8, cm, 04/20/24 9:12:00 EDT, Height, kg, 04/20/24 9:12:00 EDT, Dosing Weight Start Date: 07/06/24 Status: Ordered Quantity: 90.0 Unit: tab(s) Repeat number: 4 Start: 01-12-2024 Plavix 75 mg o ral tablet Dose : 75 mg = 1 tab(s), Oral, qDay, # 90 tab(s), 11 Refill(s), Pharmacy: [facility] #[id number], 177.8, cm, 01/12/24 8:36:00 EDT, Height, kg, [...] sites, # 2 EA, 11 Refill(s), [id number], Hyperlipidemia, 177.5, cm, 08/18/24 8:04:00 EST, Height, kg, 08/18/24 8:04:00 EST, Dosing Weight Start Date: 08/18/24 Status: Ordered Quantity: 2.0 Unit: EA Repeat number: 12 Indication: Hyperlipidemia, unspecified famotidine 40 mg oral tablet (3 sources) Histamine-2 Receptor Antagonist Start: 07-28-2024 Pepcid 40 mg oral tablet Dose : 40 mg = 1 tab(s), Oral, qHS, # 90 tab(s), 1 Refill(s), Pharmacy: [facility]/pharmacy #[id number], 177.8, cm, 04/20/24 9:12:00 EDT, Height, kg, 04/20/24 9:12:00 EDT, Dosing Weight Start Date: 07/28/24 Status: Ordered Quantity: 90.0 Unit: tab(s) Repeat number: 2 Start: 02-09-2024 Pepcid 40 mg o ral tablet Dose : 40 mg = 1 tab(s), Oral, qHS, # 90 tab(s), 1 Refill(s), Pharmacy: [facility] #[id number], 177.8, cm, 02/07/24 22:01:00 EDT, Height, kg, 02/07/24 22:01:00 EDT, Dosing Weight Start Date: 02/09/24 Status: Ordered Fish Oils (1 source) Start: 07-10-2023 [place]-3 Fish O il 1200 mg oral capsule [...] BID, # 180 tab(s), 3 Refill(s), Pharmacy: [facility]/pharmacy #[id number], 177.5, cm, 08/18/24 8:04:00 EST, Height, [...] release), # 30 tab(s), 1 Refill(s), Pharmacy: [facility] #[id number], 178, cm, 01/06/24 10:15:00 EDT, Height, kg, [...] tab(s), 2 Refill(s), 10/15/22 11:16:00 EST, Pharmacy: [facility] #[id number], Medial collateral ligament sprain of knee, 178, cm, 07/17/22 10:32:00 EST, Height Start Date: 07/17/22 Stop Date: 10/15/22 Status: Ordered nitroglycerin 0.4 mg sublingual tablet (3 sources) Nitrate Vasodilator Start: 02-09-2024 nitroglycerin 0.4 mg sublingual tablet 0.4 mg Dose = 1 tab(s), Sublingual, q5min, PRN Chest pain, # 30 tab(s), 0 Refill(s), Pharmacy: [facility] #[id number], 177.8, cm, 02/07/24 22:01:00 EDT, Height, kg, [...] discomfort, # 90 tab(s), 3 Refill(s), Pharmacy: [facility]/pharmacy #[id number], 177.8, cm, 04/20/24 9:12:00 EDT, Height, kg, 04/20/24 9:12:00 EDT, Dosing Weight Start Date: 05/07/24 Status: Ordered Quantity: 90.0 Unit: tab(s) Repeat number: 4 Start: 02-09-2024 Protonix 40 mg oral enteric coated tablet Dose : 40 mg = 1 tab(s), Oral, AsDirected, PRN abdominal discomfort, # 30 tab(s), 0 Refill(s), Pharmacy: [facility] #[id number], 177.8, cm, 02/07/24 22:01:00 EDT, Height, kg, 02/07/24 22:01:00 EDT, Dosing Weight Start Date: 02/09/24 Status: Ordered sildenafil 100 mg oral tablet (2 sources) Phosphodiesterase 5 Inhibitor Start: 08-18-2024 take 0.5-1 tablets by mouth once daily sildenafil 100 mg oral tablet 0.5 to 1 tab(s), Oral, qDay, 1 hour before sexual activity, # 10 tab(s), 3 Refill(s), Pharmacy: [facility]/pharmacy #[id number], Erectile dysfunction, 177.5, cm, 08/18/24 8:04:00 EST, Height, kg, 08/18/24 8:04:00 EST, Dosing Weight Start Date: 08/18/24 Status: Ordered Quantity: 10.0 Unit: tab(s) Repeat number: 4 Indication: Male erectile dysfunction, unspecified tamsulosin hydrochloride 0.4 mg oral capsule (2 sources) alpha-Adrenergic Kairn Start: 08-18-2024 tamsulosin 0.4 mg oral capsule Dose : 0.4 mg = 1 cap(s), Oral, qDay, 30 minutes after the same meal, # 90 cap(s), 0 Refill(s), Pharmacy: [facility]/pharmacy #[id number], BPH with urinary obstruction, 177.5, cm, [...] coronary arteriosclerosis; Translations: [Atherosclerotic heart disease of [place] coronary artery with unstable angina pectoris] Chronic [...] 09-11-2024 % Free PSA 25.5 % Normal [facility] Comment on above: Result Comment: The table below lists the probability of prostate cancer for men with non-suspicious DESTINEE results and total PSA between 4 and 10 ng/mL, by patient age (Jorge et al, RAMONA 1998, 279:1542). % Free PSA 50-64 yr 65-75 yr 0.00-10.00% 56% 55% 10.01-15.00% 24% 35% 15.01-20.00% 17% 23% 20.01-25.00% 10% 20% >25.00% 5% 9% Please note: Jorge et al did not make specific recommendations regarding the use of percent free PSA for any other population of men. Performed At: [facility] [address] [place] [address] [id number] Diallo Aguillon PhD Ph:[phone] Performed By: #### [id number] #### [address] [address] PSA Free 1.07 ng/mL Normal N/A [facility] Comment on above: Result Comment: Missy VALENZUELA methodology. Performed By: #### [id number] #### [address] [address] LABORATORYOrdered By: SYSTEM SYSTEM on 08-18-2024 Prostate specific Ag [Mass/Vol] 6.00 ng/mL High 0.00 - 4.00 ng/mL AO ADM SS PSAon 08-18-2024 Prostate Specific Antigen 6.00 ng/mL High 0.00-4.00 [facility] Comment on above: Performed By: #### P SA #### [address] [address] .Auto Diffon 02-09-2024 Basophil, Absolute 0.0 10 3/mcL Normal 0.0-0.3 [facility] ([place]) Comment on above: Performed By: #### G FR, ANEU, ADIFF, TROPHS, CBC, MDW, BMP #### [address] [address] Basophils/100 WBC (Bld) 0.5 % Normal 0.0-2.5 [facility] ([place]) Comment on above: Performed By: #### G FR, ANEU, ADIFF, TROPHS, CBC, MDW, BMP #### [address] [address] Eosinophil, Absolute 0.2 10 3/mcL Normal 0.0-0.7 [facility] ([place]) Comment on above: Performed By: #### G FR, ANEU, ADIFF, TROPHS, CBC, MDW, BMP #### [address] [address] Eosinophils/100 WBC (Bld) 3.3 % Normal 0.0-6.0 [facility] ([place]) Comment on above: Performed By: #### G FR, ANEU, ADIFF, TROPHS, CBC, MDW, BMP #### [address] [address] Lymphocyte, Absolute 1.8 10 3/mcL Normal 0.9-4.3 [facility] ([place] Comment on above: Performed By: #### G FR, ANEU, ADIFF, TROPHS, CBC, MDW, BMP #### [address] [address] Lymphocytes/100 WBC (Bld) 30.5 % Normal 20.0-40.0 [facility] ([place]) Comment on above: Performed By: #### G FR, ANEU, ADIFF, TROPHS, CBC, AMY, BMP #### [address] [address] Monocyte, Absolute 0.6 10 3/mcL Normal 0.1-1.4 [facility] ([place] Comment on above: Performed By: #### G FR, ANEU, ADIFF, TROPHS, CBC, MDW, BMP #### [address] [address] Monocytes/100 WBC (Bld) 10.1 % Normal 2.0-13.0 [facility] ([place]) Comment on above: Performed By: #### G FR, ANEU, ADIFF, TROPHS, CBC, W, BMP #### [address] [address] Neutrophils/100 WBC (Bld) 55.6 % Normal 50.0-75.0 [facility] ([place]) Comment on above: Performed By: #### G FR, ANEU, ADIFF, TROPHS, CBC, AMY, BMP #### [address] [address] .GFRon 02-09-2024 GFR >60 Normal [facility] ([place] Comment on above: Result Comment: GFR Population [...] ANEU, ADIFF, TROPHS, CBC, MDW, BMP #### [address] [address] GFR Non- >60 Normal [facility] ([place]) Comment on above: Result Comment: GFR Population [...] CANTU, JOHN PAUL, AMY FRANCO, BMP #### [place] [id number] GFR >60 Normal [facility] ([place] Comment on above: Result Comment: GFR Population [...] CANTU, JOHN PAUL, AMY FRANCO, BMP #### [address] [address] GFR Non- >60 Normal [facility] ([place] Comment on above: Result Comment: GFR Population [...] ANEU, ADFERMIN, TROPHS, CBC, MDW, BMP #### [address] [address] .NEUABSon 02-09-2024 Neutrophil, Absolute 3.3 10 3/mcL Normal 2.3-8.1 [facility] ([place] Comment on above: Performed By: #### G , WALE, ADFERMIN, TROPHS, CBC, AMY, BMP #### [address] [address] APTTon 02-09-2024 aPTT Coag (Bld) [Time] 48.0 s High 25.0-35.0 [facility] ([place]) Comment on above: Result Comment: For Heparin anticoagulation therapy, the recommended therapeutic range is: 54-77 seconds (APTT Correlation with Anti-Xa therapeutic range of 0.3-0.7 units/ml). PLEASE REFERENCE THE PHARMACY PROTOCOL FOR DOSING. Heparin dose (APTT) Heparin IV Normal [facility] ([place]) aPTT Coag (Bld) [Time] 52.3 s High 25.0-35.0 [facility] ([place] Comment on above: Result Comment: For Heparin anticoagulation therapy, the recommended therapeutic range is: 54-77 seconds (APTT Correlation with Anti-Xa therapeutic range of 0.3-0.7 units/ml). PLEASE REFERENCE THE PHARMACY PROTOCOL FOR DOSING. Performed By: #### G FR, ANEU, ADIFF, TROPHS, CBC, MDW, BMP #### [address] [address] Heparin dose (APTT) Heparin IV Normal [facility] ([place] Comment on above: Performed By: #### G , ANEU, ADIFF, TROPHS, AMY FRANCO, BMP #### [address] [address] aPTT Coag (Bld) [Time] 52.0 s High 25.0-35.0 [facility] ([place] Comment on above: Result Comment: For Heparin anticoagulation therapy, the recommended therapeutic range is: 54-77 seconds (APTT Correlation with Anti-Xa therapeutic range of 0.3-0.7 units/ml). PLEASE REFERENCE THE PHARMACY PROTOCOL FOR DOSING. Heparin dose (APTT) Heparin IV Normal [facility] ([place]) BMPon 02-09-2024 BUN/Creatinine Ratio 9.4 ratio Low 10.0-22.0 [facility]) Comment on above: Performed By: #### G , ANEU, ADIFF, TROPHS, AMY FRANCO, BMP #### [address] [address] Calcium [Mass/Vol] 9.2 mg/dL Normal 8.7-10.4 [facility] ([place]) Comment on above: Performed By: #### G , ANEU, ADIFF, TROPHThee, AMY FRANCO, BMP #### [address] [address] Chloride [Moles/Vol] 108 mmol/L Normal 98-110 [facility]) Comment on above: Performed By: #### G , ANEU, ADIFF, JOHN, AMY FRANCO, BMP #### [address] [address] CO2 [Moles/Vol] 28 mmol/L Normal 22-32 [facility] ([place] Comment on above: Performed By: #### G FR, ANEU, ADIFF, TROPHS, AMY FRANCO, BMP #### [address] [address] Creatinine [Mass/Vol] 0.85 mg/dL Normal 0.60-1.40 [facility] ([place]) Comment on above: Performed By: #### G FR, ANEU, ADIFF, TROPHS, CBC, W, BMP #### [address] [address] Electrolyte Balance 6.0 mEq/L Normal 4.0-15.0 [facility] ([place] Comment on above: Performed By: #### G FR, ANEU, ADIFF, TROPHS, CBC, MDW, BMP #### [place] [phone] Glucose [Mass/Vol] 107 mg/dL Normal 82-115 [facility] ([place] Comment on above: Performed By: #### G FR, ANEU, ADIFF, TROPHS, CBC, W, BMP #### [place] [phone] Potassium [Moles/Vol] 4.0 mmol/L Normal 3.5-5.0 [facility] ([place] Comment on above: Performed By: #### G FR, ANEU, ADIFF, TROPHS, CBC, W, BMP #### [address] [address] Sodium [Moles/Vol] 142 mmol/L Normal 136-145 [facility] ([place] Comment on above: Performed By: #### G FR, ANEU, ADIFF, TROPHS, CBC, AMY, BMP #### [address] [address] Urea nitrogen [Mass/Vol] 8.0 mg/dL Normal 8.0-22.0 [facility] ([place] Comment on above: Performed By: #### G FR, ANEU, ADIFF, TROPHS, CBC, AMY, BMP #### [address] [address] CBCon 02-09-2024 Erythrocyte distribution width (RBC) [Ratio] 12.7 % Normal 11.5-15.5 [facility] ([place] Comment on above: Performed By: #### G FR, ANEU, ADIFF, TROPHS, CBC, MDW, BMP #### [address] [address] Hematocrit (Bld) [Volume fraction] 39.8 % Low 40.0-52.0 [facility] ([place] Comment on above: Performed By: #### G FR, ANEU, ADIFF, RUBINAS, AMY FRANCO, BMP #### [address] [address] Hgb 13.7 G/dL Normal 13.0-17.5 [facility] ([place] Comment on above: Performed By: #### G FR, ANEU, ADIFF, TROPHS, CBC, AMY, BMP #### [address] [address] MCH (RBC) [Entitic mass] 32.4 pg Normal 27.0-33.0 [facility] ([place] Comment on above: Performed By: #### G FR, ANEU, ADIFF, TROPHS, SALVADOR, AMY, BMP #### [address] [address] MCHC 34.5 G/dL Normal 32.0-36.0 [facility] ([place] Comment on above: Performed By: #### G FR, ANEU, ADIFF, TROPHS, SALVADOR, AMY, BMP #### [address] [address] MCV (RBC) [Entitic vol] 94.1 fL Normal 81.0-100.0 [facility] ([place] Comment on above: Performed By: #### G FR, ANEU, ADIFF, TROPHS, SALVADOR, AMY, BMP #### [address] [address] Platelet 130 10 3/mcL Low 150-450 [facility] ([place] Comment on above: Performed By: #### G FR, ANEU, ADIFF, TROPHS, AMY FRANCO, BMP #### [address] [address] Platelet mean volume (Bld) [Entitic vol] 8.5 fL Normal 6.4-10.5 [facility] ([place] Comment on above: Performed By: #### G FR, ANEU, ADIFF, TROPHS, CBC, MDW, BMP #### [address] [address] RBC 4.24 10 6/mcL Low 4.50-6.00 [facility] ([place] Comment on above: Performed By: #### G FR, ANEU, ADIFF, TROPHS, CBC, AMY, BMP #### [address] [address] WBC 6.0 10 3/mcL Normal 4.5-10.8 [facility] ([place] Comment on above: Performed By: #### G FR, ANEU, ADIFF, TROPHS, CBC, W, BMP #### [address] [address] CREon 02-09-2024 Creatinine [Mass/Vol] 0.85 mg/dL Normal 0.60-1.40 [facility] ([place] Comment on above: Performed By: #### G FR, ANEU, ADIFF, TROPHS, CBC, W, BMP #### [address] [address] LABORATORYOrdered By: SYSTEM SYSTEM on 02-09-2024 Creatinine [...] 02-09-2024 Magnesium [Mass/Vol] 2.0 mg/dL Normal 1.6-2.4 [facility] ([place] Comment on above: Performed By: #### G FR, ANEU, ADIFF, TROPHS, CBC, MDW, BMP #### [address] [address] .Auto Diffon 02-08-2024 Basophil, Absolute 0.0 10 3/mcL Normal 0.0-0.3 [facility] ([place] Comment on above: Performed By: #### G FR, ANEU, ADIFF, TROPHS, CBC, MDW, BMP #### [address] [address] Basophils/100 WBC (Bld) 0.6 % Normal 0.0-2.5 [facility] ([place] Comment on above: Performed By: #### G FR, ANEU, ADIFF, TROPHS, CBC, MDW, BMP #### [address] [address] Eosinophil, Absolute 0.2 10 3/mcL Normal 0.0-0.7 [facility] ([place] Comment on above: Performed By: #### G FR, ANEU, ADIFF, TROPHS, CBC, MDW, BMP #### [address] [address] Eosinophils/100 WBC (Bld) 3.4 % Normal 0.0-6.0 [facility] ([place] Comment on above: Performed By: #### G FR, ANEU, ADIFF, TROPHS, CBC, MDW, BMP #### [address] [address] Lymphocyte, Absolute 2.0 10 3/mcL Normal 0.9-4.3 [facility] ([place] Comment on above: Performed By: #### G FR, ANEU, ADIFF, TROPHS, CBC, MDW, BMP #### [address] [address] Lymphocytes/100 WBC (Bld) 32.2 % Normal 20.0-40.0 [facility] ([place] Comment on above: Performed By: #### G FR, ANEU, ADIFF, TROPHS, CBC, MDW, BMP #### [address] [address] Monocyte, Absolute 0.6 10 3/mcL Normal 0.1-1.4 [facility] ([place] Comment on above: Performed By: #### G FR, ANEU, ADIFF, TROPHS, CBC, MDW, BMP #### [address] [address] Monocytes/100 WBC (Bld) 9.6 % Normal 2.0-13.0 [facility] ([place] Comment on above: Performed By: #### G FR, ANEU, ADIFF, TROPHS, CBC, MDW, BMP #### [address] [address] Neutrophils/100 WBC (Bld) 54.2 % Normal 50.0-75.0 [facility] ([place] Comment on above: Performed By: #### G FR, ANEU, ADIFF, TROPHS, CBC, MDW, BMP #### [address] [address] .GFRon 02-08-2024 GFR >60 Normal [facility] ([place] Comment on above: Result Comment: GFR Population [...] CANTU ADIFF, TROPHS, CBC, MDW, BMP #### [address] [address] GFR Non- >60 Normal [facility] ([place]) Comment on above: Result Comment: GFR Population [...] CANTU ADIFF, TROPHS, CBC, MDW, BMP #### [address] [address] .NEUABSon 02-08-2024 Neutrophil, Absolute 3.3 10 3/mcL Normal 2.3-8.1 [facility] ([place] Comment on above: Performed By: #### G WALE CANTU ADIFF, TROPHS, CBC, MDW, BMP #### [address] [address] A1Con 02-08-2024 HbA1c (Bld) [Mass fraction] 5.2 % Normal 4.0-6.0 [facility] ([place] Comment on above: Performed By: #### G WALE CANTU ADIFF, TROPHS, CBC, MDW, BMP #### [address] [address] APTTon 02-08-2024 aPTT Coag (d) [Time] 29.0 s Normal 25.0-35.0 [facility] ([place] Comment on above: Result Comment: For Heparin anticoagulation therapy, the recommended therapeutic range is: 54-77 seconds (APTT Correlation with Anti-Xa therapeutic range of 0.3-0.7 units/ml). PLEASE REFERENCE THE PHARMACY PROTOCOL FOR DOSING. Performed By: #### G FR, WALE, ADFERMIN, RUBINAS, SALVADOR, AMY, BMP #### [address] [address] Heparin dose (APTT) Unknown Normal [facility] ([place]) Comment on above: Performed By: #### G , BEVERLY ECHEVARRIA TROPHS, SALVADOR, AMY, BMP #### [address] [address] BMPon 02-08-2024 BUN/Creatinine Ratio 14.0 ratio Normal 10.0-22.0 [facility] ([place] Comment on above: Performed By: #### G , BEVERLY ECHEVARRIA TROPHS, AMY FRANCO, BMP #### [address] [address] Calcium [Mass/Vol] 9.0 mg/dL Normal 8.7-10.4 [facility] ([place]) Comment on above: Performed By: #### G FR, ANEU ADIFF, JOHN, AMY FRANCO, BMP #### [address] [address] Chloride [Moles/Vol] 110 mmol/L Normal 98-110 [facility] ([place] Comment on above: Performed By: #### G FR, WALE, ADIFF, JOHN, AMY FRANCO, BMP #### [address] [address] CO2 [Moles/Vol] 26 mmol/L Normal 22-32 [facility] ([place] Comment on above: Performed By: #### G FR, BEVERLY ECHEVARRIA, RUBINAS, CBC, W, BMP #### [address] [address] Creatinine [Mass/Vol] 0.86 mg/dL Normal 0.60-1.40 [facility] ([place] Comment on above: Performed By: #### G FR, ANEU, ADIFF, TROPHS, CBC, MDW, BMP #### [address] [address] Electrolyte Balance 7.0 mEq/L Normal 4.0-15.0 [facility] ([place] Comment on above: Performed By: #### G FR, ANEU, ADIFF, TROPHS, CBC, W, BMP #### [address] [address] Glucose [Mass/Vol] 122 mg/dL High 82-115 [facility] ([place] Comment on above: Performed By: #### G FR, ANEU, ADIFF, TROPHS, CBC, W, BMP #### [address] [address] Potassium [Moles/Vol] 3.4 mmol/L Low 3.5-5.0 [facility] ([place] Comment on above: Performed By: #### G FR, ANEU, ADIFF, TROPHS, CBC, W, BMP #### [address] [address] Sodium [Moles/Vol] 143 mmol/L Normal 136-145 [facility] ([place] Comment on above: Performed By: #### G FR, ANEU, ADIFF, TROPHS, CBC, AMY, BMP #### [address] [address] Urea nitrogen [Mass/Vol] 12.0 mg/dL Normal 8.0-22.0 [facility] ([place] Comment on above: Performed By: #### G FR, ANEU, ADIFF, TROPHS, CBC, MDW, BMP #### [address] [address] CBCon 02-08-2024 Erythrocyte distribution width (RBC) [Ratio] 12.8 % Normal 11.5-15.5 [facility] ([place] Comment on above: Performed By: #### G , BEVERLY ECHEVARRIA TROPHS, AMY FRANCO, BMP #### [address] [address] Hematocrit (Bld) [Volume fraction] 38.7 % Low 40.0-52.0 [facility] ([place] Comment on above: Performed By: #### G FR, ANEU ADFERMIN, TROPHThee, AMY FRANCO, BMP #### [address] [address] Hgb 13.5 G/dL Normal 13.0-17.5 [facility] ([place] Comment on above: Performed By: #### G , WALE, ADJOHN CHRISTENSEN, AMY FRANCO, BMP #### [address] [address] MCH (RBC) [Entitic mass] 32.9 pg Normal 27.0-33.0 [facility] ([place] Comment on above: Performed By: #### G , BEVERLY ECHEVARRIA, JOHN, AMY FRANCO, BMP #### [place] [address] MCHC 34.9 G/dL Normal 32.0-36.0 [facility] ([place] Comment on above: Performed By: #### G , WALE ADIFF, TROPHThee, AMY FRANCO, BMP #### [place] [address] MCV (RBC) [Entitic vol] 94.3 fL Normal 81.0-100.0 [facility] ([place] Comment on above: Performed By: #### G , LORIE ECHEVARRIAIFF, JOHN, AMY FRANCO, BMP #### [place] [id number] Platelet 135 10 3/mcL Low 150-450 [facility] ([place] Comment on above: Performed By: #### G , ANEU, ADIFF, TROPHS, AMY FRANCO, BMP #### [address] [address] Platelet mean volume (Bld) [Entitic vol] 9.0 fL Normal 6.4-10.5 [facility] ([place] Comment on above: Performed By: #### G FR, ANEU, ADIFF, TROPHS, CBC, MDW, BMP #### [place] [address] RBC 4.10 10 6/mcL Low 4.50-6.00 [facility] ([place] Comment on above: Performed By: #### G FR, ANEU, ADIFF, TROPHS, CBC, MDW, BMP #### [place] [id number] WBC 6.1 10 3/mcL Normal 4.5-10.8 [facility] ([place] Comment on above: Performed By: #### G FR, ANEU, ADIFF, TROPHS, CBC, MDW, BMP #### [place] [id number] LABORATORYOrdered By: Sarah Hoffman on 02-08-2024 aPTT [...] Comment on above: Interpretive Data: Vania rogers [employer] (CHEST, 1991, [id number]) [...] ng/L Male: 0-54 ng/L Testing performed on videof.me analyzer using direct chemiluminescent technology. TSH Qn [...] 02-08-2024 Cholesterol [Mass/Vol] 118 mg/dL Normal 50-199 [facility] ([place]) Comment on above: Result Comment: Chol esterol Reference Interval: Less than 200 Desirable 200-239 Borderline high risk 240 and above High risk Performed By: #### G FR, ANEU, ADIFF, TROPHS, CBC, AMY, BMP #### [address] [address] Cholesterol in HDL [Mass/Vol] 42 mg/dL Normal 40-59 [facility] ([place]) Comment on above: Performed By: #### G FR, ANEU, ADIFF, TROPHS, CBC, AMY, BMP #### [address] [address] Cholesterol in LDL [Mass/Vol] 44 mg/dL Normal 0-129 [facility] ([place] Comment on above: Performed By: #### G FR, ANEU, ADIFF, TROPHS, CBC, AMY, BMP #### [address] [address] Triglyceride [Mass/Vol] 162 mg/dL High 3-149 [facility] ([place] Comment on above: Performed By: #### G FR, ANEU, ADIFF, TROPHS, CBC, AMY, BMP #### [address] [address] MGon 02-08-2024 Magnesium [Mass/Vol] 1.8 mg/dL Normal 1.6-2.4 [facility] ([place]) Comment on above: Performed By: #### G FR, ANEU, ADIFF, TROPHS, CBC, AMY, BMP #### [address] [id number] Magnesium [Mass/Vol] 1.9 mg/dL Normal 1.6-2.4 [facility] ([place]) Comment on above: Performed By: #### G FR, ANEU, ADIFF, TROPHS, AMY FRANCO, KELLEY #### [address] [id number] PROon 02-08-2024 INR Coag (PPP) [Relative time] 1.0 {INR} Normal [facility] ([place]) Comment on above: Result Comment: [employer] (CHEST, 1991, [id number]) recommended therapeutic range for oral anticoagulant therapy is: LOW RISK: Prophylaxis of venous thrombosis INR: 2.0-3.0 Treatment of pulmonary embolism 2.0-3.0 Prevention of systemic embolism 2.0-3.0 HIGH RISK: Mechanical prosthetic valves 2.5-3.5 Performed By: #### G WALE CANTU ADIFF, TROPHS, AMY FRANCO, BMP #### [place] [phone] PT Coag (PPP) [Time] 11.3 s Normal 9.0-14.4 [facility] ([place]) Comment on above: Result Comment: Effe ctive 02/23/08, Protime results may be affected by some antibiotics (i.e. Ciprofloxacin, Azithromycin, Bactrim) which may potentiate the action of oral anticoagulants, with further increases in Protime/INR. Performed By: #### G WALE CANTU ADIFF, TROPHS, AMY FRANCO, BMP #### [address] [address] TROPHSon 02-08-2024 High Sensitivity Troponin I 30 ng/L Normal 0-54 [facility] ([place]) Comment on above: Result Comment: High Sensitive Troponin I Reference Ranges: Female: 0-34 ng/L Male: 0-54 ng/L Testing performed on videof.me analyzer using direct chemiluminescent technology. Performed By: #### G WALE CANTU ADIFF, TROPHS, AMY FRANCO, BMP #### [place] [phone] High Sensitivity Troponin I 29 ng/L Normal 0-54 [facility] ([place]) Comment on above: Result Comment: High Sensitive Troponin I Reference Ranges: Female: 0-34 ng/L Male: 0-54 ng/L Testing performed on [employer] IM analyzer using direct chemiluminescent technology. Performed By: #### G FR, ANEU, ADIFF, TROPHS, CBC, AMY, BMP #### [address] [address] TSHRon 02-08-2024 TSH 2.890 mIU/mL Normal 0.550-4.780 [facility] ([place]) Comment on above: Result Comment: No te - New Reference Range in effect 20 Performed By: #### G FR, ANEU, ADIFF, TROPHS, CBC, MDW, BMP #### [address] [address] .Auto Diffon 02-07-2024 Basophil, Absolute 0.0 10 3/mcL Normal 0.0-0.2 [facility] ([place] Comment on above: Performed By: #### G FR, ANEU, ADIFF, TROPHS, CBC, AMY, BMP #### [address] [address] Basophils/100 WBC (Bld) 0.4 % Normal 0.0-2.5 [facility] ([place]) Comment on above: Performed By: #### G FR, ANEU, ADIFF, TROPHS, CBC, AMY, BMP #### [address] [address] Eosinophil, Absolute 0.1 10 3/mcL Normal 0.0-0.4 [facility] ([place]) Comment on above: Performed By: #### G FR, ANEU, ADIFF, TROPHS, CBC, AMY, BMP #### [address] [address] Eosinophils/100 WBC (Bld) 1.9 % Normal 0.0-7.0 [facility] ([place] Comment on above: Performed By: #### G FR, ANEU, ADIFF, TROPHS, CBC, AMY, BMP #### [address] [address] Lymphocyte, Absolute 2.3 10 3/mcL Normal 0.8-3.9 [facility] ([place] Comment on above: Performed By: #### G FR, ANEU, ADIFF, TROPHS, CBC, MDW, BMP #### [address] [address] Lymphocytes/100 WBC (Bld) 28.4 % Normal 10.0-50.0 [facility] ([place] Comment on above: Performed By: #### G FR, ANEU, ADIFF, TROPHS, CBC, MDW, BMP #### [address] [address] Monocyte, Absolute 0.7 10 3/mcL Normal 0.2-1.0 [facility] ([place] Comment on above: Performed By: #### G FR, ANEU, ADIFF, TROPHS, CBC, MDW, BMP #### [address] [address] Monocytes/100 WBC (Bld) 8.7 % Normal 1.7-13.0 [facility] ([place] Comment on above: Performed By: #### G FR, ANEU, ADIFF, TROPHS, CBC, MDW, BMP #### [address] [address] Neutrophils/100 WBC (Bld) 60.6 % Normal 37.0-80.0 [facility] ([place] Comment on above: Performed By: #### G FR, ANEU, ADIFF, TROPHS, CBC, MDW, BMP #### [address] [address] .GFRon 02-07-2024 GFR 86 ml/min/1.73sqm Normal [facility] ([place]) Comment on above: Result Comment: GFR Population [...] ANEU, ADIFF, TROPHS, CBC, MDW, BMP #### [address] [address] GFR Non- 71 ml/min/1.73sqm Normal [facility] ([place] Comment on above: Result Comment: GFR Population [...] ANEU, ADIFF, TROPHS, CBC, MDW, BMP #### [address] [address] .MDWon 02-07-2024 Monocyte Distribution Width 19.44 Normal 0.00-20.00 [facility] ([place]) Comment on above: Result Comment: For ED adult patients suspected of sepsis, MDW<=20.0 does not rule out sepsis or risk of sepsis Performed By: #### G FR, ANEU, ADIFF, TROPHS, CBC, MDW, BMP #### [address] [address] .NEUABSon 02-07-2024 Neutrophil, Absolute 4.8 10 3/mcL Normal 2.9-6.2 [facility] ([place] Comment on above: Performed By: #### G FR, ANEU, ADIFF, TROPHS, CBC, MDW, BMP #### [address] [address] BMPon 02-07-2024 BUN/Creatinine Ratio 11 ratio Normal 7-27 [facility] ([place] Comment on above: Performed By: #### G FR, ANEU, ADIFF, TROPHS, CBC, AMY, BMP #### [address] [address] Calcium [Mass/Vol] 9.4 mg/dL Normal 8.4-10.2 [facility] ([place]) Comment on above: Performed By: #### G FR, ANEU, ADIFF, TROPHS, CBC, AMY, BMP #### [address] [address] Chloride [Moles/Vol] 106 mmol/L Normal 98-107 [facility] ([place] Comment on above: Performed By: #### G FR, ANEU, ADIFF, TROPHS, CBC, AMY, BMP #### [place] [address] CO2 [Moles/Vol] 30 mmol/L Normal 23-31 [facility] ([place] Comment on above: Performed By: #### G FR, ANEU, ADIFF, TROPHS, CBC, AMY, BMP #### [place] [address] Creatinine [Mass/Vol] 1.06 mg/dL Normal 0.70-1.30 [facility] ([place] Comment on above: Performed By: #### G FR, ANEU, ADIFF, TROPHS, CBC, AMY, BMP #### [address] [address] Electrolyte Balance 7.0 mEq/L Normal 4.0-15.0 [facility] ([place]) Comment on above: Performed By: #### G FR, ANEU, ADIFF, TROPHS, CBC, AMY, BMP #### [place] [address] Glucose [Mass/Vol] 104 mg/dL Normal 80-115 [facility] ([place] Comment on above: Performed By: #### G FR, ANEU, ADIFF, TROPHS, CBC, AMY, BMP #### [address] [address] Potassium [Moles/Vol] 3.4 mmol/L Low 3.5-5.1 [facility] ([place] Comment on above: Performed By: #### G FR, ANEU, ADIFF, TROPHS, CBC, AMY, BMP #### [address] [address] Sodium [Moles/Vol] 143 mmol/L Normal 136-145 [facility] ([place] Comment on above: Performed By: #### G FR, ANEU, ADIFF, TROPHS, CBC, AMY, BMP #### [place] [phone] Urea nitrogen [Mass/Vol] 12 mg/dL Normal 7-18 [facility] ([place] Comment on above: Performed By: #### G FR, ANEU, ADIFF, TROPHS, AMY FRANCO, BMP #### [place] [phone] CBCon 02-07-2024 Erythrocyte distribution width (RBC) [Ratio] 12.9 % Normal 11.5-14.5 [facility] ([place] Comment on above: Performed By: #### G FR, ANEU, ADIFF, TROPHS, AMY FRANCO, BMP #### [address] [address] Hematocrit (Bld) [Volume fraction] 42.4 % Normal 42.0-52.0 [facility] ([place] Comment on above: Performed By: #### G FR, ANEU, ADIFF, TROPHS, AMY FRANCO, BMP #### [address] [address] Hgb 14.7 G/dL Normal 14.0-18.0 [facility] ([place] Comment on above: Performed By: #### G FR, ANEU, ADIFF, TROPHS, CBC, AMY, BMP #### [address] [address] MCH (RBC) [Entitic mass] 32.7 pg High 27.0-31.2 [facility] ([place] Comment on above: Performed By: #### G FR, ANEU, ADIFF, TROPHS, CBC, W, BMP #### [place] [phone] MCHC 34.6 G/dL Normal 31.8-35.4 [facility] ([place] Comment on above: Performed By: #### G FR, ANEU, ADIFF, TROPHS, CBC, W, BMP #### [place] [address] MCV (RBC) [Entitic vol] 94.4 fL High 80.0-94.0 [facility] ([place] Comment on above: Performed By: #### G FR, ANEU, ADIFF, TROPHS, CBC, W, BMP #### [place] [address] Platelet 164 10 3/mcL Normal 130-400 [facility] ([place] Comment on above: Performed By: #### G FR, ANEU, ADIFF, TROPHS, CBC, W, BMP #### [place] [address] Platelet mean volume (Bld) [Entitic vol] 8.1 fL Normal 7.4-10.4 [facility] ([place] Comment on above: Performed By: #### G FR, ANEU, ADIFF, TROPHS, CBC, W, BMP #### [place] [address] RBC 4.49 10 6/mcL Normal 4.04-6.13 [facility] ([place] Comment on above: Performed By: #### G FR, ANEU, ADIFF, TROPHS, CBC, W, BMP #### [place] [address] WBC 7.9 10 3/mcL Normal 4.6-10.8 [facility] ([place] Comment on above: Performed By: #### G FR, ANEU, ADIFF, TROPHS, CBC, W, BMP #### [place] [address] LABORATORYOrdered By: SYSTEM SYSTEM on 02-07-2024 Magnesium [Mass/Vol] 1.9 mg/dL Normal 1.6 - 2 .4 mg/dL AH ADM SS Troponin I.cardiac DL <= 0.01 ng/mL [Mass/Vol] 29 ng/L Normal 0 - 54 ng/L AH ADM SS Comment on above: Interpretive Data: High Sensitive Troponin I Reference Ranges: Female: 0-34 ng/L Male: 0-54 ng/L Testing performed on videof.me analyzer using direct chemiluminescent technology. Basophil, Absolute [...] a homogeneous sandwich chemiluminescent immunoassay based on Mytr[employer] technology. Urea nitrogen [Mass/Vol] 12 mg/dL Normal 7 - 18 mg/dL AO ADM SS Urea nitrogen/Creatinine [Mass ratio] 11 ratio Normal 7 - 27 ratio AO ADM SS WBC (Bld) [#/Vol] 7.9 103/mcL Normal 4.6 - 10.8 10^3/mcL AO Workflow SS [facility] 02-07-2024 High Sensitivity Troponin I 35 ng/L Normal 0-76 [facility] ([place]) Comment on above: Result Comment: High Sensitive Troponin I Reference Ranges: Female: 0-51 ng/L Male: 0-76 ng/L Testing performed on Dimension EXL using a homogeneous sandwich chemiluminescent immunoassay based on LOCI technology. Performed By: #### G FR, WALE, BEVERLY, JOHN, CBC, MDW, BMP #### [address] [address] XR CHEST 1 VIEWon 02-07-2024 XR CHEST [...] 02/07/2024 8:25:08 PM Ordering Provider: MICHELLE Vargas [facility] ([place]) .Auto Diffon 01-08-2024 Basophil, Absolute 0.0 10 3/mcL Normal 0.0-0.2 [facility] ([place] Comment on above: Performed By: #### G , BEVERLY ECHEVARRIA, TROPHS, CBC, MDW, BMP #### [address] [address] Basophils/100 WBC (Bld) 0.6 % Normal 0.0-2.5 [facility] ([place] Comment on above: Performed By: #### G FR, ANEU, ADFERMIN, TROPHS, CBC, MDW, BMP #### [address] [address] Eosinophil, Absolute 0.1 10 3/mcL Normal 0.0-0.4 [facility] ([place] Comment on above: Performed By: #### G FR, ANEU, ADIFF, TROPHS, CBC, MDW, BMP #### [address] [address] Eosinophils/100 WBC (Bld) 1.8 % Normal 0.0-7.0 [facility] ([place] Comment on above: Performed By: #### G FR, ANEU, ADIFF, TROPHS, CBC, MDW, BMP #### [address] [address] Lymphocyte, Absolute 1.8 10 3/mcL Normal 0.8-3.9 [facility] ([place] Comment on above: Performed By: #### G FR, ANEU, ADIFF, TROPHS, CBC, MDW, BMP #### [address] [address] Lymphocytes/100 WBC (Bld) 27.7 % Normal 10.0-50.0 [facility] ([place] Comment on above: Performed By: #### G FR, ANEU, ADIFF, TROPHS, CBC, MDW, BMP #### [address] [address] Monocyte, Absolute 0.6 10 3/mcL Normal 0.2-1.0 [facility] ([place] Comment on above: Performed By: #### G FR, ANEU, ADIFF, TROPHS, CBC, MDW, BMP #### [address] [address] Monocytes/100 WBC (Bld) 9.5 % Normal 1.7-13.0 [facility] ([place] Comment on above: Performed By: #### G FR, ANEU, ADIFF, TROPHS, CBC, MDW, BMP #### [address] [address] Neutrophils/100 WBC (Bld) 60.4 % Normal 37.0-80.0 [facility] ([place] Comment on above: Performed By: #### G FR, ANEU, ADIFF, TROPHS, CBC, MDW, BMP #### [address] [address] .GFRon 01-08-2024 GFR 98 ml/min/1.73sqm Normal [facility] ([place] Comment on above: Result Comment: GFR Population [...] BEVERLY ECHEVARRIA TROPHS, SALVADOR, AMY, BMP #### [address] [address] GFR Non- 81 ml/min/1.73sqm Normal [facility] ([place] Comment on above: Result Comment: GFR Population [...] BEVERLY ECHEVARRIA TROPHS, SALVADOR, AMY, BMP #### [address] [address] .NEUABSon 01-08-2024 Neutrophil, Absolute 3.8 10 3/mcL Normal 2.9-6.2 [facility] ([place] Comment on above: Performed By: #### G , BEVERLY ECHEVARRIA TROPHS, SALVADOR, AMY, BMP #### [address] [address] BMPon 01-08-2024 BUN/Creatinine Ratio 15 ratio Normal 7-27 [facility] ([place] Comment on above: Performed By: #### G FR, ANEU, ADIFF, TROPHS, CBC, MDW, BMP #### [address] [address] Calcium [Mass/Vol] 8.9 mg/dL Normal 8.4-10.2 [facility] ([place] Comment on above: Performed By: #### G FR, ANEU, ADIFF, TROPHS, CBC, MDW, BMP #### [address] [address] Chloride [Moles/Vol] 106 mmol/L Normal 98-107 [facility] ([place] Comment on above: Performed By: #### G FR, ANEU, ADIFF, TROPHS, CBC, W, BMP #### [address] [address] CO2 [Moles/Vol] 30 mmol/L Normal 23-31 [facility] ([place] Comment on above: Performed By: #### G FR, ANEU, ADIFF, TROPHS, CBC, MDW, BMP #### [address] [address] Creatinine [Mass/Vol] 0.95 mg/dL Normal 0.70-1.30 [facility] ([place] Comment on above: Performed By: #### G FR, ANEU, ADIFF, TROPHS, CBC, MDW, BMP #### [address] [address] Electrolyte Balance 8.0 mEq/L Normal 4.0-15.0 [facility] ([place] Comment on above: Performed By: #### G FR, ANEU, ADIFF, TROPHS, CBC, MDW, BMP #### [address] [address] Glucose [Mass/Vol] 112 mg/dL Normal 80-115 [facility] ([place] Comment on above: Performed By: #### G FR, ANEU, ADIFF, TROPHS, CBC, MDW, BMP #### [address] [address] Potassium [Moles/Vol] 4.0 mmol/L Normal 3.5-5.1 [facility] ([place] Comment on above: Performed By: #### G , BEVERLY ECHEVARRIA TROPHS, AMY FRANCO, BMP #### [address] [address] Sodium [Moles/Vol] 144 mmol/L Normal 136-145 [facility] ([place] Comment on above: Performed By: #### G , BEVERLY ECHEVARRIA TROPHS, AMY FRANCO, BMP #### [address] [address] Urea nitrogen [Mass/Vol] 14 mg/dL Normal 7-18 [facility] ([place] Comment on above: Performed By: #### G , BEVERLY ECHEVARRIA TROPHS, AMY FRANCO, BMP #### [address] [address] CBCon 01-08-2024 Erythrocyte distribution width (RBC) [Ratio] 12.6 % Normal 11.5-14.5 [facility] ([place] Comment on above: Performed By: #### G , BEVERLY ECHEVARRIA TROPHS, AMY FRANCO, BMP #### [address] [address] Hematocrit (Bld) [Volume fraction] 45.0 % Normal 42.0-52.0 [facility] ([place] Comment on above: Performed By: #### G , BEVERLY ECHEVARRIA TROPHS, AMY FRANCO, BMP #### [address] [address] Hgb 15.1 G/dL Normal 14.0-18.0 [facility] ([place] Comment on above: Performed By: #### G , BEVERLY ECHEVARRIA TROPHS, AMY FRANCO, BMP #### [address] [address] MCH (RBC) [Entitic mass] 32.0 pg High 27.0-31.2 [facility] ([place] Comment on above: Performed By: #### G , WALE ADRUBINA CHRISTENSENS, AMY FRANCO, BMP #### [address] [address] MCHC 33.5 G/dL Normal 31.8-35.4 [facility] ([place] Comment on above: Performed By: #### G FR, ANEU, ADIFF, TROPHS, CBC, AMY, BMP #### [address] [address] MCV (RBC) [Entitic vol] 95.4 fL High 80.0-94.0 [facility] ([place] Comment on above: Performed By: #### G FR, ANEU, ADIFF, TROPHS, CBC, AMY, BMP #### [address] [address] Platelet 153 10 3/mcL Normal 130-400 [facility] ([place] Comment on above: Performed By: #### G FR, ANEU, ADIFF, TROPHS, CBC, AMY, BMP #### [place] [address] Platelet mean volume (Bld) [Entitic vol] 8.8 fL Normal 7.4-10.4 [facility] ([place] Comment on above: Performed By: #### G FR, ANEU, ADIFF, TROPHS, CBC, AMY, BMP #### [address] [address] RBC 4.72 10 6/mcL Normal 4.04-6.13 [facility] ([place] Comment on above: Performed By: #### G FR, ANEU, ADIFF, TROPHS, CBC, AMY, BMP #### [address] [address] WBC 6.3 10 3/mcL Normal 4.6-10.8 [facility] ([place] Comment on above: Performed By: #### G FR, ANEU, ADIFF, TROPHS, CBC, AMY, BMP #### [address] [address] LABORATORYOrdered By: SYSTEM SYSTEM on 01-08-2024 Basophil, [...] Comment on above: Interpretive Data: Vania rogers [employer] (CHEST, 1991, 102:[id number]) [...] Coag (PPP) [Time] 11.1 s Normal 9.0-14.4 [facility] ([place] Comment on above: Performed By: #### G FR, ANEU, ADIFF, TROPHS, CBC, MDW, BMP #### [place] [address] PT International Ratio 1.0 Normal [facility] ([place]) Comment on above: Result Comment: [employer] (CHEST, 1991, 102:[id number]) recommended therapeutic range for oral anticoagulant therapy is: LOW RISK: Prophylaxis of venous thrombosis INR: 2.0-3.0 Treatment of pulmonary embolism 2.0-3.0 Prevention of systemic embolism 2.0-3.0 HIGH RISK: Mechanical prosthetic valves 2.5-3.5 Performed By: #### G FR, ANEU, ADIFF, TROPHS, CBC, MDW, BMP #### [place] [address] [place], [place] [address] Final Surgical Pathology Rep rylie 09-01-2023 Final Surgical Pathology Report . Pathology Reports Accession: Collected Date/Time: Received Date/Time: Pathologist: [id number] 08/28/2023 09:13 EST 08/29/2023 07:17 MD JARRETT [...] Electronically Signed by Pathology Report verified by [facility] JARRETT OCHOA MD Sign out Date: 09/01/2023 09:25 Performing Lab: [facility], [address] [place] [address] Pathology Dept Disclaimer If ancillary studies were utilized, the following Laboratory Developed Test (LDT) disclaimer will apply: Under CLIA requirements, [facility] is qualified to perform high complexity testing. For all ancillary stains, positive and negative controls stain appropriately. Performance characteristics of immunohistochemical and chromogenic in-situ hybridization tests have been determined by [facility]. These tests are used for clinical purposes, They should not be regarded as investigational or for research. Normal [facility] ([place]) .Auto Diffon 08-28-2023 Basophil, Absolute 0.0 10 3/mcL Normal 0.0-0.3 [facility] ([place] Comment on above: Performed By: #### G FR, ANEU, ADIFF, TROPHS, CBC, MDW, BMP #### [facility] [address] [place], [place] [address] Basophils/100 WBC (Bld) 0.7 % Normal 0.0-2.5 [facility] ([place] Comment on above: Performed By: #### G FR, ANEU, ADIFF, TROPHS, CBC, MDW, BMP #### [address] [address] Eosinophil, Absolute 0.2 10 3/mcL Normal 0.0-0.7 [facility] ([place] Comment on above: Performed By: #### G FR, ANEU, ADIFF, TROPHS, CBC, MDW, BMP #### [address] [address] Eosinophils/100 WBC (Bld) 3.2 % Normal 0.0-6.0 [facility] ([place]) Comment on above: Performed By: #### G FR, ANEU, ADIFF, TROPHS, CBC, MDW, BMP #### [address] [address] Lymphocyte, Absolute 1.5 10 3/mcL Normal 0.9-4.3 [facility] ([place] Comment on above: Performed By: #### G FR, ANEU, ADIFF, TROPHS, CBC, MDW, BMP #### [address] [address] Lymphocytes/100 WBC (Bld) 30.0 % Normal 20.0-40.0 [facility] ([place] Comment on above: Performed By: #### G FR, ANEU, ADIFF, TROPHS, CBC, MDW, BMP #### [address] [address] Monocyte, Absolute 0.5 10 3/mcL Normal 0.1-1.4 [facility] ([place] Comment on above: Performed By: #### G FR, ANEU, ADIFF, TROPHS, CBC, MDW, BMP #### [address] [address] Monocytes/100 WBC (Bld) 9.1 % Normal 2.0-13.0 [facility] ([place] Comment on above: Performed By: #### G FR, ANEU, ADIFF, TROPHS, CBC, MDW, BMP #### [address] [address] Neutrophils/100 WBC (Bld) 57.0 % Normal 50.0-75.0 [facility] ([place] Comment on above: Performed By: #### G FR, ANEU, ADIFF, TROPHS, SALVADOR, AMY, BMP #### [address] [address] .GFRon 08-28-2023 GFR >60 Normal [facility] ([place] Comment on above: Result Comment: GFR Population [...] ANEU, ADIFF, TROPHS, SALVADOR, AMY, BMP #### [address] [address] GFR Non- >60 Normal [facility] ([place] Comment on above: Result Comment: GFR Population [...] ANEU, ADIFF, TROPHS, CBC, W, BMP #### [address] [address] .NEUABSon 08-28-2023 Neutrophil, Absolute 2.9 10 3/mcL Normal 2.3-8.1 [facility] ([place] Comment on above: Performed By: #### G FR, ANEU, ADIFF, TROPHS, CBC, AMY, BMP #### [address] [address] ABO/Rh (Gel)on 08-28-2023 ABO/Rh Interp Positive Invalid Interpretation Code [facility] ([place]) Comment on above: Performed By: #### G FR, ANEU, ADIFF, TROPHS, CBC, W, BMP #### [address] [address] ABS (Gel)on 08-28-2023 ABSC Interp (Gel) Negative Normal [facility] ([place] Comment on above: Performed By: #### G FR, ANEU, ADIFF, TROPHS, CBC, AMY, BMP #### [address] [address] BMPon 08-28-2023 BUN/Creatinine Ratio 16.2 ratio Normal 10.0-22.0 [facility] ([place] Comment on above: Performed By: #### G FR, ANEU, ADIFF, TROPHS, CBC, AMY, BMP #### [address] [address] Calcium [Mass/Vol] 9.8 mg/dL Normal 8.7-10.4 [facility] ([place] Comment on above: Performed By: #### G FR, ANEU, ADIFF, TROPHS, CBC, AMY, BMP #### [address] [address] Chloride [Moles/Vol] 109 mmol/L Normal 98-110 [facility] ([place] Comment on above: Performed By: #### G FR, ANEU, ADIFF, TROPHS, CBC, W, BMP #### [address] [address] CO2 [Moles/Vol] 25 mmol/L Normal 22-32 [facility] ([place] Comment on above: Performed By: #### G FR, ANEU, ADIFF, TROPHS, CBC, AMY, BMP #### [address] [address] Creatinine [Mass/Vol] 0.74 mg/dL Normal 0.60-1.40 [facility] ([place] Comment on above: Performed By: #### G FR, ANEU, ADIFF, TROPHS, CBC, AMY, BMP #### [address] [address] Electrolyte Balance 9.0 mEq/L Normal 4.0-15.0 [facility] ([place] Comment on above: Performed By: #### G FR, ANEU, ADIFF, TROPHS, CBC, AMY, BMP #### [address] [address] Glucose [Mass/Vol] 132 mg/dL High 82-115 [facility] ([place] Comment on above: Performed By: #### G FR, ANEU, ADIFF, TROPHS, CBC, AMY, BMP #### [address] [address] Potassium [Moles/Vol] 3.6 mmol/L Normal 3.5-5.0 [facility] ([place] Comment on above: Result Comment: Spec imen slightly hemolyzed. Performed By: #### G FR, ANEU, ADIFF, TROPHS, CBC, AMY, BMP #### [address] [address] Sodium [Moles/Vol] 143 mmol/L Normal 136-145 [facility] ([place] Comment on above: Performed By: #### G FR, ANEU, ADIFF, TROPHS, CBC, AMY, BMP #### [address] [address] Urea nitrogen [Mass/Vol] 12.0 mg/dL Normal 8.0-22.0 [facility] ([place] Comment on above: Performed By: #### G FR, ANEU, ADIFF, TROPHS, CBC, AMY, BMP #### [address] [address] CBCon 08-28-2023 Erythrocyte distribution width (RBC) [Ratio] 12.7 % Normal 11.5-15.5 [facility] ([place] Comment on above: Performed By: #### G FR, ANEU, ADIFF, TROPHS, CBC, MDW, BMP #### [address] [address] Hematocrit (Bld) [Volume fraction] 44.4 % Normal 40.0-52.0 [facility] ([place] Comment on above: Performed By: #### G FR, ANEU, ADIFF, TROPHS, CBC, MDW, BMP #### [address] [address] Hgb 15.4 G/dL Normal 13.0-17.5 [facility] ([place] Comment on above: Performed By: #### G FR, ANEU, ADIFF, TROPHS, CBC, MDW, BMP #### [address] [address] MCH (RBC) [Entitic mass] 32.5 pg Normal 27.0-33.0 [facility] ([place] Comment on above: Performed By: #### G FR, ANEU, ADIFF, TROPHS, CBC, MDW, BMP #### [address] [address] MCHC 34.6 G/dL Normal 32.0-36.0 [facility] ([place] Comment on above: Performed By: #### G FR, ANEU, ADIFF, TROPHS, CBC, MDW, BMP #### [address] [address] MCV (RBC) [Entitic vol] 93.8 fL Normal 81.0-100.0 [facility] ([place] Comment on above: Performed By: #### G FR, ANEU, ADIFF, TROPHS, CBC, MDW, BMP #### [address] [address] Platelet 166 10 3/mcL Normal 150-450 [facility] ([place] Comment on above: Performed By: #### G FR, ANEU, ADIFF, TROPHS, CBC, MDW, BMP #### [address] [address] Platelet mean volume (Bld) [Entitic vol] 9.0 fL Normal 6.4-10.5 [facility] ([place] Comment on above: Performed By: #### G FR, ANEU, ADIFF, TROPHS, CBC, MDW, BMP #### [address] [address] RBC 4.73 10 6/mcL Normal 4.50-6.00 [facility] ([place] Comment on above: Performed By: #### G FR, ANEU, ADIFF, TROPHS, CBC, MDW, BMP #### [place] [address] [place], [place] [address] WBC 5.1 10 3/mcL Normal 4.5-10.8 [facility] ([place] Comment on above: Performed By: #### G FR, ANEU, ADIFF, TROPHS, CBC, MDW, BMP #### [address] [address] LABORATORYOrdered By: Sonia Mesa on 08-28-2023 ABO [...] (S/P/Bld) [Vol rate/Area] ml/min/1.73sqm Invalid Interpretation Code tic Chemistry S Comment on above: Interpretive Data: [...] (S/P/Bld) [Vol rate/Area] ml/min/1.73sqm Invalid Interpretation Code tic Chemistry S Comment on above: Interpretive Data: [...] Basophil, Absolute 0.1 10 3/mcL Normal 0.0-0.3 [facility] ([place] Comment on above: Performed By: #### G FR, ANEU, ADIFF, TROPHS, CBC, MDW, BMP #### [address] [address] Basophils/100 WBC (Bld) 0.8 % Normal 0.0-2.5 [facility] ([place]) Comment on above: Performed By: #### G FR, ANEU, ADIFF, TROPHS, CBC, MDW, BMP #### [address] [address] Eosinophil, Absolute 0.2 10 3/mcL Normal 0.0-0.7 [facility] ([place]) Comment on above: Performed By: #### G FR, ANEU, ADIFF, TROPHS, CBC, MDW, BMP #### [address] [address] Eosinophils/100 WBC (Bld) 3.6 % Normal 0.0-6.0 [facility] ([place]) Comment on above: Performed By: #### G FR, ANEU, ADIFF, TROPHS, CBC, MDW, BMP #### [address] [address] Lymphocyte, Absolute 2.1 10 3/mcL Normal 0.9-4.3 [facility] ([place] Comment on above: Performed By: #### G FR, ANEU, ADIFF, TROPHS, CBC, MDW, BMP #### [address] [address] Lymphocytes/100 WBC (Bld) 31.8 % Normal 20.0-40.0 [facility] ([place] Comment on above: Performed By: #### G FR, ANEU, ADIFF, TROPHS, CBC, MDW, BMP #### [address] [address] Monocyte, Absolute 0.7 10 3/mcL Normal 0.1-1.4 [facility] ([place] Comment on above: Performed By: #### G FR, ANEU, ADIFF, TROPHS, CBC, MDW, BMP #### [address] [address] Monocytes/100 WBC (Bld) 10.4 % Normal 2.0-13.0 [facility] ([place] Comment on above: Performed By: #### G FR, ANEU, ADIFF, TROPHS, CBC, MDW, BMP #### [address] [address] Neutrophils/100 WBC (Bld) 53.4 % Normal 50.0-75.0 [facility] ([place] Comment on above: Performed By: #### G FR, ANEU, ADIFF, TROPHS, CBC, MDW, BMP #### [address] [address] .GFRon 07-10-2023 GFR >60 Normal [facility] ([place] Comment on above: Result Comment: GFR Population [...] ANEU, ADIFF, TROPHS, CBC, MDW, BMP #### [address] [address] GFR Non- >60 Normal [facility] ([place] Comment on above: Result Comment: GFR Population [...] BEVERLY ECHEVARRIA, JOHN, SALVADOR, AMY, BMP #### [address] [address] .NEUABSon 07-10-2023 Neutrophil, Absolute 3.6 10 3/mcL Normal 2.3-8.1 [facility] ([place] Comment on above: Performed By: #### G , BEVERLY ECHEVARRIA TROPHS, SALVADOR, AMY, BMP #### [address] [address] ABO/Rh (Gel)on 07-10-2023 ABO/Rh Interp Positive Invalid Interpretation Code [facility] ([place]) Comment on above: Performed By: #### G , WALE, BEVERLY, JOHN, SALVADOR, AMY, BMP #### [address] [address] ABS (Gel)on 07-10-2023 ABSC Interp (Gel) Negative Normal [facility] ([place] Comment on above: Performed By: #### G , BEVERLY ECHEVARRIA, JOHN, SALVADOR, AMY, BMP #### [address] [address] BMPon 07-10-2023 BUN/Creatinine Ratio 15.3 ratio Normal 10.0-22.0 [facility] ([place] Comment on above: Performed By: #### G , WALE, BEVERLY, JOHN, SALVADOR, AMY, BMP #### [address] [address] Calcium [Mass/Vol] 10.0 mg/dL Normal 8.7-10.4 [facility] ([place] Comment on above: Performed By: #### G FR, ANEU, ADIFF, TROPHS, CBC, AMY, BMP #### [address] [address] Chloride [Moles/Vol] 106 mmol/L Normal 98-110 [facility] ([place] Comment on above: Performed By: #### G FR, ANEU, ADIFF, TROPHS, CBC, AMY, BMP #### [address] [address] CO2 [Moles/Vol] 29 mmol/L Normal 22-32 [facility] ([place] Comment on above: Performed By: #### G FR, ANEU, ADIFF, TROPHS, CBC, AMY, BMP #### [address] [address] Creatinine [Mass/Vol] 0.85 mg/dL Normal 0.60-1.40 [facility] ([place] Comment on above: Performed By: #### G FR, ANEU, ADIFF, TROPHS, CBC, AMY, BMP #### [address] [address] Electrolyte Balance 5.0 mEq/L Normal 4.0-15.0 [facility] ([place] Comment on above: Performed By: #### G FR, ANEU, ADIFF, TROPHS, CBC, AMY, BMP #### [address] [address] Glucose [Mass/Vol] 115 mg/dL Normal 82-115 [facility] ([place] Comment on above: Performed By: #### G FR, ANEU, ADIFF, TROPHS, CBC, AMY, BMP #### [address] [address] Potassium [Moles/Vol] 5.2 mmol/L High 3.5-5.0 [facility] ([place] Comment on above: Performed By: #### G FR, ANEU, ADIFF, TROPHS, CBC, AMY, BMP #### [address] [address] Sodium [Moles/Vol] 140 mmol/L Normal 136-145 [facility] ([place] Comment on above: Performed By: #### G FR, ANEU, ADIFF, TROPHS, CBC, W, BMP #### [address] [address] Urea nitrogen [Mass/Vol] 13.0 mg/dL Normal 8.0-22.0 [facility] ([place] Comment on above: Performed By: #### G FR, ANEU, ADIFF, TROPHS, CBC, W, BMP #### [address] [address] CBCon 07-10-2023 Erythrocyte distribution width (RBC) [Ratio] 12.4 % Normal 11.5-15.5 [facility] ([place] Comment on above: Performed By: #### G FR, ANEU, ADIFF, TROPHS, CBC, AMY, BMP #### [address] [address] Hematocrit (Bld) [Volume fraction] 46.9 % Normal 40.0-52.0 [facility] ([place] Comment on above: Performed By: #### G FR, ANEU, ADIFF, TROPHS, CBC, MAY, BMP #### [address] [address] Hgb 15.9 G/dL Normal 13.0-17.5 [facility] ([place] Comment on above: Performed By: #### G FR, ANEU, ADIFF, TROPHS, CBC, AMY, BMP #### [address] [address] MCH (RBC) [Entitic mass] 32.2 pg Normal 27.0-33.0 [facility] ([place] Comment on above: Performed By: #### G FR, ANEU, ADIFF, TROPHS, CBC, W, BMP #### [place] [address] MCHC 34.0 G/dL Normal 32.0-36.0 [facility] ([place] Comment on above: Performed By: #### G FR, ANEU, ADIFF, TROPHS, CBC, AMY, BMP #### [address] [address] MCV (RBC) [Entitic vol] 94.9 fL Normal 81.0-100.0 [facility] ([place] Comment on above: Performed By: #### G FR, ANEU, ADIFF, TROPHS, CBC, AMY, BMP #### [address] [address] Platelet 173 10 3/mcL Normal 150-450 [facility] ([place] Comment on above: Performed By: #### G FR, ANEU, ADIFF, TROPHS, CBC, AMY, BMP #### [address] [address] Platelet mean volume (Bld) [Entitic vol] 8.4 fL Normal 6.4-10.5 [facility] ([place] Comment on above: Performed By: #### G FR, ANEU, ADIFF, TROPHS, CBC, AMY, BMP #### [address] [address] RBC 4.95 10 6/mcL Normal 4.50-6.00 [facility] ([place] Comment on above: Performed By: #### G FR, ANEU, ADIFF, TROPHS, CBC, AMY, BMP #### [address] [address] WBC 6.7 10 3/mcL Normal 4.5-10.8 [facility] ([place] Comment on above: Performed By: #### G FR, ANEU, ADIFF, TROPHS, CBC, AMY, BMP #### [address] [address] LABORATORYOrdered By: Sonia Mesa on 07-10-2023 ABO and Rh group Nom (Bld) Blood group O Rh(D) positive Invalid Interpretation Code AH BB Auto SS Blood group antibody screen Ql Negative ABSC (07/10/23 8:52 AM) Normal AH BB Auto SS LABORATORYOrdered By: [employer] on 07-10-2023 Basophils (Bld) [#/Vol] 0.1 [...] (S/P/Bld) [Vol rate/Area] ml/min/1.73sqm Invalid Interpretation Code tic Chemistry S Comment on above: Interpretive Data: [...] alonso isolated. No beta-hemolytic streptococcus isolated. Normal [facility] Comment on above: Performed By: #### M 100.1000 #### [facility] [address] [place], [address] Throat specimen bacteria jose ntification by cultureOrdered By: Mehul Damon on 07-07-2023 Bacteria identified Cx Nom (Throat) streptococcus isolated. [facility] CT ANGIOGRAPHY NECK W/CONTRA STon 06-04-2023 [...] C5-C6 and bone graft at C6-C7. Multilevel dehl-ys-cnwvcscd disc height loss most pronounced at C3-C4. [...] 06/04/2023 1:02:25 PM Ordering Provider: STELLA GARCÍA [facility] ([place]) .GFRon 05-26-2023 GFR Non- 77 ml/min/1.73sqm Normal [facility] ([place]) Comment on above: Result Comment: GFR Population [...] ANEU, ADIFF, TROPHS, SALVADOR, AMY, BMP #### [address] [address] GFR 93 ml/min/1.73sqm Normal [facility] ([place] Comment on above: Result Comment: GFR Population [...] ANEU, ADIFF, TROPHS, CBC, W, BMP #### [address] [address] BUNon 05-26-2023 Urea nitrogen [Mass/Vol] 12 mg/dL Normal 7-18 [facility] ([place] Comment on above: Performed By: #### G FR, ANEU, ADIFF, TROPHS, CBC, MDW, BMP #### [address] [address] CREon 05-26-2023 Creatinine [Mass/Vol] 0.99 mg/dL Normal 0.70-1.30 [facility] ([place]) Comment on above: Performed By: #### G , WLAE, BEVERLY, RUBINAS, CBC, MDW, BMP #### [place] [place] [address] [place], [place] [address] LABORATORYOrdered By: SYSTEM SYSTEM on 05-26-2023 Creatinine [...] 03/13/2023 3:31:16 PM Ordering Provider: DARCI AZEVEDO [facility] ([place]) LABORATORYOrdered By: Evelyne Nunes on 11-04-2022 Protein [...] CNOV Office Visit (UCWSTR ) JUNI GAUTHIER ([id number]) 1960 M Date Time Provider Department 08/13/21 7:30 AM ALBA GAUTAM [facility] During your visit today, we recorded the following information about you: Temperature Pulse Respiration Blood pressure 97.5 degrees 92/minute 16/minute 152/88 Weight 105.7 kg Alba Gautam APRN.[employer] 08/13/2021 7:40 AM Signed SUBJECTIVE Juni Gauthier [...] warning signs (more content not included)... Normal [facility] COVID w FLU A+B Routon 08-13 Influenza A PCR Negative Normal [facility] Comment on above: Performed By: #### C OVFLU #### [facility] [address] [place], [place] [address] Influenza B PCR Negative Normal [facility] Comment on above: Performed By: #### C OVFLU #### [facility] [address] [place], [place] [address] SARS-CoV-2 (COVID-19) RNA NU+probe Ql (Unsp spec) UPPER RESPIRATORY TRACT SWAB Normal [facility] Comment on above: Performed By: #### C OVFLU #### [place] [address] [place] [id number] SARS-CoV-2 (COVID-19) RNA NU+probe Ql (Unsp spec) Negative for COVID19 (SARS CoV2) by RT-PCR or equivalent method. Normal Negative for COVID19 (SARS CoV2) by RT-PCR or equivalent method. [facility] Comment on above: Result Comment: This test was developed and its performance characteristics determined by [facility] [place]. This test has been authorized by FDA under an Emergency Use Authorization (EUA). This test has been validated in accordance with the FDA's Guidance Document Policy for Diagnostics Testing in Laboratories Certified to Perform High Complexity Testing under CLIA prior to Emergency use Authorization for Coronavirus Disease 2019 during the Public Health Emergency issued on October 09, 2019. Test performed by [facility], [facility] [place], [facility] [place] [address]. Performed By: #### C OVFLU #### [place] [id number] [place] [id number] Vital Signs Date Time Vital Sign Value Performing Clinician Faci froylan 02-09-2024 17:29-0400 Diastolic Blood Pressure Non-Invasive 71 mm[Hg] DR ANTONINA MALHOTRA MD [facility] 02-09-2024 17:29-0400 Heart rate 72 /min DR ANTONINA MALHOTRA MD [facility] 02-09-2024 17:29-0400 Mean blood pressure 96 mm[Hg] DR ANTONINA MALHOTRA MD [facility] 02-09-2024 17:29-0400 Systolic Blood Pressure Non-Invasive 141 mm[Hg] DR ANTONINA MALHOTRA MD [facility] 02-09-2024 17:00-0400 Diastolic Blood Pressure Non-Invasive 75 mm[Hg] DR ANTONINA MALHOTRA MD [facility] 02-09-2024 17:00-0400 Heart rate 78 /min DR ANTONINA MALHOTRA MD [address] 02-09-2024 17:00-0400 Mean blood pressure 92 mm[Hg] DR ANTONINA MALHOTRA MD [address] 02-09-2024 17:00-0400 Systolic Blood Pressure Non-Invasive 127 mm[Hg] DR ANTONINA MALHOTRA MD [address] [place] [address] 02-09-2024 16:30-0400 Diastolic Blood Pressure Non-Invasive 71 mm[Hg] DR ANTONINA MALHOTRA MD [address] [place] [address] 02-09-2024 16:30-0400 Heart rate 81 /min DR ANTONINA MALHOTRA MD [address] [place] [address] 02-09-2024 16:30-0400 Mean blood pressure 91 mm[Hg] DR ANTONINA MALHOTRA MD [address] 02-09-2024 16:30-0400 Systolic Blood Pressure Non-Invasive 123 mm[Hg] DR ANTONINA MALHOTRA MD [address] [place] [address] 02-09-2024 14:49-0400 Blood Pressure Cuff Size DR ANTONINA MALHOTRA MD [address] 02-09-2024 14:49-[address] ANTONINA MALHOTRA MD [address] 02-09-2024 14:49-[address] ANTONINA MALHOTRA MD [address] [place] [address] 02-09-2024 14:36-04[address] Cuff Size DR ANTONINA MALHOTRA MD [address] 02-09-2024 14:36-[address] ANTONINA MALHOTRA MD [address] 02-09-2024 14:36-[address] ANTONINA MALHOTRA MD [address] 02-09-2024 14:34-0400 Body temperature 97.16 [degF] DR ANTONINA MALHOTRA MD [address] 02-09-2024 14:20-0400 Blood Pressure Cuff Size DR ANTONINA MALHOTRA MD [address] 02-09-2024 14:20-[address] ANTONINA MALHOTRA MD [address] 02-09-2024 14:20-[address] ANTONINA MALHOTRA MD [address] 02-09-2024 13:29-0400 Heart rate 79 /min DR ANTONINA MALHOTRA MD [address] 02-09-2024 11:07-0400 Reason For Taking VItal Signs DR ANTONINA MALHOTRA MD [address] 02-09-2024 10:26-0400 Body temperature 98.24 [degF] DR ANTONINA MALHOTRA MD [address] 02-09-2024 10:26-0400 Reason For Taking VItal Signs DR ANTONINA MALHOTRA MD [address] [place] [address] 02-09-2024 10:26-0400 Respiratory rate 16 /min DR ANTONINA MALHOTRA MD [address] 02-09-2024 08:24-0400 Reason For Taking VItal Signs DR ANTONINA MALHOTRA MD [address] 02-09-2024 06:51-0400 Body temperature 98.24 [degF] DR ANTONINA MALHOTRA MD [address] 02-09-2024 06:51-0400 Respiratory rate 16 /min DR ANTONINA MALHOTRA MD [facility] 02-09-2024 03:35-0400 Respiratory rate 16 /min DR ANTONINA MALHOTRA MD [facility] 02-08-2024 23:14-0400 Heart rate 69 /min DR ANTONINA MALHOTRA MD [facility] 02-08-2024 22:49-0400 Heart rate 72 /min DR ANTONINA MALHOTRA MD [facility] 02-07-2024 22:01-0400 Body height 177.[address] ANTONINA MALHOTRA MD [facility] 02-07-2024 22:01-0400 Body weight 106.[address] ANTONINA MALHOTRA MD [facility] 02-07-2024 22:01-0400 Body weight 33.66 kg/m2 DR ANTONINA MALHOTRA MD [facility] 02-07-2024 21:18-0400 Diastolic Blood Pressure Non-Invasive 82 mm[Hg] MICHELLE REICHFIELD DO [facility] 02-07-2024 21:18-0400 Heart rate 84 /min MICHELLE REICHFIELD DO [facility] 02-07-2024 21:18-0400 Respiratory rate 20 /min MICHELLE REICHFIELD DO [facility] 02-07-2024 21:18-0400 Systolic Blood Pressure Non-Invasive 127 mm[Hg] MICHELLE REICHFIELD DO [facility] 02-07-2024 20:25-0400 Diastolic Blood Pressure Non-Invasive 94 mm[Hg] MICHELLE REICHFIELD DO [facility] 02-07-2024 20:25-0400 Heart rate 80 /min MICHELLE REICHFIELD DO [facility] 02-07-2024 20:25-0400 Respiratory rate 22 /min MICHELLE REICHFIELD DO [facility] 02-07-2024 20:25-0400 Systolic Blood Pressure Non-Invasive 141 mm[Hg] MICHELLE REICHFIELD DO [facility] 02-07-2024 19:39-0400 Diastolic Blood Pressure Non-Invasive 73 mm[Hg] MICHELLE REICHFIELD DO [facility] 02-07-2024 19:39-0400 Heart rate 87 /min MICHELLE REICHFIELD DO [facility] 02-07-2024 19:39-0400 Respiratory rate 18 /min MICHELLE REICHFIELD DO [facility] 02-07-2024 19:39-0400 Systolic Blood Pressure Non-Invasive 120 mm[Hg] MICHELLE REICHFIELD DO [facility] 02-07-2024 19:03-0400 Body height 177.8 cm MICHELLE REICHFIELD DO [facility] 02-07-2024 19:03-0400 Body temperature 98.06 [degF] MICHELLE REICHFIELD DO [facility] 02-07-2024 19:03-0400 Body weight 104.5 kg MICHELLE REICHFIELD DO [facility] 01-12-2024 15:59-0400 Diastolic Blood Pressure Non-Invasive 75 mm[Hg] POLA CHAVARRIA MD [facility] 01-12-2024 15:59-0400 Heart rate 66 /min POLA CHAVARRIA MD [address] [place] [address] 01-12-2024 15:59-0400 Respiratory rate 16 /min POLA CHAVARRIA MD [address] [place] [address] 01-12-2024 15:59-0400 Systolic Blood Pressure Non-Invasive 139 mm[Hg] POLA CHAVARRIA MD [address] [place] [address] 01-12-2024 08:41-0400 Body weight 33.78 kg/m2 POLA CHAVARRIA MD [address] [place] [address] 01-12-2024 08:34-0400 Body height 177.8 cm POLA CHAVARRIA MD [address] [place] [address] 01-12-2024 08:34-0400 Body temperature 97.7 [degF] POLA CHAVARRIA MD [address] [place] [address] 01-12-2024 08:34-0400 Body weight 106.8 kg POLA CHAVARRIA MD [address] [place] [address] 01-12-2024 08:34-0400 Body weight 33.78 kg/m2 POLA CHAVARRIA MD [address] [place] [address] 01-12-2024 08:34-0400 Diastolic Blood Pressure Non-Invasive 81 mm[Hg] POLA CHAVARRIA MD [address] [place] [address] 01-12-2024 08:34-0400 Heart rate 71 /min POLA CHAVARRIA MD [address] [place] [address] 01-12-2024 08:34-0400 Respiratory rate 16 /min POLA CHAVARRIA MD [address] [place] [address] 01-12-2024 08:34-0400 Systolic Blood Pressure Non-Invasive 146 mm[Hg] POLA CHAVARRIA MD [address] [place] [address] 08-29-2023 11:50-0500 Body temperature 98.06 [degF] STELLA GARCÍA MD [facility] 08-29-2023 11:50-0500 Diastolic Blood Pressure Non-Invasive 82 mm[Hg] STELLA GARCÍA MD [facility] 08-29-2023 11:50-0500 Heart rate 62 /min STELLA GARCÍA MD [facility] 08-29-2023 11:50-0500 Mean blood pressure 96 mm[Hg] STELLA GARCÍA MD [facility] 08-29-2023 11:50-0500 Reason For Taking VItal Signs STELLA GARCÍA MD [facility] 08-29-2023 11:50-0500 Respiratory rate 20 /min STELLA GARCÍA MD [facility] 08-29-2023 11:50-0500 Systolic Blood Pressure Non-Invasive 138 mm[Hg] STELLA GARCÍA MD [facility] 08-29-2023 08:52-0500 Heart rate 71 /min STELLA GARCÍA MD [facility] 08-29-2023 08:52-0500 Reason For Taking VItal Signs STELLA GARCÍA MD [facility] 08-29-2023 07:05-0500 Body temperature 98.24 [degF] STELLA GARCÍA MD [facility] 08-29-2023 07:05-0500 Diastolic Blood Pressure Non-Invasive 75 mm[Hg] STELLA GARCÍA MD [facility] 08-29-2023 07:05-0500 Heart rate 70 /min STELLA GARCÍA MD [facility] 08-29-2023 07:05-0500 Mean blood pressure 88 mm[Hg] STELLA GARCÍA MD [facility] 08-29-2023 07:05-0500 Reason For Taking VItal Signs STELLA GARCÍA MD [facility] 08-29-2023 07:05-0500 Respiratory rate 20 /min STELLA GARCÍA MD [facility] 08-29-2023 07:05-0500 Systolic Blood Pressure Non-Invasive 119 mm[Hg] STELLA GARCÍA MD [facility] 08-29-2023 02:23-0500 Body temperature 98.6 [degF] STELLA GARCÍA MD [facility] 08-29-2023 02:23-0500 Diastolic Blood Pressure Non-Invasive 75 mm[Hg] STELLA GARCÍA MD [facility] 08-29-2023 02:23-0500 Heart rate 69 /min STELLA GARCÍA MD [facility] 08-29-2023 02:23-0500 Respiratory rate 18 /min STELLA GARCÍA MD [facility] 08-29-2023 02:23-0500 Systolic Blood Pressure Non-Invasive 126 mm[Hg] STELLA GARCÍA MD [facility] 08-28-2023 20:01-0500 Mean blood pressure 96 mm[Hg] STELLA GARCÍA MD [facility] 08-28-2023 17:09-0500 Diastolic blood pressure 90 mm[Hg] TSELLA GARCÍA MD [facility] 08-28-2023 17:09-0500 Mean blood pressure 109 mm[Hg] STELLA GARCÍA MD [facility] 08-28-2023 17:09-0500 Systolic blood pressure 130 mm[Hg] STELLA GARCÍA MD [facility] 08-28-2023 15:00-0500 Diastolic blood pressure 97 mm[Hg] STELLA GARCÍA MD [facility] 08-28-2023 15:00-0500 Systolic blood pressure 114 mm[Hg] STELLA GARCÍA MD [facility] 08-28-2023 13:16-0500 Diastolic blood pressure 91 mm[Hg] STELLA GARCÍA MD [facility] 08-28-2023 13:16-0500 Systolic blood pressure 109 mm[Hg] STELLA GARCÍA MD [facility] 08-28-2023 12:15-0500 Mean blood pressure 90 mm[Hg] STELLA GARCÍA MD [facility] 08-28-2023 11:45-0500 Mean blood pressure 91 mm[Hg] STELLA GARCÍA MD [facility] 08-28-2023 10:00-0500 Respiratory Rate - Anes 17 br/min STELLA GARCÍA MD [facility] 08-28-2023 09:55-0500 Body temperature 100 [degF] STELLA GARCÍA MD [facility] 08-28-2023 09:55-0500 Respiratory Rate - Anes 18 br/min STELLA GARCÍA MD [facility] 08-28-2023 09:50-0500 Body temperature 99.91 [degF] STELLA GARCÍA MD [facility] 08-28-2023 09:50-0500 Respiratory Rate - Anes 11 br/min STELLA GARCÍA MD [facility] 08-28-2023 09:45-0500 Body temperature 99.72 [degF] STELLA GARCÍA MD [facility] 08-28-2023 06:37-0500 Body height 177.8 cm STELLA GARCÍA MD [facility] 08-28-2023 06:37-0500 Body weight 33.94 kg/m2 STELLA GARCÍA MD [facility] 08-28-2023 06:37-0500 Body weight 107.3 kg STELLA GARCÍA MD [facility] 08-28-2023 06:37-0500 Heart rate 85 /min STELLA GARCÍA MD [facility] 07-10-2023 08:18-0500 Blood Pressure Location STELLA GARCÍA MD [facility] 07-10-2023 08:18-0500 Blood Pressure Method STELLA GARCÍA MD [facility] 07-10-2023 08:18-0500 Body height 178 cm STELLA GARCÍA MD [facility] 07-10-2023 08:18-0500 Body temperature 97.16 [degF] STELLA GARCÍA MD [facility] 07-10-2023 08:18-0500 Body weight 107 kg STELLA GARCÍA MD [facility] 07-10-2023 08:18-0500 Diastolic Blood Pressure Non-Invasive 95 mm[Hg] STELLA GARCÍA MD [facility] 07-10-2023 08:18-0500 Heart rate 90 /min STELLA GARCÍA MD [facility] 07-10-2023 08:18-0500 Systolic Blood Pressure Non-Invasive 143 mm[Hg] STELLA GARCÍA MD [facility] 10-10-2022 16:30-0500 Diastolic Blood Pressure Non-Invasive 88 1 STELLA GARCÍA MD [facility] 10-10-2022 16:30-0500 Heart rate 88 /min STELLA GARCÍA MD [facility] 10-10-2022 16:30-0500 Systolic Blood Pressure Non-Invasive 142 1 STELLA GARCÍA MD [facility] 10-10-2022 15:43-0500 Diastolic Blood Pressure Non-Invasive 92 1 STELLA GARCÍA MD [facility] 10-10-2022 15:43-0500 Heart rate 84 /min STELLA GARCÍA MD [facility] 10-10-2022 15:43-0500 Systolic Blood Pressure Non-Invasive 160 1 STELLA GARCÍA MD [facility] 10-10-2022 15:03-0500 Diastolic Blood Pressure Non-Invasive 80 1 STELLA GARCÍA MD [facility] 10-10-2022 15:03-0500 Heart rate 80 /min STELLA GARCÍA MD [facility] 10-10-2022 15:03-0500 Systolic Blood Pressure Non-Invasive 130 1 STELLA GARCÍA MD [facility] 10-10-2022 14:30-0500 Respiratory rate 16 /min STELLA GARCÍA MD [facility] 10-10-2022 12:45-0500 Respiratory rate 16 /min STELLA GARCÍA MD [facility] 10-10-2022 12:35-0500 Heart rate 76 /min STELLA GARCÍA MD [facility] 10-10-2022 12:35-0500 Respiratory rate 18 /min STELLA GARCÍA MD [facility] 10-10-2022 12:30-0500 Heart rate 72 /min STELLA GARCÍA MD [facility] 10-10-2022 12:25-0500 Heart rate 76 /min STELLA GARCÍA MD [facility] 10-10-2022 08:00-0500 Blood Pressure Cuff Size STELLA GARCÍA MD [facility] 10-10-2022 08:00-0500 Blood Pressure Location STELLA GARCÍA MD [facility] 10-10-2022 08:00-0500 Blood Pressure Method STELLA GARCÍA MD [facility] 10-10-2022 08:00-0500 Body height 177.8 cm STELLA GARCÍA MD [facility] 10-10-2022 08:00-0500 Body temperature 96.98 [degF] STELLA [facility]ARC[facility]A [facility] [facility]22 08:00-0500 Body weight 103.7 kg STELLA GARCÍA MD [facility] 10-10-2022 08:00-0500 Body weight 32.8 kg/m2 STELLA GARCÍA MD [facility] 08-07-2022 14:56-0500 Body temperature 97.16 [degF] ARIEL MORA [email or web address] [facility] 08-07-2022 14:56-0500 Diastolic Blood Pressure Non-Invasive 95 1 ARIEL MORA DO [facility] 08-07-2022 14:56-0500 Heart rate 82 /min ARIEL MORA DO [facility] 08-07-2022 14:56-0500 Respiratory rate 18 /min ARIEL MORA DO [facility] 08-07-2022 14:56-0500 Systolic Blood Pressure Non-Invasive 145 1 ARIEL MALIKRAN DO [facility] 08-07-2022 13:14-0500 Body temperature 96.98 [degF] ARIEL MORA DO [facility] 08-07-2022 13:14-0500 Diastolic Blood Pressure Non-Invasive 94 1 ARIEL MORA DO [facility] 08-07-2022 13:14-0500 Heart rate 84 /min ARIEL MALIKRAN DO [facility] 08-07-2022 13:14-0500 Reason For Taking VItal Signs ARIEL MALIKRAN DO [facility] 08-07-2022 13:14-0500 Respiratory rate 18 /min ARIEL MALIKRAN DO [facility] 08-07-2022 13:14-0500 Systolic Blood Pressure Non-Invasive 154 1 ARIEL MALIKRAN DO [facility] 08-07-2022 12:54-0500 Body temperature 98.96 [degF] ARIEL MALIKRAN DO [facility] 08-07-2022 12:54-0500 Diastolic Blood Pressure Non-Invasive 78 1 ARIEL MALIKRAN DO [facility] 08-07-2022 12:54-0500 Heart rate 85 /min ARIELKRISHAN MALIKRAN DO [facility] 08-07-2022 12:54-0500 Mean blood pressure 92 mm[Hg] ARIEL MALIKRAN DO [facility] 08-07-2022 12:54-0500 Respiratory rate 16 /min ARIEL MALIKRAN DO [facility] 08-07-2022 12:54-0500 Systolic Blood Pressure Non-Invasive 140 1 ARIEL MALIKRAN DO [facility] 08-07-2022 12:39-0500 Heart rate 77 /min ARIEL MALIKRAN DO [facility] 08-07-2022 12:39-0500 Mean blood pressure 91 mm[Hg] ARIEL MALIKRAN DO [facility] 08-07-2022 12:24-0500 Heart rate 74 /min ARIEL MALIKRAN DO [facility] 08-07-2022 12:24-0500 Mean blood pressure 94 mm[Hg] ARIEL MALIKRAN DO [facility] 08-07-2022 11:23-0500 Body temperature 98.06 [degF] ARIEL MALIKRAN DO [facility] 08-07-2022 11:15-0500 Respiratory Rate - Anes 10 br/min ARIEL MALIKRAN DO [facility] 08-07-2022 11:10-0500 Respiratory Rate - Anes 14 br/min ARIEL MALIKRAN DO [facility] 08-07-2022 11:05-0500 Body temperature 98.2 [degF] ARIEL MALIKRAN DO [facility] 08-07-2022 11:05-0500 Respiratory Rate - Anes 14 br/min ARIEL MALIKRAN DO [facility] 08-07-2022 10:55-0500 Body temperature 98.19 [degF] ARIEL MALIKRAN DO [facility] 08-07-2022 05:37-0500 Body height 177.8 cm ARIEL MALIKRAN DO [facility] 08-07-2022 05:37-0500 Body weight 103.4 kg ARIEL MALIKRAN DO [facility] 08-07-2022 05:37-0500 Heart rate 86 /min ARIEL MALIKRAN DO [facility] 07-24-2022 14:10-0500 Blood Pressure Cuff Size ARIEL MALIKRAN DO [facility] 07-24-2022 14:10-0500 Blood Pressure Location ARIEL MORA DO [facility] 07-24-2022 14:10-0500 Blood Pressure Method ARIEL MORA DO [facility] 07-24-2022 14:10-0500 Body height 175 cm ARIEL MORA [email or web address] [facility] 07-24-2022 14:10-0500 Body temperature 97.34 [degF] ARIEL MORA [email or web address] [facility] 07-24-2022 14:10-0500 Body weight 105.1 kg ARIEL MORA [email or web address] [facility] 07-24-2022 14:10-0500 Diastolic Blood Pressure Non-Invasive 83 1 ARIELKRISHAN MORA [email or web address] [facility] 07-24-2022 14:10-0500 Heart rate 95 /min ARIEL MORA [email or web address] [facility] 07-24-2022 14:10-0500 Systolic Blood Pressure Non-Invasive 146 1 [facility] [email or web address] [facility] Encounters Encounter Date Encounter Type Care Provider Facility Start: 03-21-2025 End: 03-21-[address] Elias Galvan DO Work Phone: -[facility] Start: 03-21-2025 End: 03-21-[address] Jose Lora MD -[facility] Work Phone: Start: 09-10-2024 End: 09-10-2024 ambulatory ELIAS GALVAN DO Facility:[facility] Start: 09-10-2024 End: 09-10-2024 Patient encounter procedure ELIAS GALVAN DO [facility] Start: 08-18-2024 End: 08-18-2024 ambulatory ELIAS GALVAN DO Facility:[facility] Start: 08-18-2024 End: 08-18-2024 Patient encounter procedure ELIAS GALVAN DO [facility] Start: 02-07-2024 End: 02-09-2024 Evaluation and management of inpatient DR ANTONINA MALHOTRA MD [facility] Start: 02-07-2024 End: 02-07-2024 Emergency department patient visit MICHELLE SEN DO [facility] Start: 01-12-2024 End: 01-12-2024 ambulatory POLA CHAVARRIA MD Facility:A Start: 01-12-2024 End: 01-12-2024 SAME DAY STAY POLA CHAVARRIA MD [facility] Start: 01-08-2024 End: 01-08-2024 ambulatory CHARLIE BECERRA [employer] CLE[employer] Facility:[facility] Start: 01-08-2024 End: 01-08-2024 Patient encounter procedure CHARLIE BECERRA [employer] [facility] Start: 08-28-2023 End: 08-29-2023 Evaluation and management of inpatient STELLA GARCÍA MD [facility] Start: 07-10-2023 End: 07-10-2023 Admission to establishment STELLA GARCÍA MD [facility] Start: 07-10-2023 End: 07-10-2023 ambulatory STELLA GARCÍA MD Facility:[facility] Start: 07-07-2023 End: 07-07-2023 Patient encounter procedure [facility] Work Phone: Start: 07-07-2023 End: 07-07-2023 ambulatory Mehul Damon [facility] Work Phone: Start: 05-29-2023 End: 05-29-2023 ambulatory STELLA GARCÍA MD Facility:[facility] Start: 05-29-2023 End: 05-29-2023 Patient encounter procedure STELLA GARCÍA MD [facility] Start: 05-26-2023 End: 05-26-2023 ambulatory STELLA GARCÍA MD Facility:[facility] Start: 05-26-2023 End: 05-26-2023 Patient encounter procedure STELLA GARCÍA MD [facility] Start: 03-13-2023 End: 03-13-[address] DARCI AZEVEDO MD Facility:[facility] Start: 11-04-2022 End: 11-04-2022 Patient encounter procedure CHARLIE BECERRA [employer] CLE[employer] [facility] Start: 10-10-2022 End: 10-10-2022 SAME DAY STAY STELLA GARCÍA MD [facility] Start: 08-07-2022 End: 08-07-2022 SAME DAY STAY ARIEL MORA [email or web address] [facility] Start: 07-24-2022 End: 07-24-2022 Admission to establishment ARIEL MORA DO [facility] Start: 06-24-2022 End: 06-24-2022 Patient encounter procedure STELLA GARCÍA MD [facility] Start: 05-28-2022 End: 05-28-2022 Patient encounter procedure ELIAS GALVAN DO [facility] Start: 04-22-2022 End: 04-22-2022 Patient encounter procedure ELIAS GALVAN DO [facility] Start: 10-27-2020 End: 10-27-2020 Discharged Recurring [facility] Procedures Date Procedure Procedure Detail Performing Clinician Start: 09-11-2024 PSA screening ELIAS TUCKER DO Comment on above: Result Comment: Missy miranda ECLIA methodology. According to the [employer], Serum PSA should decrease and [...] of malignant disease. Performed By: #### [id number] #### [facility] [address] [place], [place] [address] Start: 02-09-2024 Cardiac catheterization ELIAS GALVAN DO [...] carotid endarterectomy S/P carotid endarterectomy CHARLIE HERNAN [employer]ATING [employer] CLE[employer]ER History of percutane ous transluminal coronary angioplasty DR ANTONINA MALHOTRA MD History of placement of stent for coronary artery disease S/P coronary artery stent placement ELIAS GALVAN DO Operation on spinal cord MALENA LAKESHA GARCÍA MD Transesophageal echocardiography ARIEL MORA DO Vasectomy ARIEL MORA DO Immunizations Immunization Date Immunization Notes Care Provider Fa cility 08-24-2021 SARS-CoV-2 mRNA (tozinameran) vaccine ARIEL MORA DO [facility] 11-17-2020 Covid (Pfizer) [facility] 10-27-2020 Covid (Pfizer) [facility] rashad Comment on above: Result Comment: 2021: [id number] 06-04-2020 influenza virus vaccine, unspecified formulation ARIEL MORA DO [facility] 05-14-2019 influenza virus vaccine, unspecified formulation ELIAS GALVAN DO [facility] Comment on above: Result Comment: [facility] 07-01-2014 influenza virus vaccine, unspecified formulation ARIEL MORA DO [facility] Payers Date Payer Category Payer Self-pay [id number] 1960 Unknown [id number] 2.16.8 [id number] Unknown [id number] 2.16.8 [id number] 1960 Unknown [id number] 2.16.8 [id number] 1960 Unknown [id number] 2.16.8 [id number] 1960 Unknown [id number] 2.16.8 [id number] 1960 Unknown [id number] 2.16.8 [id number] 1962 Unknown [id number] 2.16.8 [id number] 1960 Unknown [id number] 2.16.8 [id number] 1960 Unknown [id number] 2.16.8 [id number] 1960 Unknown [id number] 2.16.8 [id number] 1960 Unknown [id number] 2.16.8 [id number] Private Health Insurance [id number] Unknown [id number] 2.16.8 [id number] Social History Date Type Detail Facility Start: 01-17-2016 End: 01-17-2016 Tobacco smoking status TNIS Unknown if ever smoked [facility] Start: 1960 Sex Assigned At Male A [facility] Start: 01-17-2016 End: 06-02-2019 Tobacco smoking status Ex-smoker (finding) [facility] Sexual Orientation [facility] osfelisa [facility] Start: 02-03-2019 Sex Male (finding) [facility] Medical Equipment Procedure Code Equipment Code Equipment [...] Assessment Result Facility 02-09-2024 Functional Status Independent [facility] 02-09-2024 Functional Status Room check per formed, Mattress Filler at bedside [facility] 02-09-2024 Functional Status [facility] 02-09-2024 Functional Status Single level home [facility] 02-09-2024 Functional Status CHG bath [facility] 02-09-2024 Functional Status [facility] 02-08-2024 Functional Status [facility] 02-07-2024 Functional Status Sensory Deficits None A [facility] 02-07-2024 Functional Status Standard Safet y ID band on, Call device within reach, Bed in low position, Wheels locked [facility] 01-12-2024 Functional Status Room check performed [facility] 01-12-2024 Functional Status [facility] 08-29-2023 Functional Status Door open, Non-Slip footwear, Room check performed [facility] 08-29-2023 Functional Status Single level home [facility] 08-29-2023 Functional Status Breakfast Percent 100 A [facility] 08-29-2023 Functional Status [facility] 08-29-2023 Functional Status Ale[facility] 08-28-2023 Functional Status Ale[facility] 08-28-2023 Functional [facility]28[facility] 08-28-2023 Functional Status Ale[facility] 08-28-2023 Functional [facility] 07-10-2023 Functional Status Sensory Deficits None A [facility] 10-10-2022 Functional Status Room located n ear nursing station, Room check performed [facility] 08-07-2022 Functional Status Up ad liz [facility] 08-07-2022 Functional Status ice chips and sips take n [facility] 08-07-2022 Functional Status bilateral knee high [facility] 08-07-2022 Functional Status [facility] 07-24-2022 Functional Status Sensory Deficits None A [facility] Mental Status Date Assessment Result Facility 02-09-2024 Mental Status Orientation Oriented x 4 [facility] 02-09-2024 Mental Status [facility] 02-09-2024 Mental Status [facility] 02-07-2024 Mental Status Orientation Oriented x 4 [facility] 01-12-2024 Mental Status Oriented x 4 [facility] 01-12-2024 Mental Status [facility] 08-29-2023 Mental Status Orientation Oriented x 4 [facility] 08-29-2023 Mental Status [facility] 08-28-2023 Mental Status [facility] 08-28-2023 Mental Status Orientation Asse ssment Oriented x 4 [facility] 08-28-2023 Mental Status [facility] 08-28-2023 Mental Status [facility] 10-10-2022 Mental Status Orientation Oriented x 4 [facility] 10-10-2022 Mental Status [facility] 08-07-2022 Mental Status Orientation Oriented x 4 [facility] 08-07-2022 Mental Status [facility] Clinical Notes 08-13-2021 to 02-09-2024 Note Date [...] angioplasty [around 2021], GERD, former tobacco use [[id number], quit around 2001] transferred from [facility] with complaint of chest tightness. He denied particular chest pain or stabbing or pressure-like sensation. After having the chest pain patient took nitro which may to cover the pain from the patient. After that patient thought it may be something wrong with his heart so presented to [facility]. On presentation to [facility] ER he was hemodynamically stable with troponin of 35. He was given aspirin and nitro and pain was relieved and transferred to [facility]. Patient was admitted to cardiac inpatient and [...] of medication, or adverse reaction, call your tool dresser immediately. 3. Avoid heavy lifting beyond 5lbs [...] reach out to our [facility] office at [phone] for general queries and [phone] for medication refills. Medications New Prescription famotidine [...] DO When:Within 5 to 7 days Where:[address] [place] [address]- Additional Information: Please call the office to schedule a hospital follow-up appointment. Follow Up with Prescription Assistance Additional Information: Prescription assistance has been arranged for you and is available for non-narcotic medications ordered by your doctor. To access, bring your prescriptions to the [facility] located in the [facility] on the main floor of the hospital . Pharmacy hours are: Friday through Friday: 6 a.m. to 5 p.m. Friday: 8 a.m. to 2 p.m. Friday: Closed Follow Up with CHARLIE BECERRA When:02/18/2024 09:15 AM EDT [address] [place], [place] [id number]- Follow Up Appointments No qualifying data available. [...] TREVA CULVER MD on 02/09/2024 05:30 PM [facility] 02-09-2024 Hospital Discharg e instructions Patient Education [...] Document Reviewed: 07/29/2014 ExitCare Patient Information 2014 [employer]. This information is not intended to replace advice given to you by your health care provider. Make sure you discuss any questions you have with your health care provider. Follow Up Care 02/07/2024 20:27:06 With:ELIAS GALVAN DO Address: [address] [place] [address]- When:5 to 7 days Comments:Please call the office to schedule a hospital follow-up appointment. With:CHARLIE BECERRACARBONATING STONE CLEANER Address: [address] [place] [address]- When:02/18/2024 09:15:00 With:Prescription Assistance Address: When: Unknown Comments:Prescription assistance has been arranged for you and is available for non-narcotic medications ordered by your doctor. To access, bring your prescriptions to the [facility] pharmacy located in the [facility] on the main floor of the hospital .Pharmacy hours are:Friday through Friday: 6 a.m. to 5 p.m.Friday: 8 a.m. to 2 p.m.Friday: Closed [facility] 02-09-2024 Note Discharge Instructions Thank you for allowing [facility] to assist you with your healthcare needs. [...] of medication, or adverse reaction, call your tool dresser immediately. 3. Avoid heavy lifting beyond 5lbs [...] reach out to our [facility] office at [phone] for general queries and [phone] for medication refills. Scheduled Follow-Up Appointments Appointment Type When With Where Contact Information StatusPC OV 02/11/2024 08:00 AM EDT ELIAS GALVAN DO [facility] Confirmed CV OV 02/18/2024 09:15 AM EDT CHARLIE BECERRA [facility] CV Confirmed CV OV 06/30/2024 09:00 AM EST CHARLIE BECERRA [facility] Confirmed Follow Up Appointments Follow Up with ELIAS GALVAN DO When:Within 5 to 7 days Where:[address] [place] [address]- Additional Information: Please call the office to schedule a hospital follow-up appointment. Follow Up with Prescription Assistance Additional Information: Prescription assistance has been arranged for you and is available for non-narcotic medications ordered by your doctor. To access, bring your prescriptions to the [facility] on the main floor of the hospital . Pharmacy hours are: Friday through Friday: 6 a.m. to 5 p.m. Friday: 8 a.m. to 2 p.m. Friday: Closed Follow Up with CHARLIE BECERRA When:02/18/2024 09:15 AM EDT Where:[address] [place] [address]- The Following Activity and Diet [...] bedtime Refills: 1 Pickup at [id number] New nitroGLYcerin (nitroglycerin 0.4 mg sublingual tablet) 1 tab(s) under the tongue Every 5 minutes as needed for Chest pain Pickup at [id number] New pantoprazole (Protonix 40 mg oral enteric coated tablet) 1 tab(s) by mouth As Directed as needed for abdominal discomfort Pickup at [facility][id number] Changed metoprolol (metoprolol succinate 25 mg oral [...] Once a day Pharmacy Information [id number]: [address], [place] [id number] [phone] What How Much When Comments Stop Taking [...] may report side effects to FDA at 9-015-PXG-7163. What other drugs will affect famotidine? Famotidine oral can make it harder for your body to absorb other medicines you take by mouth. Tell your doctor if you are taking: cefditoren; dasatinib; delavirdine; fosamprenavir; or tizanidine (if you are taking famotidine liquid). This list is not complete. Other drugs may affect famotidine, including prescription and guyp-gdx-uauscfm medicines, vitamins, and herbal products. Not all [...] to ensure that the information provided by [employer]. [employer]') is accurate, up-to-date, and complete, but no guarantee is made to that effect. Drug information contained herein may be time sensitive. [employer] information has been compiled for use by healthcare practitioners and consumers in the [place] and therefore [employer] does not warrant that uses outside of the [place] are appropriate, unless specifically indicated otherwise. [employer] drug information does not endorse drugs, diagnose patients or recommend therapy. [employer] drug information is an informational resource designed [...] effective or appropriate for any given patient. [employer] does not assume any responsibility for any aspect of healthcare administered with the aid of information [employer] provides. The information contained herein is not intended to cover all possible uses, directions, precautions, warnings, drug interactions, allergic reactions, or adverse effects. If you have questions about the drugs you are taking, check with your doctor, nurse or pharmacist. Copyright 7523-4274 [employer]. Version: .. Revision Date: 03/03/2023. pantoprazole (oral/injection) [...] may report side effects to FDA at 6-937-VOG-0460. What other drugs will affect pantoprazole? Tell your doctor about all your other medicines, especially: digoxin; methotrexate; or a diuretic or 'water pill'. This list is not complete. Other drugs may affect pantoprazole, including prescription and tztt-zpe-cmnbtqv medicines, vitamins, and herbal products. Not all [...] to ensure that the information provided by [employer]') is accurate, up-to-date, and complete, but no guarantee is made to that effect. Drug information contained herein may be time sensitive. [employer] information has been compiled for use by healthcare practitioners and consumers in the [place] and therefore [employer] does not warrant that uses outside of the [place] are appropriate, unless specifically indicated otherwise. [employer] drug information does not endorse drugs, diagnose patients or recommend therapy. [employer] drug information is an informational resource designed [...] effective or appropriate for any given patient. [employer] does not assume any responsibility for any aspect of healthcare administered with the aid of information [facility] provides. The information contained herein is not intended to cover all possible uses, directions, precautions, warnings, drug interactions, allergic reactions, or adverse effects. If you have questions about the drugs you are taking, check with your doctor, nurse or pharmacist. Copyright 6233-1076 [facility]. Version: 22.01. Revision Date: 07/23/2023. nitroglycerin (oral/sublingual) [...] 3 months with up to 5 sprays. [place] one or two sprays on or under [...] may report side effects to FDA at 2-844-HQO-5398. What other drugs will affect nitroglycerin? Tell your doctor about all your other medicines, especially: heart or blood pressure medication; or migraine headache medicine such as dihydroergotamine, ergotamine, ergonovine, methylergonovine. This list is not complete. Other drugs may affect nitroglycerin, including prescription and rhlc-tad-mjhriql medicines, vitamins, and herbal products. Not all [...] to ensure that the information provided by [employer]') is accurate, up-to-date, and complete, but no guarantee is made to that effect. Drug information contained herein may be time sensitive. [employer] information has been compiled for use by healthcare practitioners and consumers in the [place] and therefore [employer] does not warrant that uses outside of the [place] are appropriate, unless specifically indicated otherwise. [employer] drug information does not endorse drugs, diagnose patients or recommend therapy. [employer] drug information is an informational resource designed [...] effective or appropriate for any given patient. [employer] does not assume any responsibility for any aspect of healthcare administered with the aid of information [employer] provides. The information contained herein is not intended to cover all possible uses, directions, precautions, warnings, drug interactions, allergic reactions, or adverse effects. If you have questions about the drugs you are taking, check with your doctor, nurse or pharmacist. Copyright 0580-2971 [employer]. Version: 16.02. Revision Date: 04/03/2023. Education Materials [...] Document Reviewed: 07/29/2014 ExitCare Patient Information 2015 Open [employer]. This information is not intended to replace advice given to you by your health care provider. Make sure you discuss any questions you have with your health care provider. Additional Information VACCINATE! IT SAVES LIVES! Members of the community who have not yet received the COVID-19 vaccine and would like to receive it can visit one of [facility] vaccine clinics. There are many vaccine clinic locations within the State. For locations and available times, please visit https://gettheshot.coronavirus.[place].gov/. It is important to note that some COVID mobile vaccine clinics are held outdoors and may be canceled in rainy or stormy conditions. To learn more about pediatric vaccinations (ages 5-11), we invite you to visit the [facility] webpage. https://www.Interconnect Media Network Systemss.org/p ages/1732-Vkjdf-Jcohfhnkdyh-Freq wnzkpg-Fqcui-Gvwyjtbkf.html To learn more about the COVID-19 vaccine, we invite you to visit the CDC website for a list of frequently asked questions.https://www.cdc.gov/co ronavirus/2019-ncov/vaccines/faq .html [facility]gen Patient Portal Access Instructions: Stay connected with your healthcare team and access your personal medical information anytime with the [employer]gen Patient Portal. Please follow the directions below to create your lensgen account: 1.Access the email account you provided upon registration to the hospital/physician office.2.Look for an invitation email from [facility].3.Open the email and access the invitation link: Accept Invitation to [employer].4.Fill in the required roca to create your account. To access your account, visit [employer]/OM Latamhart. Click the blue button labeled Access Patient [...] you will allow to register on the [employer] Patient Portal for access to your information. You can also access the [employer] Patient Portal on the [facility] [employer] rafael. Simply click on Patient Portal and then log into your account. If you would like to receive a full copy of your medical records, please contact the [facility] Medical Records Department by calling [phone], Friday through Friday between 8 a.m. and [...] Call your local pharmacy or go to [email or web address].PowerWise [email or web address] to find one close to you.3.Make use of household items: Use cat litter or old coffee grounds to dispose medications if other options are not available. Mix your drugs with these household products, seal them in an airtight container and throw it into the garbage. Call [facility]: [phone] to be sure your drugs can be [...] aware that I should contact my doctor. 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 He denied particular chest pain or stabbing or pressure-like sensation. After having the chest pain patient took nitro which may to cover the pain from the patient. After that patient thought it may be something wrong with his heart so presented to [facility]. On presentation to [facility] he was hemodynamically stable with troponin of 35. He was given aspirin and nitro and pain was relieved and transferred to [facility]. Patient was admitted to cardiac inpatient and [...] of medication, or adverse reaction, call your tool dresser immediately. 3. Avoid heavy lifting beyond 5lbs [...] reach out to our [facility] office at [phone] for general queries and [phone] for medication refills. Medications New Prescription famotidine [...] 5 to 7 days Where:[address] [place] [address]- Additional Information: Please call the office to schedule a hospital follow-up appointment. Follow Up with Prescription Assistance Additional Information: Prescription assistance has been arranged for you and is available for non-narcotic medications ordered by your doctor. To access, bring your prescriptions to the [facility] located in the [place] on the main floor of the hospital . Pharmacy hours are: Friday through Friday: 6 a.m. to 5 p.m. Friday: 8 a.m. to 2 p.m. Friday: Closed Follow Up with CHARLIE BECERRA When:02/18/2024 09:15 AM EDT Where:[address] [facility] [place] [address]- Follow Up Appointments No qualifying data available. [...] TREVA CULVER MD on 02/09/2024 05:30 PM [facility] 02-09-2024 Note Exam Date Time Procedure Performing Provider Status 02/09/24 12:13 PM Cardiac Catheterization -CV Auth (Verified) [facility] 06-30-2024 Cardiology Progress note Date of Service [...] angioplasty [around 2021], GERD, former tobacco use [01-pbtn-lgdo, quit around 2001] 63-year-old male with PMH [...] please follow for addendum. Digitally Signed by INDERJIT WEI MD on 02/08/2024 02:55 PM Digitally Signed by ANTONINA MALHOTRA MD [facility] CenterNlxyotmz08-03-5997 History and physical note Date of Service 02/07/2024 History of Present Illness 63-year-old male with PMH of CAD s/p PCI to RCA [Synergy XD stent on 01/2024; 70% stenosisto mid LAD], s/p AVR, LVH, right carotid stenosis s/p endarterectomy [08/2023], PAD s/p angioplasty [around 2021], GERD, former tobacco use [69-vpbs-whuq, quit around 2001] transferred from [facility] with complaint of chest tightness today. He [...] wrong with his heart so presented to [facility]. On presentation to [facility] he was hemodynamically stable with troponin of 35. He was given aspirin and nitro and pain was relieved and transferred to [facility]. 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 Domestic Concerns: None. 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 [place] [address]. All rights reserved. This information is not intended as a substitute for professional medical care. Always follow yourhealthcare professional's instructions. Follow Up Care 02/07/2024 18:55:17 With:Go to emergency room if symptoms worsen Address:Unknown When:2-4 days With:ELIAS GALVAN DO Address: [address] [place] [address] [place] [phone] When:2-4 days [facility] 06-29-2024 Note ORIGINAL EXAMINATION: ONE XRAY [...] Date: 02/07/2024 8:25:08 PM Ordering Provider[facility] NoteSinus rhythm Left ventricular hypertrophy Borderline T abnormalities, inferior leads Electronic Signature: MICHELLE SEN DO 02/07/2024 19:06:[address] [place] [address] 06-29-2024 Evaluation + Plan noteExtracted from: Title:History and Physical Author:RUPERTO XIAO MD Date:02/07/24 Chest tightness, anginal-like symptoms CAD s/p recent PCI to RCA [01/2024] PMH of AVR, right carotid stenosis s/p endarterectomy [08/2023], PAD s/p angioplasty [around 2021], GERD, former tobacco use [55-abbc-zhwx, quit around 2001] 63-year-old male with PMH [...] Appointment Date:02/18/2024 09:15:00 AM Scheduled Provider:CHARLIE BECERRA Location:[facility] Appointment Type:CV OV Appointment Date:06/30/2024 09:00:00 AM Scheduled Provider:CHARLIE BECERRA Location:[facility] Appointment Type:CV OV Future Scheduled Tests Laboratory* Lipid Profile 06/30/23 [facility] 06-03-2024 Summary of episode note Discharge Instructions Thank you for allowing [facility] to assist you with your healthcare needs. The following is importantdischarge information regarding your hospital visit. Your Care Team ELIAS GALVAN DO What to do next Scheduled Follow-Up Appointments Appointment Type When With Where Contact Information StatusPC OV 02/11/2024 08:00 AM EDT ELIAS GALVAN DO [facility] [phone] Confirmed CV OV 02/18/2024 09:15 AM EDT CHARLIE BECERRA [facility] Confirmed CV OV 06/30/2024 09:00 AM EST CHARLIE BECERRA APRN-ANDREA [facility] Confirmed Follow Up Appointments Follow Up with ELIAS GALVAN When:In 0 days Where:[address] [place] [phone] Business (1) Follow Up with CHARLIE BECERRA When:02/18/2024 09:15 AM EDT Where:[address] [facility] [place] [address]- [phone] Business (1) The Following Activity and Diet [...] Once a day Refills: 11 up at [facility] #26268 Changed aspirin (aspirin 81 mg oral delayed release tablet) 1 tab(s) by mouth Every day Pickup at [facility] #94431 Unchanged atorvastatin (atorvastatin 40 mg oral tablet) 1 tab(s) by mouth Once a day Unchanged metoprolol (metoprolol succinate 25 mg oral TABLET extended release) 1 tab(s) by mouth Once a day Do not crush or chew (controlled release) Pharmacy Information [facility] #[id number]: [address], [place] [phone] What How Much When Comments Stop Taking [...] may report side effects to FDA at 0-819-EVS-2691. What other drugs will affect clopidogrel? Sometimes it is not safe to use certain medications at the same time. Some drugs can affect your blood levels of other drugs you take, which may increase side effects or make the medications less effective. Tell your doctor about all your other medicines, especially: a stomach acid bottom crane operator such as omeprazole, Nexium, or Prilosec; an antidepressant such as citalopram, fluoxetine, sertraline, Cymbalta, Effexor, Lexapro, Pristiq, or Prozac; rifampin; a blood thinner--warfarin, Coumadin, Jantoven; or NSAIDs (nonsteroidal anti-inflammatory drugs)--aspirin, ibuprofen (Advil, Motrin), naproxen (Aleve), celecoxib, diclofenac, indomethacin, meloxicam, and others. This list is not complete. Other drugs may affect clopidogrel, including prescription and upii-vuk-kridhee medicines, vitamins, and herbal products. Not all [...] to ensure that the information provided by [employer]. ('Multum') is accurate, up-to-date, and complete, but no guarantee is made to that effect. Drug information contained herein may be time sensitive. [employer] information has been compiled for use by healthcare practitioners and consumers in the [place] and therefore [employer] does not warrant that uses outside of the [place] are appropriate, unless specifically indicated otherwise. [employer]'s drug information does not endorse drugs, diagnose patients or recommend therapy. Street[employer]parks drug information isan informational resource designed to [...] effective or appropriate for any given patient. [employer] does not assume any responsibility for any aspect of healthcare administered with the aid of information Touchot[employer] provides. The information contained herein is not intended to cover all possible uses, directions, precautions, warnings, drug interactions, allergic reactions, or adverse effects. If you have questions about the drugs you are taking, check with your doctor, nurse or pharmacist. Copyright 7454-2799 [employer]. Version: 18.01. Revision Date: 11/08/2020. Education Materials [...] Document Reviewed: 07/29/2014 ExitCare Patient Information 2015 Open Garden. This information is not intended to replace [...] until you are awake and alert. Take svzk-ake-otodcgw and prescription medicines only as told by [...] 05/18/2014 Document Revised: 07/10/2018 Document Reviewed: 11/16/2016 ElseCustomerAdvocacy.com Patient Education 2020 [employer] Additional Information VACCINATE! IT SAVES LIVES! Members of the community who have not yet received the COVID-19 vaccine and would like to receive it can visit one of [facility] vaccine clinics. There are many vaccine clinic locations within the [facility]. For locations and available times, please visit https://gettheshot.coronavirus.[place].gov/. It is important to note that some COVID mobile vaccine clinics are held outdoors and may be canceled in rainy or stormy conditions. To learn more about pediatric vaccinations (ages 5-11), we invite you to visit the [facility] webpage. https://www.akThe Association of Bar & Lounge Establishmentss.org/pages/0263-Yawgf-Tfpedolxuyq-Kvvljvqtar-Rzjjf-Iam stions.htmlTo learn more about the COVID-19 vaccine, we invite you to visit the CDC website for a list of frequently asked questions.https://www.cdc.gov/coronavirus/2019-ncov/vaccines/faq.html [facility]gen Patient Portal Access Instructions: Stay connected with your healthcare team and access your personal medical information anytime with the [employer]gen Patient Portal. Please follow the directions below to create your lensgen account: 1.Access the email account you provided upon registration to the hospital/physician office.2.Look for an invitation email from [facility].3.Open the email and access the invitation link: AcceptInvitation to [employer]gen.4.Fill in the required roca to create your account. To access your account, visit [employer]St[employer]. Click the blue button labeled Access Patient [...] who you will allowto register on the [facility] Patient Portal for access to your information. You can also access the [facility] Patient Portal on the [facility] rafael. Simply click on Patient Portal and then log into your account. If you would like to receive a full copy of your medical records, please contact the [facility] Medical Records Department by calling [phone], Friday through Friday between 8 a.m. and [...] Call your local pharmacy or go to http://[place].[employer]Wise [employer]/[email or web address] to find one close to you.3.Make use of household items: Use cat litter or old coffee grounds to dispose medications if other options arenot available. Mix your drugs with these household products, seal them in an airtight container andthrow it into the garbage. Call [facility]: [phone] to be sure your drugs can be [...] aware that I should contact my doctor. 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 Signature: Date/Time: Relationship to Patient: Witness Name/Signature: Date/Time: [facility] [id number] Hospital Discharge instructions Patient Education 01/12/2024 14:20:29 [...] Document Reviewed: 07/29/2014 ExitCare Patient Information 2015 [employer] Garden. This information is not intended to replace [...] until you are awake and alert. Take tmec-nsj-kbkkxyb and prescription medicines only as told by [...] 05/18/2014 Document Revised: 07/10/2018 Document Reviewed: 11/16/2016 [employer] Patient Education 2020 [employer]. Follow Up Care 01/06/2024 10:53:52 With:CHARLIE BECERRA Address: [address] [place] [address] [address] [facility] [place] [address] [phone] Business (1) When:02/18/2024 09:15:00 With:ELIAS GALVAN Address: [address] [facility] [place] [phone] Business (1) When: Unknown [facility] 06-03-2024 Discharge summary Hospital Course Patient presented for 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 [...] JORDAN ENCISO MD on 01/12/2024 11:26 AM [facility] CenterVgmpmags27-00-2914 Discharge summary Hospital Course Patient presented for 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 [...] JORDAN ENCISO MD on 01/12/2024 11:26 AM [facility] [id number] Note* Exam Date Time Procedure Performing Provider Status 01/08/24 2:45 PM Echocardiogram, Adult - CV Auth (Verified) [facility] 01-19-2024 Hospital Discharge instructions Patient Education [...] and water are not available, use hand agricultural crop farm manager. ?Change your dressing as told by your [...] antibiotic even if your condition improves. Take zwtv-ifo-rusytdc and prescription medicines only as told by [...] 02/14/2006 Document Revised: 07/30/2019 Document Reviewed: 02/12/2017 [employer] Patient Education 2020 [employer]. 08/29/2023 11:58:36 Carotid Endarterectomy, Care After Carotid [...] Follow these instructions at home: Medicines Take yjfb-xmk-gvcddtd and prescription medicines only as told by [...] and water are not available, use hand agricultural crop farm manager. ?Change your dressing as told by your [...] to take care of your incision. Take swwn-nwt-upvbhnb and prescription medicines only as told by [...] 02/14/2006 Document Revised: 09/06/2019 Document Reviewed: 04/06/2019 [employer] Patient Education 2020 [employer] 08/29/2023 11:58:34 Carotid Endarterectomy Carotid Endarterectomy [...] including vitamins, herbs, eye drops, creams, and fauu-pil-anxtrmi medicines. Any problems you or family members [...] provider tells you to take them. ?Taking cabq-udv-qkvsant medicines, vitamins, herbs, and supplements. General instructions [...] 03/30/2014 Document Revised: 04/06/2019 Document Reviewed: 04/06/2019 [employer] Patient Education 2020 [employer]. 08/29/2023 11:58:21 Carotid Artery Disease Carotid Artery [...] for stress management tips. General instructions Take tgdp-jdr-nelanml and prescription medicines only as told by [...] 10/19/2012 Document Revised: 07/10/2018 Document Reviewed: 09/01/2017 [employer] Patient Education 2020 [employer]. Follow Up Care 07/01/2023 15:33:57 With:Prescription Assistance Address:Unknown When: Unknown Comments:Prescription assistance has been arranged for you and is available for non-narcotic medications ordered by your doctor. To access, bring your prescriptions to the [facility] [place] on the main floor of the hospital .Pharmacy hours are: Friday-Friday 6a-630p, Friday 8a-430p, Friday-closed. With:ELIAS GALVAN DO Address: [address] [place] [address] [phone] When: Unknown Comments:PLEASE CALL THIS OFFICE TO SCHEDULE A HOSPITAL FOLLOW UP APPOINTMENT. With:CHARLIE BECERRA APRN-CARBONATING STONE CLEANER Address: [address] [place] [address] [address] [place] [address]- [phone] When:10/29/2023 09:00:00 [facility] 01-19-2024 Note Discharge Instructions Thank you for allowing [facility] to assist you with your healthcare needs. The following is importantdischarge information regarding your hospital visit. Your Care Team ELIAS GALVAN DO What to do next Scheduled Follow-Up Appointments Appointment Type When With Where Contact InformationCV OV 10/29/2023 09:00 AM EDT CHARLIE BECERRA [facility] PC OV 02/04/2024 08:00 AM EDT ELIAS GALVAN DO [facility] CV OV 06/30/2024 09:00 AM EST CHARLIE BECERRA [facility] Follow Up Appointments Follow Up with CHARLIE BECERRA When 10/29/2023 09:00 AM EDT Where[facility] [address] [facility] [facility] [place], [place] [address]- [phone] Follow Up with Prescription Assistance When Why: Prescription assistance has been arranged for you and is available for non- narcotic medications ordered by your doctor. To access, bring your prescriptions to the [facility] pharmacy located in the [facility] on the main floor of the hospital . Pharmacy hours are: Friday-Friday 6a-630p, Friday 8a-430p, Friday-. Follow Up with ELIAS GALVAN DO When Why: PLEASE CALL THIS OFFICE TO SCHEDULE A HOSPITAL FOLLOW UP APPOINTMENT. Where: [address] [facility] [place] [address]- [phone] The Following Activity and Diet Have Been [...] soap and water arenot available, use hand agricultural crop farm manager. ? Change your dressing as told by [...] antibiotic even if your condition improves. Take ovfc-tpw-qkvpvqz and prescription medicines only as told by [...] 02/14/2006 Document Revised: 07/30/2019 Document Reviewed: 02/12/2017 [employer] Patient Education 2020 [employer]. Carotid Endarterectomy, Care After This sheet [...] Follow these instructions at home: Medicines Take byoi-zex-mhjosko and prescription medicines only as told by [...] and water are not available, use hand agricultural crop farm manager. ? Change your dressing as told by [...] to take care of your incision. Take tara-nhi-tkmwcop and prescription medicines only as told by [...] 02/14/2006 Document Revised: 09/06/2019 Document Reviewed: 04/06/2019 [employer] Patient Education 2020 [employer]. Carotid Endarterectomy A carotid endarterectomy is [...] including vitamins, herbs, eye drops, creams, and tcos-pqr-dayrlwa medicines. Any problems you or family members [...] tells you to take them. ? Taking bdae-uma-legjiet medicines, vitamins, herbs, and supplements. General instructions [...] 03/30/2014 Document Revised: 04/06/2019 Document Reviewed: 04/06/2019 [employer] Patient Education 2020 [employer]. Carotid Artery Disease The carotid arteries [...] for stress management tips. General instructions Take ltpl-ilu-ycymgje and prescription medicines only as told by [...] 10/19/2012 Document Revised: 07/10/2018 Document Reviewed: 09/01/2017 [employer] Patient Education 2020 [employer]. Additional Information VACCINATE! IT SAVES LIVES! Members of the community who have not yet received the COVID-19 vaccine and would like to receive it can visit one of [facility] vaccine clinics. There are many vaccine clinic locations within the [facility]. For locations and available times, please visit https://gettheshot.coronavirus.[place].gov/. It is important to note that some COVID mobile vaccine clinics are held outdoors and may be canceled in rainy or stormy conditions. To learn more about pediatric vaccinations (ages 5-11), we invite you to visit the [facility] webpage. https://www.[facility].org/pages/4587-Mlxph-Lbupehvayjw-Ppdilaowdf-Eixbs-Ntm stions.htmlTo learn more about the COVID-19 vaccine, we invite you to visit the CDC website for a list of frequently asked questions.https://www.cdc.gov/coronavirus/2019-ncov/vaccines/faq.html [employer] Patient Portal Access Instructions: Stay connected with your healthcare team and access your personal medical information anytime with the [employer] Patient Portal. Please follow the directions below to create your lensgen account: 1.Access the email account you provided upon registration to the hospital/physician office.2.Look for an invitation email from [facility].3.Open the email and access the invitation link: AcceptInvitation to [facility].4.Fill in the required roca to create your account. To access your account, visit [email or web address]. Click the blue button labeled Access Patient [...] who you will allowto register on the [facility] Patient Portal for access to your information. You can also access the [facility] Patient Portal on the [facility] rafael. Simply click on Patient Portal and then log into your account. If you would like to receive a full copy of your medical records, please contact the [facility] Medical Records Department by calling [phone], Friday through Friday between 8 a.m. and [...] Call your local pharmacy or go to [email or web address].[email or web address] to find one close to you.3.Make use of household items: Use cat litter or old coffee grounds to dispose medications if other options arenot available. Mix your drugs with these household products, seal them in an airtight container andthrow it into the garbage. Call [facility]: [phone] to be sure your drugs can be [...] aware that I should contact my doctor. 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 Signature: Date/Time: Relationship to Patient: Witness Name/Signature: Date/Time: [id number] Anesthesiology Progress note Patient: JUNI GAUTHIER Age: [...] JAKE CORMIER MD on 08/28/2023 10:25 AM [facility] [id number] Anesthesiology Consult note Patient: JUNI GAUTHIER Age: [...] list: Medical Cervical spondylosis / SNOMED CT 4665578835 / Confirmed COVID-19 virus infection / SNOMED CT 3493825716 / Confirmed Aortic root enlargement / SNOMED CT 2506229872 / Confirmed Heart valve replaced / SNOMED CT 514188818 / Confirmed Arthrodesis status / SNOMED CT 233040829 / Confirmed S/P AVR / SNOMED CT 8620445798 / Confirmed History of COVID-19 / SNOMED CT 9969209430 / Confirmed LVH (left ventricular hypertrophy) / SNOMED CT 03143548 / Confirmed MVP (mitral valve prolapse) / SNOMED CT 2978759025 / Confirmed Cervical spine pain / SNOMED CT 400940016 / Confirmed Right knee pain / SNOMED CT 9920608264 / Confirmed Peripheral neuropathy / SNOMED CT 687744917 / Confirmed Medial collateral ligament sprain of knee / SNOMED CT 7660124801 / Confirmed Resolved: Brachial radiculitis / SNOMED CT 20937758 Resolved: Cervical spinal stenosis / SNOMED CT 584796909 Canceled: Pre-op exam / SNOMED CT 834248039, Active Problems (23) Acid reflux Aortic root [...] Histories Past Medical History: Resolved Brachial radiculitis (15512516): Resolved. Comments: 07/24/2022 EST 14:18 EST - SIMBA Almaraz right Cervical spinal stenosis (116263343): Resolved. Family History: Cancer Father Heart disease Mother CABG - Coronary artery bypass graft Father Procedure history: Cervical spinal fusion (062308200) on 08/07/2022 at 61 Years. AVR - Aortic valve replacement (2156548068) in 2007 at 47 Years. Vasectomy (91973474). CHRIS procedure (746964555). Colonoscopy (340835606). Spinal cord operation (640034640). Cardiac catheterization (84519428). 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 Assessment and Plan [employer] Society of Anesthesiologists (ASA) physical status classification: [...] JAKE CORMIER MD on 08/28/2023 07:37 AM [facility] [id number] Note ORIGINAL EXAMINATION: CARDIAC AMYLOIDOSIS SCAN11/04/2022 2:32 [...] 11/04/2022 4:30:32 PM Ordering Provider: CHARLIE BECERRA [facility] [id number] Note ORIGINAL EXAMINATION: CARDIAC AMYLOIDOSIS SCAN11/04/2022 2:32 [...] 11/04/2022 4:30:32 PM Ordering Provider: CHARLIE Johnson [id number] Summary of episode note Discharge Instructions Thank you for allowing [facility] to assist you with your healthcare needs. The following is importantdischarge information regarding your hospital visit. Your Care Team ELIAS GALVAN DO What to do next Scheduled Follow-Up Appointments Appointment Type When With Where Contact InformationCV OV 10/23/2022 09:00 AM CHARLIE CASTILLO APRN-ANDREA [facility] OV 01/29/2023 08:00 AM [facility]ointments Follow Up with STELLA GARCÍA MD, [facility], Surgery, Vascular Surgeons When Why: Follow-up as scheduled Where: [facility] [address] [place] [address] The Following Activity and Diet [...] until you are awake and alert. Take cyqb-rbl-ngsvsuv and prescription medicines only as told by [...] 05/18/2014 Document Revised: 07/10/2018 Document Reviewed: 11/16/2016 [employer] Patient Education 2020 [employer] Additional Information VACCINATE! IT SAVES LIVES! Members of the community who have not yet received the COVID-19 vaccine and would like to receive it can visit one of [facility] vaccine clinics. There are many vaccine clinic locations within the [facility]. For locations and available times, please visit [email or web address].[place].gov/. It is important to note that some COVID mobile vaccine clinics are held outdoors and may be canceled in rainy or stormy conditions. To learn more about pediatric vaccinations (ages 5-11), we invite you to visit the [facility] webpage. https://www.[facility].org/pages/9215-Ybzgz-Jtbbapkwshd-Geixkuipbb-Ugibl-Ykj stions.htmlTo learn more about the COVID-19 vaccine, we invite you to visit the CDC website for a list of frequently asked questions. https://www.cdc.gov/coronavirus/2019-ncov/vaccines/faq.html [facility] Patient Portal Access Instructions: Stay connected with your healthcare team and access your personal medical information anytime with the [facility] Patient Portal.If you would like a full copy of your medical records, please contact the [facility] Medical Records Department, Friday through Friday between 8a.m. and 4:30p.m. Please follow the directions below to access the portal: 1.Access the email account you provided upon registration to the hospital.2.Look for an invitation email from [facility].3.Open the email and access the invitation link: Accept Invitation to [employer]4.Fill in the required roca to create your [...] you will allow to register on the [facility] Patient Portal for access to your information. You can also access the [employer] Patient Portal on the [employer]. Simply click on Health Records under [employer] and then click on the [facility] logo. [...] Call your local pharmacy or go to [email or web address]://[email or web address].[employer]/[email or web address] to find one close to you.3.Make use of household items: Use cat litter or old coffee grounds to dispose medications if other options arenot available. Mix your drugs with these household products, seal them in an airtight container andthrow it into the garbage. Call [facility]: [phone] to be sure your drugs can be [...] aware that I should contact my doctor. 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 Signature: Date/Time: Relationship to Patient: Witness Name/Signature: Date/Time: [facility] CenterXluqxvpf79-57-4890 Hospital Discharge instructions Patient Education 10/10/2022 14:18:40 [...] until you are awake and alert. Take czcm-aqi-nwxkmok and prescription medicines only as told by [...] 05/18/2014 Document Revised: 07/10/2018 Document Reviewed: 11/16/2016 [employer] Patient Education 2020 [employer]. Follow Up Care 09/24/2022 13:55:31 With:STELLA GARCÍA MD, [facility], Surgery, Vascular Surgeons Address: [facility] [address] [place] [id number] When: Unknown Comments:Follow-up as scheduled [facility] 03-02-2023 Note ORIGINAL Images acquired, not reported on this accession number. [facility] [id number] Note ORIGINAL Images acquired, not reported on this accession number.[facility] 08-07-2022 Hospital Discharge instructions Patient Education 08/07/2022 14:11:30 1-[facility] Discharge Instructions Template (05/2018)(CUSTOM) [place] SAME DAY SURGERY DISCHARGE INSTRUCTIONS PLEASE FOLLOW [...] us better serve our patients. Form: 1522 97484) R: 11/1708/07/2022 14:10:07 Anterior Cervical Diskectomy and [...] and water are not available, use hand agricultural crop farm manager. ?Change your dressing as told by your [...] smell. Managing pain, stiffness, and swelling Take xrtv-rlq-gbohpgl and prescription medicines only as told by [...] to keep your urine pale yellow. ?Take nkmb-woj-rbifeyd or prescription medicines. ?Eat foods that are [...] 08/23/2016 Document Revised: 04/22/2019 Document Reviewed: 04/22/2019 [employer] Patient Education 2020 [employer]. Follow Up Care 07/02/2022 15:21:52 With:ARIEL MORA DO, Orthopedic, [facility]opa[facility] Surgeons Address: [address] [place] [phone] When: Unknown Comments:Follow-up as scheduled [facility] 12-28-2022 Summary of episode note Discharge Instructions Thank you for allowing [facility] to assist you with your healthcare needs. The following is importantdischarge information regarding your hospital visit. Your Care Team ELIAS GALVAN DO Your Diagnosis Cervical spondylosis with radiculopathy Degenerative cervical spinal stenosis What to do next Scheduled Follow-Up Appointments Appointment Type When With Where Contact InformationCV OV 10/23/2022 09:00 AM EDT CHARLIE BECERRA APRN-ANDREA [facility] OV 01/29/2023 08:00 AM [facility] Follow Up Appointments Follow Up with ARIEL MORA DO, Orthopedic, [facility] Orthopaedic Surgeons When Why: Follow-up as scheduled Where: [facility] [place] [address] [phone] The Following Activity and Diet Have Been [...] us better serve our patients. Form: 1522 (26841) R: 11/17 Anterior Cervical Diskectomy and Fusion, [...] and water are not available, use hand agricultural crop farm manager. ? Change your dressing as told by [...] smell. Managing pain, stiffness, and swelling Take ywhd-oke-yivyuyd and prescription medicines only as told by [...] keep your urine pale yellow. ? Take vaoz-was-nwpggqh or prescription medicines. ? Eat foods that [...] 08/23/2016 Document Revised: 04/22/2019 Document Reviewed: 04/22/2019 [employer] Patient Education 2020 [employer] Additional Information VACCINATE! IT SAVES LIVES! Members of the community who have not yet received the COVID-19 vaccine and would like to receive it can visit one of [facility] vaccine clinics. There are many vaccine clinic locations within the [facility]. For locations and available times, please visit https://[email or web address].[place].gov/. It is important to note that some COVID mobile vaccine clinics are held outdoors and may be canceled in rainy or stormy conditions. To learn more about pediatric vaccinations (ages 5-11), we invite you to visit the [facility] webpage. https://www.[facility].org/pages/6437-Dewbq-Gasfwmogrpq-Olfpabazyh-Xeolh-Olx stions.htmlTo learn more about the COVID-19 vaccine, we invite you to visit the [facility] website for a list of frequently asked questions. https://alec.org/assets/Rnzrqvaw-sbc-Fxfzgddc/uprnq-Pfakaid-Pnksnndfyz _Asked-Questions.pdf [facility] Patient Portal Access Instructions: Stay connected with your healthcare team and access your personal medical information anytime with the [employer] Patient Portal.If you would like a full copy of your medical records, please contact the [facility] Medical Records Department, Friday through Friday between 8a.m. and 4:30p.m. Please follow the directions below to access the portal: 1.Access the email account you provided upon registration to the [facility].2.Look for an invitation email from [facility].3.Open the email and access the invitation link: Accept Invitation to [employer]4.Fill in the required roca to create your account. Sign into www.[email or web address] with your username and password that you [...] you will allow to register on the [employer] Patient Portal for access to your information. You can also access the [employer] Patient Portal on the [employer]. Simply click on Health Records under [employer] and then click on the [employer] logo. HOW TO SAFELY DISPOSE OF PRESCRIPTION [...] Call your local pharmacy or go to [email or web address]://[email or web address].[employer]/0L1Bi7b to find one close to you.3.Make use of household items: Use cat litter or old coffee grounds to dispose medications if other options arenot available. Mix your drugs with these household products, seal them in an airtight container andthrow it into the garbage. Call [facility]: [phone] to be sure your drugs can be [...] aware that I should contact my doctor. 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 Signature: Date/Time: Relationship to Patient: Witness Name/Signature: Date/Time: [facility] [id number] Note ORIGINAL EXAMINATION: SPOT FLUOROSCOPIC IMAGES 08/07/2022 [...] Date: 08/07/2022 1:27:34 PM Ordering Provider: ARIEL [facility]12-28-2022 Anesthesiology Consult note Patient: JUNI GAUTHIER Age: [...] ADDIS BLAKE MD on 08/07/2022 12:59 PM [facility] [id number] Note ORIGINAL EXAMINATION: SPOT FLUOROSCOPIC IMAGES 08/07/2022 [...] Sign Date: 08/07/2022 1:27:34 PM Ordering Provider: [facility]12-28-2022 Anesthesiology Consult note Patient: JUNI GAUTHIER Age: [...] list: Medical Brachial radiculitis / SNOMED CT 86837084 / Confirmed Aortic root enlargement / SNOMED CT 1159886254 / Confirmed Heart valve replaced / SNOMED CT 026045854 / Confirmed S/P AVR / SNOMED CT 3833819249 / Confirmed MVP (mitral valve prolapse) / SNOMED CT 1514016960 / Confirmed Cervical spine pain / SNOMED CT 585243554 / Confirmed Pre-op exam / SNOMED CT 484638398 / Confirmed Cervical spinal stenosis / SNOMED CT 217943737 / Confirmed Medial collateral ligament sprain of knee / SNOMED CT 0952051232 / Confirmed, Active Problems (16) Acid reflux [...] Procedure history: AVR - Aortic valve replacement (8023234770) in 2008 at 47 Years. Cardiac catheter (5620456227). Vasectomy (93628822). CHRIS procedure (686815922). Colonoscopy (480543373). 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 Lives In Single level home Nutrition/Health 11/30/2020 Caffeine intake amount: 1 cup of coffee daily . Physical Examination Measurements from flowsheet : Measurements 08/07/2022 5:37 EST Height 177.8 cm Height in inches 70 inch(es) Admission Weight 103.4 kg Weight Lbs 227.5 lb Weight Method Actual [place] Body Weight 73.00 kg Type of Scale [...] records, Reviewed prior records. Assessment and Plan [place] Society of Anesthesiologists (ASA) physical status classification: [...] ADDIS BLAKE MD on 08/07/2022 09:12 AM [facility] [id number] Note ORIGINAL EXAMINATION: MRI OF THE CERVICAL [...] facet arthropathy, and uncovertebral arthropathy contribute to gdry-su-bnenixqh spinal canal stenosis. Mild right and moderate [...] Sign Date: 05/28/2022 2:24:57 PM Ordering Provider: [facility]10-18-2022 Note ORIGINAL EXAMINATION: MRI OF THE [...] facet arthropathy, and uncovertebral arthropathy contribute to hpas-cd-dlkubihw spinal canal stenosis. Mild right and moderate [...] Sign Date: 05/28/2022 2:24:57 PM Ordering Provider: [facility]09-12-2022 Note ORIGINAL EXAMINATION: MRI OF THE RIGHT [...] Sign Date: 04/22/2022 2:30:34 PM Ordering Provider: [facility]09-12-2022 Note ORIGINAL EXAMINATION: MRI OF THE [...] Jamar Bailey DO Preliminary Report By: Jamar aBiley DO Electronically signed By Jamar Bailey DO Dictated Date: 04/22/2022 2:18:05 PM Prelim Date: 04/22/2022 2:30:34 PM Sign Date: 04/22/2022 2:30:34 PM Ordering Provider: [facility]01-03-2022 NoteHNO ID: [id number] Author: Alba Gautam APRN.[employer] Service: ? Author Type: Nurse Practitioner Type: [...] screening or treatment of novel coronavirus infection (COVID-19).[facility] Future Appointments Appointment Date:05/15/2022 09:30:00 AM Scheduled Provider:ELIAS GALVAN DO Location:[facility] Appointment Type:PC OV Appointment Date:10/23/2022 09:00:00 AM Scheduled Provider:CHARLIE BECERRA Location:[facility] Appointment Type:[facility] Evaluation + Plan note Future Appointments Appointment Date:07/17/2022 10:30:00 AM Scheduled Provider:ELIAS GALVAN DO Location:[facility] Appointment Type:PC OV Appointment Date:10/23/2022 09:00:00 AM Scheduled Provider:CHARLIE BECERRA Location:[facility] Appointment Type:[facility] Evaluation + Plan note Future Appointments Appointment Date:10/23/2022 09:00:00 AM Scheduled Provider:CHARLIE BECERRA Location:[facility] Appointment Type:CV OV Appointment Date:01/29/2023 08:00:00 AM Scheduled Provider:ELIAS GALVAN DO Location:[facility] Appointment Type: OV [facility] Evaluation + Plan note Future Appointments Appointment Date:01/29/2023 08:00:00 AM Scheduled Provider:ELIAS GALVAN DO Location:[facility] Appointment Type:PC OV Appointment Date:10/29/2023 09:00:00 AM Scheduled Provider:CHARLIE BECERRA Location:[facility] Appointment Type:[facility] Evaluation + Plan note Future Appointments Appointment Date:01/29/2023 08:00:00 AM Scheduled Provider:ELIAS GALVAN DO Location:[facility] Appointment Type:PC OV Appointment Date:10/29/2023 09:00:00 AM Scheduled Provider:CHARLIE BECERRA Location:[facility] Appointment Type:CV OV Diagnostic Tests Pending * DEVON (urine) 11/04/22 * Protein Electrophoresis Urine 11/04/22 * [place]/Lambda, Free, Serum 11/04/22 * DEVON (serum) 11/04/22 * Free Light Chains, Quantitative, Urine 11/04/22 [facility] Evaluation + Plan note Future Appointments Appointment Date:05/29/2023 10:15:00 AM Scheduled Provider: Location:[facility] Appointment Type:CT Angiography Neck w/ Contrast Appointment Date:10/29/2023 09:00:00 AM Scheduled Provider:CHARLIE BECERRA Location:[facility] Appointment Type:CV OV Appointment Date:02/04/2024 08:00:00 AM Scheduled Provider:ELIAS GALVAN DO Location:[facility] Appointment Type:PC OV Future Scheduled Tests Radiology* CT Angiography Neck w/ Contrast 05/29/23 [facility] Evaluation + Plan note Future Appointments Appointment Date:10/29/2023 09:00:00 AM Scheduled Provider:CHARLIE BECERRA Location:[facility] Appointment Type:CV OV Appointment Date:02/04/2024 08:00:00 AM Scheduled Provider:ELIAS GALVAN DO Location:[facility] Appointment Type:PC OV [facility] Evaluation + Plan note Future Appointments Appointment Date:10/29/2023 09:00:00 AM Scheduled Provider:CHARLIE BECERRA Location:[facility] Appointment Type:CV OV Appointment Date:02/04/2024 08:00:00 AM Scheduled Provider:ELIAS GALVAN DO Location:[facility] Appointment Type:PC OV Appointment Date:06/30/2024 09:00:00 AM Scheduled Provider:CHARLEI BECERRA Location:[facility] Appointment Type:CV OV Future Scheduled Tests Laboratory* Lipid Profile 06/30/23 [facility] evaluation + Plan note Future Appointments Appointment Date:01/12/2024 10:00:00 AM Scheduled Provider: Location:[facility] Lab Appointment Type:CV Procedure - Heart Lab/Hybrid OR Appointment Date:02/11/2024 08:00:00 AM Scheduled Provider:ELIAS GALVAN DO Location:[facility] Appointment Type:PC OV Appointment Date:02/18/2024 09:15:00 AM Scheduled Provider:CHARLIE BECERRA Location:[facility] Appointment Type:CV OV Appointment Date:06/30/2024 09:00:00 AM Scheduled Provider:CHARLIE BECERRA Location:[facility] Appointment Type:CV OV Future Scheduled Tests Laboratory* Lipid Profile 06/30/23 [facility] Evaluation + Plan note Future Appointments Appointment Date:02/11/2024 08:00:00 AM Scheduled Provider:ELIAS GALVAN DO Location:[facility] Appointment Type:PC OV Appointment Date:02/18/2024 09:15:00 AM Scheduled Provider:CHARLIE BECERRA Location:[facility] Appointment Type:CV OV Appointment Date:06/30/2024 09:00:00 AM Scheduled Provider:CHARLIE BECERRA Location:[facility] Appointment Type:CV OV Future Scheduled Tests Laboratory* Lipid Profile 06/30/23 [facility] Evaluation + Plan note Future Appointments Appointment Date:10/26/2024 10:00:00 AM Scheduled Provider:CHARLIE BECERRA Location:[facility] Appointment Type:CV OV Appointment Date:02/16/2025 08:00:00 AM Scheduled Provider:MICHELLE MAYER Location:[facility] Appointment Type:PC OV [facility] Evaluation + Plan note Future Appointments Appointment Date:10/26/2024 10:00:00 AM Scheduled Provider:CHARLIE BECERRA Location:[facility] Appointment Type:CV OV Appointment Date:02/16/2025 08:00:00 AM Scheduled Provider:MICHELLE MAYER Location:[facility] Appointment Type:PC OV Diagnostic Tests Pending * PSA Total+% Free 09/10/24 [facility] Evaluation noteNo Assessments Information Available [facility] Work Phone: Evaluation noteNo assessment information available [facility] Work Phone: Hospital course Narrative No data available for this section [facility] Hospital Discharge instructions No data available for this section [facility] Procedure* Leelee Mariano N: PERFORM Event Display: Procedure Note Authored Date: [id number] [facility] Progress note No data available for this section [facility] Reason for referral (narrative)No reason for referral information [facility] Work Phone: Chief Complaint and Reason for [...] section and content) DATE CREATED AUTHOR 11/01/2021 [facility] DATE CREATED AUTHOR AUTHOR'S ORGANIZ ATION 07/14/2023 [facility] DATE CREATED AUTHOR AUTHOR'S ORGANIZ ATION 02/16/2024 [facility] ([place]) DATE CREATED AUTHOR AUTHOR'S ORGANIZ ATION 09/12/2024 [facility] Care Team (unrecognized sect ion and content) Care Team Personnel Name: ELIAS GALVAN DO Position: P4 Physician - Primary Care Med Service: Active Provider Member Role: Primary Care Physician Address: Address: [address] [place] [address]- Care Team Related Persons Name: DURGA GAUTHIER Address: Home [address] [place], [place] [id number] [place] Care Team Personnel Name: ELIAS GALVAN DO Position: P4 Physician - Primary Care Med Service: Active Provider Member Role: Primary Care Physician Address: Address: [address] [place] [address]- Care Team Related Persons Name: DURGA GAUTHIER Address: Home [address] [place], [place] [id number] [place] Care Team Personnel Name: ELIAS GALVAN DO Position: P4 Physician - Primary Care Member Role: Primary Care Physician Address: Address: [address] [place] [address]- Care Team Related Persons Name: DURGA GAUTHIER Address: Home [address] [place], [place] [id number] [place] Care Team Personnel Name: ELIAS GALVAN DO Position: P4 Physician - Primary Care Member Role: Primary Care Physician Address: Address: [address] [place], [place] [id number]- Care Team Related Persons Name: DURGA GAUTHIER Address: Home [address] [place], [place] [id number] [place] Care Team Personnel Name: ELIAS GALVAN DO Position: P4 Physician - Primary Care Member Role: Primary Care Physician Address: Address: [address] [place] [address]- Care Team Related Persons Name: DURGA GAUTHIER Address: Home [address] [place], [place] [id number] [place] Care Team Personnel Name: ELIAS GALVAN DO Position: P4 Physician - Primary Care Member Role: Primary Care Physician Address: Address: [address] [place] [id number] Care Team Related Persons Name: DURGA GAUTHIER Address: Home [address] [place], [place] [id number] Patient Care team informatio n (unrecognized section [...] BE BASED ON THE PRIMARY CLINICAL RECORDS. [employer] provides no warranty or guarantee of the accuracy or completeness of information in this document.
[2025-03-21 10:00] VITALS: BP 152/85; PULSE 69; RESP 16; O2SAT 98
[2025-03-21 11:00] VITALS: BP 117/70; PULSE 67; RESP 15; O2SAT 98
[2025-03-21 11:21] LABS: Troponin T High Sens 2 HR 22 ng/L (<=22)
[2025-03-21 11:54] VITALS: BP 138/74; PULSE 61; RESP 16; TEMP 36.9; O2SAT 99
== END 2025-03-21 11:55 | disposition home or self-care (01) ==
PROVIDERS: Emergency Provider Emergency Medicine; PCP Nurse Practitioner Family; Visit Provider Emergency Medicine
DX: R07.89 Other chest pain (principal); Z79.82 Long term (current) use of aspirin; Z79.02 Long term (current) use of antithrombotics/antiplatelets; I25.10 Atherosclerotic heart disease of native coronary artery without angina pectoris; Z87.891 Personal history of nicotine dependence; Z95.5 Presence of coronary angioplasty implant and graft; K21.9 Gastro-esophageal reflux disease without esophagitis; Z79.899 Other long term (current) drug therapy; E78.2 Mixed hyperlipidemia
CPT/HCPCS: 71046; 80048; 84484; 85025; 93005; 99284; A4216

== ENCOUNTER 2025-04-28 09:20 | Day surgery (SDC) | payer SELFPAY ==
--- NOTE | 2025-04-15 20:57 | PAT.ANESEVAL ---
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 When Was Last Pacemaker Check QUESTION #4 FULL TEXT: You/Your Family Experience fever (hyperthermia) with Anesthesia Last Oral Intake Last Oral intake: Last Oral Intake NPO since Meds taken in AM with sips of water? Meds patient instructed to take am of surgery PONV PONV - main entree cook and cashier: PONV - main entree cook and cashier Female No 04/14/25 13:10 HX of Motion Sickness No 04/14/25 13:10 HX of N/V After Surgery No 04/14/25 13:10 Non-Smoker Yes 04/14/25 13:10 Duration of Surgery greater Yes 04/14/25 13:10 than 60 minutes Number of Risk Factors 2 04/14/25 13:10 PONV Score Moderate Risk 04/14/25 13:10 Height & Weight Height & Weight: Anesthesia: Height & Weight Height 5 ft 10 in 03/21/25 08:23 Respiratory Assessment Respiratory Assessment - main entree cook and cashier: Respiratory Tract Infection Hx - main entree cook and cashier Hx Respiratory Tract Infection No 04/14/25 13:10 STOP Sleep Apnea STOP Sleep Apnea - main entree cook and cashier: STOP Sleep Apnea - main entree cook and cashier Hx Hypertension Yes: CONTROLLED ON MED 04/14/25 13:10 Hx Sleep Apnea No 04/14/25 13:10 CPAP BIPAP Do you snore loudly (louder Yes 04/14/25 13:10 than talking or can be heard Do you often feel tired/ No 04/14/25 13:10 fatigued/ sleepy during daytime? Has anyone observed you stop Yes 04/14/25 13:10 breathing during sleep? STOP Results Positive 04/14/25 13:10 QUESTION #5 FULL TEXT : Do you snore loudly (louder than talking or can be heard through closed doors)? Tobacco Use History Tobacco Use History - main entree cook and cashier: Tobacco Use History - main entree cook and cashier Tobacco Use Smoking Status Former smoker 04/14/25 13:10 Hx Tobacco Use No 04/14/25 13:10 Years Smoking Packs Smoked per Day Smoking Cessation Date was No - quit smoking greater 04/14/25 13:10 within the last 15 years than 15 years ago Hx Smoking Cessation Date Hx Smoking Cessation Counseling Hematologic Medial History Hematologic Hx - main entree cook and cashier: Hematologic Medical Hx - compliance nurse Hx of Blood Transfusion No 04/14/25 13:10 Hx of Transfusion in last 3 No 04/14/25 13:10 Months Date of Last Transfusion (if within last 3 months) Ever experience any problems No 04/14/25 13:10 with transfusion(s)? Specify any problems Hx of Preganancy in last 3 N/A 04/14/25 13:10 Months Nurse Filling Out Transfusion VCHRISTIN 04/14/25 13:10 & Questions: Date: 04/14/25 04/14/25 13:10 Time: 13:11 04/14/25 13:10 Patient unable to answer at this time (ie. confused, unrespo /Reproduction History /Reproductive History - main entree cook and cashier: /Reproductive Hx- main entree cook and cashier Hx Now No 04/14/25 13:10 Gestational Age (in weeks): EDC: Hx Hx Para Hx Section SAB No 04/14/25 13:10 [facility] Medical History (Updated 04/14/25 @ 14:51 by Светлана Chew) Wears glasses Alcohol use Excessive bleeding Back pain Gastric reflux Former smoker Shortness of breath on exertion History of echocardiogram History of stress test Hypertension Cardiology follow-up encounter Chest pain Umbilical hernia High cholesterol Heart murmur Arthritis Back problem Heart disease Home Medications ?Medication ?Instructions ?Recorded ?Last Taken ?Type aspirin 81 mg tablet,delayed 81 mg PO QDAY 03/21/25 03/20/25 History release atorvastatin 40 mg tablet 40 mg PO QDAY 03/21/25 03/20/25 History clopidogrel 75 mg tablet 75 mg PO QDAY 03/21/25 03/20/25 History evolocumab 140 mg/mL subcutaneous 140 mg subcut .COMPLEX 03/21/25 03/11/25 History pen injector (Rupinder Spencer) famotidine 40 mg tablet 40 mg PO QHS 03/21/25 03/20/25 History metoprolol succinate 25 mg 25 mg PO BID 03/21/25 03/20/25 History tablet,extended release 24 hr pantoprazole 40 mg tablet,delayed 40 mg PO DAILY abdominal pain 03/21/25 03/21/25 History release sildenafil 100 mg tablet 50 - 100 mg PO QDAY PRN sexual 03/21/25 Unknown History activity Allergy/AdvReac Type Severity Reaction Status Date / Time celecoxib (From Celebrex) Allergy UNKNOWN Verified 04/14/25 12:58 Penicillins Allergy Unknown Verified 04/14/25 12:58 Family History Father Heart disease Cancer esophageal Surgical History (Updated 04/14/25 @ 14:51 by Светлана Chew) History of cardiac catheterization Hx of surgical procedure S/P carotid endarterectomy S/P spinal surgery S/P aortic valve replacement S/P vasectomy History of heart artery stent Social History Smoking Status: Former smoker alcohol intake: current Audit: Pertinent Findings Pertinent Findings EKG Perinent findings: 03/21/2025. Normal sinus rhythm. LAD. LVH with repolarization abnormality. Stress test pertinent findings: July 12, 2022. No ischemia. No infarction. EF of 56%. Echo (EF%) pertinent findings: 01/08/2024. EF is 60 to 65%. Bioprosthetic aortic valve present. Mild regurgitation. RVSP is 20 mmHg. No aortic stenosis. Heart catheterization pertinent findings: 02/09/2024. Angioplasty and stent to the LAD. First diagonal has a proximal 60% lesion. First right posterolateral proximal lesion 70%. 01/12/2024. Angioplasty and stenting to the RCA. Consult pertinent findings: 10/26/2024. FISH CMP. 1. CAD?stable. No anginal symptoms. Continue aspirin atorvastatin, Plavix and metoprolol. Status post stent to the LAD and the RCA. 2. LVH-workup negative for amyloid. 3. PAD-status post angioplasty on the right leg. No claudication symptoms. 4. Aortic root enlargement-aortic root is 4.5 cm will continue to monitor. 5. Status post AVR-stable on most recent echo. Recommendation Anesthesia Recommendation Anesthesia recommendation: OPTIMIZED for anesthesia
[2025-04-28] VITALS (9 sets, daily range): BP systolic 120–161; BP diastolic 81–99; PULSE 63–80; RESP 16–20; TEMP 36.2–36.9; O2SAT 92–100; BMI 33.5
--- NOTE | 2025-04-28 09:41 | PCM.HP.BLA ---
History and Physical Date of Admission: 04/28/25 Intake Vital Signs 03/21/2508:16 Height 5 ft 10 in Weight: 235 lb BMI 33.7 BP 151/92 H Blood Pressure Location Rt brachial Position Sitting Respiration 16 Pulse Oximetry (%) 97 Oxygen Delivery Method room air Intake Visit Reasons: SELF PAY- UMBILICAL HERNIA Chief Complaint: umbilical hernia Lubrication Equipment Servicer Required: No Is patient in pain?: Yes (chest) Pain scale (1-10): 3 Allergies celecoxib (From CelebAmind) Allergy (Verified 03/21/25 08:24) UNKNOWN Penicillins Allergy (Verified 03/21/25 08:17) Unknown Medications ?Medication ?Instructions ?Recorded ?Confirmed ?Type aspirin 81 mg tablet,delayed 81 mg PO QDAY 03/21/25 History release atorvastatin 40 mg tablet 40 mg PO QDAY 03/21/25 History clopidogrel 75 mg tablet 75 mg PO QDAY 03/21/25 History evolocumab 140 mg/mL subcutaneous mg subcut 03/21/25 History pen injector (Rupinder Spencer) famotidine 40 mg tablet 40 mg PO QHS 03/21/25 History metoprolol succinate 25 mg 25 mg PO BID 03/21/25 History tablet,extended release 24 hr pantoprazole 40 mg tablet,delayed 40 mg PO PRN abdominal pain 03/21/25 History release sildenafil 100 mg tablet 50 - 100 mg PO QDAY 03/21/25 History Have you fallen in the past year?: No PFSH Medical History Umbilical hernia High cholesterol Heart murmur Arthritis Back problem Heart disease Surgical History S/P carotid endarterectomy S/P spinal surgery S/P aortic valve replacement S/P vasectomy History of heart artery stent Family History (Updated 03/21/25 @ 08:16 by Micki Alves) Father Heart disease Cancer esophageal Social History (Updated 03/21/25 @ 08:16 by Micki Alves) Smoking Status: Former smoker alcohol intake: current HPI HPI HPI: Patient is a 64-year-old male here with umbilical hernia. He says it is growing larger and he would like it taken care of. He denies nausea or vomiting or fevers or chills. ROS General General: No weight change, appetite, fatigue, colon cancer, breast cancer or weakness HEENT HEENT: No difficulty swallowing, eye injury, eye surgery, swollen glands or hoarseness Endo Endocrine: No thyroid disease, diabetes mellitus, thyroid cancer, Hair loss, heat intolerance or cold intolerance Skin Skin: No rash or changing moles Breast Breast: No left breast lump, right breast lump, nipple discharge, breast pain, abnormal mammogram, abnormal US or breast enlargement Musc Musculoskeletal: Yes back problems and arthritis; No rheumatoid arthritis, gout or joint pain Cardio Cardiovascular: Yes murmur, heart disease and heart stent; No pacemaker, atrial fibrillation, high blood pressure, heart attack, palpitations, shortness of breath with exertion or chest pain Psych Psychiatric: No depression, anxiety or hearing voices Resp Respiratory: Yes shortness of breath, No sleep apnea, No cough, No COPD, No asthma, No emphysema and No wheezing Gastro Gastrointestinal: No abdominal pain, No nausea or vomiting, No diarrhea, No constipation, No blood in stool, Yes acid reflux, No hemorrhoids, No ulcers, No gallbladder problem and No black,tarry stools Toro Hematologic: Yes blood thinners, No blood disorders, No bleeding, No anemia and No blood clots Neuro Neurologic: No system reviewed and no additional complaints, except as documented, No as per HPI, No abnormal gait, No abnormal hearing, No abnormal movements, No abnormal speech, No behavioral changes, No burning sensations, No confusion, No convulsions, No disequilibrium, No dizziness, No localized weakness, No frequent falls, No headache(s), No lack of coordination, No loss of vision, No memory loss, No numbness, No other visual disturbances, No radicular pain, No restless legs, No sensory deficit, No syncope, No tingling, No tremor(s), No weakness and No other Exam Const General: cooperative Orientation: alert and oriented x3 HENMT Head: normal to inspection Neck Neck: normal visual inspection and full ROM Chest Chest palpation & inspection: normal inspection of the chest Resp Effort & Inspection: normal respiratory effort Auscultation: clear to auscultation bilaterally Cardio Rate: regular rate Rhythm: regular rhythm GI Inspection: non-distended Palpation: soft and nontender Skin General: no rashes or lesions noted Neuro General: patient alert and patient oriented x3 Extrem General: full ROM Psych Appearance: grossly normal Mental Status: mental status grossly normal Assessment and Plan Assessment and Plan (1) Umbilical hernia: Status: Acute Plan: I discussed umbilical hernia repair with possible mesh. I discussed the risks including but not limited to bleeding, infection, injury to underlying organs such as the bowel. The patient understands the risks and is willing to proceed with surgery. He will hold his Plavix for 5 days prior to surgery. Jose Lora MD Pager: [facility] [address] [place] [address], [address] [place] [address] Office: I have examined the patient and the H&P has been reviewed. There are no clinical changes since date of exam.
[2025-04-28] MEDS: Lactated Ringers 1,000 ML 15 ML IV (09:45)
--- NOTE | 2025-04-28 09:52 | PCM.PRE.AN2 ---
ASA Classification* ASA Classification ASA Classification: 2 Assessment & Plan Anesthesia* Anesthesia Assessment Anesthesia Assessment: Discussed sedation and/or anesthesia options, risks, benefits, and alternatives with patient/parents/legal guardian/POA. Questions invited. The patient/parents/legal guardian/POA seems to understand and agrees to proceed with anesthesia plan. Reviewed the physical assessment, medical history, allergy history and patient home medications list prior to surgery/procedure/anesthetic and documented any changes. Performed airway and anesthesia risk assessments. Anesthesia Type Anesthesia Type: General History Source History Obtained from:: Patient and Chart Anesthesia Focused Assessment* Temperature: 98.5 F Pulse Rate: 73 Blood Pressure: 159/87 Respiratory Rate: 17 Pulse Ox: 100 Oxygen Delivery Method: Room Air Airway Assessment Mouth opens: >3 cm Mallampati Score: IV Teeth Condition: Intact Neck Range of motion (ROM): Limited ROM (Somewhat Decreased) Labs Anesthesia Preop lab: CBC WBC, (4.4-11.0) 7.0 K/mm3 03/21/25, 08: RBC, (4.6-6.2) 4.60 M/mm3 03/21/25, 08: Hgb, (13.0-16.5) 14.6 g/dL 03/21/25, 08: Hct, (40-54) 43.8 % 03/21/25, 08: Plt Count, (150-450) 170 K/mm3 03/21/25, 08:31 CHEMISTRY Potassium, (3.3-5.1) 3.7 mmol/L 03/21/25, 08: Sodium, (133-145) 141 mmol/L 03/21/25, 08: BUN, (4-19) 13 mg/dL 03/21/25, 08: Creatinine, (0.70-1.20) 0.96 mg/dL 03/21/25, 08: Glucose, (70-99) 123 mg/dL H 03/21/25, 08:31 COAG Pre-Assessment Diagnosis/Proposed Procedure Planned Operative Procedure(s): Hernia, Umbilical Repair w/ poss Mesh Anesthesia History 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 When Was Last Pacemaker Check QUESTION #4 FULL TEXT: You/Your Family Experience fever (hyperthermia) with Anesthesia Last Oral Intake Last Oral intake: Last Oral Intake NPO since 08:15 04/28/25 09:40 Meds taken in AM with sips of Yes 04/28/25 09:40 water? Meds patient instructed to metoprolol, pantoprazole 04/28/25 09:40 take am of surgery Any additional information?: Yes Meds taken in AM with sips of water?: Yes PONV PONV - stone sandblaster: PONV - stone sandblaster Female No 04/14/25 13:10 HX of Motion Sickness No 04/14/25 13:10 HX of N/V After Surgery No 04/14/25 13:10 Non-Smoker Yes 04/14/25 13:10 Duration of Surgery greater Yes 04/14/25 13:10 than 60 minutes Number of Risk Factors 2 04/14/25 13:10 PONV Score Moderate Risk 04/14/25 13:10 Height & Weight Height & Weight: Anesthesia: Height & Weight Height 5 ft 10 in 04/28/25 09:40 Weight: 106 kg 04/28/25 09:40 Body Mass Index (BMI) 33.5 04/28/25 09:40 Respiratory Assessment Respiratory Assessment - stone sandblaster: Respiratory Tract Infection Hx - stone sandblaster Hx Respiratory Tract Infection No 04/14/25 13:10 Any additional information?: Yes Hx Respiratory Tract Infection: Yes History of Anesthesia Respiratory Infection details: Patient has a chronic cough for the past couple weeks. STOP Sleep Apnea STOP Sleep Apnea - stone sandblaster: STOP Sleep Apnea - stone sandblaster Hx Hypertension Yes: CONTROLLED ON MED 04/14/25 13:10 Hx Sleep Apnea No 04/14/25 13:10 CPAP BIPAP Do you snore loudly (louder Yes 04/14/25 13:10 than talking or can be heard Do you often feel tired/ No 04/14/25 13:10 fatigued/ sleepy during daytime? Has anyone observed you stop Yes 04/14/25 13:10 breathing during sleep? STOP Results Positive 04/14/25 13:10 QUESTION #5 FULL TEXT : Do you snore loudly (louder than talking or can be heard through closed doors)? Tobacco Use History Tobacco Use History - stone sandblaster: Tobacco Use History - stone sandblaster Tobacco Use Smoking Status Former smoker 04/14/25 13:10 Hx Tobacco Use No 04/14/25 13:10 Years Smoking Packs Smoked per Day Smoking Cessation Date was No - quit smoking greater 04/14/25 13:10 within the last 15 years than 15 years ago Hx Smoking Cessation Date Hx Smoking Cessation Counseling Hematologic Medial History Hematologic Hx - stone sandblaster: Hematologic Medical Hx - filenet p8 developer Hx of Blood Transfusion No 04/14/25 13:10 Hx of Transfusion in last 3 No 04/14/25 13:10 Months Date of Last Transfusion (if within last 3 months) Ever experience any problems No 04/14/25 13:10 with transfusion(s)? Specify any problems Hx of Preganancy in last 3 N/A 04/14/25 13:10 Months Nurse Filling Out Transfusion VCHRISTIN 04/14/25 13:10 & Questions: Date: 04/14/25 04/14/25 13:10 Time: 13:11 04/14/25 13:10 Patient unable to answer at this time (ie. confused, unrespo /Reproduction History /Reproductive History - stone sandblaster: /Reproductive Hx- stone sandblaster Hx Now No 04/14/25 13:10 Gestational Age (in weeks): EDC: Hx Hx Para Hx Section SAB No 04/14/25 13:10 Active Medications Active Medications: Current Medications Generic Name Dose Route Start Last Admin Trade Name Freq PRN Reason Stop Dose Admin Clindamycin Phosphate 900 mg in 50 mls @ 75 mls/hr 04/28/25 11:00 Cleocin IV 04/28/25 11:39 INTRAOP ONE Lactated Ringer's 1,000 mls @ 15 mls/hr 04/28/25 09:45 04/28/25 09:45 IV 15 mls/hr .Q48H JESSICA Administration PFSH Medical History Wears glasses Alcohol use Excessive bleeding Back pain Gastric reflux Former smoker Shortness of breath on exertion History of echocardiogram History of stress test Hypertension Cardiology follow-up encounter Chest pain Umbilical hernia High cholesterol Heart murmur Arthritis Back problem Heart disease Home Medications ?Medication ?Instructions ?Recorded ?Last Taken ?Type aspirin 81 mg tablet,delayed 81 mg PO QDAY 03/21/25 04/22/25 History release atorvastatin 40 mg tablet 40 mg PO QDAY 03/21/25 03/20/25 History clopidogrel 75 mg tablet 75 mg PO QDAY 03/21/25 04/22/25 History evolocumab 140 mg/mL subcutaneous 140 mg subcut .COMPLEX 03/21/25 04/25/25 History pen injector (Rupinder Spencer) famotidine 40 mg tablet 40 mg PO QHS 03/21/25 03/20/25 History metoprolol succinate 25 mg 25 mg PO BID 03/21/25 04/28/25 History tablet,extended release 24 hr pantoprazole 40 mg tablet,delayed 40 mg PO DAILY abdominal pain 03/21/25 04/28/25 History release sildenafil 100 mg tablet 50 - 100 mg PO QDAY PRN sexual 03/21/25 Unknown History activity Allergy/AdvReac Type Severity Reaction Status Date / Time celecoxib (From Celebrex) Allergy UNKNOWN Verified 04/28/25 09:39 Penicillins Allergy Unknown Verified 04/28/25 09:39 Family History Father Heart disease Cancer esophageal Surgical History (Updated 04/28/25 @ 10:[address] Yordy Rocha MD) History of cardiac catheterization Hx of surgical procedure S/P carotid endarterectomy S/P spinal surgery S/P aortic valve replacement S/P vasectomy History of heart artery stent Social History Smoking Status: Former smoker alcohol intake: current Review of Systems (Anesthesia) ROS Narrative System reviewed and no additional complaints, except as documented. Physical Exam Resp clear to auscultation bilaterally
[2025-04-28] MEDS: Lactated Ringers 1,000 ML 1000 ML IV (10:15)
[2025-04-28] MEDS: Midazolam 2 MG/2 ML Syringe IV (10:15)
[2025-04-28] MEDS: fentaNYL 100 MCG/2 ML Ampul IV (10:21)
[2025-04-28] MEDS: Lidocaine 1% (5 ml sdv) 5 ML Vial IV (10:21)
[2025-04-28] MEDS: Bupiv/Epi 0.25% 30 ML Vial (10:43)
--- NOTE | 2025-04-28 10:54 | OP.PCM_ITS ---
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 Gas Appliance Servicer: Fern Haley Tasks completed by nursing home assistant: Opening & closing and Retracting Type of Anesthesia: General/Regional RN Documented Start/Stop Times: Operation Date: 04/28/25 11:00 Case Time Into Pre-Op 04/28/25 09:30 Anesthesia Start 04/28/25 10:15 Into Room 04/28/25 10:15 Procedure Start 04/28/25 10:33 Procedure End 04/28/25 10:46 Anesthesia End 04/28/25 10:53 Out of Room 04/28/25 10:53 Procedure Start Time: 10:33 Procedure Stop Time: 10:46 Select all DRAINS/GRAFTS/IMPLANTS that apply: None Estimated Blood Loss: 5 Specimen collected: No Description of surgery: Patient was brought back to the operating room and general anesthesia was induc ed. The abdomen was prepped and draped in usual sterile fashion. A curvilinear incision was marked inferior to the umbilicus and then injected with local anesthetic. Incision was made with a scalpel and deepened to the subcutaneous tissue. Electrocautery was used to dissect the hernia sac away from the umbilical stalk. The contents were reduced. The fascial defect measured 1 cm. It was closed with 3 0-Nurolon sutures this reapproximated the fascia well. The umbilical stalk was tacked to the fascia using a 3-0 Vicryl suture. The skin incision was closed with interrupted 3-0 Vicryl sutures. Steri-Strips and bandages were applied. Patient was taken to PACU in stable condition. Surgical Findings: Small umbilical hernia Complications Complications: No Admit VTE Documentation VTE Mechan Device Prophylaxis: SCD's
--- NOTE | 2025-04-28 10:56 | EX.PCM.DISCH ---
Discharge Instructions Procedure Hernia Diet Discharge Diet: Light diet - advance as tolerated Activity Discharge Activity: May Not Drive (for 2-3 days or while taking narcotic pain meds.) and May Shower (with the bandage in place 1-2 days after surgery.) Lifting Restrictions: 20 pounds for 4 weeks. Additional Activity Instructions:: Climbing stairs is fine, walking is encouraged. Sitting in bed may be uncomfortable. Sitting up using your lateral muscles (sitting up sideways) is usually more comfortable. Do not drive, work heavy equipment of sign legal documents for 24 hours. Pain medications may cause nausea, you should typically eat light foods as you take your pain medications. Pain medications may also cause constipation. If you have difficulty with this, discuss with your doctor. Alternate ibuprofen and Tylenol for pain control, oxycodone for breakthrough pain Resume blood thinners tomorrow Dressing / Incision Call your doctor if your incision/area has: Continuous Slow Oozing, Sudden Increased Bleeding, Increased Pain/ Swelling, Increased Redness and Foul Smelling Discharge Call your doctor if you observe: Fever of 101 or Higher Suture Line Care: Avoid Pulling/Pushing and Avoid Pinching/Bending Remove Dressing in: 3 days (Remove clear bandages in 2 days, remove Steri-Strips in 7 to 10 days.) Cleanse incision/area with: Soap & Water Follow Up Care Please Follow Up With: Jose Lora MD When: Please call to schedule 2 week follow up appointment. [phone] Test Results: Test results from this visit will be discussed in further detail at your follow-up appointment, if applicable. Discharge Plan Admission Attending Provider: Jose Lora Primary Care Provider: MICHELLE MAYER Print Language: Tamazight Discharge Orders/Prescriptions Prescriptions: New oxycodone 5 mg Tablet 5 - 10 mg PO Q4H PRN PRN (Reason: Pain Score 4-10) 5 Days Qty: 14 0RF No Action Repatha SureClick 140 mg/mL pen injector 140 mg subcut .COMPLEX Patient Comments: INJECT 140 MG SUBCUTANEOUS EVERY 2 WEEKS FOR 90 DAYS ROTATE INJECTION SITES Rx Instructions: 140 mg subcutaneously q2w; pantoprazole 40 mg tablet,delayed release (DR/EC) 40 mg PO DAILY sildenafil 100 mg tablet 50 - 100 mg PO QDAY PRN (Reason: sexual activity) metoprolol succinate 25 mg tablet extended release 24 hr 25 mg PO BID famotidine 40 mg tablet 40 mg PO QHS clopidogrel 75 mg tablet 75 mg PO QDAY Patient Comments: stop 5 days prior to procedure-last day 04/22/2025 atorvastatin 40 mg tablet 40 mg PO QDAY aspirin 81 mg tablet,delayed release (DR/EC) 81 mg PO QDAY Patient Comments: STOP 5 DAYS PRIOR TO PROCEDURE Referrals / Follow Up: MICHELLE MAYER, STE[employer]MER OPERATOR[employer] [Primary Care Provider, Family Practice] Disposition Disposition (needs filled in before D/C Order can be placed): Home, Self Care
--- NOTE | 2025-04-28 10:58 | PCM.POST.ANE ---
Anesthesia: Postop Eval I Current Vital Signs Temperature: 97.1 F Pulse Rate: 77 Blood Pressure: 148/99 Respiratory Rate: 20 Pulse Ox: 97 Oxygen Delivery Method: Room Air Assessment Airway patent: Yes Spontaneous unlabored respirations: Yes Mental status: Awake and Calm nausea: No Vomiting: No Anesthesia Complication: No Fluid Hydration Crystalloid volume administer (ml): 800 Total IV fluid infused: 800 Progress Note Anesthesia document: Postop Eval 1 completed: Yes
--- NOTE | 2025-04-28 12:59 | POSTOPAN2_ITS ---
Anesthesia Postop Eval I Sum Postop Eval Completion status Anesthesia document: Postop Eval 1 completed: Yes Anesthesia Postop Eval I Summary Anesthesia Postop Eval I Summary: Anesthesia Postop Eval I: Assessment Summary Airway patent Yes 04/28/25 10:59 [email or web address] Spontaneous unlabored Yes 04/28/25 10:59 [email or web address] respirations Mental status Awake,Calm 04/28/25 10:59 [email or web address] nausea No 04/28/25 10:59 [email or web address] Vomiting No 04/28/25 10:59 [email or web address] Anesthesia Postop Eval I: Fluid Summary Crystalloid volume administer 800 04/28/25 10:59 [email or web address] (ml) Colloids volume administered ( ml) Blood Product volume administered (ml) Total IV fluid infused 800 04/28/25 10:59 [email or web address] Anesthesia Postop Eval I: Summary Notes Anesthesia Complication No 04/28/25 10:59 [email or web address] Anesthesia Complication Comment: Post-operative progress note Anesthesia: Postop Eval II Evaluation Mental status: Awake and Calm Pain Level: 0 nausea: No Vomiting: No Complications Anesthesia Complication: No
--- NOTE | 2025-04-28 12:59 | PCM.POSTANE2 ---
Anesthesia Postop Eval I Sum Postop Eval Completion status Anesthesia document: Postop Eval 1 completed: Yes Anesthesia Postop Eval I Summary Anesthesia Postop Eval I Summary: Anesthesia Postop Eval I: Assessment Summary Airway patent Yes 04/28/25 10:59 [email or web address] Spontaneous unlabored Yes 04/28/25 10:59 INTERNATIONAL [email or web address] [email or web address] respirations Mental status Awake,Calm 04/28/25 10:59 INTERNATIONAL [email or web address] nausea No 04/28/25 10:59 INTERNATIONAL [email or web address] [email or web address] Vomiting No 04/28/25 10:59 INTERNATIONAL [email or web address] [email or web address] Anesthesia Postop Eval I: Fluid Summary Crystalloid volume administer 800 04/28/25 10:59 INTERNATIONAL [email or web address] (ml) Colloids volume administered ( ml) Blood Product volume administered (ml) Total IV fluid infused 800 04/28/25 10:59 INTERNATIONAL [email or web address] Anesthesia Postop Eval I: Summary Notes Anesthesia Complication No 04/28/25 10:59 INTERNATIONAL [email or web address] Anesthesia Complication Comment: Post-operative progress note Anesthesia: Postop Eval II Evaluation Mental status: Awake and Calm Pain Level: 0 nausea: No Vomiting: No Complications Anesthesia Complication: No
== END 2025-04-28 12:50 | disposition home or self-care (01) ==
LOC: SDC 09:22 → AC 09:23
PROVIDERS: PCP Nurse Practitioner Family; Referring Provider Surgery; Visit Provider Surgery
PROC: (CPT 49593; principal; 2025-04-28 10:45)
DX: K42.9 Umbilical hernia without obstruction or gangrene (principal); E78.00 Pure hypercholesterolemia, unspecified; Z87.891 Personal history of nicotine dependence; Z79.01 Long term (current) use of anticoagulants; Z79.02 Long term (current) use of antithrombotics/antiplatelets; K21.9 Gastro-esophageal reflux disease without esophagitis; I10 Essential (primary) hypertension; Z79.82 Long term (current) use of aspirin; Z79.899 Other long term (current) drug therapy
CPT/HCPCS: 49593; 00830; J2405

== ENCOUNTER → 2025-06-03 | Outpatient (CLI) | payer SELFPAY ==
[2025-06-03 14:10] LABS: Cholesterol 68 mg/dL (<=200); Low Density Lipoprotein Calc. 2 mg/dL; Triglycerides 64 mg/dL; Very Low Density Lipoprotein 13 mg/dL (5-40); cholesterol:hdl ratio screen 1.32
== END | disposition home or self-care (01) ==
PROVIDERS: PCP Nurse Practitioner Family; Referring Provider Nurse Practitioner Family; Visit Provider Nurse Practitioner Family
DX: I25.10 Atherosclerotic heart disease of native coronary artery without angina pectoris (principal); I34.0 Nonrheumatic mitral (valve) insufficiency; I73.9 Peripheral vascular disease, unspecified; I77.89 Other specified disorders of arteries and arterioles; I51.7 Cardiomegaly
CPT/HCPCS: 36415; 80061; 93306